=== PATIENT | female | born 1945 | race Caucasian/White ===

== ENCOUNTER 2019-02-14 18:14 | Emergency (ER) | payer OTHER ==
[2019-02-14 19:01] LABS: Urine Blood NEGATIVE (NEG); Urine Glucose NEGATIVE (NEG); Urine Protein NEGATIVE (NEG); Urine Specific Gravity 1.005 (1.005-1.030); Urine pH 5.5 (5.0-7.0)
[2019-02-14] MEDS ORDERED: ALBUTEROL 2.5 MG/3 ML NEB SOL ONE (19:06)
[2019-02-14] MEDS ORDERED: IPRATROPIUM BROM 0.5MG/2.5ML ONE (19:06)
[2019-02-14 19:30] LABS: Absolute Lymphocytes (CBC) 1.6 K/uL (0.7-4.9); Absolute Monocytes 0.4 K/uL (0.1-1.3); Absolute Neutrophil 2.7 K/uL (1.8-8.0); Basophils % 0.8 % (0-1.3); Eosinophils % 1.8 % (0-4.4); Hematocrit 35.1 % (36.0-45.0); Lymphocytes % 33.1 % (15.3-44.8); MPV 9.1 fL (7.6-11.3); Monocytes % 9.1 % (3.3-12.3); RBC Red Blood Cell Count 3.97 M/uL (3.86-4.86)
[2019-02-14 19:31] LABS: Protime INR 1.04
[2019-02-14 19:47] LABS: ALT/SGPT 27 U/L (12-78); AST/SGOT 20 U/L (15-37); Albumin 3.7 g/dL (3.4-5.0); Alkaline Phosphatase 54 U/L (45-117); BUN Blood Urea Nitrogen 20 mg/dL (7-18); Bicarbonate 27 mmol/L (21-32); Bilirubin Direct 0.2 mg/dL (0-0.2); Bilirubin Total 0.5 mg/dL (0.2-1.0); Glucose Level 133 mg/dL (74-106); NT PRO-BNP 2367 pg/mL (<450); Potassium 3.9 mmol/L (3.5-5.1); Sodium Level 141 mmol/L (136-145); Troponin (Emerg Dept Use Only) < 0.02 ng/mL (0.0-0.045)
[2019-02-14] MEDS ORDERED: ASPIRIN 81 MG CHEWABLE TABLET ONE (20:12)
[2019-02-14] MEDS ORDERED: FUROSEMIDE 20 MG/ 2ML VIAL ONE (20:12)
--- NOTE | 2019-02-14 20:22 | ER ---
Nurse's Notes [facility] Name: Naomy Rico Age: 73 yrs Sex: Female : 1945 Arrival Date: 02/14/2019 Time: 18:14 Bed 14 Private MD: Diagnosis: Unspecified combined systolic (congestive) and diastolic (congestive) heart failure Presentation: 02/14 18:20 Presenting complaint: Patient states: For the last week I have been having SOB and la1 intermittent tightness and uncomfortable in the chest. Transition of care: patient was not received from another setting of care. Onset of symptoms was February 14, 2019. Risk Assessment: Do you want to hurt yourself or someone else? Patient reports no desire to harm self or others. Initial Sepsis Screen: Does the patient meet any 2 criteria? No. Patient's initial sepsis screen is negative. Does the patient have a suspected source of infection? No. Patient's initial sepsis screen is negative. Care prior to arrival: None. 18:20 Method Of Arrival: Ambulatory la1 18:22 Acuity: PAUL 3 la1 Triage Assessment: 19:00 General: Appears in no apparent distress. comfortable, Behavior is calm, cooperative, rr5 appropriate for age. Respiratory: Onset: The symptoms/episode began/occurred gradually, the patient has mild shortness of breath. Historical: - Allergies: 18:20 Sulfa (Sulfonamide Antibiotics); la1 18:20 PENICILLINS; la1 - PMHx: 18:20 Hypertension; High Cholesterol; Diabetes - NIDDM; la1 18:21 CHF; la1 - Immunization history:: Adult Immunizations up to date. - Social history:: Smoking status: Patient/guardian denies using tobacco. - Ebola Screening: : No symptoms or risks identified at this time. Screenin:47 Abuse screen: Denies threats or abuse. Denies injuries from another. Nutritional sg screening: No deficits noted. Tuberculosis screening: No symptoms or risk factors identified. Never had TB. Fall Risk None identified. Assessment: 18:45 General: Appears in no apparent distress. well groomed, well developed, well nourished, sg Behavior is calm, cooperative, appropriate for age. Pain: Denies pain. Neuro: Level of Consciousness is awake, alert, obeys commands, Oriented to person, place, time, situation, Speech is normal, Facial symmetry appears normal. Cardiovascular: Capillary refill is brisk in bilateral fingers Patient's skin is warm and dry. Chest pain is denied. Cardiovascular: Heart tones S1 S2 present. Respiratory: Airway is patent Respiratory effort is even, unlabored. GI: Abdomen is round obese, Reports tolerance of fluids, tolerance of food, abd distention. : No signs and/or symptoms were reported regarding the genitourinary system. EENT: No signs and/or symptoms were reported regarding the EENT system. Derm: Skin is pink, warm \T\ dry. Musculoskeletal: Circulation, motion, and sensation intact. Range of motion: intact in all extremities, Swelling. 19:05 General: Appears in no apparent distress. well groomed, Behavior is calm, cooperative, rr5 appropriate for age. Pain: Denies pain. Neuro: Level of Consciousness is awake, alert, obeys commands, Oriented to person, place, time, situation, Appropriate for age Speech is normal, Facial symmetry appears normal. Cardiovascular: Rhythm is sinus bradycardia with PACs. 19:05 Respiratory: Airway is patent Respiratory effort is even, unlabored, Respiratory rr5 pattern is regular, symmetrical. GI: Abdomen is round obese, Reports tolerance of fluids, tolerance of food, abdominal distention. : No signs and/or symptoms were reported regarding the genitourinary system. EENT: No signs and/or symptoms were reported regarding the EENT system. Derm: Skin is pink, warm \T\ dry. Musculoskeletal: Circulation, motion, and sensation intact. Range of motion: intact in all extremities. 19:50 Reassessment: Patient appears in no apparent distress at this time. Patient is alert, rr5 oriented x 3, equal unlabored respirations, skin warm/dry/pink. chatting with her clinical case manager, awaiting for blood results. 20:10 Reassessment: Patient appears in no apparent distress at this time. Patient is alert, rr5 oriented x 3, equal unlabored respirations, skin warm/dry/pink. Ed provider explained the plan of care to patient and clinical case manager, agreed for it. 20:34 Reassessment: Patient appears in no apparent distress at this time. Patient is alert, rr5 oriented x 3, equal unlabored respirations, skin warm/dry/pink. discharge instruction given and explained without complaints made. Vital Signs: 18:20 Pulse 62; Resp 16; Temp 97.5; Pulse Ox 99% on R/A; Weight 84.37 kg; Height 5 ft. 6 in. la1 (167.64 cm); 18:22 BP 188 / 73; la1 19:00 BP 165 / 68; Pulse 57; Resp 20; Pulse Ox 98% on R/A; rr5 19:30 Temp 97.6; Pain 0/10; rr5 20:20 BP 161 / 76; Pulse 58; Resp 17; Temp 98; Pulse Ox 98% on R/A; Pain 0/10; rr5 18:20 Body Mass Index 30.02 (84.37 kg, 167.64 cm) la1 ED Course: 18:14 Patient arrived in ED. rg4 18:20 Arm band placed on left wrist. la1 18:23 Triage completed. la1 18:24 Nathaniel Allison PA is PHCP. cp 18:24 Mario Conrad MD is Attending Physician. cp 18:28 Jacob Cordero, WAQAR is Primary Nurse. sg 18:45 Urine collected: clean catch specimen, clear. sg 19:00 Patient has correct armband on for positive identification. Placed in gown. Bed in low rr5 position. Call light in reach. 19:20 Inserted saline lock: 22 gauge in left forearm, using aseptic technique. Blood rr5 collected. 19:38 XRAY Chest (1 view) In Process Unspecified. EDMS 20:06 Gerard Alexander MD is Attending Physician. cp 20:21 Emerson De Oliveira MD is Referral Physician. cp 20:37 No provider procedures requiring assistance completed. IV discontinued, intact, rr5 bleeding controlled, No redness/swelling at site. Pressure dressing applied. Administered Medications: 19:00 Drug: Albuterol - atroVENT (3:1) (2.5 mg - 0.5 mg) 3 ml Route: Nebulizer; rr5 20:00 Follow up: Response: No adverse reaction rr5 20:20 Drug: Aspirin Chewable Tablet 81 mg Route: PO; rr5 20:40 Follow up: Response: Medication administered at discharge. rr5 20:23 Drug: Lasix 20 mg Route: IVP; Site: left forearm; rr5 20:40 Follow up: Response: Medication administered at discharge. rr5 Outcome: 20:21 Discharge ordered by . cp 20:37 Discharged to home ambulatory, with family. rr5 20:37 Condition: stable 20:37 Discharge instructions given to patient, family, Instructed on discharge instructions, follow up and referral plans. medication usage, Demonstrated understanding of instructions, follow-up care, medications, Prescriptions given X 1. 20:39 Patient left the ED. rr5 Signatures: Dispatcher [employer] EDMS Jacob Cordero RN RN sg Adebayo Newell RN RN la1 Nathaniel Allison PA PA cp Garcia, Rubi rg4 Herberth Pearce RN RN rr5
--- NOTE | 2019-02-14 20:22 | EDPHYS ---
Physician Documentation [facility] Name: Naomy Rico Age: 73 yrs Sex: Female : 1945 Arrival Date: 02/14/2019 Time: 18:14 Bed 14 Private MD: ED Physician Gerard Alexander HPI: 02/14 18:50 This 73 yrs old Female presents to ER via Ambulatory with complaints of cp Breathing Difficulty. 18:50 The patient has shortness of breath with light activity. cp 18:50 Onset: The symptoms/episode began/occurred 1 week(s) ago. cp 18:50 Duration: The symptoms are intermittent. The patient's shortness of breath is cp aggravated by light activity. 18:50 Associated signs and symptoms: Pertinent negatives: chest pain, productive cough, cp diaphoresis, dizziness, fever, vomiting. 18:50 Severity of symptoms: in the emergency department the symptoms are unchanged despite cp home interventions. Historical: - Allergies: 18:20 Sulfa (Sulfonamide Antibiotics); la1 18:20 PENICILLINS; la1 - PMHx: 18:20 Hypertension; High Cholesterol; Diabetes - NIDDM; la1 18:21 CHF; la1 - Immunization history:: Adult Immunizations up to date. - Social history:: Smoking status: Patient/guardian denies using tobacco. - Ebola Screening: : No symptoms or risks identified at this time. ROS: 18:55 Constitutional: Negative for body aches, chills, fever, poor PO intake. cp 18:55 Eyes: Negative for injury, pain, redness, and discharge. cp 18:55 ENT: Negative for drainage from ear(s), ear pain, sore throat, difficulty swallowing. cp 18:55 Cardiovascular: Negative for chest pain, edema, palpitations. 18:55 Respiratory: Positive for shortness of breath, on exertion. Negative for cough, wheezing. 18:55 Abdomen/GI: Negative for abdominal pain, nausea, vomiting, and diarrhea, black/tarry stool, rectal bleeding. 18:55 Skin: Negative for cellulitis, rash. 18:55 Neuro: Negative for altered mental status, headache, numbness, syncope, weakness. 18:55 All other systems are negative. Exam: 18:40 ECG was reviewed by the Attending Physician. cp 19:00 Head/Face: Normocephalic, atraumatic. cp 19:00 Constitutional: The patient appears in no acute distress, alert, awake, non-diaphoretic, non-toxic, well developed, well nourished. 19:00 Eyes: Periorbital structures: appear normal, Conjunctiva: normal, no exudate, no cp injection, Lids and lashes: appear normal, bilaterally. 19:00 ENT: External ear(s): are unremarkable, Ear canal(s): are normal, clear, TM's: cp dullness, bilaterally, Nose: is normal, Mouth: Lips: moist, Oral mucosa: moist, Posterior pharynx: is normal, airway is patent, no erythema, no exudate. 19:00 Neck: ROM/movement: is normal, is supple, without pain, no range of motions limitations, no nuchal rigidity. 19:00 Chest/axilla: Inspection: normal, Palpation: is normal, no crepitus, no tenderness. 19:00 Cardiovascular: Rate: bradycardic, Rhythm: regular, Edema: is not appreciated, JVD: is not appreciated. 19:00 Respiratory: the patient does not display signs of respiratory distress, Respirations: normal, Breath sounds: are clear throughout, no decreased breath sounds, no stridor, no wheezing. 19:00 Abdomen/GI: Inspection: abdomen appears normal, Bowel sounds: normal, in all quadrants, Palpation: abdomen is soft and non-tender, in all quadrants, rebound tenderness, is not appreciated, voluntary guarding, is not appreciated, involuntary guarding, is not appreciated. 19:00 Back: pain, is absent, ROM is normal. 19:00 Skin: cellulitis, is not appreciated, no rash present. 19:00 Neuro: Orientation: to person, place \T\ time. Mentation: is normal, Motor: moves all fours. Vital Signs: 18:20 Pulse 62; Resp 16; Temp 97.5; Pulse Ox 99% on R/A; Weight 84.37 kg; Height 5 ft. 6 in. la1 (167.64 cm); 18:22 BP 188 / 73; la1 19:00 BP 165 / 68; Pulse 57; Resp 20; Pulse Ox 98% on R/A; rr5 19:30 Temp 97.6; Pain 0/10; rr5 20:20 BP 161 / 76; Pulse 58; Resp 17; Temp 98; Pulse Ox 98% on R/A; Pain 0/10; rr5 18:20 Body Mass Index 30.02 (84.37 kg, 167.64 cm) la1 MDM: 18:33 Patient medically screened. cp 19:00 Differential diagnosis: Anxiety Reaction asthma, Bronchitis CHF exacerbation, Chronic cp Obstructive Pulmonary Disease Myocardial Infarction Pneumothorax pulmonary edema, Pulmonary Embolism Unstable Angina. 20:20 Data reviewed: vital signs, nurses notes, lab test result(s), EKG, radiologic studies, cp plain films, and as a result, I will discharge patient. 20:20 Test interpretation: by ED physician or midlevel provider: ECG, plain radiologic cp studies. 20:20 Counseling: I had a detailed discussion with the patient and/or guardian regarding: the cp historical points, exam findings, and any diagnostic results supporting the discharge/admit diagnosis, lab results, radiology results, the need for outpatient follow up, a lock setter, to return to the emergency department if symptoms worsen or persist or if there are any questions or concerns that arise at home. 20:20 ED course: VSS. Oxygen sats remained above 90% during course of visit. Will discharge cp to home for f/u with cardiology. 02/14 18:45 Order name: Urine Dipstick--Ancillary (enter results); Complete Time: 19:44 dh3 02/14 19:50 Interpretation: Normal except: UESTR TRACE. 02/14 18:45 Order name: Basic Metabolic Panel; Complete Time: 19:50 02/14 19:50 Interpretation: Normal except: GLUC 133; BUN 20; GFR 44. 02/14 18:45 Order name: CBC with Diff; Complete Time: 19:44 02/14 19:44 Interpretation: Normal except: HGB 11.4; HCT 35.1. 02/14 18:45 Order name: LFT's; Complete Time: 19:50 02/14 18:45 Order name: Magnesium; Complete Time: 19:50 02/14 18:45 Order name: NT PRO-BNP; Complete Time: 19:50 02/14 19:50 Interpretation: Abnormal: NT PRO-BNP 2367. 02/14 18:45 Order name: PT-INR; Complete Time: 19:44 02/14 18:45 Order name: Troponin (emerg Dept Use Only); Complete Time: 19:50 cp 02/14 18:45 Order name: XRAY Chest (1 view) cp 02/14 18:45 Order name: EKG; Complete Time: 18:47 cp 02/14 18:45 Order name: Cardiac monitoring; Complete Time: 18:49 cp 02/14 18:45 Order name: EKG - Nurse/Tech; Complete Time: 18:49 cp 02/14 18:45 Order name: IV Saline Lock; Complete Time: 19:38 cp 02/14 18:45 Order name: Labs collected and sent; Complete Time: 19:38 cp 02/14 18:45 Order name: O2 Per Protocol; Complete Time: 18:49 cp 02/14 18:45 Order name: O2 Sat Monitoring; Complete Time: 18:49 cp EC:40 Rate is 58 beats/min. Rhythm is regular. MS interval is normal. QRS interval is cp prolonged at 154 msec. QT interval is normal. T waves are Inverted in leads I, aVL. Interpreted by me. Reviewed by me. Administered Medications: 19:00 Drug: Albuterol - atroVENT (3:1) (2.5 mg - 0.5 mg) 3 ml Route: Nebulizer; rr5 20:00 Follow up: Response: No adverse reaction rr5 20:20 Drug: Aspirin Chewable Tablet 81 mg Route: PO; rr5 20:40 Follow up: Response: Medication administered at discharge. rr5 20:23 Drug: Lasix 20 mg Route: IVP; Site: left forearm; rr5 20:40 Follow up: Response: Medication administered at discharge. rr5 Disposition: 02/15 02:18 Co-signature as Attending Physician, Gerard Alexander MD. Disposition: 02/14/19 20:21 Discharged to Home. Impression: Unspecified combined systolic (congestive) and diastolic (congestive) heart failure. - Condition is Stable. - Discharge Instructions: Heart Failure. - Prescriptions for Ativan 0.5 mg Oral Tablet - take 1 tablet by ORAL route every 8 hours As needed; 15 tablet. - Medication Reconciliation Form, Thank You Letter, Antibiotic Education, Prescription Opioid Use form. - Follow up: Emerson De Oliveira MD; When: 2 - 3 days; Reason: Recheck today's complaints. - Problem is an acute exacerbation. - Symptoms have improved. Signatures: Dispatcher [employer] EDMS Adebayo Newell RN RN la1 Nathaniel Allison PA PA cp Starr, Gregory, MD MD gs Herberth Pearce RN RN rr5 Corrections: (The following items were deleted from the chart) 02/14 20:39 20:21 02/14/2019 20:21 Discharged to Home. Impression: Unspecified combined systolic rr5 (congestive) and diastolic (congestive) heart failure. Condition is Stable. Forms are Medication Reconciliation Form, Thank You Letter, Antibiotic Education, Prescription Opioid Use. Follow up: Emerson De Oliveira; When: 2 - 3 days; Reason: Recheck today's complaints. Problem is an acute exacerbation. Symptoms have improved. cp
--- NOTE | 2019-02-14 21:00 | RAD REPORT ---
EXAM DESCRIPTION: RAD - Chest Single View - 02/14/2019 7:37 pm CLINICAL HISTORY: Shortness of breath, chest pain COMPARISON: None. TECHNIQUE: AP portable chest image was obtained 1929 hours . FINDINGS: No focal lung parenchymal process seen. Cardiomegaly is present with mildly prominent vasc ulature. Significant failure or volume overload not suspected. No measurable pleural effusion and no pneumothorax. Bony degenerative changes are present in the right humeral head and bilateral AC joints . No acute aortic findings suspected. IMPRESSION: Cardiomegaly without significant failure or volume overload. No peripheral mass or consolidation.
--- NOTE | 2019-02-15 07:54 | EKG ---
Test Date: 2019-02-14 Test Time: 18:31:55 Ethics Instructor: JAROCHO MEASUREMENT RESULTS: Intervals: Rate: 58 NJ: 166 QRSD: 154 QT: 478 QTc: 469 [place]: P: 67 NJ: 166 QRS: -58 T: 115 INTERPRETIVE STATEMENTS: Sinus bradycardia with premature atrial complexes Possible Left atrial enlargement Left axis deviation Left bundle branch block Abnormal ECG No previous ECG available for comparison Electronically Signed On 02-15-19 07:53:41 CDT by Arian Falcon
== END 2019-02-14 20:39 | disposition home or self-care (01) ==
LOC: ER 18:14
DX: I11.0 Hypertensive heart disease with heart failure (principal); I50.40 Unspecified combined systolic (congestive) and diastolic (congestive) heart failure; E78.00 Pure hypercholesterolemia, unspecified; E11.9 Type 2 diabetes mellitus without complications; Z88.0 Allergy status to penicillin; Z88.2 Allergy status to sulfonamides
CPT/HCPCS: 93005; 85025; 80048; 36415; 83735; 85610; 80076; 81003; 84484; 83880; 71045; 94640; 96374; 99285; J1940

== ENCOUNTER 2019-02-23 13:04 | Emergency (ER) | payer OTHER ==
--- OUTSIDE RECORDS SUMMARY | 2019-02-23 13:06 | XMS REPORT | Summary of Care ---
:1945 Author Organization [facility] [place] Address [address], [address] [place] [address]- Encounter [facility] Encntr_justo(FIN) [id number] Date(s): 12/02/17 - 12/02/17 [facility] [place] [address] [place], [place] [phone] Discharge Disposition: Home or Self Care Attending Physician: Valentin Gupta MD Referring Physician: Valentin Gupta MD Vital Signs Most recent to oldest [Reference Range]: 1 Blood Pressure [90-140/60-90 mmHg] 151/65 mmHg *HI* (12/02/17 10:13 AM) Peripheral Pulse Rate [60-100 bpm] 61 bpm (12/02/17 10:13 AM) Weight 83.182 kg (12/02/17 10:13 AM) Problem List Condition Effective Dates Status Health Status Informant Blocked artery(Confirmed)1 Active Depression(Confirmed) Active Diabetes(Confirmed) Resolved Heart attack(Confirmed) Resolved HTN - Hypertension(Confirmed) Active Hyperlipidemia(Confirmed) Active Hypertension(Confirmed) 11/23/10 Active Meniscus, lateral, 11/23/10 Active derangement(Confirmed) Migraines(Confirmed) Resolved 1Heart Allergies, Adverse Reactions, Alerts Substance Reaction Severity Status penicillins itch Active sulfa drugs anaphylaxis Active itch Medications No Known Medications Results No data available for this section Immunizations No data available for this section Procedures Procedure Date Related Diagnosis Body Site Status Measurement of post-voiding residual 12/02/17 Completed urine and/or bladder capacity by ultrasound, non-imaging UPPP - Uvulopalatopharyngoplasty 1989 Completed Arthroscopy of knee Completed Arthroscopy of knee Completed Cardiac catheterization Completed Hysterectomy Completed Prosthetic replacement of cervical Completed intervertebral disc Repair of rectocele Completed Shoulder repair Completed Social History Social History Type Response Smoking Status Former smoker; Exposure to Tobacco Smoke None; Cigarette Smoking Last 365 Days No; Reg Smoking Cessation Counseling No entered on: 12/02/17 Assessment and Plan No data available for this section
--- OUTSIDE RECORDS SUMMARY | 2019-02-23 13:06 | XMS REPORT | Summary of Care ---
:1945 Author Organization [facility] [place] Address [address] [address]- Encounter [facility] Encntr_justo(FIN) [id number] Date(s): 06/09/15 - 06/09/15 [facility] [place] [id number] [place] [address] Discharge Disposition: Home Attending Physician: Jaguar Sheridan MD Vital Signs No data available for this section Problem List Condition Effective Dates Status Health Status Informant Blocked artery(Confirmed)1 Active Depression(Confirmed) Active Heart attack(Confirmed) Resolved HTN - Hypertension(Confirmed) Active Hyperlipidemia(Confirmed) Active Hypertension(Confirmed) 11/23/10 Active LBB - Left bundle branch(Confirmed) Active Meniscus, lateral, 11/23/10 Active derangement(Confirmed) 1Heart Allergies, Adverse Reactions, Alerts Substance Reaction Severity Status penicillins itch Active sulfa drugs itch Active anaphylaxis Medications No data available for this section Results No data available for this section Immunizations No data available for this section Procedures Procedure Date Related Diagnosis Body Site UPPP - Uvulopalatopharyngoplasty 1989 Arthroscopy of knee Arthroscopy of knee Cardiac catheterization Hysterectomy Prosthetic replacement of cervical intervertebral disc Repair of rectocele Shoulder repair Social History Social History Type Response Assessment and Plan No data available for this section
--- OUTSIDE RECORDS SUMMARY | 2019-02-23 13:07 | XMS REPORT ---
:1945 Author Organization [facility] Address [address] [place] [address] [address] [place] [address] Care Team Providers Name Role Phone Unavailable Unavailable Unavailable Problems This patient has no known problems. Allergies, Adverse Reactions, Alerts This patient has no known allergies or adverse reactions. Medications This patient has no known medications.
--- OUTSIDE RECORDS SUMMARY | 2019-02-23 13:07 | XMS REPORT | Summary of Care ---
:1945 Author Organization [facility] Address [address] [place] [address]- Encounter HQ Encntr_justo(FIN) [id number] Date(s): 11/10/16 - 11/10/16 [facility] [address] [place] [address]- Discharge Disposition: Home or Self Care Attending Physician: Jefry Mobley MD Admitting Physician: Jefry Mobley MD Vital Signs Most recent to oldest 1 2 3 [Reference Range]: Height 167.64 cm (11/10/16 11:01 AM) Temperature Oral [96.4-99.1 98.2 DegF 98.3 DegF 98.3 DegF DegF] (11/10/16 7:44 PM) (11/10/16 3:26 PM) (11/10/16 11:01 AM) Blood Pressure [90-140/60-90 174/89 mmHg 156/72 mmHg 155/76 mmHg mmHg] *HI* *HI* *HI* (11/10/16 7:44 PM) (11/10/16 3:26 PM) (11/10/16 2:35 PM) Respiratory Rate [14-20 18 BRMIN 16 BRMIN 16 BRMIN BRMIN] (11/10/16 7:44 PM) (11/10/16 3:26 PM) (11/10/16 2:35 PM) Peripheral Pulse Rate [60-100 67 bpm 68 bpm 60 bpm bpm] (11/10/16 7:44 PM) (11/10/16 3:26 PM) (11/10/16 2:35 PM) Weight 83.182 kg (11/10/16 11:01 AM) Body Mass Index 29.6 m2 (11/10/16 11:01 AM) Problem List Condition Effective Dates Status Health Status Informant Blocked artery(Confirmed)1 Active Depression(Confirmed) Active Heart attack(Confirmed) Resolved HTN - Hypertension(Confirmed) Active Hyperlipidemia(Confirmed) Active Hypertension(Confirmed) 11/23/10 Active Meniscus, lateral, 11/23/10 Active derangement(Confirmed) 1Heart Allergies, Adverse Reactions, Alerts Substance Reaction Severity Status penicillins itch Active sulfa drugs itch Active anaphylaxis Medications acetaminophen 650 mg, 2 tab, Route: PO, Drug form: TAB, Q4H, Dosing Weight 83.182, kg, PRN Pain 1-3/Temp > 100.4 F, Start date: 11/10/16 13:31:00 DIRECT SELLING COUNSELOR, Duration: 30 day, Stop date: 12/10/16 13:30:00 CDT Notes: Do not exceed 4 gm/day. (Same as: Tylenol) Start Date: 11/10/16 Stop Date: 11/11/16 Status: DiscontinuedamLODIPine 10 mg, 1 tab, Route: PO, Drug form: TAB, Daily, Dosing Weight 83.182, kg, Start date: 11/11/16 9:00:00 DIRECT SELLING COUNSELOR, Duration: 30 day, Stop date: 12/10/16 9:00:00 CDT Notes: (Same as: Norvasc) Start Date: 11/11/16 Stop Date: 11/11/16 Status: CanceledamLODIPine 10 mg oral tablet 10 mg=1 tab, PO, Daily, # 30 tab, 0 Refill(s) Start Date: 11/10/16 Status: Orderedaspirin 324 mg, 4 tab, Route: CHEW, Drug form: CHEWTAB, ONCE, Dosing Weight 83.182, kg, Priority: STAT, Start date: 11/10/16 12:33:00 DIRECT SELLING COUNSELOR, Stop date: 11/10/16 12:33:00 DIRECT SELLING COUNSELOR Notes: Take with food. Start Date: 11/10/16 Stop Date: 11/10/16 Status: Completedciprofloxacin 500 mg oral tablet 500 mg=1 tab, PO, Q12H, X 5 day, # 10 tab, 0 Refill(s), other Start Date: 11/10/16 Stop Date: 11/10/16 Status: Discontinuedciprofloxacin 500 mg oral tablet 500 mg=1 tab, PO, Q12H, X 5 day, # 10 tab, 0 Refill(s) Start Date: 11/10/16 Stop Date: 11/15/16 Status: OrderedclonazePAM 0.5 mg, 1 tab, Route: PO, Drug form: TAB, Bedtime, Dosing Weight 83.182, kg, Start date: 11/10/16 21:00:00 DIRECT SELLING COUNSELOR, Duration: 30 day, Stop date: 12/09/16 21:00: 00 CDT Notes: (Same As: KlonoPIN) Start Date: 11/10/16 Stop Date: 11/11/16 Status: DiscontinuedclonazePAM 0.5 mg oral tablet 0.5 mg=1 tab, PO, Bedtime, 0 Refill(s) Start Date: 11/10/16 Status: OrderedCoreg 6.25 mg, 1 tab, Route: PO, Drug form: TAB, BID, Dosing Weight 83.182, kg, Start date: 11/10/16 17:00:00 DIRECT SELLING COUNSELOR, Duration: 30 day, Stop date: 12/10/16 9:00:00 CDT Notes: (Same As: Coreg) Start Date: 11/10/16 Stop Date: 11/11/16 Status: DiscontinuedCoreg 6.25 mg oral tablet 6.25 mg=1 tab, PO, BID, # 60 tab, 0 Refill(s) Start Date: 11/10/16 Status: OrderedCozaar 100 mg, 1 tab, Route: PO, Drug form: TAB, Daily, Start date: 11/11/16 9:00:00 DIRECT SELLING COUNSELOR, Duration: 30 day,Stop date: 12/10/16 9:00:00 CDT Notes: (Same as: Cozaar) Start Date: 11/11/16 Stop Date: 11/11/16 Status: CanceledCrestor 40 mg, 4 tab, Route: PO, Drug form: TAB, Bedtime, Dosing Weight 83.182, kg, Start date: 11/10/16 21:00:00 DIRECT SELLING COUNSELOR, Duration: 30 day, Stop date: 12/09/16 21:00: 00 CDT Notes: (Same As: Crestor) Start Date: 11/10/16 Stop Date: 11/11/16 Status: DiscontinuedDextrose 50% Syringe 12.5 gm, 25 mL, Route: IVP, Drug Form: INJ, Dosing Weight 83.182, kg, PRN, PRN Blood Glucose Results, Start date: 11/10/16 13:34:00 DIRECT SELLING COUNSELOR, Duration: 30 day, Stop date: 12/10/16 14:33:00 CDT Start Date: 11/10/16 Stop Date: 11/11/16 Status: DiscontinuedDextrose 50% Syringe 25 gm, 50 mL, Route: IVP, Drug Form: INJ, Dosing Weight 83.182, kg, PRN, PRN Blood Glucose Results, Start date: 11/10/16 13:34:00 DIRECT SELLING COUNSELOR, Duration: 30 day, Stop date: 12/10/16 14:33:00 CDT Start Date: 11/10/16 Stop Date: 11/11/16 Status: Discontinueddocusate 100 mg, 1 cap, Route: PO, Drug form: CAP, BID, Dosing Weight 83.182, kg, PRN Constipation, Start date: 11/10/16 13:31:00 DIRECT SELLING COUNSELOR, Duration: 30 day, Stop date: 13:30:00 CDT Notes: (Same as: Colace) (Do Not Crush) Start Date: 11/10/16 Stop Date: 11/11/16 Status: Discontinuedfenofibrate 160 mg oral tablet 160 mg=1 tab, PO, Daily, # 30 tab, 0 Refill(s) Start Date: 11/10/16 Status: Orderedfenofibrate 160 mg oral tablet 145 mg, 1 tab, Route: PO, Drug form: TAB, Daily, Dosing Weight 83.182, kg, Start date: 11/11/16 9:00:00 DIRECT SELLING COUNSELOR, Duration: 30 day, Stop date: 12/10/16 9:00:00 CDT Notes: (Same as: Tricor) Start Date: 11/11/16 Stop Date: 11/11/16 Status: Canceledglucagon 1 mg, Route: IM, Drug form: PDR/INJ, PRN, Dosing Weight 83.182, kg, PRN Blood Glucose Results, Startdate: 11/10/16 13:34:00 DIRECT SELLING COUNSELOR, Duration: 30 day, Stop date: 12/10/16 14:33:00 CDT Start Date: 11/10/16 Stop Date: 11/11/16 Status: Discontinuedhydrochlorothiazide 25 mg oral tablet 25 mg, 1 tab, Route: PO, Drug form: TAB, Daily, Start date: 11/11/16 9:00:00 DIRECT SELLING COUNSELOR , Duration: 30 day, Stop date: 12/10/16 9:00:00 CDT Notes: (Same as: Hydrodiuril) With food. Start Date: 11/11/16 Stop Date: 11/11/16 Status: Canceledhydrochlorothiazide-losartan 25 mg-100 mg oral tablet 1 tab, PO, Daily, # 30 tab, 0 Refill(s) Start Date: 11/10/16 Status: Orderedhydrochlorothiazide-losartan 25 mg-100 mg oral tablet 1 tab, Route: PO, Drug Form: TAB, Dosing Weight 83.182, kg, Daily, Start date: 11/11/16 9:00:00 DIRECT SELLING COUNSELOR,Duration: 30 day, Stop date: 12/10/16 9:00:00 CDT Start Date: 11/11/16 Stop Date: 11/10/16 Status: Deletedinsulin aspart 2 unit, 0.02 mL, Route: SUB-Q, Drug form: SOLN, Bedtime, Dosing Weight 83.182, kg, PRN Blood GlucoseResults, Start date: 11/10/16 13:34:00 DIRECT SELLING COUNSELOR, Duration: 30 day, Stop date: 12/10/16 13:33:00 CDT Notes: Roll in palms of hands gently; Do not shake vigorously. (Same as: NovoLOG)"single patient use only"WASTE: F/P - Black; E - Municipal Trash Bin Stable for 28 days at room temperature.Expires in days from Date Start Date: 11/10/16 Stop Date: 11/11/16 Status: Discontinuedinsulin aspart 1 unit, 0.01 mL, Route: SUB-Q, Drug form: SOLN, Bedtime, Dosing Weight 83.182, kg, PRN Blood GlucoseResults, Start date: 11/10/16 13:34:00 DIRECT SELLING COUNSELOR, Duration: 30 day, Stop date: 12/10/16 13:33:00 CDT Notes: Roll in palms of hands gently; Do not shake vigorously. (Same as: NovoLOG)"single patient use only"WASTE: F/P - Black; E - Municipal Trash Bin Stable for 28 days at room temperature.Expires in days from Date Start Date: 11/10/16 Stop Date: 11/11/16 Status: Discontinuedinsulin aspart 4 unit, 0.04 mL, Route: SUB-Q, Drug form: SOLN, Bedtime, Dosing Weight 83.182, kg, PRN Blood GlucoseResults, Start date: 11/10/16 13:34:00 DIRECT SELLING COUNSELOR, Duration: 30 day, Stop date: 12/10/16 13:33:00 CDT Notes: Roll in palms of hands gently; Do not shake vigorously. (Same as: adflyerLOG)"single patient use only"WASTE: F/P - Black; E - Municipal Trash Bin Stable for 28 days at room temperature.Expires in days from Date Start Date: 11/10/16 Stop Date: 11/11/16 Status: Discontinuedinsulin aspart 3 unit, 0.03 mL, Route: SUB-Q, Drug form: SOLN, Bedtime, Dosing Weight 83.182, kg, PRN Blood GlucoseResults, Start date: 11/10/16 13:34:00 DIRECT SELLING COUNSELOR, Duration: 30 day, Stop date: 12/10/16 13:33:00 CDT Notes: Roll in palms of hands gently; Do not shake vigorously. (Same as: NovoLOG)"single patient use only"WASTE: F/P - Black; E - Municipal Trash Bin Stable for 28 days at room temperature.Expires in days from Date Start Date: 11/10/16 Stop Date: 11/11/16 Status: Discontinuedinsulin aspart 6 unit, 0.06 mL, Route: SUB-Q, Drug form: SOLN, TID-Before Meals, Dosing Weight 83.182, kg, PRN Blood Glucose Results, Start date: 11/10/16 13:34:00 DIRECT SELLING COUNSELOR, Duration: 30 day, Stop date: 12/10/16 13:33:00 CDT Notes: Roll in palms of hands gently; Do not shake vigorously. (Same as: NovoLOG)"single patient use only"WASTE: F/P - Black; E - Municipal Trash Bin Stable for 28 days at room temperature.Expires in days from Date Start Date: 11/10/16 Stop Date: 11/11/16 Status: Discontinuedinsulin aspart 4 unit, 0.04 mL, Route: SUB-Q, Drug form: SOLN, TID-Before Meals, Dosing Weight 83.182, kg, PRN Blood Glucose Results, Start date: 11/10/16 13:34:00 DIRECT SELLING COUNSELOR, Duration: 30 day, Stop date: 12/10/16 13:33:00 CDT Notes: Roll in palms of hands gently; Do not shake vigorously. (Same as: GFS IT)"single patient use only"WASTE: F/P - Black; E - Municipal Trash Bin Stable for 28 days at room temperature.Expires in days from Date Start Date: 11/10/16 Stop Date: 11/11/16 Status: Discontinuedinsulin aspart 10 unit, 0.1 mL, Route: SUB-Q, Drug form: SOLN, TID-Before Meals, Dosing Weight 83.182, kg, PRN Blood Glucose Results, Start date: 11/10/16 13:34:00 DIRECT SELLING COUNSELOR, Duration: 30 day, Stop date: 12/10/16 13:33:00 CDT Notes: Roll in palms of hands gently; Do not shake vigorously. (Same as: GFS IT)"single patient use only"WASTE: F/P - Black; E - Municipal Trash Bin Stable for 28 days at room temperature.Expires in days from Date Start Date: 11/10/16 Stop Date: 11/11/16 Status: Discontinuedinsulin aspart 8 unit, 0.08 mL, Route: SUB-Q, Drug form: SOLN, TID-Before Meals, Dosing Weight 83.182, kg, PRN Blood Glucose Results, Start date: 11/10/16 13:34:00 DIRECT SELLING COUNSELOR, Duration: 30 day, Stop date: 12/10/16 13:33:00 CDT Notes: Roll in palms of hands gently; Do not shake vigorously. (Same as: NovoLOG)"single patient use only"WASTE: F/P - Black; E - Municipal Trash Bin Stable for 28 days at room temperature.Expires in days from Date Start Date: 11/10/16 Stop Date: 11/11/16 Status: Discontinuedinsulin aspart 2 unit, 0.02 mL, Route: SUB-Q, Drug form: SOLN, TID-Before Meals, Dosing Weight 83.182, kg, PRN Blood Glucose Results, Start date: 11/10/16 13:34:00 DIRECT SELLING COUNSELOR, Duration: 30 day, Stop date: 12/10/16 13:33:00 CDT Notes: Roll in palms of hands gently; Do not shake vigorously. (Same as: NovoLOG)"single patient use only"WASTE: F/P - Black; E - Municipal Trash Bin Stable for 28 days at room temperature.Expires in days from Date Start Date: 11/10/16 Stop Date: 11/11/16 Status: DiscontinuedLevaquin 750 mg, Route: IVPB, Drug form: SOLN, ONCE, Dosing Weight 83.182, kg, Start date : 11/10/16 12:19:00 DIRECT SELLING COUNSELOR, Stop date: 11/10/16 12:19:00 DIRECT SELLING COUNSELOR Start Date: 11/10/16 Stop Date: 11/10/16 Status: CompletedLevaquin 750 mg, 150 mL, Route: IV, Drug form: SOLN, [id number], Dosing Weight 83.182, kg, Start date: 11/12/16 12:00:00 DIRECT SELLING COUNSELOR, Duration: 30 day, Stop date: 12/10/16 12:00: 00 CDT Notes: (Same as:Levaquin) Start Date: 11/12/16 Stop Date: 11/11/16 Status: CanceledmetFORMIN 1,000 mg, PO, BID, 0 Refill(s) Start Date: 11/10/16 Status: OrderedmetFORMIN 1,000 mg, 2 tab, Route: PO, Drug form: TAB, BID-Meals, Dosing Weight 83.182, kg , Start date: 11/10/16 17:00:00 DIRECT SELLING COUNSELOR, Duration: 30 day, Stop date: 12/10/16 8:00: 00 CDT Notes: (Same as: Glucophage) Take with meal Start Date: 11/10/16 Stop Date: 11/11/16 Status: DiscontinuedNorco 10/325 oral tablet 1 tab, Route: PO, Drug Form: TAB, Dosing Weight 83.182, kg, Bedtime, Start date : 11/10/16 21:00:00 DIRECT SELLING COUNSELOR, Duration: 30 day, Stop date: 12/09/16 21:00:00 CDT Notes: (Same as: Eccles 325/5) Do not exceed 4gm/day of acetaminophen. Start Date: 11/10/16 Stop Date: 11/11/16 Status: DiscontinuedNorco 10/325 oral tablet 1 tab, PO, Bedtime, 0 Refill(s) Start Date: 11/10/16 Status: OrderedNS (Bolus) IV 1,000 mL, 1,000 ml/hr, Infuse Over: 1 hr, Route: IV, 1,000, Drug form: INJ, ONCE , Priority: STAT, Dosing Weight 83.182 kg, Start date: 11/10/16 11:57:00 DIRECT SELLING COUNSELOR, Duration: 1 doses or times, Stop date: 11/10/16 11:57:00 DIRECT SELLING COUNSELOR Start Date: 11/10/16 Stop Date: 11/10/16 Status: Completedondansetron 4 mg, 2 mL, Route: IVP, Drug form: INJ, Q8H, Dosing Weight 83.182, kg, PRN Nausea & Vomiting, Start date: 11/10/16 13:31:00 DIRECT SELLING COUNSELOR, Duration: 30 day, Stop date: 12/10/16 13:30:00 CDT Notes: (Same as: Zofran) MEDICATION WASTE Product Size: 4 mgProduct Wasted: ___ mg Start Date: 11/10/16 Stop Date: 11/11/16 Status: Discontinuedpotassium chloride 40 mEq, Route: PO, Drug form: ERTAB, ONCE, Dosing Weight 83.182, kg, Priority: STAT, Start date: 11/10/16 12:19:00 DIRECT SELLING COUNSELOR, Stop date: 11/10/16 12:19:00 DIRECT SELLING COUNSELOR Start Date: 11/10/16 Stop Date: 11/10/16 Status: CompletedSaline Flush 0.9% 10 ml, Route: IVP, Drug Form: INJ, Dosing Weight 83.182, kg, PRN, PRN Line Flush , Start date: 11/10/16 13:31:00 DIRECT SELLING COUNSELOR, Duration: 30 day, Stop date: 12/10/16 14:30 :00 CDT Notes: (Same as: BD Posiflush) Start Date: 11/10/16 Stop Date: 11/11/16 Status: Discontinuedsodium chloride 0.9% 1000 ml INJ 1,000 mL 1,000 mL, Rate: 125 ml/hr, Infuse over: 8 hr, Route: IV, Dosing Weight 83.182 kg , Total Volume: 1,000, Start date: 11/10/16 13:31:00 DIRECT SELLING COUNSELOR, Duration: 30 day, Stop date: 12/10/16 13:30:00 CDT Start Date: 11/10/16 Stop Date: 11/11/16 Status: Discontinued Results ELECTROLYTES Most recent to oldest [Reference Range]: 1 2 3 Sodium Lvl [135-145 mEq/L] 141 mEq/L (11/10/16 11:38 AM) Potassium Lvl [3.5-5.1 mEq/L] 3.2 mEq/L *LOW* (11/10/16 11:38 AM) Chloride Lvl [95-109 mEq/L] 101 mEq/L (11/10/16 11:38 AM) CO2 [24-32 mEq/L] 28 mEq/L (11/10/16 11:38 AM) AGAP [10.0-20.0 mEq/L] 15.2 mEq/L (11/10/16 11:38 AM) CHEM PANEL Most recent to oldest [Reference Range]: 1 2 3 Creatinine Lvl [0.50-1.40 mg/dL] 1.30 mg/dL (11/10/16 11:38 AM) eGFR 41 mL/min/1.73m2 1 *NA* (11/10/16 11:38 AM) BUN [7-22 mg/dL] 25 mg/dL *HI* (11/10/16 11:38 AM) B/C Ratio [6-25] 19 (11/10/16 11:38 AM) Glucose Lvl [70-99 mg/dL] 153 mg/dL *HI* (11/10/16 11:38 AM) Total Protein [6.4-8.4 g/dL] 6.9 g/dL (11/10/16 11:38 AM) Albumin Lvl [3.5-5.0 g/dL] 3.8 g/dL (11/10/16 11:38 AM) Globulin [2.7-4.2 g/dL] 3.1 g/dL (11/10/16 11:38 AM) A/G Ratio [0.7-1.6] 1.2 (11/10/16 11:38 AM) Calcium Lvl [8.5-10.5 mg/dL] 9.6 mg/dL (11/10/16 11:38 AM) ALT [0-65 unit/L] 20 unit/L (11/10/16 11:38 AM) AST [0-37 unit/L] 13 unit/L (11/10/16 11:38 AM) Alk Phos [39-136 unit/L] 52 unit/L (11/10/16 11:38 AM) Bili Total [0.2-1.3 mg/dL] 0.5 mg/dL (11/10/16 11:38 AM) Lactic Acid Lvl [0.5-2.2 mMol/L] 2.8 mMol/L *HI* (11/10/16 11:38 AM) 1Result Comment: The eGFR is calculated using the CKD-EPI formula. In most young , healthy individualsthe eGFR will be >90 mL/min/1.73m2. The eGFR declines with age. An eGFR of 60-89 may be normal in some populations, particularly the elderly, for whom the CKD-EPI formula has not been extensively validated. Use of the eGFR is not recommended in the following populations: Individuals with unstable creatinine concentrations, including patients and those with serious co-morbid conditions. Patients with extremes in muscle mass or diet. The data above are obtained from the National Kidney Disease Education Program ( NKDEP) which additionally recommends that when the eGFR is used in patients with extremes of body mass index for purposesof drug dosing, the eGFR should be multiplied by the estimated BMI.CARDIAC ENZYMES Most recent to oldest 1 2 3 [Reference Range]: Total CK [12-191 unit/L] 137 unit/L (11/10/16 11:38 AM) CK MB [0.5-3.6 ng/mL] 0.9 ng/mL (11/10/16 11:38 AM) CK MB Index [0.0-2.5] 0.7 (11/10/16 11:38 AM) Troponin-I [0.00-0.40 ng/mL] <0.02 ng/mL <0.02 ng/mL <0.02 ng/mL (11/10/16 7:51 PM) (11/10/16 3:55 PM) (11/10/16 11:38 AM) BNP [<=100 pg/mL] 233 pg/mL *HI* (11/10/16 11:38 AM) URINE AND STOOL Most recent to oldest [Reference Range]: 1 2 3 UA Turbidity [Clear] Marked *ABN* (11/10/16 11:49 AM) UA Color [Yellow] Dark Yellow *NA* (11/10/16 11:49 AM) UA pH [5.0-8.0] 5.0 (11/10/16 11:49 AM) UA Spec Grav [<=1.030] 1.023 (11/10/16 11:49 AM) UA Glucose [Negative mg/dL] Negative mg/dL *NA* (11/10/16 11:49 AM) UA Blood [Negative] Negative (11/10/16 11:49 AM) UA Ketones [Negative mg/dL] Trace mg/dL *ABN* (11/10/16 11:49 AM) UA Protein [Negative mg/dL] 30 mg/dL *ABN* (11/10/16 11:49 AM) UA Urobilinogen [0.1-1.0 mg/dL] <=1.0 mg/dL *NA* (11/10/16 11:49 AM) UA Bili [Negative] Negative *NA* (11/10/16 11:49 AM) UA Leuk Est [Negative] Moderate *ABN* (11/10/16 11:49 AM) UA Nitrite [Negative] Negative (11/10/16 11:49 AM) UA WBC [0-5 /HPF] 19 /HPF *HI* (11/10/16 11:49 AM) UA RBC [0-2 /HPF] 31 /HPF *HI* (11/10/16 11:49 AM) UA Bacteria [None Seen /HPF] Occasional /HPF *NA* (11/10/16 11:49 AM) UA Sq Epi [Few /LPF] Occasional /LPF *NA* (11/10/16 11:49 AM) UA Hyal Cast [0-2 /LPF] 31 /LPF *HI* (11/10/16 11:49 AM) UA CaOx Olinda [None Seen /HPF] Moderate /HPF *ABN* (11/10/16 11:49 AM) UA Mucus [None Seen /LPF] Few /LPF *NA* (11/10/16 11:49 AM) HEMATOLOGY Most recent to oldest [Reference Range]: 1 2 3 WBC [3.7-10.4 K/CMM] 6.8 K/CMM (11/10/16 11:38 AM) RBC [4.20-5.40 M/CMM] 4.74 M/CMM (11/10/16 11:38 AM) Hgb [12.0-16.0 g/dL] 13.5 g/dL (11/10/16 11:38 AM) Hct [36.0-48.0 %] 41.4 % (11/10/16 11:38 AM) MCV [80.0-98.0 fL] 87.3 fL (11/10/16 11:38 AM) MCH [27.0-31.0 pg] 28.5 pg (11/10/16 11:38 AM) MCHC [32.0-36.0 g/dL] 32.7 g/dL (11/10/16 11:38 AM) RDW [11.5-14.5 %] 14.4 % (11/10/16 11:38 AM) Platelet [133-450 K/CMM] 183 K/CMM (11/10/16 11:38 AM) MPV [7.4-10.4 fL] 8.7 fL (11/10/16 11:38 AM) Segs [45.0-75.0 %] 54.5 % (11/10/16 11:38 AM) Lymphocytes [20.0-40.0 %] 35.7 % (11/10/16 11:38 AM) Monocytes [2.0-12.0 %] 7.9 % (11/10/16 11:38 AM) Eosinophils [0.0-4.0 %] 1.2 % (11/10/16 11:38 AM) Basophils [0.0-1.0 %] 0.7 % (11/10/16 11:38 AM) Segs-Bands # [1.5-8.1 K/CMM] 3.7 K/CMM (11/10/16 11:38 AM) Lymphocytes # [1.0-5.5 K/CMM] 2.4 K/CMM (11/10/16 11:38 AM) Monocytes # [0.0-0.8 K/CMM] 0.5 K/CMM (11/10/16 11:38 AM) Eosinophils # [0.0-0.5 K/CMM] 0.1 K/CMM (11/10/16 11:38 AM) Immunizations No data available for this section Procedures Procedure Date Related Diagnosis Body Site UPPP - Uvulopalatopharyngoplasty 1989 Arthroscopy of knee Arthroscopy of knee Cardiac catheterization Hysterectomy Prosthetic replacement of cervical intervertebral disc Repair of rectocele Shoulder repair Social History Social History Type Response Smoking Status Never smoker; Exposure to Tobacco Smoke None; Cigarette Smoking Last 365 Days No; Reg Smoking Cessation Counseling No Assessment and Plan No data available for this section
--- NOTE | 2019-02-23 15:36 | ER ---
Nurse's Notes [facility] Name: Naomy Rico Age: 73 yrs Sex: Female : 1945 Arrival Date: 02/23/2019 Time: 13:08 Bed 28 Private MD: Diagnosis: Combined systolic (congestive) and diastolic (congestive) heart failure Presentation: 02/23 13:37 Presenting complaint: Patient states: was prescribed lorazepam 0.5 mg Q8H last week iw when she was seen here, is worried because she took her last pill last night and has been having anxiety due to SOB and gasping and she states her BP goes irina high when she tries to do anything, is due to see Dr. De Oliveira on , states the lorazepam has been helping her be able to function. Transition of care: patient was not received from another setting of care. Onset of symptoms was February 23, 2019. Risk Assessment: Do you want to hurt yourself or someone else? Patient reports no desire to harm self or others. Initial Sepsis Screen: Does the patient meet any 2 criteria? No. Patient's initial sepsis screen is negative. Does the patient have a suspected source of infection? No. Patient's initial sepsis screen is negative. Care prior to arrival: None. 13:37 Method Of Arrival: Ambulatory iw 13:37 Acuity: PAUL 3 iw Historical: - Allergies: 13:43 PENICILLINS; iw 13:43 Sulfa (Sulfonamide Antibiotics); iw - Home Meds: 13:48 metformin 1,000 mg Oral tr24 2 tabs once daily [Active]; Crestor 40 mg oral tab 1 tab iw once daily [Active]; fenofibrate 160 mg oral tab 1 tab once daily [Active]; carvedilol 25 mg oral tab 2 times per day [Active]; losartan 50 mg oral tab 1 tab 2 times per day [Active]; clonidine HCl 0.1 mg Oral tab 1/2 tab daily [Active]; clonidine 0.2 mg/24 hr transdermal ptwk 1 patch once wkly [Active]; hydrocodone-acetaminophen 7.5-300 mg Oral tab 1 tab every 6 hours [Active]; ropinirole 1 mg oral tab 1 tab [Active]; - PMHx: 13:43 CHF; Diabetes - NIDDM; High Cholesterol; Hypertension; iw 13:48 restless leg; iw - PSHx: 13:48 Appendectomy; Hysterectomy; UPPP; iw - Immunization history:: Adult Immunizations unknown. - Ebola Screening: : Patient negative for fever greater than or equal to 101.5 degrees Fahrenheit, and additional compatible Ebola Virus Disease symptoms Patient denies exposure to infectious person Patient denies travel to an Ebola-affected area in the 21 days before illness onset No symptoms or risks identified at this time. - Social history:: Smoking status: unknown. Screenin:45 Abuse screen: Denies threats or abuse. Denies injuries from another. Nutritional rv screening: No deficits noted. Tuberculosis screening: No symptoms or risk factors identified. Fall Risk None identified. Assessment: 15:45 General: Appears in no apparent distress. comfortable, Behavior is calm, cooperative. rv Pain: Denies pain. Neuro: Level of Consciousness is awake, alert, obeys commands, Oriented to person, place, time, situation, Reports. Cardiovascular: Patient's skin is warm and dry. Respiratory: Airway is patent. GI: No signs and/or symptoms were reported involving the gastrointestinal system. : No signs and/or symptoms were reported regarding the genitourinary system. EENT: No signs and/or symptoms were reported regarding the EENT system. Derm: Skin is intact. Musculoskeletal: No signs and/or symptoms reported regarding the musculoskeletal system. Vital Signs: 13:48 BP 163 / 66; Pulse 52; Resp 16; Temp 98.5(TE); Pulse Ox 97% on R/A; iw 15:47 BP 168 / 96; Pulse 55; Resp 16; Temp 98.4; Pulse Ox 98% ; rv ED Course: 13:08 Patient arrived in ED. mr 13:43 Triage completed. iw 14:53 Silvestre Gann, WAQAR is Primary Nurse. rv 14:58 Santhosh Aguilar MD is Attending Physician. ps1 15:15 Arm band placed on. iw 15:35 Emerson De Oliveira MD is Referral Physician. ps1 15:46 Patient has correct armband on for positive identification. Bed in low position. Call rv light in reach. Pulse ox on. NIBP on. 15:46 No provider procedures requiring assistance completed. Patient did not have IV access rv during this emergency room visit. Administered Medications: No medications were administered Outcome: 15:36 Discharge ordered by . ps1 15:47 Discharged to home ambulatory. rv 15:47 Condition: good 15:47 Discharge instructions given to patient, Instructed on discharge instructions, follow up and referral plans. Demonstrated understanding of instructions, follow-up care. 15:48 Patient left the ED. iw Signatures: Marietta Downing Irene, RN RN iw Santhosh Aguilar MD MD ps1 Silvestre Gann RN RN rv
--- NOTE | 2019-02-23 15:36 | EDPHYS ---
Physician Documentation [facility] Name: Naomy Rico Age: 73 yrs Sex: Female : 1945 Arrival Date: 02/23/2019 Time: 13:08 Bed 28 Private MD: ED Physician Santhosh Aguilar HPI: 02/23 15:30 This 73 yrs old Female presents to ER via Ambulatory with complaints of ps1 Medication Refill. 15:30 patient was having increased anxiety over her heart failure symptoms of shortness of ps1 breath. Patient was rx xanax on previous evaluation in the ED. Patient has taken all of her medications and has an appointment with Dr. De Oliveira for reevaluation of her HF this week. Patient is not in distress. She has not increased her lasix dose and thought that she needed a refill to prevent her from having symptoms. She does not have edema, speaking in full sentences, and not in distress. . Historical: - Allergies: 13:43 PENICILLINS; iw 13:43 Sulfa (Sulfonamide Antibiotics); iw - Home Meds: 13:48 metformin 1,000 mg Oral tr24 2 tabs once daily [Active]; Crestor 40 mg oral tab 1 tab iw once daily [Active]; fenofibrate 160 mg oral tab 1 tab once daily [Active]; carvedilol 25 mg oral tab 2 times per day [Active]; losartan 50 mg oral tab 1 tab 2 times per day [Active]; clonidine HCl 0.1 mg Oral tab 1/2 tab daily [Active]; clonidine 0.2 mg/24 hr transdermal ptwk 1 patch once wkly [Active]; hydrocodone-acetaminophen 7.5-300 mg Oral tab 1 tab every 6 hours [Active]; ropinirole 1 mg oral tab 1 tab [Active]; - PMHx: 13:43 CHF; Diabetes - NIDDM; High Cholesterol; Hypertension; iw 13:48 restless leg; iw - PSHx: 13:48 Appendectomy; Hysterectomy; UPPP; iw - Immunization history:: Adult Immunizations unknown. - Ebola Screening: : Patient negative for fever greater than or equal to 101.5 degrees Fahrenheit, and additional compatible Ebola Virus Disease symptoms Patient denies exposure to infectious person Patient denies travel to an Ebola-affected area in the 21 days before illness onset No symptoms or risks identified at this time. - Social history:: Smoking status: unknown. ROS: 15:30 Constitutional: Negative for fever, chills, and weight loss, Eyes: Negative for injury, ps1 pain, redness, and discharge, Cardiovascular: Negative for chest pain, palpitations, and edema, Respiratory: Negative for shortness of breath, cough, wheezing, and pleuritic chest pain, Abdomen/GI: Negative for abdominal pain, nausea, vomiting, diarrhea, and constipation, MS/Extremity: Negative for injury and deformity, Skin: Negative for injury, rash, and discoloration, Neuro: Negative for headache, weakness, numbness, tingling, and seizure. 15:30 Psych: Positive for anxiety. Exam: 15:30 Constitutional: This is a well developed, well nourished patient who is awake, alert, ps1 and in no acute distress. Head/Face: Normocephalic, atraumatic. Eyes: Pupils equal round and reactive to light, extra-ocular motions intact. Lids and lashes normal. Conjunctiva and sclera are non-icteric and not injected. ENT: Nares patent. No nasal discharge, no septal abnormalities noted. Tympanic membranes are normal and external auditory canals are clear. Oropharynx with no redness, swelling, or masses, exudates, or evidence of obstruction, uvula midline. Mucous membranes moist. Chest/axilla: Normal chest wall appearance and motion. Nontender with no deformity. No lesions are appreciated. Cardiovascular: Regular rate and rhythm. No gallops, murmurs, or rubs. Normal PMI, no JVD. No pulse deficits. Respiratory: Lungs have equal breath sounds bilaterally, clear to auscultation and percussion. No rales, rhonchi or wheezes noted. No increased work of breathing, no retractions or nasal flaring. Abdomen/GI: Soft, non-tender, with normal bowel sounds. No distension or tympany. No guarding or rebound. No evidence of tenderness throughout. Skin: Warm, dry with normal turgor. Normal color with no rashes, no lesions, and no evidence of cellulitis. MS/ Extremity: Pulses equal, no cyanosis. Neurovascular intact. Full, normal range of motion. Neuro: Awake and alert, GCS 15, oriented to person, place, time, and situation. Cranial nerves II-XII grossly intact. Sensory grossly intact. Vital Signs: 13:48 BP 163 / 66; Pulse 52; Resp 16; Temp 98.5(TE); Pulse Ox 97% on R/A; iw 15:47 BP 168 / 96; Pulse 55; Resp 16; Temp 98.4; Pulse Ox 98% ; rv MDM: 15:29 Patient medically screened. ps1 15:30 Data reviewed: vital signs, nurses notes, and as a result, I will discharge patient. ED ps1 course: patient does not need to be on Xanax for symptoms of HF. I instructed her to increase her Lasix until her appointment with Dr. De Oliveira in a couple of days. Otherwise, she needs to get these medications filled by Dr. Bishop or her PCP but I strongly believe that it is unnecessary and will likely contribute to polypharmacy and falls .. Administered Medications: No medications were administered Disposition: 02/23/19 15:36 Discharged to Home. Impression: Combined systolic (congestive) and diastolic (congestive) heart failure. - Condition is Stable. - Discharge Instructions: Heart Failure, [id number]. - Medication Reconciliation Form, Thank You Letter, Antibiotic Education, Prescription Opioid Use form. - Follow up: Emerson De Oliveira MD; When: As needed; Reason: Further diagnostic work-up, Recheck today's complaints, Continuance of care, Re-evaluation by your physician. Follow up: Emergency Department; When: As needed; Reason: Trouble breathing, Worsening of condition. - Problem is chronic. - Symptoms are unchanged. - Notes: Double your lasix dose for next three days. Signatures: Wilma Cota RN RN iw Santhosh Aguilar MD MD ps1 Silvestre Gann RN RN rv Corrections: (The following items were deleted from the chart) 15:48 15:36 02/23/2019 15:36 Discharged to Home. Impression: Combined systolic (congestive) iw and diastolic (congestive) heart failure. Condition is Stable. Forms are Medication Reconciliation Form, Thank You Letter, Antibiotic Education, Prescription Opioid Use. Follow up: Emerson De Oliveira; When: As needed; Reason: Further diagnostic work-up, Recheck today's complaints, Continuance of care, Re-evaluation by your physician. Follow up: Emergency Department; When: As needed; Reason: Trouble breathing, Worsening of condition. Problem is chronic. Symptoms are unchanged. ps1
== END 2019-02-23 15:48 | disposition home or self-care (01) ==
LOC: ER 13:04
DX: I50.40 Unspecified combined systolic (congestive) and diastolic (congestive) heart failure (principal); I10 Essential (primary) hypertension; E11.9 Type 2 diabetes mellitus without complications; Z88.0 Allergy status to penicillin; Z88.2 Allergy status to sulfonamides
CPT/HCPCS: 99283

== ENCOUNTER 2019-04-09 10:30 | Emergency (ER) | payer OTHER ==
--- OUTSIDE RECORDS SUMMARY | 2019-04-09 10:34 | XMS REPORT ---
:1945 [facility] Address [address] [place] [address] Dr. Pickard. [address] [place] [id number] Care Team Providers Name Role Phone Unavailable Unavailable Unavailable Problems This patient has no known problems. Allergies, Adverse Reactions, Alerts This patient has no known allergies or adverse reactions. Medications This patient has no known medications.
--- OUTSIDE RECORDS SUMMARY | 2019-04-09 10:34 | XMS REPORT | Continuity of Care Document ---
:1945 Author Organization [facility] Streamfile Information [place] Care Team Providers Name Role Phone [facility] [place] Unavailable Unavailable Problems Problem Status Onset Classification Date Comments Source Date Reported DIZZING Active 11/10/[address] UTI Active 11/10/[address] Hypertension Active 11/24/19 Problem 03/10/2018 Medical 11 Group, [facility] Bhavana,[facility] Meniscus, Active 11/24/19 Problem 03/10/2018 Medical lateral, 11 Group, derangement OPID Bhavana,[facility] 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 [facility], [facility] Bhavana,[facility] Depression Active Problem 03/10/2018 Medical Group, OPID Bhavana,[facility] Diabetes Resolved Problem 03/10/2018 Medical Group Heart attack Resolved Problem 03/10/2018 Medical Group, OPID Bhavana,[facility] HTN - Active Problem 03/10/2018 [facility] Hypertension Group, OPID Bhavana,[facility] Hyperlipidemia Active Problem 03/10/2018 Medical Group, OPID Bhavana,[facility] Migraines Resolved Problem 03/10/2018 Medical Group Medications Medication Details Route Status Patient Ordering Order Source Instructions Provider Date Levaquin 750 mg, 150 No Longer 11/12/ Bhavana mL, Route: Active 2016 [facility] IV, Drug form: SOLN, [id number], Dosing Weight 83.182, kg, Start date: 11/12/16 12:00:00 ALLOPATHIC DOCTOR, Duration: 30 day, Stop date: 12/10/16 12:00:00 CDTNotes: (Same as:Levaquin) Cozaar 100 mg, 1 Inactive 11/11/ Bhavana tab, Route: 2017 [facility] PO, Drug form: TAB, Daily, Start date: 11/11/16 9:00:00 ALLOPATHIC DOCTOR, Duration: 30 day, Stop date: 12/10/16 9:00:00 CDTNotes: (Same as: Cozaar) Hydrochlorothiazide 1 tab, No Longer Bhavana 25 MG / Losartan Route: PO, Active 2016 [facility] Potassium 100 MG Oral Drug Form: Tablet TAB, Dosing Weight 83.182, kg, Daily, Start date: 11/11/16 9:00:00 ALLOPATHIC DOCTOR, Duration: 30 day, Stop date: 12/10/16 9:00:00 CDT Fenofibrate 160 MG 145 mg, 1 Inactive Bhavana Oral Tablet tab, Route: 2017 [facility] PO, Drug form: TAB, Daily, Dosing Weight 83.182, kg, Start date: 11/11/16 9:00:00 ALLOPATHIC DOCTOR, Duration: 30 day, Stop date: 12/10/16 9:00:00 CDTNotes: (Same as: Tricor) Amlodipine 10 mg, 1 Inactive Bhavana tab, Route: 2017 Hospital PO, Drug form: TAB, Daily, Dosing Weight 83.182, kg, Start date: 11/11/16 9:00:00 ALLOPATHIC DOCTOR, Duration: 30 day, Stop date: 12/10/16 9:00:00 CDTNotes: (Same as: Norvasc) hydrochlorothiazide 25 mg, 1 Inactive Bhavana 25 mg oral tablet tab, Route: 2017 Hospital PO, Drug form: TAB, Daily, Start date: 11/11/16 9:00:00 ALLOPATHIC DOCTOR, Duration: 30 day, Stop date: 12/10/16 9:00:00 CDTNotes: (Same as: Hydrodiuril) With food. Crestor 40 mg, 4 No Longer Bhavana tab, Route: Active 2017 [facility] PO, Drug form: TAB, Bedtime, Dosing Weight 83.182, kg, Start date: 11/10/16 21:00:00 ALLOPATHIC DOCTOR, Duration: 30 day, Stop date: 12/09/16 21:00:00 CDTNotes: (Same As: Crestor) Clonazepam 0.5 mg, 1 No Longer Bhavana tab, Route: Active 2016 [facility] PO, Drug form: TAB, Bedtime, Dosing Weight 83.182, kg, Start date: 11/10/16 21:00:00 ALLOPATHIC DOCTOR, Duration: 30 day, Stop date: 12/09/16 21:00:00 CDTNotes: (Same As: KlonoPIN) Acetaminophen 325 MG 1 tab, No Longer Bhavana / Hydrocodone Route: PO, Active [address] [place] [address] Bitartrate 10 MG Oral Drug Form: Tablet [Friedheim 10/325] TAB, Dosing Weight 83.182, kg, Bedtime, Start date: 11/10/16 21:00:00 ALLOPATHIC DOCTOR, Duration: 30 day, Stop date: 12/09/16 21:00:00 CDTNotes: (Same as: Friedheim 325/5) Do not exceed 4gm/day of acetaminophe n. ciprofloxacin 500 mg 500 mg=1 Active Bhavana oral tablet tab, PO, [address] [place] [address] Q12H, X 5 day, # 10 tab, 0 Refill(s) Metformin 1,000 mg, 2 No Longer Bhavana tab, Route: Active [address] [place] [address] PO, Drug form: TAB, BID-Meals, Dosing Weight 83.182, kg, Start date: 11/10/16 17:00:00 ALLOPATHIC DOCTOR, Duration: 30 day, Stop date: 12/10/16 8:00:00 CDTNotes: (Same as: Glucophage) Take with meal Coreg 6.25 mg, 1 No Longer Bhavana tab, Route: Active [address] [place] [address] PO, Drug form: TAB, BID, Dosing Weight 83.182, kg, Start date: 11/10/16 17:00:00 ALLOPATHIC DOCTOR, Duration: 30 day, Stop date: 12/10/16 9:00:00 CDTNotes: (Same As: Coreg) ciprofloxacin 500 mg 500 mg=1 Inactive Bhavana oral tablet tab, PO, 2017 Hospital Q12H, X 5 day, # 10 tab, 0 Refill(s), other clonazePAM 0.5 mg 0.5 mg=1 Active Bhavnaa oral tablet tab, PO, 2017 Hospital Bedtime, 0 Refill(s) Hydrochlorothiazide 1 tab, PO, Active Bhavana 25 MG / Losartan Daily, # 30 2017 [facility] Potassium 100 MG Oral tab, 0 Tablet Refill(s) Metformin 1,000 mg, Active Bhavana PO, BID, 0 2017 Hospital Refill(s) Fenofibrate 160 MG 160 mg=1 Active Bhavana Oral Tablet tab, PO, 2017 Hospital Daily, # 30 tab, 0 Refill(s) carvedilol 6.25 MG 6.25 mg=1 Active Bhavana Oral Tablet [Coreg] tab, PO, 2017 Hospital BID, # 60 tab, 0 Refill(s) Acetaminophen 325 MG 1 tab, PO, Active Bhavana / Hydrocodone Bedtime, 0 2017 Hospital Bitartrate 10 MG Oral Refill(s) Tablet [Friedheim 10/325] amLODIPine 10 mg oral 10 mg=1 tab, Active Bhavana tablet PO, Daily, # 2017 Hospital 30 tab, 0 Refill(s) Insulin, Aspart, 2 unit, 0.02 No Longer Bhavana Human mL, Route: Active 2016 [facility] SUB-Q, Drug form: SOLN, Bedtime, Dosing Weight 83.182, kg, PRN Blood Glucose Results, Start date: 11/10/16 13:34:00 ALLOPATHIC DOCTOR, Duration: 30 day, Stop date: 12/10/16 13:33:00 CDTNotes: Roll in palms of hands gently; Do not shake vigorously. (Same as: NovoLOG) "single patient use only" WASTE: F/P - Black; E - Municipal Trash Bin Stable for 28 days at room temperature. Expires in days from __Date Dextrose 50% Syringe 12.5 gm, 25 No Longer Bhavana mL, Route: Active 2016 Hospital IVP, Drug Form: INJ, Dosing Weight 83.182, kg, PRN, PRN Blood Glucose Results, Start date: 11/10/16 13:34:00 ALLOPATHIC DOCTOR, Duration: 30 day, Stop date: 12/10/16 14:33:00 CDT Glucagon 1 mg, Route: No Longer Bhavana IM, Drug Active 2016 Hospital form: PDR/INJ, PRN, Dosing Weight 83.182, kg, PRN Blood Glucose Results, Start date: 11/10/16 13:34:00 ALLOPATHIC DOCTOR, Duration: 30 day, Stop date: 12/10/16 14:33:00 CDT Sodium Chloride 0.154 1,000 mL, No Longer Bhavana MEQ/ML Injectable Rate: [address] [place] [address] Solution ml/hr, Infuse over: 8 hr, Route: IV, Dosing Weight 83.182 kg, Total Volume: 1,000, Start date: 11/10/16 13:31:00 ALLOPATHIC DOCTOR, Duration: 30 day, Stop date: 12/10/16 13:30:00 CDT Saline Flush 0.9% 10 ml, No Longer Bhavana Route: IVP, [address] Drug Form: INJ, Dosing Weight 83.182, kg, PRN, PRN Line Flush, Start date: 11/10/16 13:31:00 ALLOPATHIC DOCTOR, Duration: 30 day, Stop date: 12/10/16 14:30:00 CDTNotes: (Same as: BD Posiflush) Docusate 100 mg, 1 No Longer Bhavana cap, Route: [address] PO, Drug form: CAP, BID, Dosing Weight 83.182, kg, PRN Constipation , Start date: 11/10/16 13:31:00 ALLOPATHIC DOCTOR, Duration: 30 day, Stop date: 12/10/16 13:30:00 CDTNotes: (Same as: Colace) (Do Not Crush) Ondansetron 4 mg, 2 mL, No Longer Bhavana Route: IVP, [address] Drug form: INJ, Q8H, Dosing Weight 83.182, kg, PRN Nausea & Vomiting, Start date: 11/10/16 13:31:00 ALLOPATHIC DOCTOR, Duration: 30 day, Stop date: 12/10/16 13:30:00 CDTNotes: (Same as: Zofran) MEDICATION WASTE Product Size: 4 mg Product Wasted: ___ mg Acetaminophen 650 mg, 2 No Longer Bhavana tab, Route: Active [address] [place] [address] PO, Drug form: TAB, Q4H, Dosing Weight 83.182, kg, PRN Pain 1-3/Temp > 100.4 F, Start date: 11/10/16 13:31:00 ALLOPATHIC DOCTOR, Duration: 30 day, Stop date: 12/10/16 13:30:00 CDTNotes: Do not exceed 4 gm/day. (Same as: Tylenol) Aspirin 324 mg, 4 Inactive Bhavana tab, Route: 2017 [facility] CHEW, Drug form: CHEWTAB, ONCE, Dosing Weight 83.182, kg, Priority: STAT, Start date: 11/10/16 12:33:00 ALLOPATHIC DOCTOR, Stop date: 11/10/16 12:33:00 CSTNotes: Take with food. potassium chloride 40 mEq, Inactive Bhavana Route: PO, 2016 [facility] Drug form: ERTAB, ONCE, Dosing Weight 83.182, kg, Priority: STAT, Start date: 11/10/16 12:19:00 ALLOPATHIC DOCTOR, Stop date: 11/10/16 12:19:00 ALLOPATHIC DOCTOR Levaquin 750 mg, Inactive Bhavana Route: IVPB, 2016 [facility] Drug form: SOLN, ONCE, Dosing Weight 83.182, kg, Start date: 11/10/16 12:19:00 ALLOPATHIC DOCTOR, Stop date: 11/10/16 12:19:00 ALLOPATHIC DOCTOR Sodium Chloride 0.154 1,000 mL, Inactive Bhavana MEQ/ML Injectable 1,000 ml/hr, 2017 [facility] Solution Infuse Over: 1 hr, Route: IV, 1,000, Drug form: INJ, ONCE, Priority: STAT, Dosing Weight 83.182 kg, Start date: 11/10/16 11:57:00 ALLOPATHIC DOCTOR, Duration: 1 doses or times, Stop date: 11/10/16 11:57:00 ALLOPATHIC DOCTOR Allergies, Adverse Reactions, Alerts Substance Category Reaction Severity Reaction Status Date Comments Source type Reported penicillins Assertion itch Drug Active allergy [facility] sulfa drugs Assertion anaphylaxi Drug Active s, itch allergy [facility] Immunizations No Data Provided for This Section Results Order Name Results Value Reference Date Interpretation Comments Source Range CARDIAC Troponin-I <0.02 0.00 - 11/11 Bhavana ENZYMES 0.40 /2016 [facility] CARDIAC Troponin-I <0.02 0.00 - 11/10 Bhavana ENZYMES 0.40 [facility] URINE AND UA <=1.0 0.1 - 1.0 11/10 Bhavana STOOL Urobilinogen mg/dL /2016 Hospital URINE AND UA Hyal Cast 31 0 - 2 11/10 Bhavana STOOL /2016 Hospital URINE AND UA Sq Epi Occasional Few /LPF 11/10 Bhavana STOOL /LPF /2016 Hospital URINE AND UA Leuk Est Moderate Negative 11/10 Bhavana STOOL *ABN* /2016 Hospital (11/10/16 11:49 AM) URINE AND UA WBC 19 0 - 5 11/10 [facility] STOOL Hospital URINE AND UA Nitrite Negative Negative 11/10 [facility]OOL (11/10/16 11:49 AM) Hospital URINE AND UA Bacteria Occasional None Seen 11/10 Bhavana STOOL /HPF /HPF /2016 Hospital URINE AND UA RBC 31 0 - 2 11/10 [facility] STOOL Hospital URINE AND UA CaOx Olinda Moderate None Seen 11/10 Bhavana STOOL /HPF /HPF /2016 Hospital URINE AND UA Mucus Few /LPF None Seen 11/10 Bhavana STOOL /LPF Hospital URINE AND UA Turbidity Marked Clear 11/10 Bhavana STOOL *ABN* /2016 [facility] (11/10/16 11:49 AM) URINE AND UA pH 5.0 5.0 - 8.0 11/10 [facility] STOOL Hospital URINE AND UA Spec Grav 1.023 <=1.030 11/10 [facility] STOOL Hospital URINE AND UA Protein 30 mg/dL Negative 11/10 [facility] STOOL mg/dL Hospital URINE AND UA Blood Negative Negative 11/10 [facility]OOL (11/10/16 11:49 AM) Hospital URINE AND UA Glucose Negative Negative 11/10 Bhav[facility] STOOL mg/dL mg/dL Hospital URINE AND UA Bili Negative Negative 11/10 Bhavana STOOL *NA* /2016 [facility] (11/10/16 11:49 AM) URINE AND UA Ketones Trace Negative 11/10 Bhavana STOOL mg/dL mg/dL /2016 Hospital URINE AND UA Color Dark Yellow Yellow 11/10 Bhavana STOOL *NA* /2016 [facility] (11/10/16 11:49 AM) CARDIAC BNP 233 <=100 11/10 Bhavana ENZYMES pg/mL /2016 [facility] CARDIAC CK MB 0.9 0.5 - 3.6 11/10 Bhavana ENZYMES [facility] CARDIAC Troponin-I <0.02 0.00 - 11/10 Bhav[facility] ENZYMES 0.40 Hospital CARDIAC Total CK 137 12 - 191 11/10 [facility] ENZYMES Hospital CARDIAC CK MB Index 0.7 0.0 - 2.5 11/10 ENZYMES Hospital CHEM PANEL Lactic Acid 2.8 0.5 - 2.2 11/10l Hospital CHEM PANEL eGFR 41 11/10 Result Comment: The Hospital eGFR is calculated using the CKD-EPI formula. In most young, healthy individuals the eGFR will be >90 mL/min/1.73m2 . The eGFR declines with age. An eGFR of 60-89 may be normal in some populations, particularly the elderly, for whom the CKD-EPI formula has not been extensively validated. Use of the eGFR is not recommended in the following populations:< br/>
Shanta viduals with unstable creatinine concentration s, including patients and those with serious co-morbid conditions.<b r/>
Patie nts with extremes in muscle mass or diet.

The data above are obtained from the National Kidney Disease Education Program (NKDEP) which additionally recommends that when the eGFR is used in patients with extremes of body mass index for purposes of drug dosing, the eGFR should be multiplied by the estimated BMI. CHEM PANEL ALT 20 0 - 65 11/10 Hospital CHEM PANEL Albumin Lvl 3.8 3.5 - 5.0 11/10 Hospital CHEM PANEL Total 6.9 6.4 - 8.4 11/10 [facility] CHEM PANEL Calcium Lvl 9.6 8.5 - 10.5 11/10 Hospital CHEM PANEL Chloride Lvl 101 95 - 109 11/10 Hospital CHEM PANEL Potassium 3.2 3.5 - 5.1 11/10 [facility] L[facility] CHEM PANEL Sodium Lvl 141 135 - 145 11/10 Hospital CHEM PANEL CO2 28 24 - 32 11/10 Hospital CHEM PANEL Alk Phos 52 39 - 136 11/10 Hospital CHEM PANEL AST 13 0 - 37 11/10 Hospital CHEM PANEL AGAP 15.2 10.0 - 11/10 [facility] 20.0 Hospital CHEM PANEL Bili Total 0.5 0.2 - 1.3 11/10 Hospital CHEM PANEL A/G Ratio 1.2 0.7 - 1.6 11/10 [facility] CHEM PANEL Globulin 3.1 2.7 - 4.2 11/10 Bhav[facility] CHEM PANEL B/C Ratio 19 6 - 25 11/10 Bhav[facility] CHEM PANEL BUN 25 7 - 22 11/10 Bhav[facility] CHEM PANEL Creatinine 1.30 0.50 - 11/10 Bhavana Lvl 1.40 /2016 [facility] CHEM PANEL Glucose Lvl 153 70 - 99 11/10 [facility] HEMATOLOGY Hct 41.4 36.0 - 11/10 [facility] 48.0 Hospital HEMATOLOGY MCHC 32.7 32.0 - 11/10 [facility] 36.0 Hospital HEMATOLOGY MCH 28.5 27.0 - 11/10 [facility] 31.0 Hospital HEMATOLOGY MCV 87.3 80.0 - 11/10 [facility] 98.0 Hospital HEMATOLOGY MPV 8.7 7.4 - 10.4 11/10 [facility] HEMATOLOGY Platelet 183 133 - 450 11/10 [facility] HEMATOLOGY RDW 14.4 11.5 - 11/10 [facility] 14.5 Hospital HEMATOLOGY WBC 6.8 3.7 - 10.4 11/10 [facility] HEMATOLOGY Hgb 13.5 12.0 - 11/10 [facility] 16.0 Hospital HEMATOLOGY RBC 4.74 4.20 - 11/10 [facility] 5.40 Hospital HEMATOLOGY Lymphocytes 2.4 1.0 - 5.5 11/10 Bhavana # /2016 Hospital HEMATOLOGY Segs-Bands # 3.7 1.5 - 8.1 11/10 [facility] HEMATOLOGY Basophils 0.7 0.0 - 1.0 11/10 [facility] HEMATOLOGY Eosinophils 1.2 0.0 - 4.0 11/10 [facility] HEMATOLOGY Monocytes 7.9 2.0 - 12.0 11/10 [facility] HEMATOLOGY Lymphocytes 35.7 20.0 - 11/10 [facility] 40.0 Hospital HEMATOLOGY Segs 54.5 45.0 - 11/10 [facility] 75.0 Hospital HEMATOLOGY Monocytes # 0.5 0.0 - 0.8 11/10 [facility] HEMATOLOGY Eosinophils 0.1 0.0 - 0.5 11/10 [facility] # /2017 [facility] Pathology Reports No Data Provided for This Section Diagnostic Reports Report Value Date Source Chest 1view DX Chest 2 view 11/10/2016 11/10/2016 [facility] HISTORY: Dizziness, neck pain. No prior exams are available for comparison. FINDINGS: Aorta contains calcifications. No consolidation or pleural effusion is present. Heart size is normal. No vascular congestion is present. IMPRESSION: No acute cardiopulmonary process. SL: CL76-M Brain wo contrast CT CT head without contrast 11/10/2016 11/10/2016 [facility] HISTORY: Headaches and dizziness. PROCEDURE: Multiple axial images from the skull base to the skull vertex without contrast. Coronal and sagittal reconstructed images were performed. DLP : [id number] No prior exams are available for comparison. FINDINGS: No acute intracranial hemorrhage, midline shift, extra-axial fluid collection, hydrocephalus, or mass lesion is present. No cortical hypodensity to suggest acute infarct is present. Johnson-white differentiation is within normal limits. The visualized mastoid air cells are clear. There is no air-fluid level in the visualized paranasal sinuses. Moderate distal internal carotid arterial calcifications are present. IMPRESSION: No acute intracranial abnormality. SL: CL76-M Abdomen/Pelvis w/wo [facility] CT CT ABDOMEN WITH AND WITHOUT CONTRAST. CT PELVIS WITH CONTRAST INDICATION: Abdominal pain. Right lower quadrant pain. There is a prior history of appendectomy and hysterectomy. COMPARISON: None. TECHNIQUE: Prior to contrast administration, axial images acquired from the lung base to the upper pelvis. Axial imaging was then performed following IV contrast from the diaphragm through the pubic symphysis with multiplanar reconstruction. Intravenous contrast: 100ml Omnipaque 300 Oral contrast: Omnipaque 50 cc was utilized for a portion of the oral contrast. FINDINGS: LOWER CHEST: The lung bases are clear. SOLID ORGANS: Decreased liver attenuation is compatible with fatty infiltration. No focal abnormality seen. The gallbladder, pancreas, spleen, adrenal glands and left kidney are unremarkable. Nonobstruc ting 6 mm stone seen within the right kidney. Probable vascular calcifications involving the central portion of bilateral kidneys evident. No hydronephrosis or acute findings seen. BOWEL: Sigmoid diverticulosis present. No CT evidence for diverticulitis seen. No inflammatory changes of the GI tract appreciated. PERITONEUM: No free intraperitoneal fluid or air. RETROPERITONEUM: No adenopathy. Moderate atherosclerotic calcifications of the abdominal aorta evident. PELVIS: No pelvic mass. The urinary bladder is normal. MUSCULOSKELETAL: The skeleton is intact. IMPRESSION: 1. No acute findings of seen in the abdomen/pelvis. 2. Sigmoid diverticulosis. 3. Moderate atherosclerotic calcifications. 4. Decreased liver attenuation compatible with fatty infiltration. 5. Nonobstructing 6 mm stone anterior aspect mid right kidney. SL: 03 Consultation Notes No Data Provided for This Section Discharge Summaries No Data Provided for This Section History and Physicals No Data Provided for This Section Vital Signs Vital Sign Value Date Comments Source Weight 83.182 12/02/2017 [facility] Heart Rate 61 12/02/2017 [facility] Systolic (mm Hg) 151 12/02/2017 [facility] Diastolic (mm Hg) 65 12/02/2017 [facility] Systolic (mm Hg) 174 11/11/2016 [facility] Diastolic (mm Hg) 89 11/11/2016 [facility] Temperature Oral (F) 98.2 F 11/11/2016 [facility] Heart Rate 67 11/11/2016 [facility] Respitory Rate 18 11/11/2016 [facility] Heart Rate 68 11/10/2016 [facility] Systolic (mm Hg) 156 11/10/2016 [facility] Diastolic (mm Hg) 72 11/10/2016 [facility] Respitory Rate 16 11/10/2016 [facility] Temperature Oral (F) 98.3 F 11/10/2016 [facility] Respitory Rate 16 11/10/2016 [facility] Systolic (mm Hg) 155 11/10/2016 [facility] Diastolic (mm Hg) 76 11/10/2016 [facility] Heart Rate 60 11/10/2016 [facility] Weight 83.182 11/10/2016 [facility] BMI Calculated 29.6 11/10/2016 [facility] Height 167.64 cm 11/10/2016 [facility] Temperature Oral (F) 98.3 F 11/10/2016 [facility] Encounters Location Location Encounter Encounter Reason Attending ADM DC Status Source Details Type Number For Provider Date Date Visit [facility] Outpt Diag [id number] Jaguar 06/09 06/10 [facility]patient [facility] 2 [place] /2014 [facility] Observation [id number] Nynke den 11/10 11/11 Bhavana Aponte 4 Rosamaria /2016 [facility] Outpatient [id number] VALENTIN VARINA 12/02 [facility] [employer] Outpatient [id number] Valentin Gupta 12/02 12/03 [facility] Procedures Procedure Code Date Perfomer Comments Source Measurement of post-voiding 69802 12/03/19 Medical residual urine and/or bladder 18 Group capacity by ultrasound, non-imaging [place] - [id number] 09/22/18 [facility] Uvulopalatopharyngoplasty 90 [facility] UPPP - [id number] 09/22/18 [facility] Uvulopalatopharyngoplasty [address] [place] [address] UP - [id number] 09/22/18 Medical Uvulopalatopharyngoplasty 90 Group Arthroscopy of knee [id number] [facility] Cardiac catheterization [id number] [facility] Hysterectomy [id number] [facility] Prosthetic replacement of [id number] [facility] cervical intervertebral disc [facility] Repair of rectocele [id number] [facility] Shoulder repair [id number] [facility] Arthroscopy of knee [id number] [facility] Cardiac catheterization [id number] [facility] Hysterectomy [id number] [facility] Prosthetic replacement of [id number] [facility] intervertebral disc Hospital Repair of rectocele [id number] [facility] Shoulder repair [id number] [facility] Arthroscopy of knee [id number] [facility] Cardiac catheterization [id number] [facility] Hysterectomy [id number] Medical Group Prosthetic replacement of [id number] [facility] cervical intervertebral disc Group Repair of rectocele [id number] [facility] Shoulder repair [id number] [facility] Assessment and Plan No Data Provided for This Section Plan of Care No Data Provided for This Section Social History Social History Date Source Social History TypeResponse 12/02/2017 [facility] Smoking Status Former smoker; Exposure to Tobacco Smoke None; Cigarette Smoking Last 365 Days No; Reg Smoking Cessation Counseling No entered on: 12/02/17 Social History TypeResponse 11/10/2016 [facility] Smoking Status Never smoker; Exposure to Tobacco Smoke None; Cigarette Smoking Last 365 Days No; Reg Smoking Cessation Counseling No Social History TypeResponse 06/10/2015 [facility] Family History No Data Provided for This Section Advance Directives No Data Provided for This Section Functional Status No Data Provided for This Section
[2019-04-09 12:54] LABS: Protime INR 1.02
[2019-04-09 12:55] LABS: Absolute Lymphocytes (CBC) 1.8 K/uL (0.7-4.9); Basophils % 0.6 % (0-1.3); Eosinophils % 1.3 % (0-4.4); Hematocrit 37.5 % (36.0-45.0); Lymphocytes % 31.4 % (15.3-44.8); Monocytes % 9.1 % (3.3-12.3); RBC Red Blood Cell Count 4.23 M/uL (3.86-4.86)
[2019-04-09 13:11] LABS: ALT/SGPT 19 U/L (12-78); AST/SGOT 13 U/L (15-37); Albumin 4.1 g/dL (3.4-5.0); Alkaline Phosphatase 59 U/L (45-117); BUN Blood Urea Nitrogen 20 mg/dL (7-18); Bicarbonate 31 mmol/L (21-32); Bilirubin Direct 0.2 mg/dL (0-0.2); Bilirubin Total 0.5 mg/dL (0.2-1.0); Glucose Level 113 mg/dL (74-106); Magnesium 2.1 mg/dL (1.8-2.4); NT PRO-BNP 3927 pg/mL (<450); Potassium 3.4 mmol/L (3.5-5.1); Sodium Level 142 mmol/L (136-145); Troponin (Emerg Dept Use Only) < 0.02 ng/mL (0.0-0.045)
--- NOTE | 2019-04-09 13:27 | RAD REPORT ---
EXAM DESCRIPTION: David Single View04/09/2019 1:17 pm CLINICAL HISTORY: Shortness of breath COMPARISON: January 2019 FINDINGS: The lungs appear clear of acute infiltrate. The heart is moderately to markedly enlarged IMPRESSION: No acute abnormalities displayed
--- NOTE | 2019-04-09 15:37 | EKG ---
Test Date: 2019-04-09 Test Time: 10:44:51 Clerical Supervisor: ROXANA MEASUREMENT RESULTS: Intervals: Rate: 50 LA: 140 QRSD: 146 QT: 494 QTc: 450 [place]: P: 33 LA: 140 QRS: -65 T: 122 INTERPRETIVE STATEMENTS: Sinus bradycardia Left axis deviation Left bundle branch block Abnormal ECG Compared to ECG 02/14/2019 18:31:55 Atrial premature complex(es) no longer present Electronically Signed On 04-09-19 15:35:19 CDT by Arian Falcon
--- NOTE | 2019-04-09 16:54 | RAD REPORT ---
EXAM DESCRIPTION: CT - Chest For Pe Angio - 04/09/2019 4:46 pm CLINICAL HISTORY: Chest pain. CHEST PAIN COMPARISON: No comparisons TECHNIQUE: CT angiogram of the pulmonary arteries was performed with MIP. All CT scans are performed using dose optimization technique as appropriate and may include automated exposure control or mA/KV adjustment according to patient size. FINDINGS: No evidence of pulmonary thromboembolism. Pulmonary arterial tree appears enlarged compati ble with underlying pulmonary arterial hypertension. Thoracic aorta is suboptimally contrast opacified for full assessment. Mild interstitial pulmonary edema seen. A small to moderate pericardial effusion is present. No concerning bony finding. IMPRESSION: No evidence of pulmonary thromboembolism. Pulmonary arterial hypertension. Small to moderate pericardial effusion. Mild interstitial pulmonary edema.
--- NOTE | 2019-04-09 17:16 | EDPHYS ---
Physician Documentation [facility] Name: Naomy Rico Age: 73 yrs Sex: Female : 1945 Arrival Date: 04/09/2019 Time: 10:32 Bed 17 Private MD: ED Physician Gerard Alexander HPI: 04/09 11:40 This 73 yrs old Female presents to ER via Ambulatory with complaints of gs Shortness Of Breath. 16:22 The patient has shortness of breath with light activity, during heavy activity. Onset: gs The symptoms/episode began/occurred acutely, today. Duration: The symptoms are intermittent. The patient's shortness of breath is aggravated by walking, is alleviated by rest. Associated signs and symptoms: Pertinent negatives: chest pain, non-productive cough, fever. Severity of symptoms: At their worst the symptoms were severe in the emergency department the symptoms have resolved AFTER RESTING. The patient has experienced similar episodes in the past, a few times. [facility] AT [facility]. Historical: - Allergies: 10:40 PENICILLINS; aa5 10:40 Sulfa (Sulfonamide Antibiotics); aa5 - Home Meds: 11:58 carvedilol 25 mg Oral tab 2 times per day [Active]; clonidine 0.2 mg/24 hr transdermal tw2 ptwk 1 patch once wkly [Active]; clonidine HCl 0.1 mg Oral tab 1/2 tab daily [Active]; Crestor 40 mg Oral tab 1 tab once daily [Active]; fenofibrate 160 mg Oral tab 1 tab once daily [Active]; ropinirole 1 mg Oral tab 1 tab [Active]; metformin 1,000 mg Oral tr24 2 tabs once daily [Active]; losartan 50 mg Oral tab 1 tab 2 times per day [Active]; hydrocodone-acetaminophen 7.5-300 mg Oral tab 1 tab every 6 hours [Active]; - PMHx: 10:40 CHF; Diabetes - NIDDM; High Cholesterol; Hypertension; restless leg; aa5 - PSHx: 10:40 Appendectomy; Hysterectomy; UPPP; aa5 10:40 right shoulder; aa5 - Immunization history:: Flu vaccine is up to date. - Social history:: Smoking status: Patient/guardian denies using tobacco. - Ebola Screening: : No symptoms or risks identified at this time. ROS: 16:22 All other systems are negative. gs Exam: 16:22 Head/Face: Normocephalic, atraumatic. Eyes: Pupils equal round and reactive to light, gs extra-ocular motions intact. Lids and lashes normal. Conjunctiva and sclera are non-icteric and not injected. Cornea within normal limits. Periorbital areas with no swelling, redness, or edema. ENT: Nares patent. No nasal discharge, no septal abnormalities noted. Tympanic membranes are normal and external auditory canals are clear. Oropharynx with no redness, swelling, or masses, exudates, or evidence of obstruction, uvula midline. Mucous membranes moist. Neck: Trachea midline, no thyromegaly or masses palpated, and no cervical lymphadenopathy. Supple, full range of motion without nuchal rigidity, or vertebral point tenderness. No Meningismus. Chest/axilla: Normal chest wall appearance and motion. Nontender with no deformity. No lesions are appreciated. Cardiovascular: Regular rate and rhythm with a normal S1 and S2. No gallops, murmurs, or rubs. Normal PMI, no JVD. No pulse deficits. Respiratory: Lungs have equal breath sounds bilaterally, clear to auscultation and percussion. No rales, rhonchi or wheezes noted. No increased work of breathing, no retractions or nasal flaring. Abdomen/GI: Soft, non-tender, with normal bowel sounds. No distension or tympany. No guarding or rebound. No evidence of tenderness throughout. Back: No spinal tenderness. No costovertebral tenderness. Full range of motion. Skin: Warm, dry with normal turgor. Normal color with no rashes, no lesions, and no evidence of cellulitis. MS/ Extremity: Pulses equal, no cyanosis. Neurovascular intact. Full, normal range of motion. Neuro: Awake and alert, GCS 15, oriented to person, place, time, and situation. Cranial nerves II-XII grossly intact. Motor strength 5/5 in all extremities. Sensory grossly intact. Cerebellar exam normal. Normal gait. 16:22 Constitutional: The patient appears alert, awake. 16:22 ECG was reviewed by the Attending Physician. Vital Signs: 10:40 BP 133 / 70; Pulse 51; Resp 16 S; Temp 97.5(TE); Pulse Ox 96% on R/A; Weight 83.01 kg aa5 (R); Height 5 ft. 6 in. (167.64 cm) (R); Pain 0/10; 13:16 BP 158 / 59; Pulse 73; Resp 17; Pulse Ox 97% on R/A; tw2 14:15 BP 123 / 43; Pulse 74; Resp 17; Pulse Ox 96% on R/A; tw2 15:08 BP 155 / 80; Pulse 61; Resp 20; Temp 97.7(TE); Pulse Ox 98% on R/A; mh5 16:21 BP 194 / 76; Pulse 77; Resp 17; Pulse Ox 97% on R/A; tw2 16:55 BP 164 / 95; Pulse 77; Resp 17; Pulse Ox 95% on R/A; tw2 17:20 BP 153 / 78; Pulse 70; Resp 17; Pulse Ox 96% on R/A; tw2 10:40 Body Mass Index 29.54 (83.01 kg, 167.64 cm) aa5 MDM: 12:22 Patient medically screened. 16:22 Differential diagnosis: CHF exacerbation, Chronic Obstructive Pulmonary Disease gs Myocardial Infarction pneumonia, Pulmonary Embolism. Data reviewed: vital signs, nurses notes, old medical records, lab test result(s), EKG, radiologic studies. Counseling: I had a detailed discussion with the patient and/or guardian regarding: the historical points, exam findings, and any diagnostic results supporting the discharge/admit diagnosis. Physician consultation: Arian Falcon MD. 04/09 12:23 Order name: Basic Metabolic Panel 04/09 12:23 Order name: CBC with Diff 04/09 12:23 Order name: LFT's 04/09 12:23 Order name: Magnesium; Complete Time: 13:32 04/09 12:23 Order name: NT PRO-BNP; Complete Time: 13:32 04/09 12:23 Order name: PT-INR; Complete Time: 13:32 04/09 12:23 Order name: Troponin (emerg Dept Use Only); Complete Time: 13:32 04/09 12:23 Order name: XRAY Chest (1 view); Complete Time: 13:32 04/09 12:25 Order name: Basic Metabolic Panel; Complete Time: 13:32 EDMS 04/09 12:25 Order name: CBC with Automated Diff; Complete Time: 13:32 EDMT 04/09 12:25 Order name: Liver (Hepatic) Function; Complete Time: 13:32 [facility] 04/09 16:21 Order name: Chest For Pe Angio; Complete Time: 16:56 [facility] 04/09 12:05 Order name: EKG Electrocardiogram; Complete Time: 13:01 [facility] 04/09 12:23 Order name: Cardiac monitoring; Complete Time: 13: 04/09 12:23 Order name: IV Saline Lock; Complete Time: 12:43 04/09 12:23 Order name: Labs collected and sent; Complete Time: 12:42 04/09 12:23 Order name: O2 Per Protocol; Complete Time: 13: 04/09 12:23 Order name: O2 Sat Monitoring; Complete Time: 13: EC:22 Rate is 50 beats/min. Rhythm is regular. QRS interval is prolonged. T waves are gs Inverted in leads I, aVL, V6. Clinical impression: LBBB. Interpreted by me. Administered Medications: 17:01 Not Given (physician changed order): Lasix 20 mg IVP once tw2 17:05 Drug: Lasix 40 mg Route: IVP; Site: left antecubital; tw2 17:20 Follow up: Response: No adverse reaction tw2 17:11 Drug: Potassium Effervescent Tablet 50 mEq Route: PO; tw2 17:21 Follow up: Response: No adverse reaction tw2 Disposition: 04/09/19 17:13 Discharged to Home. Impression: Acute systolic (congestive) heart failure. - Condition is Fair. - Discharge Instructions: Heart Failure. - Medication Reconciliation Form, Thank You Letter, Antibiotic Education, Prescription Opioid Use form. - Follow up: Private Physician; When: 2 - 3 days; Reason: Re-evaluation by your physician. - Notes: INCREASE LASIX TO 40 TWICE A DAY FOR 3 DAYS, TAKE 40 MEQ OF POTASSIUM A DAY. IF YOU HAVE ANY PROBLEMS OVER THE WEEKEND CALL DR YAHIR LOZA [facility] Signatures: Dispatcher [employer] EDMT Michelle Chandra, RN RN aa5 Andie Figueroa RN RN tw2 Gerard Alexander MD MD Corrections: (The following items were deleted from the chart) 16:45 16:26 Chest For PE Angio+CT.RAD.BRZ ordered. [facility] EDMS 17:22 17:13 04/09/2019 17:13 Discharged to Home. Impression: Acute systolic (congestive) tw2 heart failure. Condition is Fair. Forms are Medication Reconciliation Form, Thank You Letter, Antibiotic Education, Prescription Opioid Use. Follow up: Private Physician; When: 2 - 3 days; Reason: Re-evaluation by your physician. gs
--- NOTE | 2019-04-09 17:16 | ER ---
Nurse's Notes [facility] Name: Naomy Rico Age: 73 yrs Sex: Female : 1945 Arrival Date: 04/09/2019 Time: 10:32 Bed 17 Private MD: Diagnosis: Acute systolic (congestive) heart failure Presentation: 04/09 10:34 Presenting complaint: Patient states: sent here from cardiac rehab for SOB. Katherine RN aa5 from cardiac rehab states "the patient is not short of breath normally and we cancelled her exercises today and sent her to the ER". Pt states "I just feel a little short of breath right now and I woke up like this". Pt denies pain at this time. Pt states "I've been having head pressure and my neck was hurting this morning". Transition of care: patient was not received from another setting of care. Onset of symptoms was April 09, 2019. Risk Assessment: Do you want to hurt yourself or someone else? Patient reports no desire to harm self or others. Initial Sepsis Screen: Does the patient meet any 2 criteria? No. Patient's initial sepsis screen is negative. Does the patient have a suspected source of infection? No. Patient's initial sepsis screen is negative. Care prior to arrival: None. 10:34 Method Of Arrival: Ambulatory aa5 10:34 Acuity: PAUL 3 aa5 Historical: - Allergies: 10:40 PENICILLINS; aa5 10:40 Sulfa (Sulfonamide Antibiotics); aa5 - Home Meds: 11:58 carvedilol 25 mg Oral tab 2 times per day [Active]; clonidine 0.2 mg/24 hr transdermal tw2 ptwk 1 patch once wkly [Active]; clonidine HCl 0.1 mg Oral tab 1/2 tab daily [Active]; Crestor 40 mg Oral tab 1 tab once daily [Active]; fenofibrate 160 mg Oral tab 1 tab once daily [Active]; ropinirole 1 mg Oral tab 1 tab [Active]; metformin 1,000 mg Oral tr24 2 tabs once daily [Active]; losartan 50 mg Oral tab 1 tab 2 times per day [Active]; hydrocodone-acetaminophen 7.5-300 mg Oral tab 1 tab every 6 hours [Active]; - PMHx: 10:40 CHF; Diabetes - NIDDM; High Cholesterol; Hypertension; restless leg; aa5 - PSHx: 10:40 Appendectomy; Hysterectomy; UPPP; aa5 10:40 right shoulder; aa5 - Immunization history:: Flu vaccine is up to date. - Social history:: Smoking status: Patient/guardian denies using tobacco. - Ebola Screening: : No symptoms or risks identified at this time. Screenin:55 Abuse screen: Denies threats or abuse. Nutritional screening: No deficits noted. tw2 Tuberculosis screening: No symptoms or risk factors identified. Fall Risk Secondary diagnosis (15 points) impaired mobility. Assessment: 11:30 General: Appears in no apparent distress. well groomed, Behavior is calm, cooperative, tw2 appropriate for age. Pain: Denies pain. Neuro: Level of Consciousness is awake, alert, obeys commands, Oriented to person, place, time, situation. Cardiovascular: Heart tones S1 S2 Patient's skin is warm and dry. Respiratory: Reports shortness of breath cough that is Airway is patent Respiratory effort is even, unlabored, Respiratory pattern is regular, symmetrical, Breath sounds are clear bilaterally. GI: No signs and/or symptoms were reported involving the gastrointestinal system. Abdomen is round non-distended, Bowel sounds present X 4 quads. : No signs and/or symptoms were reported regarding the genitourinary system. EENT: Reports nasal congestion. Derm: No signs and/or symptoms reported regarding the dermatologic system. Musculoskeletal: Range of motion: intact in all extremities. 13:16 Reassessment: Patient appears in no apparent distress at this time. No changes from tw2 previously documented assessment. Patient and/or family updated on plan of care and expected duration. Pain level reassessed. Patient is alert, oriented x 3, equal unlabored respirations, skin warm/dry/pink. 14:14 Reassessment: Patient appears in no apparent distress at this time. No changes from tw2 previously documented assessment. Patient and/or family updated on plan of care and expected duration. Pain level reassessed. Patient is alert, oriented x 3, equal unlabored respirations, skin warm/dry/pink. 15:00 Reassessment: Patient appears in no apparent distress at this time. No changes from tw2 previously documented assessment. Patient and/or family updated on plan of care and expected duration. Pain level reassessed. Patient is alert, oriented x 3, equal unlabored respirations, skin warm/dry/pink. 16:00 Reassessment: Patient appears in no apparent distress at this time. No changes from tw2 previously documented assessment. Patient and/or family updated on plan of care and expected duration. Pain level reassessed. Patient is alert, oriented x 3, equal unlabored respirations, skin warm/dry/pink. 16:55 Reassessment: Patient appears in no apparent distress at this time. No changes from tw2 previously documented assessment. Patient and/or family updated on plan of care and expected duration. Pain level reassessed. Patient is alert, oriented x 3, equal unlabored respirations, skin warm/dry/pink. 17:21 Reassessment: Patient appears in no apparent distress at this time. No changes from tw2 previously documented assessment. Patient and/or family updated on plan of care and expected duration. Pain level reassessed. Patient is alert, oriented x 3, equal unlabored respirations, skin warm/dry/pink. Vital Signs: 10:40 BP 133 / 70; Pulse 51; Resp 16 S; Temp 97.5(TE); Pulse Ox 96% on R/A; Weight 83.01 kg aa5 (R); Height 5 ft. 6 in. (167.64 cm) (R); Pain 0/10; 13:16 BP 158 / 59; Pulse 73; Resp 17; Pulse Ox 97% on R/A; tw2 14:15 BP 123 / 43; Pulse 74; Resp 17; Pulse Ox 96% on R/A; tw2 15:08 BP 155 / 80; Pulse 61; Resp 20; Temp 97.7(TE); Pulse Ox 98% on R/A; mh5 16:21 BP 194 / 76; Pulse 77; Resp 17; Pulse Ox 97% on R/A; tw2 16:55 BP 164 / 95; Pulse 77; Resp 17; Pulse Ox 95% on R/A; tw2 17:20 BP 153 / 78; Pulse 70; Resp 17; Pulse Ox 96% on R/A; tw2 10:40 Body Mass Index 29.54 (83.01 kg, 167.64 cm) aa5 ED Course: 10:32 Patient arrived in ED. rg4 10:34 Arm band placed on. aa5 10:38 Triage completed. aa5 10:38 EKG completed in triage. Results shown to MD. aa5 11:05 EKG done, by linen tech. dt2 11:30 Bed in low position. Call light in reach. dispatch supervisor on. Pulse ox on. NIBP on. tw2 Warm blanket given. 11:32 Andie Figueroa, RN is Primary Nurse. tw2 11:40 Gerard Alexander MD is Attending Physician. gs 12:41 Initial lab(s) drawn, by oh, sent to lab. Inserted saline lock: 22 gauge in right 5 antecubital area, using aseptic technique. Blood collected. 12:42 CBC with Automated Diff Sent. 5 12:42 Liver (Hepatic) Function Sent. 5 12:42 Basic Metabolic Panel Sent. 5 12:43 Troponin (emerg Dept Use Only) Sent. 5 12:43 Basic Metabolic Panel Sent. 5 12:43 CBC with Diff Sent. 5 12:43 LFT's Sent. [facility] 12:44 Magnesium Sent. [facility] 12:44 NT PRO-BNP Sent. 5 12:44 PT-INR Sent. 5 13:16 X-ray completed. Portable x-ray completed in exam room. Patient tolerated procedure jb2 well. 13:18 XRAY Chest (1 view) In Process Unspecified. EDMS 16:47 Chest For Pe Angio In Process Unspecified. EDMS 16:54 Inserted saline lock: 22 gauge in left antecubital area, using aseptic technique. tw2 ,using aseptic technique. per [employer] boat pilot. IV discontinued, intact, bleeding controlled, No redness/swelling at site. Pressure dressing applied, discontinued to RIGHT ac. 17:21 No provider procedures requiring assistance completed. IV discontinued, intact, tw2 bleeding controlled, No redness/swelling at site. Pressure dressing applied, to left ac. Administered Medications: 17:01 Not Given (physician changed order): Lasix 20 mg IVP once tw2 17:05 Drug: Lasix 40 mg Route: IVP; Site: left antecubital; tw2 17:20 Follow up: Response: No adverse reaction tw2 17:11 Drug: Potassium Effervescent Tablet 50 mEq Route: PO; tw2 17:21 Follow up: Response: No adverse reaction tw2 Outcome: 17:13 Discharge ordered by . 17:21 Discharged to home ambulatory. tw2 17:21 Condition: stable 17:21 Discharge instructions given to patient, Instructed on discharge instructions, follow up and referral plans. Demonstrated understanding of instructions, follow-up care. 17:22 Patient left the ED. tw2 Signatures: Dispatcher [employer] EDMS Walt Patiño jb2 Michelle Chandra, RN RN aa5 Andie Figueroa RN RN tw2 Fannie Tellez4 Sherry Armstrong 5 Gerard Alexander MD MD gs Teague, Danielle dt2 Corrections: (The following items were deleted from the chart) 10:38 10:34 Presenting complaint: Patient states: sent here from cardiac rehab for SOB. kat Murphy RN from cardiac rehab states "the patient is not short of breath normally and we cancelled her exercises today and sent her to the ER". Pt states "I just feel a little short of breath right now and I woke up like this" aa5 10:39 10:34 Presenting complaint: Patient states: sent here from cardiac rehab for SOB. kat Murphy RN from cardiac rehab states "the patient is not short of breath normally and we cancelled her exercises today and sent her to the ER". Pt states "I just feel a little short of breath right now and I woke up like this". Pt denies pain. aa5
[2019-04-09] MEDS ORDERED: POTASSIUM 25 MEQ EFFERV TAB ONE (17:19)
[2019-04-09] MEDS ORDERED: FUROSEMIDE 40 MG/4 ML VIAL ONE (17:19)
== END 2019-04-09 17:22 | disposition home or self-care (01) ==
LOC: ER 10:30
DX: I50.21 Acute systolic (congestive) heart failure (principal); I10 Essential (primary) hypertension; E11.9 Type 2 diabetes mellitus without complications; E78.00 Pure hypercholesterolemia, unspecified; Z88.0 Allergy status to penicillin; Z88.2 Allergy status to sulfonamides
CPT/HCPCS: 93005; 85025; 80048; 36415; 83735; 85610; 80076; 84484; 83880; 71275; 71045; 96374; 99284; Q9967; J1940

== ENCOUNTER 2021-06-16 12:04 | Inpatient (IN) | payer OTHER ==
[2021-06-16 12:54] LABS: Absolute Lymphocytes (CBC) 0.9 K/uL (0.7-4.9); Basophils % 0.7 % (0-1.3); Lymphocytes % 17.8 % (15.3-44.8); MPV 8.6 fL (7.6-11.3); RBC Red Blood Cell Count 3.29 M/uL (3.86-4.86)
[2021-06-16 12:55] LABS: Protime INR 1.09
--- NOTE | 2021-06-16 12:59 | RAD REPORT ---
EXAM DESCRIPTION: RAD - Chest Single View - 06/16/2021 12:42 pm CLINICAL HISTORY: SOB Chest pain. COMPARISON: Chest Pa And Lat (2 Views) dated 06/14/2021; Chest Single View dated 04/09/2019; Chest Sin gle View dated 02/14/2019 FINDINGS: Portable technique limits examination quality. Mild pulmonary edema is noted. The heart is moderately enlarged in size. No displaced fractures.Aorti c atherosclerosis. IMPRESSION: Mild to moderate CHF pattern suspected. In the current clinical environment, underlying COVID infection is difficult to rule out.
[2021-06-16 13:17] LABS: ALT/SGPT 27 U/L (12-78); AST/SGOT 24 U/L (15-37); Albumin 3.5 g/dL (3.4-5.0); Alkaline Phosphatase 59 U/L (45-117); BUN Blood Urea Nitrogen 22 mg/dL (7-18); Bicarbonate 26 mmol/L (21-32); Bilirubin Direct 0.2 mg/dL (0-0.2); Bilirubin Total 0.5 mg/dL (0.2-1.0); Glucose Level 188 mg/dL (74-106); Magnesium 2.1 mg/dL (1.8-2.4); NT PRO-BNP 1815 pg/mL (<450); Potassium 4.1 mmol/L (3.5-5.1); Protein, Total 6.1 g/dL (6.4-8.2); Sodium Level 145 mmol/L (136-145); Troponin (Emerg Dept Use Only) < 0.02 ng/mL (0.0-0.045)
[2021-06-16] MEDS ORDERED: FUROSEMIDE 40 MG/4 ML VIAL ONE (13:33)
--- NOTE | 2021-06-16 16:45 | EDPHYS ---
Physician Documentation [facility] Name: Elsy Rico Age: 75 yrs Sex: Female : 1945 Arrival Date: 06/16/2021 Time: 12:05 Bed 20 Private MD: ED Physician Girish Gill HPI: 06/16 12:29 This 75 yrs old Female presents to ER via EMS with complaints of shortness of pm1 breath. 12:29 The patient has shortness of breath at rest. Onset: The symptoms/episode began/occurred pm1 this morning. Duration: The symptoms are continuous. The patient's shortness of breath is aggravated by light activity, is alleviated by nothing. Associated signs and symptoms: Pertinent negatives: chest pain, non-productive cough, productive cough, fever, nausea, vomiting. Severity of symptoms: in the emergency department the symptoms are unchanged. The patient has experienced similar episodes in the past, multiple times. The patient has been recently seen by a physician: Dr. Cho. Patient with scheduled cardiac cath with Dr Wadsworth on Friday. Historical: - Allergies: 12:16 PENICILLINS; tr6 12:16 Sulfa (Sulfonamide Antibiotics); tr6 - Home Meds: 12:16 carvedilol 25 mg Oral tab 2 times per day [Active]; losartan 50 mg Oral tab 1 tab 2 tr6 times per day [Active]; ropinirole 1 mg Oral tab 1 tab [Active]; hydrocodone-acetaminophen 7.5-300 mg Oral tab 1 tab every 6 hours [Active]; clonidine 0.2 mg/24 hr transdermal ptwk 1 patch once wkly [Active]; clonidine HCl 0.1 mg Oral tab 1/2 tab daily [Active]; Crestor 40 mg Oral tab 1 tab once daily [Active]; fenofibrate 160 mg Oral tab 1 tab once daily [Active]; metformin 1,000 mg Oral tr24 2 tabs once daily [Active]; - PMHx: 12:16 CHF; Diabetes - NIDDM; High Cholesterol; Hypertension; restless leg; tr6 - Immunization history:: Adult Immunizations up to date, Client reports receiving the 2nd dose of the Covid vaccine. - Social history:: Smoking status: unknown. ROS: 12:29 Constitutional: Negative for fever, chills, and weight loss, Cardiovascular: Negative pm1 for chest pain, palpitations, and edema. 12:29 Abdomen/GI: Negative for abdominal pain, nausea, vomiting, diarrhea, and constipation, Back: Negative for injury and pain, MS/Extremity: Negative for injury and deformity, Skin: Negative for injury, rash, and discoloration, Neuro: Negative for headache, weakness, numbness, tingling, and seizure. 12:29 Respiratory: Positive for dyspnea on exertion, shortness of breath, Negative for cough. 12:29 All other systems are negative. Exam: 12:29 Constitutional: This is a well developed, well nourished patient who is awake, alert, pm1 and in no acute distress. Head/Face: Normocephalic, atraumatic. 12:29 Back: No spinal tenderness. No costovertebral tenderness. Full range of motion. Skin: Warm, dry with normal turgor. Normal color with no rashes, no lesions, and no evidence of cellulitis. MS/ Extremity: Pulses equal, no cyanosis. Neurovascular intact. Full, normal range of motion. 12:29 Cardiovascular: Exam negative for acute changes, Rate: normal, Rhythm: regular, Pulses: no pulse deficits are appreciated, Edema: is not appreciated. 12:29 Respiratory: the patient does not display signs of respiratory distress, Respirations: normal, Breath sounds: decreased breath sounds, are located in both bases. 12:29 Neuro: Exam negative for acute changes, Orientation: is normal, Mentation: is normal, Motor: is normal, moves all fours. 17:42 Abdomen/GI: Inspection: obese Palpation: soft, in all quadrants, mild abdominal pm1 tenderness, in the right upper quadrant. Vital Signs: 12:14 BP 159 / 142; Pulse 75; Resp 26; Temp 98.3(O); Pulse Ox 99% on R/A; tr6 13:00 BP 160 / 69; Pulse 69; Resp 18; Pulse Ox 98% on R/A; tr6 16:00 BP 186 / 83; Pulse 73; Resp 18; Pulse Ox 99% ; tr6 17:00 BP 192 / 86; Pulse 86; Resp 18; Pulse Ox 97% ; tr6 18:53 BP 215 / 189; Pulse 83; Resp 18; Pulse Ox 93% on R/A; tr6 19:51 BP 194 / 97; Pulse 93; Resp 19; Pulse Ox 95% on R/A; Pain 0/10; sj1 20:44 BP 189 / 63 RA Sitting (auto/lg); Pulse 85; Resp 18; Pulse Ox 94% on R/A; Pain 0/10; sj1 21:41 BP 161 / 82 RA Sitting (auto/lg); sj1 MDM: 12:07 Patient medically screened. pm1 16:42 Data reviewed: vital signs. Data interpreted: Pulse oximetry: on room air is 99 %. pm1 Interpretation: normal. Counseling: I had a detailed discussion with the patient and/or guardian regarding: the historical points, exam findings, and any diagnostic results supporting the discharge/admit diagnosis, lab results, radiology results, the need for further work-up and treatment in the hospital. 06/16 12:12 Order name: Basic Metabolic Panel pm06/16 12:12 Order name: CBC with Diff; Complete Time: 12:59 pm1 06/16 12:12 Order name: LFT's pm06/16 12:12 Order name: Magnesium pm06/16 12:12 Order name: NT PRO-BNP; Complete Time: 13:52 pm1 06/16 12:12 Order name: PT-INR; Complete Time: 13:02 pm06/16 12:12 Order name: Troponin (emerg Dept Use Only); Complete Time: 13:52 pm1 06/16 12:13 Order name: Basic Metabolic Panel; Complete Time: 13:52 EDAL 06/16 12:13 Order name: Liver (Hepatic) Function; Complete Time: 13:52 EDAL 06/16 12:13 Order name: Magnesium; Complete Time: 13:52 EDAL 06/16 14:24 Order name: SARS-COV-2 RT PCR; Complete Time: 15:05 EDMS 06/16 20:40 Order name: Comprehensive Metabolic Panel EDAL 06/16 20:40 Order name: Comprehensive Metabolic Panel; Complete Time: 06:51 EDAL 06/16 12:12 Order name: XRAY Chest (1 view); Complete Time: 13:02 pm1 06/16 12:12 Order name: EKG; Complete Time: 12:13 pm1 06/16 12:12 Order name: Cardiac monitoring; Complete Time: 12:48 pm1 06/16 12:12 Order name: EKG - Nurse/Tech; Complete Time: 13:05 pm1 06/16 17:42 Order name: CT Abd/Pelvis - IV Contrast Only; Complete Time: 18:50 pm1 06/16 18:51 Order name: US Abdomen Limited; Complete Time: 20:10 [facility] 06/16 20:40 Order name: Comprehensive Metabolic Panel [facility] 06/16 20:40 Order name: Comprehensive Metabolic Panel [facility] 06/16 20:40 Order name: CONS Physician Consult [facility] 06/16 20:40 Order name: NPO [facility] 06/16 20:40 Order name: CBC with Automated Diff [facility] 06/16 20:40 Order name: CBC with Automated Diff; Complete Time: 06:51 EDAL 06/16 20:40 Order name: CBC with Automated Diff [facility] 06/16 20:40 Order name: CBC with Automated Diff [facility] 06/16 20:41 Order name: Urinalysis [facility] 06/16 12:12 Order name: IV Saline Lock; Complete Time: 12:48 pm1 06/16 12:12 Order name: Labs collected and sent; Complete Time: 12:48 pm1 06/16 12:12 Order name: O2 Per Protocol; Complete Time: 12:48 pm1 06/16 12:12 Order name: O2 Sat Monitoring; Complete Time: 12:48 pm1 Administered Medications: 13:21 Drug: Lasix (furosemide) 40 mg Route: IVP; Site: right wrist; tr6 17:47 Follow up: Response: No adverse reaction tr6 Disposition Summary: 06/16/21 16:44 Hospitalization Ordered Hospitalization Status: Observation pm1 Provider: Adebayo Newell pm1 Location: Telemetry/MedSurg (observation) pm1 Condition: Stable pm1 Problem: new pm1 Symptoms: have improved pm1 Bed/Room Type: Standard pm1 Room Assignment: 228(06/16/21 20:35) mw Diagnosis - Acute on chronic congestive heart failure exacerbation pm1 Forms: - Medication Reconciliation Form pm1 - SBAR form pm1 Addendum: 06/22/2021 04:31 Co-signature as Attending Physician, Girish Gill MD PA/HOME HEALTH CAREGIVER's history reviewed, m a2 patient interviewed, and examined. I agree with assessment and care plan and confirm the diagnosis (es) above. Signatures: Dispatcher [facility] Pura Lowry RN RN mw Rajan Collins PA PA jmm Tigre Padron, HOME HEALTH CAREGIVER HOME HEALTH CAREGIVER pm1 Girish Gill MD MD ma2 Karen Brush RN RN tr6 Corrections: (The following items were deleted from the chart) 06/16 13:29 12:13 CORONAVIRUS+BRZ ordered. EDMS EDMS 20:35 16:44 pm1 [place]
--- NOTE | 2021-06-16 16:45 | ER ---
Nurse's Notes [facility] Name: Elsy Rico Age: 75 yrs Sex: Female : 1945 Arrival Date: 06/16/2021 Time: 12:05 Bed 20 Private MD: Diagnosis: Acute on chronic congestive heart failure exacerbation Presentation: 06/16 12:14 Chief complaint: EMS states: CP, SOB since yesterday. This has been an ongoing issue. tr6 Pt has been to 4 hospitals recently for the same issue. pt scheduled for cardiac cath on friday. Coronavirus screen: At this time, unable to obtain information related to travel outside the [place] Ebola Screen: No symptoms or risks identified at this time. Initial Sepsis Screen: Does the patient meet any 2 criteria? RR > 20 per min. No. Patient's initial sepsis screen is negative. Does the patient have a suspected source of infection? No. Patient's initial sepsis screen is negative. Risk Assessment: Do you want to hurt yourself or someone else? Patient reports no desire to harm self or others. Onset of symptoms was June 15, 2021. 12:14 Method Of Arrival: [facility] tr6 12:14 Acuity: PAUL 2 tr6 Triage Assessment: 12:18 General: Appears uncomfortable, obese, Behavior is appropriate for age. Pain: Complains tr6 of pain in midsternal CP. EENT: No deficits noted. Neuro: No deficits noted. Cardiovascular: Reports chest pain. Respiratory: Reports shortness of breath air hunger labored breathing Airway is patent Respiratory effort is even, labored, Breath sounds are clear. GI: Abdomen is obese, Reports bloating. : No deficits noted. Derm: No deficits noted. Musculoskeletal: No deficits noted. Historical: - Allergies: 12:16 PENICILLINS; tr6 12:16 Sulfa (Sulfonamide Antibiotics); tr6 - Home Meds: 12:16 carvedilol 25 mg Oral tab 2 times per day [Active]; losartan 50 mg Oral tab 1 tab 2 tr6 times per day [Active]; ropinirole 1 mg Oral tab 1 tab [Active]; hydrocodone-acetaminophen 7.5-300 mg Oral tab 1 tab every 6 hours [Active]; clonidine 0.2 mg/24 hr transdermal ptwk 1 patch once wkly [Active]; clonidine HCl 0.1 mg Oral tab 1/2 tab daily [Active]; Crestor 40 mg Oral tab 1 tab once daily [Active]; fenofibrate 160 mg Oral tab 1 tab once daily [Active]; metformin 1,000 mg Oral tr24 2 tabs once daily [Active]; - PMHx: 12:16 CHF; Diabetes - NIDDM; High Cholesterol; Hypertension; restless leg; tr6 - Immunization history:: Adult Immunizations up to date, Client reports receiving the 2nd dose of the Covid vaccine. - Social history:: Smoking status: unknown. Screenin:17 Abuse screen: Denies threats or abuse. Denies injuries from another. Nutritional tr6 screening: No deficits noted. Tuberculosis screening: No symptoms or risk factors identified. Fall Risk None identified. Assessment: 12:20 Reassessment: see triage assessment. tr6 18:57 Reassessment: Patient and/or family updated on plan of care and expected duration. Pain tr6 level reassessed. Patient is alert, oriented x 3, equal unlabored respirations, skin warm/dry/pink. 21:45 Reassessment: report given to Oleg ZAVALETA. Pt transported via wheelchair. sj1 Vital Signs: 12:14 BP 159 / 142; Pulse 75; Resp 26; Temp 98.3(O); Pulse Ox 99% on R/A; tr6 13:00 BP 160 / 69; Pulse 69; Resp 18; Pulse Ox 98% on R/A; tr6 16:00 BP 186 / 83; Pulse 73; Resp 18; Pulse Ox 99% ; tr6 17:00 BP 192 / 86; Pulse 86; Resp 18; Pulse Ox 97% ; tr6 18:53 BP 215 / 189; Pulse 83; Resp 18; Pulse Ox 93% on R/A; tr6 19:51 BP 194 / 97; Pulse 93; Resp 19; Pulse Ox 95% on R/A; Pain 0/10; sj1 20:44 BP 189 / 63 RA Sitting (auto/lg); Pulse 85; Resp 18; Pulse Ox 94% on R/A; Pain 0/10; sj1 21:41 BP 161 / 82 RA Sitting (auto/lg); sj1 ED Course: 12:05 Patient arrived in ED. tr6 12:07 Tigre Padron NP is PHCP. pm1 12:07 Girish Gill MD is Attending Physician. pm1 12:14 Karen Brush, WAQAR is Primary Nurse. tr6 12:16 Triage completed. tr6 12:17 Patient has correct armband on for positive identification. Allergy band placed. Bed in tr6 low position. Call light in reach. Side rails up X2. personnel monitor on. Pulse ox on. NIBP on. Door closed. Noise minimized. Visitors limited. Lights dimmed. Warm blanket given. Diet: Patient is NPO. 12:17 No provider procedures requiring assistance completed. Maintain EMS IV. Dressing tr6 intact. Good blood return noted. Site clean \T\ dry. Gauge \T\ site: 18 L AC. Oxygen administration via nasal cannula for comfort. 12:20 Arm band placed on right wrist. tr6 12:42 XRAY Chest (1 view) In Process Unspecified. EDMS 12:49 IV discontinued, intact, bleeding controlled, No redness/swelling at site. Pressure tr6 dressing applied. 12:49 Inserted saline lock: 18 gauge in right wrist, using aseptic technique. Blood collected.tr6 16:44 Adebayo Newell is Hospitalizing Provider. pm1 18:19 CT Abd/Pelvis - IV Contrast Only In Process Unspecified. EDMS 19:25 US Abdomen Limited Sent. sj1 19:31 US Abdomen Limited In Process Unspecified. EDMS 19:31 Basic Metabolic Panel Sent. sj1 19:31 LFT's Sent. sj1 19:31 Magnesium Sent. sj1 19:55 Door closed. Diet tray given. PO fluids given. sj1 Administered Medications: 13:21 Drug: Lasix (furosemide) 40 mg Route: IVP; Site: right wrist; tr6 17:47 Follow up: Response: No adverse reaction tr6 Output: 18:16 Urine: 900ml (Voided); Total: 900ml. tr6 Outcome: 16:44 Decision to Hospitalize by Provider. pm1 17:46 Admitted to tr6 17:46 Condition: good 17:46 Instructed on the need for admit, Demonstrated understanding of instructions. 21:47 Patient left the ED. sj1 Signatures: Dispatcher [employer] EDMS Tigre Padron NP PRODUCT SAFETY TECHNICIAN pm1 Karen Brush, WAQAR ZAVALETA tr6 Robina Perea RN RN sj1
--- NOTE | 2021-06-16 18:31 | RAD REPORT ---
EXAM DESCRIPTION: CTAbdomen Pelvis W Contrast - 06/16/2021 6:19 pm CLINICAL HISTORY: Abdominal pain. ABD PAIN COMPARISON: No comparisons TECHNIQUE: Biphasic CT imaging of the abdomen and pelvis was performed with 100 ml non-ionic IV cont rast. All CT scans are performed using dose optimization technique as appropriate and may include automated exposure control or mA/KV adjustment according to patient size. FINDINGS: The lung bases are clear.Trace right pleural effusion. Mild diffuse fatty liver is present. The gallbladder appears mildly distended with a small amount of pericholecystic fluid seen. Gallstones also noted. The spleen, pancreas adrenal glands are normal. 7 mm stone is present midpole anterior right kidney. Additional small stones are present in both kidney s. No hydronephrosis. No bowel obstruction, free air, free fluid or abscess. Sigmoid diverticulosis coli is present. Modera te stool is present throughout the colon. The appendix is not identified as a discrete structure, how ever, no secondary findings of appendicitis are identified. No evidence of significant lymphadenopa thy. No suspicious bony findings. IMPRESSION: Bilateral nephrolithiasis without hydronephrosis. Cholelithiasis with trace fluid around the gallbladder. Recommend gallbladder ultrasound for further assessment.
--- NOTE | 2021-06-16 19:52 | RAD REPORT ---
EXAM DESCRIPTION: US - Abdomen Exam Limited - 06/16/2021 7:31 pm CLINICAL HISTORY: abdominal pain COMPARISON: No comparisons FINDINGS: The gallbladder demonstrates sludge and small gallstones. Gallbladder wall is upper limit of normal measuring 3 mm. The common bile duct is normal measuring 3 mm. The liver demonstrates no findings of intrahepatic biliary dilatation. IMPRESSION: Gallbladder sludge and small calculi with mild gallbladder wall thickening. If acute ch olecystitis remains a clinical concern, HIDA scan may be of value.
[2021-06-16] MEDS ORDERED: ONDANSETRON 4 MG/2 ML VIAL IV PRN (20:34)
[2021-06-16] MEDS: INSULIN -REGULAR HUMAN 50 UNIT/0.5 ML ML SQ SCH (21:00)
[2021-06-16] MEDS ORDERED: NA CHLORIDE 0.9% 1,000 ML IV SCH (21:00)
[2021-06-16] MEDS: HYDRALAZINE HCL 20 MG/ML VIAL IV PRN (22:50)
[2021-06-16] MEDS: ROPINIROLE HCL 1 MG TAB PO SCH (23:12)
[2021-06-16 23:16] LABS: Urine Appearance CLEAR (Clear); Urine Bilirubin NEGATIVE (Negative); Urine Blood NEGATIVE (Negative); Urine Color YELLOW (Yellow); Urine Glucose TRACE (Negative); Urine Protein NEGATIVE (Negative); Urine Specific Gravity >=1.030 (1.005-1.030); Urine Urobilinogen 0.2 mg/dL (0.2-1.0); Urine pH 7.5 (5.0-7.0)
[2021-06-16] MEDS: HYDROCODONE/APAP 7.5/325 MG TAB PO SCH (23:19)
[2021-06-16] MEDS: GABAPENTIN 300 MG CAP PO SCH (23:20)
[2021-06-16 23:22] LABS: Urine Microscopic Reflex NO UMIC
--- NOTE | 2021-06-16 23:22 | P.HP ---
Certification for Inpatient Patient admitted to: Inpatient With expected LOS: >2 Midnights Patient will require the following post-hospital care: None Practitioner: I am a practitioner with admitting privileges, knowledge of patient current condition, hospital course, and medical plan of care. Services: Services provided to patient in accordance with Admission requirements found in Title 42 Section 412.3 of the Code of Federal Regulations Patient History Date of Service: 06/16/21 Primary Care Provider: Dr. Gloria Reason for admission: Dyspnea, Possible cholecystitis History of Present Illness: US - Abdomen Exam Limited - 06/16/2021 7:31 pm CLINICAL HISTORY: abdominal pain COMPARISON: No comparisons FINDINGS: The gallbladder demonstrates sludge and small gallstones. Gallbladder wall is upper limit of normal measuring 3 mm. The common bile duct is normal measuring 3 mm. The liver demonstrates no findings of intrahepatic biliary dilatation. IMPRESSION: Gallbladder sludge and small calculi with mild gallbladder wall thickening. If acute cholecystitis remains a clinical concern, HIDA scan may be of value. CT Abdomen Pelvis W Contrast - 06/16/2021 6:19 pm CLINICAL HISTORY: Abdominal pain. COMPARISON: No comparisons FINDINGS: The lung bases are clear.Trace right pleural effusion. Mild diffuse fatty liver is present. The gallbladder appears mildly distended with a small amount of pericholecystic fluid seen. Gallstones also noted. The spleen, pancreas adrenal glands are normal. 7 mm stone is present midpole anterior right kidney. Additional small stones are present in both kidneys. No hydronephrosis. No bowel obstruction, free air, free fluid or abscess. Sigmoid diverticulosis coli is present. Moderate stool is present throughout the colon. The appendix is not identified as a discrete structure, however, no secondary findings of appendicitis are identified. No evidence of significant lymphadenopathy. No suspicious bony findings. IMPRESSION: Bilateral nephrolithiasis without hydronephrosis. Cholelithiasis with trace fluid around the gallbladder. Recommend gallbladder ultrasound for further assessment. Chest Single View - 06/16/2021 12:42 pm CLINICAL HISTORY: SOB Chest pain. COMPARISON: Chest Pa And Lat (2 Views) dated 06/14/2021; Chest Single View dated 04/09/2019; Chest Single View dated 02/14/2019 FINDINGS: Mild pulmonary edema is noted. The heart is moderately enlarged in size. No displaced fractures.Aortic atherosclerosis. IMPRESSION: Mild to moderate CHF pattern suspected. In the current clinical environment, underlying COVID infection is difficult to rule out. 75-year-old white female who began to become dyspneic yesterday. This morning she was extremely dyspneic and was unable to complete tasks of daily living. Any exertion was too much for her. She has had previous episodes of dyspnea. She has also been treated for unknown dysrhythmia in the past. In the ER she complained of some dyspnea and later developed right upper quadrant pain and tenderness. Her electrolytes were unremarkable. Her CBC demonstrated a slight anemia. Her BNP was 1815, and her Covid was negative. Allergies Penicillins Allergy (Verified 06/14/21 09:42) Hives/Rash Sulfa (Sulfonamide Antibiotics) Allergy (Verified 06/14/21 09:42) Hives/Rash Home medications list reviewed: Yes Home Medications: Apixaban [Eliquis *] 2 tab PO DAILY 06/16/21 Clopidogrel Bisulfate [Plavix*] 1 tab PO DAILY 06/16/21 Fenofibrate 1 tab PO DAILY 06/16/21 Furosemide 1 tab PO DAILY 06/16/21 Gabapentin 1 tab PO BID 06/16/21 Hydrocodone Bit/Acetaminophen [[place] 7.5-325 Tablet] 1 tab PO BID 06/16/21 Metformin HCl [Metformin HCl ER] 1 tab PO BID 06/16/21 Potassium Chloride 20 meq PO DAILY 06/16/21 Ropinirole HCl [Requip] 1 tab PO DAILY 06/16/21 Rosuvastatin [Crestor*] 40 mg PO BEDTIME 06/16/21 - Past Medical/Surgical History Has patient received pneumonia vaccine in the past: No Diabetic: Yes -: CHF -: NIDDM -: High Cholesterol -: Hypertension -: History of unknown dysrhythmia requiring defibrill -: Total Hysterectomy -: Prolapse Anal wall -: Neck surgery -: Shoulder Surgery -: Hand Surgery -: UPPP Psychosocial/ Personal History: lives at home by self. - Family History Father -: Heart disease Mother -: Other (see notes) (Dementia) Brother -: Heart disease - Social History Smoking Status: Never smoker Alcohol use: No CD- Drugs: No Caffeine use: Yes Place of Residence: Home Review of Systems 10-point ROS is otherwise unremarkable General: Weakness, Malaise ENT: Unremarkable Respiratory: Shortness of Breath, SOB with Excertion Cardiovascular: Unremarkable Gastrointestinal: Unremarkable Genitourinary: Unremarkable Musculoskeletal: Unremarkable Integumentary: Unremarkable Neurological: Unremarkable Lymphatics: Unremarkable Physical Examination - Vital Signs Temperature: 98.3 F Blood Pressure: 161/82 Pulse: 85 Respirations: 18 - Physical Exam General: Alert, Oriented x3, Cooperative, Mild distress HEENT: Atraumatic, Normocephalic, PERRLA Neck: Supple, JVD not distended Respiratory: Clear to auscultation bilaterally, Normal air movement Cardiovascular: Normal pulses, Regular rate/rhythm, Normal S1 S2 Capillary refill: Brisk Gastrointestinal: Normal bowel sounds, Tenderness (Right upper quadrant. VERY tender) Musculoskeletal: No swelling, No contractures, No erythema Integumentary: No rashes, No breakdown, No significant lesion Neurological: Normal speech, Normal strength at 5/5 x4 extr, Normal tone External genitalia: Deferred Rectal: Deferred - Studies Laboratory Data (last 24 hrs) 06/16/21 12:40: PT 12.5, INR 1.09 06/16/21 12:40: WBC 5.10 D, Hgb 9.3 L, Hct 29.0 L, Plt Count 169 06/16/21 12:40: Sodium 145, Potassium 4.1, BUN 22 H, Creatinine 1.06, Glucose 188 H, Magnesium 2.1, Total Bilirubin 0.5, AST 24, ALT 27, Alkaline Phosphatase 59 Assessment and Plan - Plan Assessment NICK Right upper quadrant abdominal pain. Weakness Plan NICK: Consult with Dr. Del Rosario, consult with Dr. Falcon. surveillance system monitor. O2 prn, Bedrest until improved. BSC. Right upper quadrant abdominal pain. NPO. IV NS, Zosyn, surgical consult. Weakness: Bedrest until improved. DVT prophylaxis:Shannon CODE STATUS: Full code Discharge Plan: Home Plan to discharge in: Unknown - Advance Directives Does patient have a Living Will: No Does patient have a Durable POA for Healthcare: No - Code Status/Comfort Care Code Status Assessed: Yes Code Status: Full Code Critical Care: No Time Spent Managing Pts Care (In Minutes): 70
[2021-06-16] MEDS ORDERED: ROPINIROLE HCL 1 MG TAB ONE (23:41)
[2021-06-16] MEDS ORDERED: LORAZEPAM 0.5 MG TABLET PO ONE (23:43)
[2021-06-17] MEDS: METRONIDAZOLE 500mg IVPB 500 MG/100 ML BAG IV SCH ×4 (00:25→17:04)
[2021-06-17] MEDS ORDERED: PIPER TAZO 3.375 GM in NA CHLORIDE 0.9% 100 ML IV SCH (01:00)
[2021-06-17] MEDS: CIPROFLOXACIN 400mg IV 400 MG/200 ML BAG IV SCH ×3 (01:04→22:12)
[2021-06-17 05:54] LABS: Absolute Lymphocytes (CBC) 0.9 K/uL (0.7-4.9); Basophils % 0.5 % (0-1.3); Hematocrit 27.5 % (36.0-45.0); Lymphocytes % 15.6 % (15.3-44.8); MPV 8.6 fL (7.6-11.3); RBC Red Blood Cell Count 3.12 M/uL (3.86-4.86)
[2021-06-17 06:12] LABS: Albumin 3.4 g/dL (3.4-5.0); Bilirubin Total 0.5 mg/dL (0.2-1.0); Potassium 3.6 mmol/L (3.5-5.1); Protein, Total 6.2 g/dL (6.4-8.2)
[2021-06-17] MEDS: INSULIN -REGULAR HUMAN 50 UNIT/0.5 ML ML SQ SCH ×4 (07:30→21:00)
[2021-06-17] MEDS: HYDROCODONE/APAP 7.5/325 MG TAB PO SCH ×2 (08:58→22:13)
[2021-06-17] MEDS: GABAPENTIN 300 MG CAP PO SCH ×2 (08:58→22:14)
[2021-06-17] MEDS: ROPINIROLE HCL 1 MG TAB PO SCH ×2 (08:59→22:13)
[2021-06-17] MEDS ORDERED: PNEUMOCOCCAL VACCINE 0.5 ML IMVAC ONE (09:00)
[2021-06-17] MEDS ORDERED: APIXABAN 5 MG TABLET PO SCH (09:00)
[2021-06-17] MEDS: FUROSEMIDE 40 MG/4 ML VIAL IV SCH (09:01)
--- NOTE | 2021-06-17 14:13 | P.PN ---
Subjective Date of Service: 06/17/21 Primary Care Provider: Dr. Gloria Chief Complaint: Dyspnea, Possible cholecystitis Patient reports feeling better. The principal concern appears to be her chronic shortness of breath. She denies abdominal pain today. She denies any nausea or vomiting. Physical Examination - Vital Signs Temperature: 98.4 F Blood Pressure: 123/66 Pulse: 73 Respirations: 21 Pulse Ox (%): 92 - Physical Exam General: Alert, In no apparent distress, Oriented x3 HEENT: Mucous membr. moist/pink Neck: JVD not distended Respiratory: Clear to auscultation bilaterally, Normal air movement Cardiovascular: No edema, Regular rate/rhythm, Normal S1 S2, No murmurs Gastrointestinal: Normal bowel sounds, Soft and benign, Non-distended, Tenderness (Right upper quadrant, and right lower quadrant.) Musculoskeletal: No swelling, No tenderness Integumentary: No rashes Neurological: Normal strength at 5/5 x4 extr Assessment And Plan - Current Problems (Diagnosis) (1) Abdominal pain Current Visit: Yes Status: Acute (2) Chronic dyspnea Current Visit: Yes Status: Chronic (3) Acute on chronic diastolic heart failure Current Visit: Yes Status: Acute (4) Gallbladder sludge Current Visit: Yes Status: Acute (5) Anemia Current Visit: Yes Status: Chronic (6) Accelerated hypertension Current Visit: Yes Status: Acute - Plan Possible acute cholecystitis. General surgery consulted to evaluate. Patient to be seen by Dr. Ngo. Obtain HIDA scan. Continue IV Lasix for CHF exacerbation. Patient stated she is scheduled for right heart catheterization tomorrow. Will consult cardiology to evaluate. Empiric antibiotics. NPO at midnight. Insulin sliding scale for glucose management. Hold metformin. Pain management as needed. Monitor CBC. Hold Eliquis anticoagulation. Ropinirole for restless legs. She is currently normotensive. Hydralazine IV p.r.n. for BP spikes.
--- NOTE | 2021-06-17 19:08 | P.CNS ---
Date of Consult: 06/17/21 PC: I was asked to see this patient in regards to her abdominal pain, and gallstones seen on ultrasound as well as CT. HPC: Patient currently is concerned about her shortness of breath. She apparently has been like this for the last few months. She has been hospitalized on 4 separate occasions. She has a history of atrial fibrillation, and is currently being investigated for this issue. PSHx: NAD PMHx: Atrial fibrillation Social Hx: On Eliquis Sys R: Has been having shortness of breath last few months. Runs out of breath when she tries to walk. She has also been having some right upper quadrant abdominal pain, but was unsure what it was. Denies any urinary complaints O/E: Awake alert vital signs are stable HEENT: Not jaundiced Chest: Chest movement equal bilaterally Abd: Mild right upper quadrant discomfort Shokan: Intact Data: As documented gallstones on ultrasound and CT Impression: This patient may be having intermittent bouts of biliary colic on top of her chronic cholecystitis with cholelithiasis. Her biggest issue at the current time though is her shortness of breath, and her bouts of atrial f ibrillation. She is having that actively managed at the moment. I have explained to her that while she does have gallstones, she is not an emergent situation at the moment. Plan: Patient is going to undergo cardiac work-up, and hopefully find a solution to her intermittent bouts of atrial fibrillation. When she has been stabilized, is in good nutritional status, she will come see me and we can discuss gallbladder surgery. However we will continue to follow with you, until she is discharged.
[2021-06-18] MEDS: METRONIDAZOLE 500mg IVPB 500 MG/100 ML BAG IV SCH ×4 (01:04→17:01)
[2021-06-18] MEDS: HYDRALAZINE HCL 20 MG/ML VIAL IV PRN ×2 (04:27→15:55)
[2021-06-18 05:29] LABS: Basophils % 0.5 % (0-1.3); Hematocrit 28.7 % (36.0-45.0); Lymphocytes % 22.5 % (15.3-44.8); MPV 8.5 fL (7.6-11.3); RBC Red Blood Cell Count 3.25 M/uL (3.86-4.86)
[2021-06-18 05:37] LABS: Albumin 3.6 g/dL (3.4-5.0); Bilirubin Total 0.5 mg/dL (0.2-1.0); Potassium 4.2 mmol/L (3.5-5.1); Protein, Total 6.4 g/dL (6.4-8.2)
[2021-06-18] MEDS: INSULIN -REGULAR HUMAN 50 UNIT/0.5 ML ML SQ SCH ×4 (07:30→20:12)
[2021-06-18] MEDS: HYDROCODONE/APAP 7.5/325 MG TAB PO SCH ×3 (09:00→20:10)
[2021-06-18] MEDS: GABAPENTIN 300 MG CAP PO SCH ×2 (09:00→20:09)
--- NOTE | 2021-06-18 09:36 | RAD REPORT ---
EXAM DESCRIPTION: NM - Hepatobiliary System Imagin - 06/18/2021 9:15 am CLINICAL HISTORY: Abdominal pain COMPARISON: Abdomen ultrasound June 16, CT abdomen June 16 TECHNIQUE: The patient was administered 4.8 mCi Tc99m Choletec . Imaging of the right upper quadrant was performed initially for up to 60 minutes. No synthetic CCK was available due to [facility] rec rring shortages. An 4 ounce ice cream meal was substituted. FINDINGS: There is homogeneous uptake of radiopharmaceutical throughout the liver. There is no delay in visualization of the biliary tree or duodenum. Gallbladder visualizes within normal time limits. The calculated ejection fraction is 54%, normal ran ge. The patient reported no pain prior to the procedure and no symptoms during or subsequent to fatty dot l ingestion. IMPRESSION: Patient cystic duct and patent sphincter of Oddi. No delay in visualization of the gallb ladder, biliary tree, or duodenum. Ejection fraction is 54%, normal range. Patient reported no pre-procedure pain, and no pain during or subsequent to fatty meal ingestion.
[2021-06-18] MEDS: FUROSEMIDE 40 MG/4 ML VIAL IV SCH (10:05)
[2021-06-18] MEDS: CIPROFLOXACIN 400mg IV 400 MG/200 ML BAG IV SCH ×2 (10:06→20:10)
[2021-06-18] MEDS ORDERED: NA CHLORIDE 0.9% 500 ML ONE (11:18)
[2021-06-18] MEDS ORDERED: HEPA 1000U/500MLS 1,000 UNIT/500 ML BAG IV ONE (11:47)
[2021-06-18] MEDS ORDERED: NA CHLORIDE 0.9% 100 ML IV ONE (11:47)
[2021-06-18] MEDS ORDERED: LIDOCAINE 1% 20 ML MDV ONE (11:47)
[2021-06-18] MEDS ORDERED: NITROGLYCERIN/D5W 0 MG/0 ML BTL IV ONE (12:17)
[2021-06-18] MEDS ORDERED: ATROPINE SULF 1 MG/10 ML SYR IV ONE (12:17)
[2021-06-18] MEDS ORDERED: MIDAZOLAM HCL 2 MG/2 ML INJ ONE (12:17)
[2021-06-18] MEDS ORDERED: FENTANYL CITR 100 MCG/2 ML ONE (12:17)
--- NOTE | 2021-06-18 13:03 | P.DS ---
Admission Date: 06/16/21 Discharge Date: 06/18/21 Primary Care Provider: Dr. Gloria Disposition: ROUTINE DISCHARGE Discharge Condition: FAIR Reason for Admission: Dyspnea, Possible cholecystitis - Problems (1) Abdominal pain Current Visit: Yes Status: Acute (2) Chronic dyspnea Current Visit: Yes Status: Chronic (3) Acute on chronic diastolic heart failure Current Visit: Yes Status: Acute (4) Gallbladder sludge Current Visit: Yes Status: Acute (5) Anemia Current Visit: Yes Status: Chronic (6) Accelerated hypertension Current Visit: Yes Status: Acute Brief History of Present Illness: 75-year-old white female who presented with shortness of breath and having difficulty to complete tasks of daily living. Any exertion was too much for her. She has also been treated for unknown dysrhythmia in the past. In the ER she complained of some dyspnea and later developed right upper quadrant pain and tenderness. CT abdomen and pelvis demonstrated gallbladder sludge. Patient had tenderness on right upper quadrant palpation. Her electrolytes were unremarkable. Her CBC demonstrated a slight anemia. Her BNP was 1815, and her Covid was negative. Chest x-ray demonstrated possible pulmonary vascular congestion. Patient hospitalized for further management. Hospital Course: Patient did with IV Lasix for possible vascular congestion. Right upper quadr ant sonogram confirmed gallbladder sludge, no evidence of acute cholecystitis. Patient is scheduled to have cardiac catheterization. She was seen by general surgery-Dr. Ngo who recommended cardiac workup before surgery. Patient seen by Dr. Falcon will performed cardiac catheterization and noted critical aortic stenosis. HIDA scan did not suggest acute cholecystitis. Per Dr. Falcon surgery is prohibited until until her aortic valve is repaired or replaced. Patient will follow with Dr. Falcon as an outpatient for referral aortic valve surgery. No medication changes recommended by Dr. Falcon. Vital Signs/Physical Exam: Temp Pulse Resp BP Pulse Ox 97.8 F 85 22 H 173/73 H 100 06/18/21 04:00 06/18/21 10:05 06/18/21 04:00 06/18/21 10:06/18/21 04:00 General: Alert, In no apparent distress, Oriented x3 HEENT: Mucous membr. moist/pink Neck: JVD not distended Respiratory: Clear to auscultation bilaterally, Normal air movement Cardiovascular: No edema, Regular rate/rhythm, Normal S1 S2 Gastrointestinal: Normal bowel sounds, Soft and benign, Non-distended, No tenderness Musculoskeletal: No swelling Integumentary: No rashes Neurological: Normal strength at 5/5 x4 extr Laboratory Data at Discharge: WBC 4.30 K/uL (4.3-10.9) D 06/18/21 04:50 Hgb 9.4 g/dL (12.0-15.0) L 06/18/21 04:50 Hct 28.7 % (36.0-45.0) L 06/18/21 04:50 Plt Count 153 K/uL (152-406) 06/18/21 04:50 PT 12.5 SECONDS (9.5-12.5) 06/16/21 12:40 INR 1.09 06/16/21 12:40 Sodium 143 mmol/L (136-145) 06/18/21 04:50 Potassium 4.2 mmol/L (3.5-5.1) 06/18/21 04:50 BUN 12 mg/dL (7-18) 06/18/21 04:50 Creatinine 1.03 mg/dL (0.55-1.3) 06/18/21 04:50 Glucose 142 mg/dL (74-106) H 06/18/21 04:50 Magnesium 2.1 mg/dL (1.8-2.4) 06/16/21 12:40 Total Bilirubin 0.5 mg/dL (0.2-1.0) 06/18/21 04:50 AST 20 U/L (15-37) 06/18/21 04:50 ALT 26 U/L (12-78) 06/18/21 04:50 Alkaline Phosphatase 48 U/L (45-117) 06/18/21 04:50 Home Medications: Apixaban [Eliquis *] 2 tab PO DAILY 06/16/21 Clopidogrel Bisulfate [Plavix*] 1 tab PO DAILY 06/16/21 Fenofibrate 1 tab PO DAILY 06/16/21 Furosemide 1 tab PO DAILY 06/16/21 Gabapentin 1 tab PO BID 06/16/21 Hydrocodone Bit/Acetaminophen [Jackson 7.5-325 Tablet] 1 tab PO BID 06/16/21 Metformin HCl [Metformin HCl ER] 1 tab PO BID 06/16/21 Potassium Chloride 20 meq PO DAILY 09/25/21 Ropinirole HCl [Requip] 1 tab PO DAILY 06/16/21 Rosuvastatin [Crestor*] 40 mg PO BEDTIME 06/16/21 Diet: ADA Activity: Ad jose a Followup: Arian Falcon MD [ACTIVE - CAN ADMIT] - 1-2 Weeks Unknown,U [Primary Care Provider] - Time spent managing pt's care (in minutes): 38
--- NOTE | 2021-06-18 13:24 | OP ---
Surgeon: Arian Falcon MD [employer]: Elvi Perea. The patient can go home today after 2 hours of bedrest. Indication: Admitted to Dr. Lucas on 06/16/2021 for cholecystitis, which has resolved. She needed cardiac clearance. The patient was scheduled for an outpatient catheterization left and right today for aortic stenosis. Procedure In Detail: She was brought to the labor gang supervisor as an inpatient instead of outpatient, prepped and draped in routine sterile fashion. Given Versed for sedation. A 7-Samoan sheath introduced in t he right common femoral vein and a 6-Samoan sheath introduced in the right common femoral artery usin g the Seldinger technique and 10 mL of Xylocaine. The Carnegie-Osito catheter was approached from the com mon femoral vein, a 7-Samoan into the right atrium. Right ventricle, pulmonary artery, and wedge pre ssure, O2 saturations were measured. They were pending. Cardiac output was measured and was 8.19 L/ minute. The pulmonary artery pressure was almost 80 that was equal for the right ventricular pressur e. Her wedge pressure mean was 49. Right atrial pressure was 21/17. All of this was consistent wit h severe pulmonary hypertension. Normal cardiac output. Severely calcified aortic valve on fluorosc opy. Left heart catheterization was done using the Portia catheter left and right. She was found t o have a nondominant small right with diffuse plaquing. She had diffuse plaquing in the LAD and circ umflex, about 50% to 60% ostial OM lesion. Total conscious sedation was 60 minutes. No complication s. Blood loss 5 mL. The patient tolerated the procedure well. Angiography in the groin area was no rmal. StarClose was used to close the groin. Pressure was held for the vein access. Postoperative Diagnoses: Severe aortic stenosis, severe pulmonary hypertension, moderate coronary ar bala disease. Plan: For aortic valve replacement. I will discuss the case with primary care physician. She can g o home today in 2 hours. I will make an arrangement for a valve replacement as an outpatient. SHIRA/CORI Voice ID: [id number] Report ID: [id number]
[2021-06-18] MEDS ORDERED: ACETAMINOPHEN 325 MG TABLET PO PRN (13:52)
[2021-06-18] MEDS ORDERED: NITROGLYCERIN 0.4 MG/TAB SL PRN (13:52)
[2021-06-18] MEDS: NA CHLORIDE 0.9% 1,000 ML IV SCH (14:00)
--- NOTE | 2021-06-18 18:59 | P.PN ---
Subjective Date of Service: 06/18/21 Primary Care Provider: Dr. Gloria Chief Complaint: Dyspnea, Possible cholecystitis Patient is hypoxic on room air. Status post cardiac catheterization today. Patient noted to have critical aortic stenosis. Physical Examination - Vital Signs Temperature: 98.9 F Blood Pressure: 149/62 Pulse: 91 Respirations: 16 Pulse Ox (%): 100 - Physical Exam General: Alert, In no apparent distress HEENT: Mucous membr. moist/pink Neck: JVD not distended Respiratory: Other (Nonlabored breathing, mild bibasilar rales.) Cardiovascular: No edema, Regular rate/rhythm, Normal S1 S2 Gastrointestinal: Soft and benign, Non-distended Musculoskeletal: No swelling Integumentary: No rashes Neurological: Normal strength at 5/5 x4 extr Assessment And Plan - Current Problems (Diagnosis) (1) Abdominal pain Current Visit: Yes Status: Acute (2) Chronic dyspnea Current Visit: Yes Status: Chronic (3) Acute on chronic diastolic heart failure Current Visit: Yes Status: Acute (4) Gallbladder sludge Current Visit: Yes Status: Acute (5) Anemia Current Visit: Yes Status: Chronic (6) Accelerated hypertension Current Visit: Yes Status: Acute (7) Acute and chronic respiratory failure Current Visit: Yes Status: Acute - Plan Patient with critical aortic stenosis. Cardiology-Dr. Falcon recommend follow up with him in the office for referral for aortic valve repair/replacement. Patient to be seen by Dr. Ngo. HIDA scan does not suggest acute cholecystitis. Continue IV Lasix for CHF exacerbation. Continue empiric antibiotics. Insulin sliding scale for glucose management. Hold metformin. Advanced diet as tolerated Pain management as needed. Monitor CBC. Resume Eliquis. Ropinirole for restless legs. She is currently normotensive. Hydralazine IV p.r.n. for BP spikes. Wean oxygen as tolerated.
[2021-06-18] MEDS: ROPINIROLE HCL 1 MG TAB PO SCH (20:12)
[2021-06-19] MEDS: METRONIDAZOLE 500mg IVPB 500 MG/100 ML BAG IV SCH ×3 (01:30→17:22)
[2021-06-19 05:24] LABS: Absolute Lymphocytes (CBC) 0.8 K/uL (0.7-4.9); Basophils % 0.6 % (0-1.3); Hematocrit 27.4 % (36.0-45.0); Lymphocytes % 17.4 % (15.3-44.8); MPV 8.3 fL (7.6-11.3); RBC Red Blood Cell Count 3.11 M/uL (3.86-4.86)
[2021-06-19] MEDS: NA CHLORIDE 0.9% 1,000 ML IV SCH (05:27)
[2021-06-19 05:53] LABS: Albumin 3.4 g/dL (3.4-5.0); Bilirubin Total 0.5 mg/dL (0.2-1.0); Protein, Total 6.1 g/dL (6.4-8.2)
--- NOTE | 2021-06-19 07:15 | RAD REPORT ---
EXAM DESCRIPTION: RAD - Chest Single View - 06/19/2021 6:01 am CLINICAL HISTORY: hypoxia, eval for pulm edema / chf COMPARISON: June 16 TECHNIQUE: AP portable chest image was obtained 06/19/2021 6:01 am . FINDINGS: No dense mass or consolidations seen. Interstitial markings are prominent vasculature is m ildly engorged. Cardiomegaly is present similar to the prior study perhaps fractionally diminished. Trachea is midline. No measurable pleural effusion and no pneumothorax. No acute bony abnormality see n. No acute aortic findings suspected. IMPRESSION: Mild CHF/volume overload pattern not substantially different from comparison study.
[2021-06-19] MEDS: INSULIN -REGULAR HUMAN 50 UNIT/0.5 ML ML SQ SCH ×4 (07:30→20:53)
[2021-06-19] MEDS: GABAPENTIN 300 MG CAP PO SCH ×2 (08:46→20:50)
[2021-06-19] MEDS: CIPROFLOXACIN 400mg IV 400 MG/200 ML BAG IV SCH (08:47)
[2021-06-19] MEDS: HYDROCODONE/APAP 7.5/325 MG TAB PO SCH ×2 (08:48→20:51)
[2021-06-19] MEDS: FUROSEMIDE 40 MG/4 ML VIAL IV SCH (08:49)
--- NOTE | 2021-06-19 13:36 | P.PN ---
Date of Service: 06/19/21 Subjective: feels tired, short of breath, winded with walking to bathroom. >92% on 2L NC and does ok temporarily off O2, but desaturates with movement and >10min of rest Physical Exam General: Alert, In no apparent distress HEENT: Normal conjunctiva, sclera anicteric Respiratory: Mildly labored respirations on 1 L nasal cannula, mild bibasilar rales Cardiovascular: No edema, Regular rate/rhythm, grade 4/6 systolic murmur Gastrointestinal: Soft and benign, Non-distended Musculoskeletal: No swelling Integumentary: No rashes Neurological: Normal strength at 5/5 x4 extr Problem list Critical aortic stenosis Acute on chronic diastolic heart failure Biliary colic Anemia of chronic disease Hypertension Acute on chronic respiratory failure secondary to diastolic heart failure/critical aortic stenosis Patient with critical aortic stenosis. Cardiology-Dr. Falcon recommend follow up with him in the office for referral for aortic valve repair/replacement. HIDA scan does not suggest acute cholecystitis. Reviewed with Dr. Ngo, agrees with discontinuing antibiotics Patient will follow up with him or other general surgeon of choice as outpatient, after her year aortic valve is corrected Continue IV Lasix for CHF exacerbation. Insulin sliding scale for glucose management. Hold metformin. Advanced diet as tolerated Pain management as needed. Continue Eliquis Ropinirole for restless legs. Hydralazine IV p.r.n. for BP spikes. PT consulted Suspect patient will need oxygen at home. She has critical aortic stenosis contributing to her congestive heart failure Advanced care planning disposition was discussed with the patient for 30 minutes, as well as with the patient's son. Continue full code, plan for discharge home with home health/physical therapy Anticipate discharge tomorrow
[2021-06-19] MEDS ORDERED: PANTOPRAZOLE 40MG TABLET PO ONE (16:00)
[2021-06-19] MEDS: HYDRALAZINE HCL 20 MG/ML VIAL IV PRN (17:24)
[2021-06-19] MEDS: ROPINIROLE HCL 1 MG TAB PO SCH (20:51)
[2021-06-19] MEDS: FLUTICASONE 50MCG NASAL SPRAY NAS SCH (20:52)
[2021-06-20] MEDS: METRONIDAZOLE 500mg IVPB 500 MG/100 ML BAG IV SCH ×2 (03:03→09:00)
[2021-06-20 05:44] LABS: Absolute Lymphocytes (CBC) 0.7 K/uL (0.7-4.9); Basophils % 0.6 % (0-1.3); Hematocrit 27.9 % (36.0-45.0); Lymphocytes % 17.6 % (15.3-44.8); MPV 8.3 fL (7.6-11.3)
--- NOTE | 2021-06-20 05:52 | PN ---
Date of Progress Note: 06/19/2021 Ms. Rico had a left and right heart catheterization yesterday after she was being admitted for c holelithiasis and cholecystitis, needed preop clearance. She was already scheduled for outpatient le ft and right heart catheterization because of severe aortic stenosis. Her heart catheterization reve aled mild to moderate coronary artery disease that does not radiate or need any intervention. She herndon s severe aortic stenosis, severe pulmonary hypertension. She needs an aortic valve replacement. The case was discussed with Dr. Kaplan the patient needs to go home whenever it is okay with him, and we will make arrangements for her to have an aortic valve replacement probably surgical in [place], but I will make arrangements for that as an outpatient. Continue her present regimen otherwise. Her rivka in site was intact. She is in sinus rhythm. SHIRA/CORI Voice ID: [id number] Report ID: [id number]
[2021-06-20 05:54] LABS: Magnesium 1.9 mg/dL (1.8-2.4); Potassium 3.5 mmol/L (3.5-5.1)
[2021-06-20] MEDS ORDERED: PANTOPRAZOLE 40MG TABLET PO SCH (07:30)
[2021-06-20] MEDS: INSULIN -REGULAR HUMAN 50 UNIT/0.5 ML ML SQ SCH ×3 (07:30→16:30)
[2021-06-20 08:44] VITALS: O2SAT 94
[2021-06-20] MEDS: GABAPENTIN 300 MG CAP PO SCH (09:00)
[2021-06-20] MEDS ORDERED: POTASSIUM CL SA 10 MEQ TAB PO ONE (09:00)
[2021-06-20] MEDS: FLUTICASONE 50MCG NASAL SPRAY NAS SCH (09:00)
[2021-06-20] MEDS: HYDROCODONE/APAP 7.5/325 MG TAB PO SCH (09:00)
[2021-06-20] MEDS: FUROSEMIDE 40 MG/4 ML VIAL IV SCH (09:00)
--- NOTE | 2021-06-20 12:12 | CON ---
Date of Consultation: 06/18/2021 Additional Admitting Physician: Dr. Kaplan. Reason For Consultation: Aortic stenosis. History Of Present Illness: Ms. Rico was actually scheduled to have left and right heart cathet erization on 06/18/2021 as an outpatient, but came in over the weekend with cholecystitis. She has n o symptoms regarding her gallbladder anymore. There was a plan for surgery on gallbladder down the r oad by Dr. Ngo. She requires a cardiac clearance, but the patient is very high risk for now bianca use of her severe aortic stenosis. We will proceed with left and right heart catheterization today a s we have planned. She is not having any cardiac symptoms now in the hospital; however, the reason h er scheduled catheterization was scheduled was severe aortic stenosis, severe dyspnea on exertion and chest pain. Past Medical History: Includes aortic stenosis, pulmonary hypertension, chronic diastolic congestive heart failure, hypertension. Allergies: NONE. Review of Systems: Negative. Social History: Negative. Family History: Noncontributory. Medications: Listed by Dr. Kaplan. Physical Examination: Vital Signs: Stable, sinus rhythm. HEENT: Negative. Neck: Supple with no bruit. Chest: Clear. Cardiac: Revealed aortic stenosis with positive S4 gallops. No rubs. Abdomen: Obese, but benign. Extremities: Revealed trace edema. Diagnostic Data: Unremarkable, except for the gallstones. Impression And Plan: Severe aortic stenosis, pulmonary hypertension, chronic diastolic congestive he art failure, dyspnea on exertion. Very high risk for general anesthesia as well as the gallbladder c oncern. We will treat that medically conservatively for now. Unless that becomes an emergency, we w ill proceed with left and right heart catheterization to define her coronary anatomy and aortic valve . We will measure O2 saturation, cardiac output, and plan aortic valve replacement later. NB/MODL Voice ID: [id number] Report ID: [id number]
[2021-06-20 13:55] VITALS: BP 130/60; TEMP 97.3
--- NOTE | 2021-06-20 16:57 | P.DS ---
Admission Date: 06/16/21 Discharge Date: 06/20/21 Primary Care Provider: Dr. Gloria Disposition: ROUTINE DISCHARGE Discharge Condition: FAIR Reason for Admission: Dyspnea, Possible cholecystitis Consultations: Cardiology - Dr. Falcon General Surgery - Dr. Ngo Procedures: CXR (06/16): IMPRESSION: Mild to moderate CHF pattern suspected. In the current clinical environment, underlying COVID infection is difficult to rule out. CT Abd/pelvis (06/16): IMPRESSION: Bilateral nephrolithiasis without hydronephrosis. Cholelithiasis with trace fluid around the gallbladder. Recommend gallbladder ultrasound for further assessment. Abd U/S (06/16): IMPRESSION: Gallbladder sludge and small calculi with mild gallbladder wall thickening. If acute cholecystitis remains a clinical concern, HIDA scan may be of value. HIDA (06/18): IMPRESSION: Patient cystic duct and patent sphincter of Oddi. No delay in visualization of the gallbladder, biliary tree, or duodenum. Ejection fraction is 54%, normal range. Patient reported no pre-procedure pain, and no pain during or subsequent to fatty meal ingestion. CXR (06/19): IMPRESSION: Mild CHF/volume overload pattern not substantially different from comparison study. Cath (06/18): Cardiac output was measured and was 8.19 L/minute. The pulmonary artery pressure was almost 80 that was equal for the right ventricular pressure. Her wedge pressure mean was 49. Right atrial pressure was 21/17. All of this was consistent with severe pulmonary hypertension. Normal cardiac output. Severely calcified aortic valve on fluoroscopy. She was found to have a nondominant small right with diffuse plaquing. She had diffuse plaquing in the LAD and circumflex, about 50% to 60% ostial OM lesion. Postoperative Diagnoses: Severe aortic stenosis, severe pulmonary hypertension, moderate coronary artery disease. Problem list Critical aortic stenosis Acute on chronic diastolic heart failure Biliary colic Anemia of chronic disease Hypertension Acute on chronic respiratory failure secondary to diastolic heart failure/critical aortic stenosis Brief History of Present Illness: 75-year-old white female who presented with shortness of breath and having difficulty to complete tasks of daily living. Any exertion was too much for her. She has also been treated for unknown dysrhythmia in the past. In the ER she complained of some dyspnea and later developed right upper quadrant pain and tenderness. CT abdomen and pelvis demonstrated gallbladder sludge. Patient had tenderness on right upper quadrant palpation. Her electrolytes were unremarkable. Her CBC demonstrated a slight anemia. Her BNP was 1815, and her Covid was negative. Chest x-ray demonstrated possible pulmonary vascular congestion. Patient hospitalized for further management. Hospital Course: Treated with IV Lasix for possible vascular congestion. Patient was taken to cardiac catheterization which revealed critical aortic stenosis. Cardiology plans to set patient up for aortic valve repair as an outpatient referral, suspect patient will need open surgery. Patient also reported some right upper quadrant discomfort. Right upper quadrant ultrasound consistent with gallbladder sludge, stones, but no evidence of acute cholecystitis. General surgery was consulted. HIDA scan did not suggest acute cholecystitis either. Her antibiotics were discontinued and she continued to do well and remained afebrile. General surgery recommended follow- up as an outpatient for cholecystectomy electively, after her aortic valve has been addressed. No medication changes on discharge. Patient's initial discharge was held secondary to hypoxia /requiring oxygen. Patient continued to improve, and eventually was weaned off oxygen, she did not qualify for home O2. Patient did still request oxygen for home, her children requested this as well. I suspect she may have times in the near future with her chronic CHF and critical aortic stenosis where she will feel short of breath and may be hypoxic, however, I have not been able to demonstrate this in the last 48 hours. Patient has requested if she can pay [id number] for home oxygen. financial services agent were consulted and give the patient information. Follow-up with cardiology Follow-up with PCP in 3 to 5 days Vital Signs/Physical Exam: Physical Exam General: Alert, In no apparent distress HEENT: Normal conjunctiva, sclera anicteric Respiratory: non-labored respirations on room air Cardiovascular: No edema, Regular rate/rhythm, grade 4/6 systolic murmur Gastrointestinal: Soft and benign, Non-distended Musculoskeletal: No swelling Integumentary: No rashes Neurological: Normal strength at 5/5 x4 extr Temp Pulse Resp BP Pulse Ox 97.3 F 74 18 130/60 95 06/20/21 16:00 06/20/21 16:00 06/20/21 16:00 06/20/21 16:00 06/20/21 16:00 Laboratory Data at Discharge: WBC 4.10 K/uL (4.3-10.9) L 06/20/21 05:15 Hgb 9.0 g/dL (12.0-15.0) L 06/20/21 05:15 Hct 27.9 % (36.0-45.0) L 06/20/21 05:15 Plt Count 160 K/uL (152-406) 06/20/21 05:15 PT 12.5 SECONDS (9.5-12.5) 06/16/21 12:40 INR 1.09 06/16/21 12:40 Sodium 143 mmol/L (136-145) 06/20/21 05:15 Potassium 3.5 mmol/L (3.5-5.1) 06/20/21 05:15 BUN 10 mg/dL (7-18) 06/20/21 05:15 Creatinine 0.86 mg/dL (0.55-1.3) 06/20/21 05:15 Glucose 176 mg/dL (74-106) H 06/20/21 05:15 Magnesium 1.9 mg/dL (1.8-2.4) 06/20/21 05:15 Total Bilirubin 0.5 mg/dL (0.2-1.0) 06/19/21 05:07 AST 17 U/L (15-37) 06/19/21 05:07 ALT 22 U/L (12-78) 06/19/21 05:07 Alkaline Phosphatase 44 U/L (45-117) L 06/19/21 05:07 Home Medications: Apixaban [Eliquis *] 2 tab PO DAILY 06/16/21 Clopidogrel Bisulfate [Plavix*] 1 tab PO DAILY 06/16/21 Fenofibrate 1 tab PO DAILY 06/16/21 Furosemide 1 tab PO DAILY 06/16/21 Gabapentin 1 tab PO BID 06/16/21 Hydrocodone Bit/Acetaminophen [Parthenon 7.5-325 Tablet] 1 tab PO BID 06/16/21 Metformin HCl [Metformin HCl ER] 1 tab PO BID 06/16/21 Potassium Chloride 20 meq PO DAILY 06/16/21 Ropinirole HCl [Requip] 1 tab PO DAILY 06/16/21 Rosuvastatin [Crestor*] 40 mg PO BEDTIME 06/16/21 Physician Discharge Instructions: PROBLEM: Status Post Cardiac Catheterization, severe aortic stenosis gallbladder stones - initially concerning for infection, however further testing was not consistent with infection. General Surgery was consulted (Dr. Ngo) and recommended follow up as outpatient for gallbladder surgery in the near future - AFTER your aortic valve has been corrected. Aortic stenosis - Dr. Falcon will work with you to get you a referral to a surgeon for aortic valve replacement. You initially required oxygen, however, you improved and no longer needed oxygen supplementation. GOAL: Clear understanding of disease process INSTRUCTIONS: Follow up with Dr Ngo outpatient for follow up on your gall bladder Follow up with cardiology in 1 week If your symptoms worsen call 911 or come back to the emergency room If you have any questions regarding your hospital stay call [phone] Diet: ADA Activity: Ad jose a [employer] Services Needed: None Name of Company: Date or Referral: IMMUNIZATION Influenza Vaccine Indicated:No Influenza Vaccine Given: Date Given: Pneumonia Vaccine Indicated: No Pneumonia Vaccine Given: No Date Given: Diet: ADA Activity: Ad jose a Followup: Arian Falcon MD [ACTIVE - CAN ADMIT] - 1-2 Weeks Ramez Ngo MD [ACTIVE - CAN ADMIT] - Unknown,U [Primary Care Provider] - Time spent managing pt's care (in minutes): 40
--- NOTE | 2021-06-21 13:44 | PN ---
Date of Progress Note: 06/20/2021 Ms. Rico has severe aortic stenosis by left and right heart catheterization. She has severe pul monary hypertension, [id number] coronary artery disease. I think she would be best treated wit h an open heart aortic valve replacement. She has severe aortic valve calcification. She is going h ome today. I will make arrangements for her to see either as an outpatient and make p sharath for her aortic valve. Her son is aware of the situation. No change in medical therapy for now. SHIRA/CORI Voice ID: [id number] Report ID: [id number]
== END 2021-06-20 19:53 | disposition home health service (06) | DRG 286 ==
LOC: ER 12:04 → 2ND 20:31
PROVIDERS: ADMIT Internal Medicine; ATTEND Internal Medicine
PROC: 4A023N8 Measurement of Cardiac Sampling and Pressure, Bilateral, Percutaneous Approach (ICD-10-PCS; principal; 2021-06-18)
PROC: B201YZZ Plain Radiography of Multiple Coronary Arteries using Other Contrast (ICD-10-PCS; 2021-06-18)
DX: I35.0 Nonrheumatic aortic (valve) stenosis (principal); I50.33 Acute on chronic diastolic (congestive) heart failure; J96.20 Acute and chronic respiratory failure, unspecified whether with hypoxia or hypercapnia; I27.20 Pulmonary hypertension, unspecified; I25.10 Atherosclerotic heart disease of native coronary artery without angina pectoris; I11.0 Hypertensive heart disease with heart failure; D63.8 Anemia in other chronic diseases classified elsewhere; K80.50 Calculus of bile duct without cholangitis or cholecystitis without obstruction; E11.9 Type 2 diabetes mellitus without complications; Z88.0 Allergy status to penicillin; Z88.2 Allergy status to sulfonamides; Z20.822 Contact with and (suspected) exposure to COVID-19
CPT/HCPCS: 36415; 71045; 74177; 76705; 78226; 80048; 80053; 80076; 81003; 82947; 83735; 83880; 84484; 85025; 85610; 90732; 92610; 93456; 96374; 97116; 97161; 99285; A9537; C1893; J0360; J0583; J0744; J1644; J1940; J2250; J3010; J7030; J7040; Q9967; U0003

== ENCOUNTER 2022-02-07 13:54 | Inpatient (IN) | payer OTHER ==
--- OUTSIDE RECORDS SUMMARY | 2022-02-07 13:59 | XMS REPORT | Continuity of Care Document ---
:1945 Author Organization [facility] t Address [address] [place] [address] Care Team Providers Name Role Phone Nahum JOYCE Primary Care Physician GILA Attending Clinician Unavailable Bg Sidhu MD Attending Clinician ECHO Attending Clinician Unavailable Doctor Unassigned, Name Attending Clinician Unavailable ALEYDA Attending Clinician Unavailable FERCHO WILKERSON Attending Clinician Unavailable BUTCH Attending Clinician Unavailable MD MEÑO REDDY Attending Clinician Unavailable TOD Attending Clinician Unavailable MAUREEN Attending Clinician Unavailable ANDRES Attending Clinician Unavailable MD France CAMPOS Attending Clinician Unavailable VALARIE Attending Clinician Unavailable Brittany Rosenberg MA Attending Clinician Unavailable ECHO Admitting Clinician Unavailable MAUREEN Admitting Clinician Unavailable MD MEÑO REDDY Admitting Clinician Unavailable ANDRES Admitting Clinician Unavailable MD France CAMPOS Admitting Clinician Unavailable Payers Payer Name Policy Type Policy Number Effective Date Expiration Date S ource MEDICARE PART A [id number] 2008 AND B 00:00:00 Problems Condition Condition Condition Status Onset Resolution Last Treating Co mments Source Name Details Category Date Date Treatment Clinician Date Microscopi Microscopi Disease Active U nivers c c 3-27 [place] Anemia due Anemia due Disease Active U nivers to blood to blood 3-16 ity of loss loss 00:00: [place] 00 Medical Branch Diverticul Diverticul Disease Active Overview : Univers itis itis 9 Formattin ity of 00:00: g of this 00 note Medical might be Branch different from the original. 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 1-21 ity of disease disease 00:00: [place] 00 Medical Branch 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 hyperthyro [place] idism idism 00 Medical [facility] Abnormal Abnormal Disease Active Unive rs thyroid thyroid 6-27 ity of function function 00:00: [place] test test 00 Medical Branch MICHAEL MICHAEL Disease Active Univers (obstructi (obstructi 3-09 it y of ve sleep ve sleep 00:00: [place] apnea) apnea) 00 Medical Branch UTI Diagnosis Active 2016-11-17 Mem oria 2 12:20:00 l UTI 00:00: [place] 00 Active 11/10/2016 [facility] DIZZING Diagnosis Active 2016-11-10 Me moria 2 11:58:00 l DIZZING 00:00: [place] 00 Active 11/10/2016 [facility] Irritabili Irritabili Disease Active 2015-09 U nivers ty ty 2-21 ity of 00:00: [place] 00 Medical Branch Nephrolith Nephrolith Disease Active U nivers iasis iasis 9-30 ity of 00:00: [place] 00 Medical Branch Spinal Spinal Disease Active Univers arthritis arthritis 05-24 ity of 00:00: [place] 00 Medical Branch Nocturnal Nocturnal Disease Active Overview: Univers leg cramps leg cramps 04-19 Formattin ity of 00:00: g of this 00 note Medical might be Branch different from the original. vs RLS Essential Essential Disease Active Uni vers hypertensi hypertensi 04-19 it y of on on 00:00: [place] 00 Medical Branch Mixed Mixed Disease Active Univers hyperlipid hyperlipid 04-19 it y of emia emia 00:00: [place] 00 Medical Branch Type 2 Type 2 Disease Active Univers diabetes diabetes 04-19 ity of mellitus mellitus 00:00: [place] without without 00 Medical complicati complicati Br anch on on Allergic Allergic Disease Active Unive rs rhinitis rhinitis 04-19 ity of 00:00: [place] 00 Medical Branch Heart Heart Disease Active Univers murmur murmur 04-19 ity of 00:00: [place] 00 Medical Branch Valvular Valvular Disease Active Overview: Un [facility] heart heart 04-19 Formattin ity of disease disease 00:00: g of this 00 note Medical might be Branch different from the original. Sees Cardiolog ist [place] Elevated Elevated Disease Active Unive rs serum serum 04-19 ity of creatinine creatinine [place] Derangemen Problem Active 2018-03-10 M emoria t of 3-04 12:46:07 l lateral 00:00: [place] meniscus Derangemen 00 (disorder) t of lateral meniscus (disorder) Active 11/23/2010 Problem 03/10/2018 [facility], [facility] [place],[facility] No known No known Disease [place] active active Health problems problems Migraine Problem Resolve 2018-03-10 Me moria (disorder) d 12:46:07 l Migraine Torey n (disorder) Resolved Problem 03/10/2018 Medical Group Entire Problem Active 2015-06-12 Memor ia left 03:00:41 l bundle Entire [place] branch left (body bundle structure) branch (body structure) Active Problem 06/12/2015 [facility]ias Occlusion Problem Active 2018-03-10 Me moria of artery 12:46:07 l (disorder) Torey n Occlusion of artery (disorder) Active Problem 03/10/2018 [facility] Depressive Problem Active 2018-03-10 M emoria disorder 12:46:07 l (disorder) Torey n Depressive disorder (disorder) Active Problem 03/10/2018 [facility] Hypertensi Problem Active 2018-03-10 M emoria ve 12:46:07 l disorder, [place] systemic Hypertensi arterial ve (disorder) disorder, systemic arterial (disorder) Active Problem 03/10/2018 [facility] Hyperlipid Problem Active 2018-03-10 M emoria emia 12:46:07 l (disorder) Torey romero Hyperlipid emia (disorder) Active Problem 03/10/2018 [facility] Diabetes Problem Resolve 2018-03-10 Me moria mellitus d 12:46:07 l (disorder) Diabetes He rmann mellitus (disorder) Resolved Problem 03/10/2018 [facility] Myocardial Problem Resolve 2018-03-10 Memoria infarction d 12:46:07 l (disorder) Torey n Myocardial infarction (disorder) Resolved Problem 03/10/2018 [facility] Agitation Agitation Disease Active Uni vers ity [facility] Fatty Fatty Disease Active Univers liver liver ity [facility] Allergies, Adverse Reactions, Alerts Allergy Allergy Status Severity Reaction(s) Onset Inactive Treating Comm ents Source Name Type Date Date Clinician Penicill DA Active U Unknown [facility] ins 3 00:00: 00 Sulfa DA [facility]: Antibiot 00 ics) Sulfa Propensi Active Rash Univers (Sulfona ty to 09-28 ity of mide adverse 00:00: [place] Antibiot reaction 00 Medica l ics) s to Branch drug Sulfa Propensi Active Rash Univers (Sulfona ty to 09-28 ity of mide adverse 00:00: [place] Antibiot reaction Medica l ics) s to Branch drug Penicill Propensi Active Itching Unive rs in ty to 04-19 ity of adverse 00:00: [place] reaction 00 Medical s Branch Sulfur Propensi Active Itching Univers ty to 04-19 ity of adverse 00:00: [place] reaction 00 Medical s Branch Sulfur Allergy Active Itching UT to 04-19 Health substanc 00:00: e 00 Penicill Allergy Active Itching Other [place] ins to 01-27 reaction( Health substanc 00:00: s): itch, e 00 Respirato ry Distress, Unknown penicill penicill Active Memori a ins ins l [place] sulfa sulfa Active Memoria drugs drugs [facility] Social History Social Habit Start Date Stop Date Quantity Comments Source Exposure to Not sure [facility] SARS-CoV-2 (event) Tobacco use and 2021-03-07 2021-03-07 Smokeless tobacco [facility] exposure 00:00:00 00:00:00 non-user Alcohol intake 2021-03-05 2021-03-05 0 /d University of 00:00:00 00:00:00 [facility] Tobacco Comment 2016-04-19 2016-04-19 Quit 1985 Universit y of 00:00:00 00:00:00 [facility] Sex Assigned At [birth year] [facility] 00:00:00 00:00:00 Smoking Status Start Date Stop Date Source Social History 2017-12-02 15:41:18 2017-12-02 15:41:18 [facility] Social History [facility] Medications Ordered Filled Start Stop Current Ordering Indication Dosage Frequency Signature Comments Components Source Medication Medication Date Date Medication? Clinician (SIG) Name Name FENOFIBRATE Yes [id number] 160mg TAKE 1 Univers 160 mg 4-18 TABLET BY ity of tablet 00:00: MOUTH Medical MORNING Branch FENOFIBRATE Yes [id number] 160mg TAKE 1 Univers 160 mg 4-18 TABLET BY ity of tablet 00:00: MOUTH Medical MORNING Branch FENOFIBRATE Yes [id number] 160mg TAKE 1 Univers 160 mg 4-18 TABLET BY ity of tablet 00:00: MOUTH [place] 00 EVERY Medical MORNING Branch metformin 2021-0 Yes [id number] 750mg Take 1 Univers ER 750 mg 3-29 tablet by ity o f 24 hr 00:00: mouth 2 [place] tablet 00 (two) Medical times Branch daily with meals. metformin Yes [id number] 750mg Take 1 Univers ER 750 mg 3-29 tablet by ity o f 24 hr 00:00: mouth 2 [place] tablet 00 (two) Medical times Branch daily with meals. metformin Yes [id number] 750mg Take 1 Univers ER 750 mg 3-29 tablet by ity o f 24 hr 00:00: mouth 2 [place] tablet 00 (two) Medical times Branch daily with meals. metformin Yes [id number] 750mg Take 1 Univers ER 750 mg 3-29 tablet by ity o f 24 hr 00:00: mouth 2 [place] tablet 00 (two) Medical times Branch daily with meals. metformin Yes [id number] 750mg Take 1 Univers ER 750 mg 3-29 tablet by ity o f 24 hr 00:00: mouth 2 [place] tablet 00 (two) Medical times Branch daily with meals. aspirin Yes 81mg Take 81 mg Univ ers (ADULT LOW 2-09 by mouth ity o f DOSE 10:59: daily. [place] ASPIRIN) 81 21 Medical mg EC Branch tablet aspirin Yes 81mg Take 81 mg Univ ers (ADULT LOW 2-09 by mouth ity o f DOSE 10:59: daily. [place] ASPIRIN) 81 21 Medical mg EC Branch tablet aspirin Yes 81mg Take 81 mg Univ ers (ADULT LOW 2-09 by mouth ity o f DOSE 10:59: daily. [place] ASPIRIN) 81 21 Medical mg EC Branch tablet aspirin 2021-0 Yes 81mg Take 81 mg Univ ers (ADULT LOW 2-09 by mouth ity o f DOSE 10:59: daily. [place] ASPIRIN) 81 21 Medical mg EC Branch tablet aspirin 2021-0 Yes 81mg Take 81 mg Univ ers (ADULT LOW 2-09 by mouth ity o f DOSE 10:59: daily. [place] ASPIRIN) 81 21 Medical mg EC Branch tablet doxycycline 2021-0 Yes [id number] 100mg Take 1 Univers hyclate 100 2-09 tablet by ity of mg tablet 00:00: mouth 2 [place] 00 (two) Medical times Branch daily. doxycycline 2-0 Yes [id number] 100mg Take 1 Univers hyclate 100 2-09 tablet by ity of mg tablet 00:00: mouth 2 [place] 00 (two) Medical times Branch daily. doxycycline 2-0 Yes [id number] 100mg Take 1 Univers hyclate 100 2-09 tablet by ity of mg tablet 00:00: mouth 2 [place] 00 (two) Medical times Branch daily. doxycycline 2-0 Yes [id number] 100mg Take 1 Univers hyclate 100 2-09 tablet by ity of mg tablet 00:00: mouth 2 [place] 00 (two) Medical times Branch daily. doxycycline 2021-0 Yes [id number] 100mg Take 1 Univers hyclate 100 2-09 tablet by ity of mg tablet 00:00: mouth 2 [place] 00 (two) Medical times Branch daily. sacubitriL- 2021-0 Yes 1{tbl} Take 1 Un [facility] valsartan 1-29 tablet by ity o f 24-26 mg 00:00: mouth 2 [place] tablet 00 (two) Medical times Branch daily. sacubitriL- 2-0 Yes 1{tbl} Take 1 Un [facility] valsartan 1-29 tablet by ity o f 24-26 mg 00:00: mouth 2 [place] tablet 00 (two) Medical times Branch daily. sacubitriL- 2-0 Yes 1{tbl} Take 1 Un [facility] valsartan 1-29 tablet by ity o f 24-26 mg 00:00: mouth 2 [place] tablet 00 (two) Medical times Branch daily. sacubitriL- 2-0 Yes 1{tbl} Take 1 Un [facility] valsartan 1-29 tablet by ity o f 24-26 mg 00:00: mouth 2 [place] tablet 00 (two) Medical times Branch daily. sacubitriL- 2-0 Yes 1{tbl} Take 1 Un [facility] valsartan 1-29 tablet by ity o f 24-26 mg 00:00: mouth 2 [place] tablet 00 (two) Medical times Branch daily. KCL 20 mEq 2-0 Yes [id number] 20meq TAKE 1 Univers tablet 1-20 TABLET BY ity of 00:00: MOUTH [place] DAILY Medical Branch KCL 20 mEq 2-0 Yes [id number] 20meq TAKE 1 Univers tablet 1-20 TABLET BY ity of 00:00: MOUTH [place] DAILY Medical Branch KCL 20 mEq 2-0 Yes [id number] 20meq TAKE 1 Univers tablet 1-20 TABLET BY ity of 00:00: MOUTH [place] DAILY Medical Branch KCL 20 mEq 2-0 Yes [id number] 20meq TAKE 1 Univers tablet 1-20 TABLET BY ity of 00:00: MOUTH [place] DAILY Medical Branch KCL 20 mEq 2-0 Yes [id number] 20meq TAKE 1 Univers tablet 1-20 TABLET BY ity of 00:00: MOUTH [place] DAILY Medical Branch torsemide 2021-0 Yes 20mg Take 20 mg Un [facility] 20 mg 1-18 by mouth 2 ity of tablet 00:00: (two) [place] times Medical daily. Branch torsemide 2-0 Yes 20mg Take 20 mg Un [facility] 20 mg 1-18 by mouth 2 ity of tablet 00:00: (two) [place] times Medical daily. Branch torsemide 2021-0 Yes 20mg Take 20 mg Un [facility] 20 mg 1-18 by mouth 2 ity of tablet 00:00: (two) [place] times Medical daily. Branch torsemide 2-0 Yes 20mg Take 20 mg Un [facility] 20 mg 1-18 by mouth 2 ity of tablet 00:00: (two) [place] times Medical daily. Branch torsemide 2-0 Yes 20mg Take 20 mg Un [facility] 20 mg 1-18 by mouth 2 ity of tablet 00:00: (two) [place] times Medical daily. Branch naproxen 2020-0 Yes [id number] TAKE 1 UT (Naprosyn) 9-16 TABLET(500 Hea lth 500 MG 00:00: MG) BY tablet 00 MOUTH TWICE DAILY naproxen 2020-0 Yes [id number] TAKE 1 UT (Naprosyn) 9-16 TABLET(500 Hea lth 500 MG 00:00: MG) BY tablet 00 MOUTH TWICE DAILY naproxen 2020-0 Yes [id number] TAKE 1 U T (Naprosyn) 9-16 TABLET(500 Hea lth 500 MG 00:00: MG) BY tablet 00 MOUTH TWICE DAILY naproxen Yes [id number] TAKE 1 UT (Naprosyn) 9-16 TABLET(500 Hea lth 500 MG 00:00: MG) BY tablet 00 MOUTH TWICE DAILY naproxen Yes [id number] TAKE 1 UT (Naprosyn) 9-16 TABLET(500 Hea lth 500 MG 00:00: MG) BY tablet 00 MOUTH TWICE DAILY naproxen Yes [id number] TAKE 1 U T (Naprosyn) 9-16 TABLET(500 Hea lth 500 MG 00:00: MG) BY tablet 00 MOUTH TWICE DAILY naproxen Yes [id number] TAKE 1 U T (Naprosyn) 9-16 TABLET(500 Hea lth 500 MG 00:00: MG) BY tablet 00 MOUTH TWICE DAILY METFORMIN 2021- No [id number] TAKE 1 Univers ER 750 mg 05-30 TABLET BY ity of 24 hr 00:00: 00:00 MOUTH [place] tablet 00 :00 TWICE Medical DAILY WITH Branch MEALS naproxen 2020- No [id number] 500mg Q.5D Take 1 U T (Naprosyn) 05-03 tablet Health 500 MG 00:00: 00:00 (500 mg tablet 00 :00 total) by mouth 2 (two) times a day. naproxen 2020- No [id number] 500mg Q.5D Take 1 U T (Naprosyn) 05-03 tablet Health 500 MG 00:00: 00:00 (500 mg tablet 00 :00 total) by mouth 2 (two) times a day. naproxen 2020- No [id number] 500mg Q.5D Take 1 U T (Naprosyn) 05-03 tablet Health 500 MG 00:00: 04:59 (500 mg tablet 00 :00 total) by mouth 2 (two) times a day. naproxen 2020- No [id number] 500mg Q.5D Take 1 U T (Naprosyn) 05-03 tablet Health 500 MG 00:00: 04:59 (500 mg tablet 00 :00 total) by mouth 2 (two) times a day. sodium Yes [id number] 20mg UT hyaluronate 16 Health (viscosup) 20:00: (Hyalgan) 00 injection 20 mg sodium 2021-0 Yes [id number] 20mg UT hyaluronate 6-16 Health (viscosup) 20:00: (Hyalgan) 00 injection 20 mg sodium 2021-0 Yes [id number] 20mg UT hyaluronate 6-16 Health (viscosup) 20:00: (Hyalgan) 00 injection 20 mg sodium 2021-0 Yes [id number] 20mg UT hyaluronate 6-16 Health (viscosup) 20:00: (Hyalgan) 00 injection 20 mg sodium 2021-0 Yes [id number] 20mg UT hyaluronate 6-16 Health (viscosup) 20:00: (Hyalgan) 00 injection 20 mg sodium 2021-0 Yes [id number] 20mg UT hyaluronate 6-16 Health (viscosup) 20:00: (Hyalgan) 00 injection 20 mg sodium 2021-0 Yes [id number] 20mg UT hyaluronate 6-16 Health (viscosup) 20:00: (Hyalgan) 00 injection 20 mg sodium 2021-0 Yes [id number] 20mg UT hyaluronate 6-16 Health (viscosup) 20:00: (Hyalgan) 00 injection 20 mg sodium 2021-0 Yes [id number] 20mg UT hyaluronate 6-16 Health (viscosup) 20:00: (Hyalgan) 00 injection 20 mg sodium 2021-0 Yes [id number] 20mg UT hyaluronate 6-16 Health (viscosup) 20:00: (Hyalgan) 00 injection 20 mg sodium 2021-0 Yes [id number] 20mg UT hyaluronate 6-16 Health (viscosup) 20:00: (Hyalgan) 00 injection 20 mg sodium 2021-0 Yes [id number] 20mg UT hyaluronate 6-16 Health (viscosup) 20:00: (Hyalgan) 00 injection 20 mg sodium 2021-0 Yes [id number] 20mg UT hyaluronate 6-16 Health (viscosup) 20:00: (Hyalgan) 00 injection 20 mg ROSUVASTATI 2021-0 Yes [id number] 40mg TAKE 1 Univers N 40 mg 5-17 TABLET BY ity of tablet 00:00: MOUTH AT [address] ROSUVASTATI 2021-0 Yes [id number] 40mg TAKE 1 Univers N 40 mg 5-17 TABLET BY ity of tablet 00:00: MOUTH AT [place] 00 BEDTIME Medical Branch ROSUVASTATI Yes [id number] 40mg TAKE 1 Univers N 40 mg 5-17 TABLET BY ity of tablet 00:00: MOUTH AT [place] BEDTIME Medical Branch ROSUVASTATI Yes [id number] 40mg TAKE 1 Univers N 40 mg 5-17 TABLET BY ity of tablet 00:00: MOUTH AT [place] BEDTIME Medical Branch ROSUVASTATI Yes [id number] 40mg TAKE 1 Univers N 40 mg 5-17 TABLET BY ity of tablet 00:00: MOUTH AT [place] BEDTIME Medical Branch FENOFIBRATE Yes [id number] 160mg TAKE 1 Univers 160 mg 4-08 TABLET BY ity of tablet 00:00: MOUTH [place] EVERY Medical MORNING Branch FENOFIBRATE Yes [id number] 160mg TAKE 1 Univers 160 mg 4-08 TABLET BY ity of tablet 00:00: MOUTH [place] EVERY Medical MORNING Branch FENOFIBRATE 2022- No [id number] 160mg TAKE 1 Univers 160 mg 4-08 04-18 TABLET BY ity of tablet 00:00: 00:00 MOUTH [place] 00 :00 EVERY Medical MORNING Branch mometasone Yes 1{puff} Inhale 1 Univers (ASMANEX 3-16 Puff 2 ity of HFA) 200 14:11: (two) [place] mcg/actuati 07 times Medical on HFAA daily. Branch mometasone Yes 1{puff} Inhale 1 Univers (ASMANEX 3-16 Puff 2 ity of HFA) 200 14:11: (two) [place] mcg/actuati 07 times Medical on HFAA daily. Branch mometasone Yes 1{puff} Inhale 1 Univers (ASMANEX 3-16 Puff 2 ity of HFA) 200 14:11: (two) [place] mcg/actuati 07 times Medical on HFAA daily. Branch mometasone Yes 1{puff} Inhale 1 Univers (ASMANEX 3-16 Puff 2 ity of HFA) 200 14:11: (two) [place] mcg/actuati 07 times Medical on HFAA daily. Branch mometasone Yes 1{puff} Inhale 1 Univers (ASMANEX 3-16 Puff 2 ity of HFA) 200 14:11: (two) [place] mcg/actuati 07 times Medical on HFAA daily. Branch HYDROcodone 2020-0 Yes Per Pain Un mark anthony -acetaminop 3-16 management it y of hen (NORCO) 14:09: specialist [place] 7.5-325 mg 25 's [facility]-0 Yes 75mg Take 75 mg Univers 75 mg 3-16 by mouth ity of tablet 14:09: daily. [place] 25 Medical Branch apixaban 2020-0 Yes 5mg Take 5 mg Univ ers (ELIQUIS) 5 3-16 by mouth 2 it y of mg tablet 14:09: (two) [place] 25 times Medical daily. Branch HYDROcodone 2020-0 Yes Per Pain Un mark anth[facility] -acetaminop 3-16 management it y of hen (NORCO) 14:09: specialist [place] 7.5-325 mg 25 's Medical per tablet instructio [facility] ns clopidogreL 2020-0 Yes 75mg Take 75 mg Univers 75 mg 3-16 by mouth ity of tablet 14:09: daily. [place] 25 Medical Branch apixaban 2020-0 Yes 5mg Take 5 mg Univ ers (ELIQUIS) 5 3-16 by mouth 2 it y of mg tablet 14:09: (two) [place] 25 times Medical daily. Branch HYDROcodone 2020-0 Yes Per Pain Un mark anthony -acetaminop 3-16 management it y of hen (NORCO) 14:09: specialist [place] 7.5-325 mg 25 's Medical [facility]op[facility] 2020-0 Yes 75mg Take 75 mg Univers 75 mg 3-16 by mouth ity of tablet 14:09: daily. [place] 25 Medical Branch apixaban 2020-0 Yes 5mg Take 5 mg Univ ers (ELIQUIS) 5 3-16 by mouth 2 it y of mg tablet 14:09: (two) [place] 25 times Medical daily. Branch HYDROcodone 2020-0 Yes Per Pain Un mark anthony -acetaminop 3-16 management it y of hen (NORCO) 14:09: specialist [place] 7.5-325 mg 25 's Medical [facility] clopid[facility]re[facility] 2020-0 Yes 75mg Take 75 mg Univers 75 mg 3-16 by mouth ity of tablet 14:09: daily. [place] 25 Medical Branch apixaban 0 Yes 5mg Take 5 mg Univ ers (ELIQUIS) 5 3-16 by mouth 2 it y of mg tablet 14:09: (two) [place] 25 times Medical daily. Branch HYDROcodone 0 Yes Per Pain Un mark anthony -acetaminop 3-16 management it y of hen (NORCO) 14:09: specialist [place] 7.5-325 mg 25 's Medical per tablet woody [facility] ns clopidogreL 2020-0 Yes 75mg Take 75 mg Univers 75 mg 3-16 by mouth ity of tablet 14:09: daily. [place] Medical Branch apixaban 0 Yes 5mg Take 5 mg Univ ers (ELIQUIS) 5 3-16 by mouth 2 it y of mg tablet 14:09: (two) [place] 25 times Medical daily. Branch gabapentin 2020-0 Yes 300mg Take 300 Un [facility] 300 mg 9-01 mg by ity of capsule 00:00: mouth at [place] [address] bedtime. Medical Branch gabapentin 2020-0 Yes 300mg Take 300 Un [facility] 300 mg 9-01 mg by ity of capsule 00:00: mouth at [place] [address] bedtime. Medical Branch gabapentin 2020-0 Yes 300mg Take 300 Un [facility] 300 mg 9-01 mg by ity of capsule 00:00: mouth at [place] [address] bedtime. Medical Branch gabapentin 2020-0 Yes 300mg Take 300 Un [facility] 300 mg 9-01 mg by ity of capsule 00:00: mouth at [place] [address] bedtime. Medical Branch gabapentin 2020-0 Yes 300mg Take 300 Un [facility] [place] 300 mg 9-01 mg by ity of capsule 00:00: mouth at [place] [address] bedtime. Medical Branch rOPINIRole 2018-0 Yes TK 1 T PO Un [facility] 1 mg tablet 9- QOD ity of 00:00: [place] 00 Medical Branch rOPINIRole 2018-0 Yes TK 1 T PO Un [facility] 1 mg tablet - QOD ity of 00:00: [place] [address] Medical Branch rOPINIRole 2018-0 Yes TK 1 T PO Un [facility] 1 mg tablet - QOD ity of 00:00: [place] 00 Medical Branch rOPINIRole 2018-0 Yes TK 1 T PO Un [facility] 1 mg tablet - QOD ity of 00:00: [address] rOPINIRole Yes TK 1 T PO Un [facility] 1 mg tablet 06-19 QOD ity of 00:00: [address] Branch Levaquin No Notes: Memoria 2-21 (Same l 18:00: as:Levaqui n) Cozaar No Notes: Memoria 2-20 (Same as: l 15:00: Cozaar) Hydrochloro No 1 tab, Sudarshan hugh thiazide 25 2-20 Route: PO, l MG / 15:00: Drug Form: Losartan TAB, Potassium Dosing 100 MG Oral Weight Tablet 83.182, kg, Daily, Start date: 11/11/16 9:00:00 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 Crestor No Notes: Memoria 2-20 (Same As: l 03:00: Crestor) Clonazepam No Notes: Memor ia 2-20 (Same As: l 03:00: KlonoPIN) Acetaminoph No Notes: Sudarshan hugh en 325 MG / 2-20 (Same as: l Hydrocodone 03:00: [place] nn Bitartrate 00 325/5) Do 10 MG Oral not exceed Tablet 4gm/day of [[place] acetaminop 10/325] hen. ciprofloxac Yes 500 mg = 1 Memoria in 500 mg 2-20 tab, PO, l oral tablet 02:52: Q12H, X 5 H erm day, # 10 tab, 0 Refill(s) Metformin No Notes: Memori a 2-19 (Same as: l 23:00: Glucophage ) Take with meal Coreg No Notes: Memoria 2-19 (Same As: l 23:00: Coreg) ciprofloxac No 500 mg = 1 Memoria in 500 mg 2-19 tab, PO, l oral tablet 20:39: Q12H, X 5 H ermann 00 day, # 10 tab, 0 Refill(s), other clonazePAM Yes 0.5 mg = 1 M emoria 0.5 mg oral 2-19 tab, PO, l tablet 20:36: Bedtime, 0 [place] nn 00 Refill(s) Hydrochloro Yes 1 tab, PO, Memoria thiazide 25 2-19 Daily, # l MG / 20:36: 30 tab, 0 [place] Losartan 00 Refill(s) Potassium 100 MG Oral Tablet Metformin Yes 1,000 mg, Mem oria 2-19 PO, BID, 0 l 20:36: Refill(s) Fenofibrate Yes 160 mg = 1 Memoria 160 MG Oral 2-19 tab, PO, l Tablet 20:36: Daily, # Fadi 00 30 tab, 0 Refill(s) carvedilol Yes 6.25 mg = Me moria 6.25 MG 2-19 1 tab, PO, l Oral Tablet 20:36: BID, # 60 H ermann [Coreg] 00 tab, 0 Refill(s) Acetaminoph Yes 1 tab, PO, Memoria en 325 MG / 2-19 Bedtime, 0 l Hydrocodone 20:36: Refill(s) H ermann Bitartrate 00 10 MG Oral Tablet [[place] 10/325] amLODIPine Yes 10 mg = 1 Me moria 10 mg oral 2-19 tab, PO, l tablet 20:36: Daily, # Fadi 00 30 tab, 0 Refill(s) Insulin, No Notes: [facility] Aspart, 2-19 Roll in l Human 19:34: palms of hands gently; Do not shake vigorously . (Same as: NovoLOG) "single patient use only" WASTE: F/P - Black; E - Municipal Trash Bin Stable for 28 days at room temperatur e. Expires in days from ____Date Dextrose No 12.5 gm, Memor ia 50% Syringe 2-19 25 mL, l 19:34: Route: Orange 00 IVP, Drug Form: INJ, Dosing Weight 83.182, kg, PRN, PRN Blood Glucose Results, Start date: 11/10/16 13:34:00 CHEMICAL ECONOMIST, Duration: 30 day, Stop date: 12/10/16 14:33:00 CDT Glucagon No 1 mg, Memoria 2-19 Route: IM, l 19:34: Drug form: Orange PDR/INJ, PRN, Dosing Weight 83.182, kg, PRN Blood Glucose Results, Start date: 11/10/16 13:34:00 CHEMICAL ECONOMIST, Duration: 30 day, Stop date: 12/10/16 14:33:00 CDT Sodium No 1,000 mL, Memori a Chloride 2-19 Rate: 125 l 0.154 19:31: ml/hr, Orange MEQ/ML 00 Infuse Injectable over: 8 Solution hr, Route: IV, Dosing Weight 83.182 kg, Total Volume: 1,000, Start date: 11/10/16 13:31:00 CHEMICAL ECONOMIST, Duration: 30 day, Stop date: 12/10/16 13:30:00 CDT Saline No Notes: [facility]oria Flush 0.9% 2-19 (Same as: l 19:31: BD Fadi 00 Posiflush) Docusate No Notes: Memoria 2-19 (Same as: l 19:31: Colace) (Do Not Crush) Ondansetron No Notes: Sudarshan hugh 2-19 (Same as: l 19:31: Zofran) MEDICATION WASTE Product Size: 4 mg Product Wasted: ___ mg Acetaminoph No Notes: Do M emoria en 2-19 not exceed l 19:31: 4 gm/day. Orange 00 (Same as: Tylenol) Aspirin No Notes: Memoria 2-19 Take with l 18:33: food. potassium No 40 mEq, Memor ia chloride 2-19 Route: PO, l 18:19: Drug form: Fadi 00 ERTAB, ONCE, Dosing Weight 83.182, kg, Priority: STAT, Start date: 11/10/16 12:19:00 CHEMICAL ECONOMIST, Stop date: 11/10/16 12:19:00 CHEMICAL ECONOMIST Levaquin 2017-0 No 750 mg, Memori a 2-19 Route: l 18:19: IVPB, Drug Fadi 00 form: SOLN, ONCE, Dosing Weight 83.182, kg, Start date: 11/10/16 12:19:00 CHEMICAL ECONOMIST, Stop date: 11/10/16 12:19:00 CHEMICAL ECONOMIST Sodium 2017-0 No 1,000 mL, Memori a Chloride 2-19 1,000 l 0.154 17:57: ml/hr, Fadi MEQ/ML 00 Infuse Injectable Over: 1 Solution hr, Route: IV, 1,000, Drug form: INJ, ONCE, Priority: STAT, Dosing Weight 83.182 kg, Start date: 11/10/16 11:57:00 CHEMICAL ECONOMIST, Duration: 1 doses or times, Stop date: 11/10/16 11:57:00 CHEMICAL ECONOMIST Immunizations Ordered Filled Immunization Date Status Comments [facility] Immunization Name Name Influenza High Dose 2017-08-12 Completed Unive rsity of 00:00:00 [facility] Influenza High Dose 2017-08-12 Completed Unive rsity of 00:00:00 [facility] Influenza High Dose 2017-08-12 Completed Unive rsity of 00:00:00 [facility] Influenza High Dose 2017-08-12 Completed Unive rsity of 00:00:00 [facility] Influenza High Dose 2017-08-12 Completed Unive rsity of 00:00:00 [facility] Influenza High Dose 2016-08-26 Completed Unive rsity of 00:00:00 [facility] Influenza High Dose 2016-08-26 Completed Unive rsity of 00:00:00 [facility] Influenza High Dose 2016-08-26 Completed Unive rsity of 00:00:00 [facility] Influenza High Dose 2016-08-26 Completed Unive rsity of 00:00:00 [facility] Influenza High Dose 2016-08-26 Completed Unive rsity of 00:00:00 [facility] Vital Signs Vital Name Observation Time Observation Value Comments Source Body height 2021-03-07 19:18:00 [facility]2 [facility] Body weight 2021-03-07 19:18:00 84[facility]596 [facility] BMI 2021-03-07 19:18:00 29.21 kg/m2 [facility] Body height 2021-03-07 19:18:00 170.2 [facility] weight 2021-03-07 19:18:00 84[facility]596 [facility] BMI 2021-03-07 19:18:00 29.21 kg/m2 [facility] Initial DRG Weight: 2020-12-14 02:22:59 1.6262 Working DRG Weight: 2020-12-14 02:22:59 1.6262 Head exam ED 2020-12-14 02:22:59 atraumatic Have you Lost Weight 2020-12-14 02:22:59 No Without Trying in the Past 6 Months? Respiratory exam 2020-12-14 02:22:59 normal breath sounds /min 02 Sat by Pulse 2020-12-14 02:22:59 97 /min Oximetry Body Mass Index 2020-12-14 02:22:59 29.4 Height 2020-12-14 02:22:59 170.18\\S\\67 Pulse Rate 2020-12-14 02:22:59 63 /min Respiratory Rate 2020-12-14 02:22:59 23 /min Respiratory Depth 2020-12-14 02:22:59 Normal /min Respiratory Effort 2020-12-14 02:22:59 Spontaneous /min Respiratory Pattern 2020-12-14 02:22:59 Normal /min Temperature 2020-12-14 02:22:59 98.4\\S\\209.1 Weight 2020-12-14 02:22:59 45577.365\\S\\3008 Weight Measurement 2020-12-14 02:22:59 Estimated by Patient Method Have you Lost Weight 2020-12-10 17:57:55 No Without Trying in the Past 6 Months? Respiratory exam 2020-12-10 17:57:55 normal breath sounds /min 02 Sat by Pulse 2020-12-10 17:57:55 97 /min Oximetry Body Mass Index 2020-12-10 17:57:55 29.4 Height 2020-12-10 17:57:55 170.18\\S\\67 Pulse Rate 2020-12-10 17:57:55 63 /min Respiratory Rate 2020-12-10 17:57:55 23 /min Respiratory Depth 2020-12-10 17:57:55 Normal /min Respiratory Effort 2020-12-10 17:57:55 Spontaneous /min Respiratory Pattern 2020-12-10 17:57:55 Normal /min Temperature 2020-12-10 17:57:55 98.4\\S\\209.1 Weight 2020-12-10 17:57:55 12282.365\\S\\3008 Weight Measurement 2020-12-10 17:57:55 Estimated by Patient Method Initial DRG Weight: 2020-12-10 17:57:55 1.6262 Working DRG Weight: 2020-12-10 17:57:55 1.6262 Head exam ED 2020-12-10 17:57:55 atraumatic Initial DRG Weight: 2020-12-10 17:57:54 1.6262 Working DRG Weight: 2020-12-10 17:57:54 1.6262 Head exam ED 2020-12-10 17:57:54 atraumatic Initial DRG Weight: 2020-12-10 16:15:04 1.6262 Working DRG Weight: 2020-12-10 16:15:04 1.6262 Head exam ED 2020-12-10 16:15:04 atraumatic Have you Lost Weight 2020-12-10 16:15:04 No Without Trying in the Past 6 Months? Respiratory exam 2020-12-10 16:15:04 normal breath sounds /min 02 Sat by Pulse 2020-12-10 16:15:04 97 /min Oximetry Body Mass Index 2020-12-10 16:15:04 29.4 Height 2020-12-10 16:15:04 170.18\\S\\67 Pulse Rate 2020-12-10 16:15:04 58 /min Respiratory Rate 2020-12-10 16:15:04 19 /min Respiratory Depth 2020-12-10 16:15:04 Normal /min Respiratory Effort 2020-12-10 16:15:04 Spontaneous /min Respiratory Pattern 2020-12-10 16:15:04 Normal /min Temperature 2020-12-10 16:15:04 98.6\\S\\209.5 Weight 2020-12-10 16:15:04 46828.365\\S\\3008 Weight Measurement 2020-12-10 16:15:04 Estimated by Patient Method Initial DRG Weight: 2020-12-10 16:10:29 1.6262 Working DRG Weight: 2020-12-10 16:10:29 1.6262 Head exam ED 2020-12-10 16:10:29 atraumatic Have you Lost Weight 2020-12-10 16:10:29 No Without Trying in the Past 6 Months? Respiratory exam 2020-12-10 16:10:29 normal breath sounds /min 02 Sat by Pulse 2020-12-10 16:10:29 97 /min Oximetry Body Mass Index 2020-12-10 16:10:29 29.4 Height 2020-12-10 16:10:29 170.18\\S\\67 Pulse Rate 2020-12-10 16:10:29 58 /min Respiratory Rate 2020-12-10 16:10:29 19 /min Respiratory Depth 2020-12-10 16:10:29 Normal /min Respiratory Effort 2020-12-10 16:10:29 Spontaneous /min Respiratory Pattern 2020-12-10 16:10:29 Normal /min Temperature 2020-12-10 16:10:29 98.6\\S\\209.5 Weight 2020-12-10 16:10:29 60856.365\\S\\3008 Weight Measurement 2020-12-10 16:10:29 Estimated by Patient Method Have you Lost Weight 2020-12-10 16:09:59 No Without Trying in the Past 6 Months? Respiratory exam 2020-12-10 16:09:59 normal breath sounds /min 02 Sat by Pulse 2020-12-10 16:09:59 97 /min Oximetry Body Mass Index 2020-12-10 16:09:59 29.4 Height 2020-12-10 16:09:59 170.18\\S\\67 Pulse Rate 2020-12-10 16:09:59 58 /min Respiratory Rate 2020-12-10 16:09:59 19 /min Respiratory Depth 2020-12-10 16:09:59 Normal /min Respiratory Effort 2020-12-10 16:09:59 Spontaneous /min Respiratory Pattern 2020-12-10 16:09:59 Normal /min Temperature 2020-12-10 16:09:59 98.6\\S\\209.5 Weight 2020-12-10 16:09:59 74063.365\\S\\3008 Weight Measurement 2020-12-10 16:09:59 Estimated by Patient Method Initial DRG Weight: 2020-12-10 16:09:58 1.6262 Working DRG Weight: 2020-12-10 16:09:58 1.6262 Head exam ED 2020-12-10 16:09:58 atraumatic Head exam ED 2020-12-10 14:55:13 atraumatic Have you Lost Weight 2020-12-10 14:55:13 No Without Trying in the Past 6 Months? Respiratory exam 2020-12-10 14:55:13 normal breath sounds /min 02 Sat by Pulse 2020-12-10 14:55:13 97 /min Oximetry Body Mass Index 2020-12-10 14:55:13 29.4 Height 2020-12-10 14:55:13 170.18\\S\\67 Pulse Rate 2020-12-10 14:55:13 58 /min Respiratory Rate 2020-12-10 14:55:13 19 /min Respiratory Depth 2020-12-10 14:55:13 Normal /min Respiratory Effort 2020-12-10 14:55:13 Spontaneous /min Respiratory Pattern 2020-12-10 14:55:13 Normal /min Temperature 2020-12-10 14:55:13 98.6\\S\\209.5 Weight 2020-12-10 14:55:13 76806.365\\S\\3008 Weight Measurement 2020-12-10 14:55:13 Estimated by Patient Method Initial DRG Weight: 2020-12-10 14:55:12 1.6262 Working DRG Weight: 2020-12-10 14:55:12 1.6262 Initial DRG Weight: 2020-12-08 14:29:56 1.6262 Working DRG Weight: 2020-12-08 14:29:56 1.6262 Head exam ED 2020-12-08 14:29:56 atraumatic Have you Lost Weight 2020-12-08 14:29:56 No Without Trying in the Past 6 Months? Respiratory exam 2020-12-08 14:29:56 normal breath sounds /min 02 Sat by Pulse 2020-12-08 14:29:56 98 /min Oximetry Body Mass Index 2020-12-08 14:29:56 29.4 Height 2020-12-08 14:29:56 170.18\\S\\67 Pulse Rate 2020-12-08 14:29:56 68 /min Respiratory Rate 2020-12-08 14:29:56 18 /min Respiratory Depth 2020-12-08 14:29:56 Normal /min Respiratory Effort 2020-12-08 14:29:56 Spontaneous /min Respiratory Pattern 2020-12-08 14:29:56 Normal /min Temperature 2020-12-08 14:29:56 36.8\\S\\98.2 Weight 2020-12-08 14:29:56 54016.365\\S\\3008 Weight Measurement 2020-12-08 14:29:56 Estimated by Patient Method Initial DRG Weight: 2020-12-08 14:14:59 1.6262 Working DRG Weight: 2020-12-08 14:14:59 1.6262 Head exam ED 2020-12-08 14:14:59 atraumatic Have you Lost Weight 2020-12-08 14:14:59 No Without Trying in the Past 6 Months? Respiratory exam 2020-12-08 14:14:59 normal breath sounds /min 02 Sat by Pulse 2020-12-08 14:14:59 98 /min Oximetry Body Mass Index 2020-12-08 14:14:59 29.4 Height 2020-12-08 14:14:59 170.18\\S\\67 Pulse Rate 2020-12-08 14:14:59 68 /min Respiratory Rate 2020-12-08 14:14:59 18 /min Respiratory Depth 2020-12-08 14:14:59 Normal /min Respiratory Effort 2020-12-08 14:14:59 Spontaneous /min Respiratory Pattern 2020-12-08 14:14:59 Normal /min Temperature 2020-12-08 14:14:59 36.8\\S\\98.2 Weight 2020-12-08 14:14:59 48286.365\\S\\3008 Weight Measurement 2020-12-08 14:14:59 Estimated by Patient Method Initial DRG Weight: 2020-12-07 13:40:08 1.6262 Working DRG Weight: 2020-12-07 13:40:08 1.6262 Head exam ED 2020-12-07 13:40:08 atraumatic Have you Lost Weight 2020-12-07 13:40:08 No Without Trying in the Past 6 Months? Respiratory exam 2020-12-07 13:40:08 normal breath sounds /min 02 Sat by Pulse 2020-12-07 13:40:08 98 /min Oximetry Body Mass Index 2020-12-07 13:40:08 29.4 Height 2020-12-07 13:40:08 170.18\\S\\67 Pulse Rate 2020-12-07 13:40:08 73 /min Respiratory Rate 2020-12-07 13:40:08 18 /min Respiratory Depth 2020-12-07 13:40:08 Normal /min Respiratory Effort 2020-12-07 13:40:08 Spontaneous /min Respiratory Pattern 2020-12-07 13:40:08 Normal /min Temperature 2020-12-07 13:40:08 36.4\\S\\97.5 Weight 2020-12-07 13:40:08 07711.365\\S\\3008 Weight Measurement 2020-12-07 13:40:08 Estimated by Patient Method Have you Lost Weight 2020-12-07 03:04:59 No Without Trying in the Past 6 Months? Respiratory exam 2020-12-07 03:04:59 normal breath sounds /min 02 Sat by Pulse 2020-12-07 03:04:59 100 /min Oximetry Body Mass Index 2020-12-07 03:04:59 29.4 Height 2020-12-07 03:04:59 170.18\\S\\67 Pulse Rate 2020-12-07 03:04:59 67 /min Respiratory Rate 2020-12-07 03:04:59 18 /min Respiratory Depth 2020-12-07 03:04:59 Normal /min Respiratory Effort 2020-12-07 03:04:59 Spontaneous /min Respiratory Pattern 2020-12-07 03:04:59 Normal /min Temperature 2020-12-07 03:04:59 37.0\\S\\98.6 Weight 2020-12-07 03:04:59 90618.365\\S\\3008 Weight Measurement 2020-12-07 03:04:59 Estimated by Patient Method Initial DRG Weight: 2020-12-07 03:04:58 1.6262 Working DRG Weight: 2020-12-07 03:04:58 1.6262 Head exam ED 2020-12-07 03:04:58 atraumatic Initial DRG Weight: 2020-12-06 13:57:13 1.6262 Working DRG Weight: 2020-12-06 13:57:13 1.6262 Head exam ED 2020-12-06 13:57:13 atraumatic Have you Lost Weight 2020-12-06 13:57:13 No Without Trying in the Past 6 Months? Respiratory exam 2020-12-06 13:57:13 normal breath sounds /min 02 Sat by Pulse 2020-12-06 13:57:13 99 /min Oximetry Body Mass Index 2020-12-06 13:57:13 29.4 Height 2020-12-06 13:57:13 170.18\\S\\67 Pulse Rate 2020-12-06 13:57:13 56 /min Respiratory Rate 2020-12-06 13:57:13 18 /min Respiratory Depth 2020-12-06 13:57:13 Normal /min Respiratory Effort 2020-12-06 13:57:13 Spontaneous /min Respiratory Pattern 2020-12-06 13:57:13 Normal /min Temperature 2020-12-06 13:57:13 35.4\\S\\95.8 Weight 2020-12-06 13:57:13 51632.365\\S\\3008 Weight Measurement 2020-12-06 13:57:13 Estimated by Patient Method Initial DRG Weight: 2020-12-06 07:00:51 1.6262 Working DRG Weight: 2020-12-06 07:00:51 1.6262 Have you Lost Weight 2020-12-06 07:00:51 No Without Trying in the Past 6 Months? Respiratory exam 2020-12-06 07:00:51 normal breath sounds /min 02 Sat by Pulse 2020-12-06 07:00:51 100 /min Oximetry Body Mass Index 2020-12-06 07:00:51 29.4 Height 2020-12-06 07:00:51 170.18\\S\\67 Pulse Rate 2020-12-06 07:00:51 84 /min Respiratory Rate 2020-12-06 07:00:51 18 /min Respiratory Depth 2020-12-06 07:00:51 Normal /min Respiratory Effort 2020-12-06 07:00:51 Spontaneous /min Respiratory Pattern 2020-12-06 07:00:51 Normal /min Temperature 2020-12-06 07:00:51 36.7\\S\\98.0 Weight 2020-12-06 07:00:51 20710.365\\S\\3008 Weight Measurement 2020-12-06 07:00:51 Estimated by Patient Method Initial DRG Weight: 2020-12-06 07:00:21 1.6262 Working DRG Weight: 2020-12-06 07:00:21 1.6262 Have you Lost Weight 2020-12-06 07:00:21 No Without Trying in the Past 6 Months? Respiratory exam 2020-12-06 07:00:21 normal breath sounds /min 02 Sat by Pulse 2020-12-06 07:00:21 100 /min Oximetry Body Mass Index 2020-12-06 07:00:21 29.4 Height 2020-12-06 07:00:21 170.18\\S\\67 Pulse Rate 2020-12-06 07:00:21 84 /min Respiratory Rate 2020-12-06 07:00:21 18 /min Respiratory Depth 2020-12-06 07:00:21 Normal /min Respiratory Effort 2020-12-06 07:00:21 Spontaneous /min Respiratory Pattern 2020-12-06 07:00:21 Normal /min Temperature 2020-12-06 07:00:21 36.7\\S\\98.0 Weight 2020-12-06 07:00:21 29469.365\\S\\3008 Weight Measurement 2020-12-06 07:00:21 Estimated by Patient Method Have you Lost Weight 2020-12-06 06:25:10 No Without Trying in the Past 6 Months? Respiratory exam 2020-12-06 06:25:10 normal breath sounds /min 02 Sat by Pulse 2020-12-06 06:25:10 100 /min Oximetry Body Mass Index 2020-12-06 06:25:10 29.4 Height 2020-12-06 06:25:10 170.18\\S\\67 Pulse Rate 2020-12-06 06:25:10 84 /min Respiratory Rate 2020-12-06 06:25:10 18 /min Respiratory Depth 2020-12-06 06:25:10 Normal /min Respiratory Effort 2020-12-06 06:25:10 Spontaneous /min Respiratory Pattern 2020-12-06 06:25:10 Normal /min Temperature 2020-12-06 06:25:10 36.7\\S\\98.0 Weight 2020-12-06 06:25:10 47138.365\\S\\3008 Weight Measurement 2020-12-06 06:25:10 Estimated by Patient Method Initial DRG Weight: 2020-12-06 06:25:10 1.6262 Working DRG Weight: 2020-12-06 06:25:10 1.6262 Initial DRG Weight: 2020-12-06 06:21:35 1.6262 Working DRG Weight: 2020-12-06 06:21:35 1.6262 Have you Lost Weight 2020-12-06 06:21:35 No Without Trying in the Past 6 Months? Respiratory exam 2020-12-06 06:21:35 normal breath sounds /min 02 Sat by Pulse 2020-12-06 06:21:35 100 /min Oximetry Body Mass Index 2020-12-06 06:21:35 29.4 Height 2020-12-06 06:21:35 170.18\\S\\67 Pulse Rate 2020-12-06 06:21:35 84 /min Respiratory Rate 2020-12-06 06:21:35 18 /min Respiratory Depth 2020-12-06 06:21:35 Normal /min Respiratory Effort 2020-12-06 06:21:35 Spontaneous /min Respiratory Pattern 2020-12-06 06:21:35 Normal /min Temperature 2020-12-06 06:21:35 36.7\\S\\98.0 Weight 2020-12-06 06:21:35 89308.365\\S\\3008 Weight Measurement 2020-12-06 06:21:35 Estimated by Patient Method Have you Lost Weight 2020-12-06 04:26:35 No Without Trying in the Past 6 Months? 02 Sat by Pulse 2020-12-06 04:26:35 100 /min Oximetry Body Mass Index 2020-12-06 04:26:35 29.4 Height 2020-12-06 04:26:35 170.18\\S\\67 Pulse Rate 2020-12-06 04:26:35 72 /min Respiratory Rate 2020-12-06 04:26:35 20 /min Respiratory Depth 2020-12-06 04:26:35 Normal /min Respiratory Effort 2020-12-06 04:26:35 Spontaneous /min Respiratory Pattern 2020-12-06 04:26:35 Normal /min Temperature 2020-12-06 04:26:35 36.8\\S\\98.2 Weight 2020-12-06 04:26:35 23199.365\\S\\3008 Weight Measurement 2020-12-06 04:26:35 Estimated by Patient Method Have you Lost Weight 2020-12-06 02:44:08 No Without Trying in the Past 6 Months? 02 Sat by Pulse 2020-12-06 02:44:08 100 /min Oximetry Body Mass Index 2020-12-06 02:44:08 29.4 Height 2020-12-06 02:44:08 170.18\\S\\67 Pulse Rate 2020-12-06 02:44:08 72 /min Respiratory Rate 2020-12-06 02:44:08 20 /min Respiratory Depth 2020-12-06 02:44:08 Normal /min Respiratory Effort 2020-12-06 02:44:08 Spontaneous /min Respiratory Pattern 2020-12-06 02:44:08 Normal /min Temperature 2020-12-06 02:44:08 36.8\\S\\98.2 Weight 2020-12-06 02:44:08 82902.365\\S\\3008 Weight Measurement 2020-12-06 02:44:08 Estimated by Patient Method Have you Lost Weight 2020-12-06 02:40:03 No Without Trying in the Past 6 Months? 02 Sat by Pulse 2020-12-06 02:40:03 100 /min Oximetry Body Mass Index 2020-12-06 02:40:03 29.4 Height 2020-12-06 02:40:03 170.18\\S\\67 Pulse Rate 2020-12-06 02:40:03 72 /min Respiratory Rate 2020-12-06 02:40:03 20 /min Respiratory Depth 2020-12-06 02:40:03 Normal /min Respiratory Effort 2020-12-06 02:40:03 Spontaneous /min Respiratory Pattern 2020-12-06 02:40:03 Normal /min Temperature 2020-12-06 02:40:03 36.8\\S\\98.2 Weight 2020-12-06 02:40:03 30074.365\\S\\3008 Weight Measurement 2020-12-06 02:40:03 Estimated by Patient Method Body Mass Index 2020-12-06 01:51:41 29.4 Height 2020-12-06 01:51:41 170.18\\S\\67 Weight 2020-12-06 01:51:41 63121.365\\S\\3008 Body Mass Index 2020-12-06 00:23:59 29.4 Height 2020-12-06 00:23:59 170.18\\S\\67 Weight 2020-12-06 00:23:59 65915.365\\S\\3008 Body Mass Index 2020-12-06 00:23:29 29.4 Height 2020-12-06 00:23:29 170.18\\S\\67 Weight 2020-12-06 00:23:29 04549.365\\S\\3008 WEIGHT 2020-12-06 00:23:00 85.127585 kg HEIGHT 2020-12-06 00:23:00 170.18 cm Weight 2017-12-02 15:13:00 [facility] Heart Rate 2017-12-02 15:13:00 [facility] Systolic (mm Hg) 2017-12-02 15:13:00 Sudarshan [facility] Fadi Diastolic (mm Hg) 2017-12-02 15:13:00 [facility] [place] Systolic (mm Hg) 2016-11-11 01:44:00 Sudarshan [facility] [place] Diastolic (mm Hg) 2016-11-11 01:44:00 [facility] [place] Temperature Oral (F) 2016-11-11 01:44:00 98.2 F [facility] Heart Rate 2016-11-11 01:44:00 [facility] Respitory Rate 2016-11-11 01:44:00 [facility] [place] Heart Rate 2016-11-10 21:26:00 [facility] Systolic (mm Hg) 2016-11-10 21:26:00 Sudarshan rial Fadi Diastolic (mm Hg) 2016-11-10 21:26:00 [facility] [place] Respitory Rate 2016-11-10 21:26:00 [facility] Temperature Oral (F) 2016-11-10 21:26:00 98.3 F [facility] Respitory Rate 2016-11-10 20:35:00 [facility] Afdi Systolic (mm Hg) 2016-11-10 20:35:00 Sudarshan rial Fadi Diastolic (mm Hg) 2016-11-10 20:35:00 [facility] Heart Rate 2016-11-10 20:35:00 [facility] Weight 2016-11-10 17:01:00 [facility] BMI Calculated 2016-11-10 17:01:00 [facility] [place] Height 2016-11-10 17:01:00 167.64 cm [facility] Temperature Oral (F) 2016-11-10 17:01:00 98.3 F [facility] [place] Procedures Procedure Date / Time Performing Source Performed Clinician REFERRAL- REQUEST/RESPONSE 2022-01-07 Doctor Unassigned, Un iversity of 05:01:00 [place] [facility] EXTERNAL PROVIDER RECORDS 2021-12-18 Doctor Unassigned, Uni versity of 05:01:00 [place] [facility] Measurement of post-voiding 2017-12-02 Sudarshan rial Fadi residual urine and/or bladder 15:42:00 capacity by ultrasound, non-imaging UPPP - Uvulopalatopharyngoplasty 1989-09-22 [facility] [place] 00:00:00 Arthroscopy of knee [facility] Cardiac catheterization [facility] Hysterectomy [facility] 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 Repair of rectocele [facility] Shoulder repair [facility] Encounters Start End Encounter Admission Attending Care Care Encounter Source Date/Time Date/Time Type Type Clinicians Facility Department ID 2021-12-31 [facility] [id number] [place] 12:57:[address] 2021-12-14 [facility] [id number] [place] 10:43:14 FRANCY [id number] [facility] 2021-03-05 Outpatient [facility] [id number] [place] 11:48:50 [facility] 2022-02-03 2022-02-03 [facility] [id number] [facility] 00:00:00 00:00:00 Wondiful [facility] [id number] [facility] [id number] Javier as ALEYDA?BLEA [phone] Ms dical KNEY [address] [place] [address] MEDICAL OFFICE BUILDING 2022-01-31 2022-01-31 Outpatient ORESTES DODGE [facility] [id number] Andrew 00:00:00 00:00:[address] 2022-01-07 2022-01-07 [facility] [id number] [facility] 00:00:00 00:00:00 Wondiful [facility] [id number] ity of [place] [id number] Javier as PROFESSIO [phone] [address] OFFICE [facility] 2022-01-07 2022-01-07 Orders Doctor PRASAD [id number] [facility] 00:00:00 00:00:00 Only Unassigned, DINAH [id number] [facility] [id number] Javier as [phone] [address] 2021-12-31 2021-12-31 Outpatient ORESTES DODGE [facility] [id number] Andrew 00:00:00 00:00:00 773 Method i 2021-12-31 2021-12-31 Outpatient ORESTES DODGE [facility] [id number] [place] 00:00:00 00:00:[address] 2021-12-31 2021-12-31 Outpatient ORESTES DODGE [facility] [id number] Andrew 00:00:00 00:00:[address] 2021-12-18 2021-12-18 Orders Doctor PRASAD [id number] [facility] 00:00:00 00:00:00 Only Unassigned, DINAH [id number] [facility] [id number] Javier as [phone] [address] 2021-12-15 2021-12-15 [facility] [id number] [facility] 00:00:00 00:00:00 [facility] [id number] ity of [place] [id number] Javier as PROFESSIO [phone] Ms dical NAL [address] [place] OFFICE [facility] 2021-11-27 2021-11-27 Outpatient ORESTES DODGE [facility] [id number] Andrew 00:00:00 00:00:00 589 [facility] 2021-10-30 2021-10-30 Outpatient IVETTE MAYNARD [facility] [id number] Andrew 00:00:00 00:00:00 464 [facility] 2021-10-09 2021-10-09 Outpatient ORESTES DODGE [facility] [id number] Andrew 00:00:00 00:00:00 975 [facility] 2021-09-27 2021-09-27 Outpatient DELOS [facility] [id number] Andrew 00:00:00 00:00:00 RHEA, 608 [facility] [place] 2021-08-31 2021-09-13 Inpatient NOHELIA RAE [facility] [id number] Andrew 00:00:00 00:00:00 997 [facility] 2021-08-27 2021-08-27 Outpatient RICE, [facility] [id number] 132 Andrew 00:00:00 00:00:00 TONO 657 [address] 2021-08-27 2021-08-27 Outpatient MAUREEN [facility] [id number] Andrew 00:00:00 00:00:00 , NANCY [address] 2021-08-09 2021-08-09 Outpatient ANDRES, [facility] 021 [id number] Andrew 00:00:00 00:00:00 MONTY 419 Method i 2021-08-08 2021-08-08 Outpatient ANDRES [facility] [id number] Andrew 00:00:00 00:00:00 MONTY 583 Method i 2021-07-31 2021-07-31 Telephone SALVADOR Uriostegui 1.2.840.114 [id number] [place] 00:00:00 00:00:00 Francy DE LA GARZA [id number] [facility] 9.2.7.2.686 ORTHOPEDI [id number] LUDIN - [place] 1 2021-07-30 2021-07-30 Outpatient ANDRES, [facility] [id number] Andrew 00:00:00 00:00:00 MONTY Jeana[address] 2021-07-17 2021-07-17 Outpatient RICE, [facility] [id number] Andrew 00:00:00 00:00:00 TONO [address] 2021-07-16 2021-07-16 Outpatient RICE, [facility] [id number] Andrew 00:00:00 00:00:00 TONO [address] 2021-07-16 2021-07-16 Outpatient RICE, [facility] [id number] Andrew 00:00:00 00:00:00 TONO [address] 2021-07-10 2021-07-10 Outpatient MAUREEN [facility] [id number] Andrew 00:00:00 00:00:00 , NANCY [address] 2021-07-10 2021-07-10 Outpatient MAUREEN [facility] [id number] Andrew 00:00:00 00:00:00 , NANCY [address] 2021-07-10 2021-07-10 Outpatient MAUREEN [facility] [id number] Andrew 00:00:00 00:00:00 , NANCY [address] 2021-07-10 2021-07-10 Outpatient MAUREEN [facility] [id number] Andrew 00:00:00 00:00:00 , NANCY [address] 2021-07-10 2021-07-10 Outpatient VALARIE, [facility] [id number] Andrew 00:00:00 00:00:00 ASHVIN [address] 2021-07-09 2021-07-09 Outpatient MAUREEN [facility] [id number] Andrew 00:00:00 00:00:00 , NANCY [address] 2021-07-06 2021-07-06 Outpatient MAUREEN [facility] [id number] Andrew 00:00:00 00:00:00 , NANCY [address] 2021-07-06 2021-07-06 Outpatient MAUREEN [facility] [id number] Andrew 00:00:00 00:00:00 , NANCY [address] 2021-07-02 2021-07-02 Outpatient MAUREEN [facility] [id number] Andrew 00:00:00 00:00:00 , NANCY [address] 2021-06-28 2021-06-28 Outpatient MAUREEN [facility] [id number] Andrew 00:00:00 00:00:00 , NANCY [address] 2021-06-28 2021-06-28 Outpatient MAUREEN [facility] [id number] Andrew 00:00:00 00:00:00 , NANCY [address] 2021-06-28 2021-06-28 Outpatient MAUREEN [facility] [id number] Andrew 00:00:00 00:00:00 , NANCY [address] 2021-06-28 2021-06-28 Outpatient MAUREEN [facility] [id number] Andrew 00:00:00 00:00:00 , NANCY [address] 2021-06-26 2021-06-26 Telephone SALVADOR Uriostegui 1.2.840.114 [id number] [place] 00:00:00 00:00:00 Francy PHYSICIAN [id number] Health S 9.2.7.2.686 ORTHOPEDI [id number] CS - [place] 1 2021-06-26 2021-06-26 Telephone SALVADOR Uriostegui 1.2.840.114 [id number] 00:00:00 00:00:00 Francy PHYSICIAN [id number] S 9.2.7.2.686 ORTHOPEDI [id number] CS - [place] 1 2021-06-19 2021-06-19 Telephone SALVADOR Uriostegui 1.2.840.114 [id number] [place] 00:00:00 00:00:00 Francy PHYSICIAN [id number] Health S 9.2.7.2.686 ORTHOPEDI [id number] CS - [place] 1 2021-06-19 2021-06-19 Telephone SALVADOR Uriostegui 1.2.840.114 [id number] 00:00:00 00:00:00 Francy PHYSICIAN [id number] S 9.2.7.2.686 ORTHOPEDI [id number] CS - [place] 1 2021-05-30 2021-05-30 Refill Gila UTP 1.2.037.491 [id number] [place] 00:00:00 00:00:00 Francy PHYSICIAN 350.1.13.58 Health S 9.2.7.2.686 ORTHOPEDI [id number] CS - [place] 1 2021-05-30 2021-05-30 Refill Gila UTP 1.2.826.360 [id number] 00:00:00 00:00:00 Francy PHYSICIAN 350.1.13.58 S 9.2.7.2.686 ORTHOPEDI [id number] CS - [place] 1 2021-05-18 2021-05-18 Telephone SALVADOR Uriostegui 1.2.840.114 [id number] 00:00:00 00:00:00 Francy PHYSICIAN 350.1.13.58 S 9.2.7.2.686 ORTHOPEDI [id number] CS - [place] 1 2021-05-18 2021-05-18 Telephone SALVADOR Uriostegui 1.2.840.114 [id number] [place] 00:00:00 00:00:00 Francy PHYSICIAN 350.1.13.58 Health S 9.2.7.2.686 ORTHOPEDI [id number] CS - [place] 1 2021-05-03 2021-05-03 Refill Brittany UTP 1.2.840.114 [id number] 00:00:00 00:00:00 PHYSICIAN Chet 350.1.13.58 Sair S 9.2.7.2.686 ORTHOPEDI [id number] CS - [place] 1 2021-05-03 2021-05-03 Refill Jyoti Rojas UTP 1.2.84 0.114 [id number] [place] 00:00:00 00:00:00 Jyoti Rojas PHYSICIAN 350.1.13 .58 Health S 9.2.7.2.686 ORTHOPEDI [id number] CS - [place] 1 2021-04-18 2021-04-18 Office SALVADOR Uriostegui 1.2.647.285 [id number] 15:44:11 17:42:35 Visit Francy PHYSICIAN 350.1.13.58 S 9.2.7.2.686 ORTHOPEDI [id number] CS - [place] 1 2021-04-18 2021-04-18 Office SALVADOR Uriostegui 1.2.524.139 [id number] [place] 15:44:11 17:42:35 Visit Francy PHYSICIAN 350.1.13.58 Health S 9.2.7.2.686 ORTHOPEDI [id number] CS - [place] 1 2021-04-10 2021-04-10 Telephone CAROLINA Sidhu 1.2.840.114 [id number] 00:00:00 00:00:00 [facility] 350.1.13.10 [place] 4.2.7.2.686 Professio [id number] nal 044 Office [address] One 2021-04-05 2021-04-05 EXT MH OP SUKI Uriostegui MSRDP 1.2.840.114 [id number] [place] 00:00:00 00:00:00 Francy [facility] 350.1.13.58 H ealth 9.2.7.2.686 [id number] 0 2021-04-04 2021-04-04 Office SALVADOR Uriostegui 1.2.563.122 [id number] 08:28:47 09:30:44 Visit Francy PHYSICIAN 350.1.13.58 S 9.2.7.2.686 ORTHOPEDI [id number] CS - [place] 1 2021-04-04 2021-04-04 Office SALVADOR Uriostegui 1.2.151.774 [id number] [place] 08:28:47 09:30:44 Visit Francy PHYSICIAN 350.1.13.58 Health S 9.2.7.2.686 ORTHOPEDI [id number] CS - [place] 1 2021-03-26 2021-03-26 Cullen Sidhu [facility] 1.2.840.114 [id number] 00:00:00 00:00:00 [facility] 350.1.13.10 [place] 4.2.7.2.686 Professio [id number] nal 044 Office [address] One 2021-03-07 2021-03-07 Office GilaSALVADOR romano 1.2.998.801 [id number] 13:37:22 14:54:53 Visit Francy PHYSICIAN 350.1.13.58 S 9.2.7.2.686 ORTHOPEDI [id number] LUDIN IGLESIAS 1 2021-03-07 2021-03-07 Office SALVADOR Uriostegui 1.2.941.328 [id number] [place] 13:37:22 14:54:53 Visit Francy PHYSICIAN 350.1.13.58 Health S 9.2.7.2.686 ORTHOPEDI [id number] LUDIN IGLESIAS 1 2017-12-02 2017-12-03 Outpatient nullFlavo [facility] [id number] Memoria 15:00:00 04:59:59 r Urology 00 l Harris Orange 2016-11-10 2016-11-11 Observatio nullFlavo [facility] [id number] Memoria 16:33:00 01:30:00 n bryan [place] 04 l [facility] 2015-06-09 2015-06-10 Outpt Diag nullFlavo [facility] [id number] Memoria 16:15:00 04:59:00 Services r Outpatient 02 l Imaging [facility] Results Test Description Test Time Test Comments Results Result Comments Source SARS-CoV-2 (COVID-19) RNA [Presence] in Respiratory sp ecimen by 2021-09-09 16:37:15 SOFÍA with probe detection Test Item Value Reference Range Interpretation Comme nts SARS-CoV-2 (COVID-19) RNA [Presence] in Respiratory Not detected No t-Detected specimen by SOFÍA with probe detection (test code = 93304-3) Whether patient is employed in a healthcare setting (test code = 18038-6) Whether the patient has symptoms related to condition of interest (test code = 74358-0) Patient was hospitalized because of this condition (test code = 03067-5) Whether the patient was admitted to intensive care unit (ICU) for condition of interest (test code = 25949-3) Whether patient resides in a congregate care setting (test code = 04358-2) SARS-CoV-2 (COVID-19) RNA [Presence] in Respiratory specimen by SOFÍA with probe [id number] 01:29:50 Test Item Value Reference Range Interpretation Comments SARS-CoV-2 (COVID-19) RNA Not detected Not-Detected [Presence] in Respiratory specimen by SOFÍA with probe detection (test code = 41908-8) Whether patient is employed in a healthcare setting (test code = 61896-0) Whether the patient has symptoms related to condition of interest (test code = 41096-3) Patient was hospitalized because of this condition (test code = 72842-8) Whether the patient was admitted to intensive care unit (ICU) for condition of interest (test code = 96238-3) Whether patient resides in a congregate care setting (test code = 39335-8) SARS-CoV-2 (COVID-19) RNA [Presence] in Respiratory specimen by SOFÍA with probe [id number] 15:38:22 Test Item Value Reference Range Interpretation Comments SARS-CoV-2 (COVID-19) RNA Not detected Not-Detected [Presence] in Respiratory specimen by SOFÍA with probe detection (test code = 56935-7) Whether patient is employed in a healthcare setting (test code = 69145-1) Whether the patient has symptoms related to condition of interest (test code = 10480-2) Patient was hospitalized because of this condition (test code = 64622-7) Whether the patient was admitted to intensive care unit (ICU) for condition of interest (test code = 46814-0) Whether patient resides in a congregate care setting (test code = 34968-2) SARS-CoV-2 (COVID-19) RNA [Presence] in Respiratory specimen by SOFÍA with probe [id number] 15:01:40 Test Item Value Reference Range Interpretation Comments SARS-CoV-2 (COVID-19) RNA Not detected Not-Detected [Presence] in Respiratory specimen by SOFÍA with probe detection (test code = 62660-0) Whether patient is employed in a healthcare setting (test code = 33303-7) Whether the patient has symptoms related to condition of interest (test code = 15296-3) Patient was hospitalized because of this condition (test code = 76894-5) Whether the patient was admitted to intensive care unit (ICU) for condition of interest (test code = 99972-2) Whether patient resides in a congregate care setting (test code = 45231-4) CARDIAC [id number] 01:51:00 Test Item Value Reference Range Interpretation Comments Troponin-I (test code no gt See_Comment [Auto mated message] The = Troponin-I) system which g enerated this result transmit mikey reference range : <=0.40. The reference r yousif was not used to interpr et this result as dk l/abnormal. [facility] [id number] 21:55:00 Test Item Value Reference Range Interpretation Comments Troponin-I (test code no gt See_Comment [Auto mated message] The = Troponin-I) system which g enerated this result transmit mikey reference range : <=0.40. The reference r yousif was not used to interpr et this result as dk l/abnormal. [facility] [id number] 17:49:00 Test Item Value Reference Range Interpretation Comments UA Blood (test code = Negative (11/10/16 11:49 UA Blood) AM) [facility] [id number] 17:49:00 Test Item Value Reference Range Interpretation Comments UA Glucose (test code = UA Negative mg/dL Glucose) [facility] [id number] 17:49:00 Test Item Value Reference Range Interpretation Comments UA Bili (test code = Negative *NA*(11/10/16 UA Bili) 11:49 AM) [facility] [id number] 17:49:00 Test Item Value Reference Range Interpretation Comments UA Ketones (test code = UA Trace mg/dL Ketones) [facility] [id number] 17:49:00 Test Item Value Reference Range Interpretation Comments UA Color (test code = Dark Yellow UA Color) *NA*(11/10/16 11:49 AM) [facility] [id number] 17:49:00 Test Item Value Reference Range Interpretation Comments UA Urobilinogen (test code = UA <=1.0 mg/dL 0.1-1.0 Urobilinogen) [facility] AND [id number] 17:49:00 Test Item Value Reference Range Interpretation Comments UA Hyal Cast (test 31 See_Comment [Automat ed message] The code = UA Hyal Cast) system which generated this result transmit mikey reference range : <=2. The reference range was not used to interpr et this result as dk l/abnormal. [facility] AND [id number] 17:49:00 Test Item Value Reference Range Interpretation Comments UA Sq Epi (test code = UA Sq Occasional /LPF Epi) [facility] AND [id number] 17:49:00 Test Item Value Reference Range Interpretation Comments UA Leuk Est (test Moderate *ABN*(11/10/16 code = UA Leuk Est) 11:49 AM) [facility] AND [id number] 17:49:00 Test Item Value Reference Range Interpretation Comments UA WBC (test code = 19 See_Comment [Automa mikey message] The UA WBC) system which ge nerated this result transmit mikey reference range : <=5. The reference range was not used to interpr et this result as dk l/abnormal. [facility] AND [id number] 17:49:00 Test Item Value Reference Range Interpretation Comments UA Nitrite (test code Negative (11/10/16 11:49 = UA Nitrite) AM) [facility] AND [id number] 17:49:00 Test Item Value Reference Range Interpretation Comments UA Bacteria (test code = UA Occasional /HPF Bacteria) [facility] AND [id number] 17:49:00 Test Item Value Reference Range Interpretation Comments UA RBC (test code = 31 See_Comment [Automa mikey message] The UA RBC) system which ge nerated this result transmit mikey reference range : <=2. The reference range was not used to interpr et this result as dk l/abnormal. [facility] AND [id number] 17:49:00 Test Item Value Reference Range Interpretation Comments UA CaOx Olinda (test code = UA Moderate /HPF CaOx Olinda) [facility] [id number] 17:49:00 Test Item Value Reference Range Interpretation Comments UA Mucus (test code = UA Mucus) Few /LPF [facility] [id number] 17:49:00 Test Item Value Reference Range Interpretation Comments UA Turbidity (test code Marked *ABN*(11/10/16 = UA Turbidity) 11:49 AM) [facility] [id number] 17:49:00 Test Item Value Reference Range Interpretation Comments UA pH (test code = UA pH) 5.0 5.0-8.0 [facility] [id number] 17:49:00 Test Item Value Reference Range Interpretation Comments UA Spec Grav (test code = UA Spec Grav) 1.023 [facility] [id number] 17:49:00 Test Item Value Reference Range Interpretation Comments UA Protein (test code = UA Protein) 30 mg/dL [facility] [id number] 17:38:00 Test Item Value Reference Range Interpretation Comments BNP (test code = BNP) 233 [facility] [id number] 17:38:00 Test Item Value Reference Range Interpretation Comments CK MB (test code = CK MB) 0.9 0.5-3.6 [facility] [id number] 17:38:00 Test Item Value Reference Range Interpretation Comments Troponin-I (test code no gt See_Comment [Auto mated message] The = Troponin-I) system which g enerated this result transmit mikey reference range : <=0.40. The reference r yousif was not used to interpr et this result as dk l/abnormal. [facility] [id number] 17:38:00 Test Item Value Reference Range Interpretation Comments Total CK (test code = Total CK) 137 12-191 [facility] [id number] 17:38:00 Test Item Value Reference Range Interpretation Comments CK MB Index (test 0.7 See_Comment [Automate d message] The code = CK MB Index) system w [facility] generated this result transmit mikey reference range : <=2.5. The reference range was not used to interpr et this result as dk l/abnormal. [facility]CHE[facility] [id number] 17:38:00 Test Item Value Reference Range Interpretation Comments Lactic Acid Lvl (test code = Lactic 2.8 0.5-2.2 Acid Lvl) [facility]2017-02-19 17:38:00 Test Item Value Reference Range Interpretation Comments eGFR (test code = eGFR) 41 [facility]2017-02-19 17:38:00 Test Item Value Reference Range Interpretation Comments ALT (test code = ALT) 20 See_Comment [Auto mated message] The system which ge nerated this result transmit mikey reference range : <=65. The reference range was not used to interpr et this result as dk l/abnormal. [facility]2017-02-19 17:38:00 Test Item Value Reference Range Interpretation Comments Albumin Lvl (test code = Albumin Lvl) 3.8 3.5-5.0 [facility]2017-02-19 17:38:00 Test Item Value Reference Range Interpretation Comments Total Protein (test code = Total 6.9 6.4-8.4 Protein) [facility]2017-02-19 17:38:00 Test Item Value Reference Range Interpretation Comments Calcium Lvl (test code = Calcium Lvl) 9.6 8.5-10.5 [facility]2017-02-19 17:38:00 Test Item Value Reference Range Interpretation Comments Chloride Lvl (test code = Chloride Lvl) 101 95-109 [facility]2017-02-19 17:38:00 Test Item Value Reference Range Interpretation Comments Potassium Lvl (test code = Potassium 3.2 3.5-5.1 Lvl) [facility]2017-02-19 17:38:00 Test Item Value Reference Range Interpretation Comments Sodium Lvl (test code = Sodium Lvl) 141 135-145 [facility]2017-02-19 17:38:00 Test Item Value Reference Range Interpretation Comments CO2 (test code = CO2) 28 24-32 [facility]2017-02-19 17:38:00 Test Item Value Reference Range Interpretation Comments Alk Phos (test code = Alk Phos) 52 39-136 [facility]2017-02-19 17:38:00 Test Item Value Reference Range Interpretation Comments AST (test code = AST) 13 See_Comment [Auto mated message] The system which ge nerated this result transmit mikey reference range : <=37. The reference range was not used to interpr et this result as dk l/abnormal. [facility]2017-02-19 17:38:00 Test Item Value Reference Range Interpretation Comments AGAP (test code = AGAP) 15.2 10.0-20.0 [facility]2017-02-19 17:38:00 Test Item Value Reference Range Interpretation Comments Bili Total (test code = Bili Total) 0.5 0.2-1.3 [facility]2017-02-19 17:38:00 Test Item Value Reference Range Interpretation Comments A/G Ratio (test code = A/G Ratio) 1.2 0.7-1.6 [facility]2017-02-19 17:38:00 Test Item Value Reference Range Interpretation Comments Globulin (test code = Globulin) 3.1 2.7-4.2 [facility]2017-02-19 17:38:00 Test Item Value Reference Range Interpretation Comments B/C Ratio (test code = B/C Ratio) 19 6-25 [facility]2017-02-19 17:38:00 Test Item Value Reference Range Interpretation Comments BUN (test code = BUN) 25 7-22 [facility]2017-02-19 17:38:00 Test Item Value Reference Range Interpretation Comments Creatinine Lvl (test code = Creatinine 1.30 0.50-1.40 Lvl) [facility]2017-02-19 17:38:00 Test Item Value Reference Range Interpretation Comments Glucose Lvl (test code = Glucose Lvl) 153 70-[address] [facility] Hospit[id number] 17:38:00 Test Item Value Reference Range Interpretation Comments Hct (test code = Hct) 41.4 36.0-48.[address] [facility] H[id number] 17:38:00 Test Item Value Reference Range Interpretation Comments MCHC (test code = MCHC) 32.7 32.0-36.[address] [facility] HospitalUmjwqmoLWXWTUMSYU5209-68-72 17:38:00 Test Item Value Reference Range Interpretation Comments MCH (test code = MCH) 28.5 pg 27.0-31.[address] [facility] HospitalMtgclrkUHOCJAPJWL6153-40-81 17:38:00 Test Item Value Reference Range Interpretation Comments MCV (test code = MCV) 87.3 80.0-98.[address] [facility] HospitalNagpblkMMACHTVGPS8210-16-41 17:38:00 Test Item Value Reference Range Interpretation Comments MPV (test code = MPV) 8.7 7.4-10.[address] [facility] HospitalSmyoiucAFDXBXCFCD0744-80-76 17:38:00 Test Item Value Reference Range Interpretation Comments Platelet (test code = Platelet) 183 133-[address] [facility] HospitalEnhysgfMGTDFMFUBI5118-47-47 17:38:00 Test Item Value Reference Range Interpretation Comments RDW (test code = RDW) 14.4 11.5-14.[address] [facility] HospitalGmuaogxWFQUHSQUPV2336-11-60 17:38:00 Test Item Value Reference Range Interpretation Comments WBC (test code = WBC) 6.8 3.7-10.[address] [facility] HospitalGnoqgjrQIVGJJOWKE6670-67-21 17:38:00 Test Item Value Reference Range Interpretation Comments Hgb (test code = Hgb) 13.5 12.0-16.[address] [facility] HospitalVtnkcdgENILPRWEAO9165-16-02 17:38:00 Test Item Value Reference Range Interpretation Comments RBC (test code = RBC) 4.74 4.20-5.[address] [facility] HospitalOfojkoqMKSVSSMMZH5054-17-99 17:38:00 Test Item Value Reference Range Interpretation Comments Lymphocytes # (test code = Lymphocytes 2.4 1.0-5.5 #) [facility] HospitalZnmvavuPDRRNRBNNF9776-14-45 17:38:00 Test Item Value Reference Range Interpretation Comments Segs-Bands # (test code = Segs-Bands #) 3.7 1.5-8.[address] [facility] HospitalZcnwuokGIRAMBHHVZ0573-91-42 17:38:00 Test Item Value Reference Range Interpretation Comments Basophils (test code = 0.7 See_Comment [Aut omated message] The Basophils) system which ge nerated this result tra nsmitted reference range : <=1.0. The reference r yousif was not used to int erpret this result as normal/abnormal . [facility] HospitalJlzpvggWLZZUNFWXK5966-31-61 17:38:00 Test Item Value Reference Range Interpretation Comments Eosinophils (test code = 1.2 See_Comment [A utomated message] The Eosinophils) system which ge nerated this result tra nsmitted reference range : <=4.0. The reference r yousif was not used to int erpret this result as normal/abnormal . [facility] HospitalNebnicbLVAZVXKHMA8330-43-20 17:38:00 Test Item Value Reference Range Interpretation Comments Monocytes (test code = Monocytes) 7.9 2.0-12.[address] [facility] HospitalVjczlfyCGZPLDJCZB2894-80-35 17:38:00 Test Item Value Reference Range Interpretation Comments Lymphocytes (test code = Lymphocytes) 35.7 20.0-40.[address] [facility] HospitalUeuqefjVRIMIHDDJE3531-78-37 17:38:00 Test Item Value Reference Range Interpretation Comments Segs (test code = Segs) 54.5 45.0-75.[address] [facility] HospitalDmjwnioRXITZBVQSJ4772-44-12 17:38:00 Test Item Value Reference Range Interpretation Comments Monocytes # (test code 0.5 See_Comment [Aut omated message] The = Monocytes #) system which generated this result tra nsmitted reference range : <=0.8. The reference r yousif was not used to int erpret this result as normal/abnormal . [facility] HospitalAjdujchIRDMOMEKEK8615-01-15 17:38:00 Test Item Value Reference Range Interpretation Comments Eosinophils # (test code 0.1 See_Comment [A utomated message] The = Eosinophils #) system whic h generated this result tra nsmitted reference range : <=0.5. The reference r yousif was not used to int erpret this result as normal/abnormal . [facility]
[2022-02-07] MEDS ORDERED: NA CHLORIDE 0.9% 1,000 ML ONE (15:08)
[2022-02-07 15:12] LABS: Absolute Lymphocytes (CBC) 1.8 K/uL (0.7-4.9); Hematocrit 38.4 % (36.0-45.0); Lymphocytes % 29.2 % (15.3-44.8); RBC Red Blood Cell Count 4.17 M/uL (3.86-4.86)
[2022-02-07 15:13] LABS: Protime INR 1.62
--- NOTE | 2022-02-07 15:20 | RAD REPORT ---
EXAM DESCRIPTION: RAD - Chest Single View - 02/07/2022 3:15 pm CLINICAL HISTORY: PAIN Chest pain. COMPARISON: Chest Single View dated 06/19/2021; Chest Single View dated 06/16/2021; Chest Pa And Lat ( 2 Views) dated 06/14/2021; Chest Single View dated 04/09/2019 FINDINGS: Portable technique limits examination quality. The lungs are grossly clear. The heart is moderately enlarged. No displaced fractures.Dual lead pacer device is present. IMPRESSION: No acute intrathoracic process suspected.
[2022-02-07 15:27] LABS: Bilirubin Direct 0.2 mg/dL (0-0.2); Bilirubin Total 0.5 mg/dL (0.2-1.0); Magnesium 2.2 mg/dL (1.8-2.4); Potassium 4.2 mmol/L (3.5-5.1); Protein, Total 7.2 g/dL (6.4-8.2); Troponin High Sensitivity 11.9 pg/mL (<58.9)
[2022-02-07] MEDS ORDERED: ACETYLCYST 6,000 MG/30 ML VIAL ONE (15:47)
--- NOTE | 2022-02-07 16:01 | EDPHYS ---
Physician Documentation [facility] Name: Elsy Rico Age: 76 yrs Sex: Female : 1945 Arrival Date: 02/07/2022 Time: 13:55 Bed 8 Private MD: KETTY Physician Nathaniel Stauffer HPI: 02/07 15:08 This 76 yrs old Female presents to ER via Ambulatory with complaints of nreissa Shoulder Pain, Neck Pain, >24Hrs Old, Weakness. 15:08 The patient or guardian complains of decreased range of motion, pain, that is acute. nerissa right shoulder, right trapezius, right sternocleidomastoid, left shoulder, left trapezius and left sternocleidomastoid. Context: The problem was sustained at home. Onset: The symptoms/episode began/occurred today. Onset: The symptoms/episode began/occurred yesterday. Modifying factors: the symptoms are alleviated by remaining still, The symptoms are aggravated by movement. Associated signs and symptoms: The patient has no apparent associated signs or symptoms. Severity of symptoms: At their worst the symptoms were mild, in the emergency department the symptoms are unchanged. The patient has not experienced similar symptoms in the past. Historical: - Allergies: 14:02 PENICILLINS; ld1 14:02 Sulfa (Sulfonamide Antibiotics); ld1 - PMHx: 14:02 Diabetes - NIDDM; Hypertension; CHF; High Cholesterol; restless leg; ld1 - PSHx: 14:02 None; ld1 - Immunization history:: Adult Immunizations up to date, Client reports having NOT received the Covid vaccine. - Social history:: Smoking status: Patient denies any tobacco usage or history of. Patient/guardian denies using alcohol. - Family history:: not pertinent. ROS: 15:08 Constitutional: Negative for fever, chills, and weight loss, Eyes: Negative for injury, nerissa pain, redness, and discharge, ENT: Negative for injury, pain, and discharge, Cardiovascular: Negative for chest pain, palpitations, and edema, Respiratory: Negative for shortness of breath, cough, wheezing, and pleuritic chest pain, Abdomen/GI: Negative for abdominal pain, nausea, vomiting, diarrhea, and constipation, Back: Negative for injury and pain, : Negative for injury, bleeding, discharge, and swelling, MS/Extremity: Negative for injury and deformity, Skin: Negative for injury, rash, and discoloration, Neuro: Negative for headache, weakness, numbness, tingling, and seizure, Psych: Negative for depression, anxiety, suicide ideation, homicidal ideation, and hallucinations, Allergy/Immunology: Negative for hives, rash, and allergies, Endocrine: Negative for neck swelling, polydipsia, polyuria, polyphagia, and marked weight changes, Hematologic/Lymphatic: Negative for swollen nodes, abnormal bleeding, and unusual bruising. 15:08 Neck: Positive for tenderness. Exam: 15:08 Constitutional: This is a well developed, well nourished patient who is awake, alert, nerissa and in no acute distress. Head/Face: Normocephalic, atraumatic. Eyes: Pupils equal round and reactive to light, extra-ocular motions intact. Lids and lashes normal. Conjunctiva and sclera are non-icteric and not injected. Cornea within normal limits. Periorbital areas with no swelling, redness, or edema. ENT: Nares patent. No nasal discharge, no septal abnormalities noted. Tympanic membranes are normal and external auditory canals are clear. Oropharynx with no redness, swelling, or masses, exudates, or evidence of obstruction, uvula midline. Mucous membranes moist. Neck: Trachea midline, no thyromegaly or masses palpated, and no cervical lymphadenopathy. Supple, full range of motion without nuchal rigidity, or vertebral point tenderness. No Meningismus. Chest/axilla: Normal chest wall appearance and motion. Nontender with no deformity. No lesions are appreciated. Cardiovascular: Regular rate and rhythm with a normal S1 and S2. No gallops, murmurs, or rubs. Normal PMI, no JVD. No pulse deficits. Respiratory: Lungs have equal breath sounds bilaterally, clear to auscultation and percussion. No rales, rhonchi or wheezes noted. No increased work of breathing, no retractions or nasal flaring. Abdomen/GI: Soft, non-tender, with normal bowel sounds. No distension or tympany. No guarding or rebound. No evidence of tenderness throughout. Back: No spinal tenderness. No costovertebral tenderness. Full range of motion. Female : Normal external genitalia. Skin: Warm, dry with normal turgor. Normal color with no rashes, no lesions, and no evidence of cellulitis. MS/ Extremity: Pulses equal, no cyanosis. Neurovascular intact. Full, normal range of motion. Neuro: Awake and alert, GCS 15, oriented to person, place, time, and situation. Cranial nerves II-XII grossly intact. Motor strength 5/5 in all extremities. Sensory grossly intact. Cerebellar exam normal. Normal gait. Psych: Awake, alert, with orientation to person, place and time. Behavior, mood, and affect are within normal limits. 15:08 ECG was reviewed by the Attending Physician. Vital Signs: 13:59 BP 79 / 43; Pulse 93; Resp 18; Temp 98.1(TE); Pulse Ox 96% on R/A; Weight 78.02 kg; ld1 Height 5 ft. 6 in. (167.64 cm); Pain 9/10; 14:10 BP 84 / 46; Pulse 60; Resp 15; Pulse Ox 96% ; Pain 9/10; jl7 14:50 BP 113 / 51 RA; jl7 14:51 BP 94 / 57 LA; jl7 15:37 BP 110 / 53; Pulse 60; Resp 15; Pulse Ox 98% ; jl7 17:22 BP 117 / 54; Pulse 75; Resp 15; Pulse Ox 98% ; jl7 19:00 BP 118 / 53; Pulse 59; Resp 16; Pulse Ox 97% ; vc1 20:00 BP 117 / 54; Pulse 59; Resp 15; Pulse Ox 96% on R/A; vc1 13:59 Body Mass Index 27.76 (78.02 kg, 167.64 cm) ld1 MDM: 14:11 Patient medically screened. nerissa 15:13 Differential diagnosis: DJD, tendonitis. Data reviewed: vital signs, nurses notes, lab nerissa test result(s), EKG, radiologic studies, CT scan, plain films. Data interpreted: monitoring engineer: rate is 60 beats/min, rhythm is regular, Pulse oximetry: on room air is 96 %. Test interpretation: by ED physician or midlevel provider: ECG, plain radiologic studies. Counseling: I had a detailed discussion with the patient and/or guardian regarding: the historical points, exam findings, and any diagnostic results supporting the discharge/admit diagnosis, lab results, radiology results. 02/07 14:43 Order name: Basic Metabolic Panel; Complete Time: 15:40 nerissa 02/07 14:43 Order name: CBC with Diff; Complete Time: 15:40 [facility] 02/07 14:43 Order name: LFT's; Complete Time: 15:40 [facility] 02/07 14:43 Order name: Magnesium; Complete Time: 15:40 [facility] 02/07 14:43 Order name: NT PRO-BNP; Complete Time: 15:40 [facility] 02/07 14:43 Order name: PT-INR; Complete Time: 15:40 [facility] 02/07 14:43 Order name: Troponin HS; Complete Time: 15:40 [facility] 02/07 14:43 Order name: Lipase; Complete Time: 15:40 [facility] 02/07 14:43 Order name: SARS-COV-2 RT PCR (Document "Date of Onset" if Symptomatic); Complete Time: [facility] 16:48 02/07 17:27 Order name: Basic Metabolic Panel [facility] 02/07 17:27 Order name: Basic Metabolic Panel [facility] 02/07 17:27 Order name: CBC with Automated Diff [facility] 02/07 17:27 Order name: CBC with Automated Diff [facility] 02/07 17:27 Order name: Lipid Profile [facility] 02/07 14:43 Order name: XRAY Chest (1 view); Complete Time: 15:40 [facility] 02/07 14:43 Order name: EKG; Complete Time: 14:44 [facility] 02/07 14:43 Order name: US Carotid Artery Bilateral; Complete Time: 16:48 [facility] 02/07 15:16 Order name: CT C Spine; Complete Time: 16:48 02/07 15:43 Order name: Chest Abd Pelvis Wo Con; Complete Time: 16:48 [facility] 02/07 17:27 Order name: CONS Physician Consult [facility] 02/07 17:27 Order name: Echo with Doppler [facility] 02/07 17:27 Order name: Echo with Doppler [facility] 02/07 17:27 Order name: Lipid Profile [facility] 02/07 19:26 Order name: Urine Dipstick-Ancillary [facility] 02/07 14:43 Order name: Cardiac monitoring; Complete Time: 14:44 [facility] 02/07 14:43 Order name: EKG - Nurse/Tech; Complete Time: 14:45 [facility] 02/07 14:43 Order name: IV Saline Lock; Complete Time: 14:45 [facility] 02/07 14:43 Order name: Labs collected and sent; Complete Time: 14:45 [facility] 02/07 14:43 Order name: O2 Per Protocol; Complete Time: 14:44 [facility] 02/07 14:43 Order name: O2 Sat Monitoring; Complete Time: 14:44 [facility] 02/07 14:43 Order name: Urine Dipstick-Ancillary (obtain specimen); Complete Time: 20:14 [facility] 02/07 17:27 Order name: Heart Healthy [facility] EC:08 Rate is 60 beats/min. Rhythm is regular. QRS [place] is Normal. [place] interval is normal. QRS nerissa interval is normal. QT interval is normal. No Q waves. T waves are Normal. No ST changes noted. Clinical impression: No evidence of ischemia. Administered Medications: 15:00 Drug: NS 0.9% 1000 ml Route: IV; Rate: 125 ml/hr; Site: right forearm; jl7 15:45 Drug: NS 0.9% 500 ml Route: IV; Rate: bolus; Site: right forearm; jl7 16:45 Follow up: Response: No adverse reaction; IV Status: Completed infusion; IV Intake: jl7 500ml 15:57 Not Given (Physician Discretion; ): Mucomyst - Acetylcysteine 600 mg PO once jh6 16:21 Drug: Gabapentin 300 mg Route: PO; jl7 17:10 Drug: rOPINIRole 2 mg Route: PO; jl7 Disposition Summary: 02/07/22 16:00 Hospitalization Ordered Hospitalization Status: Observation nerissa [facility] nerissa Condition: Fair nerissa Problem: new nerissa Symptoms: have improved nerissa Bed/Room Type: Standard nerissa Provider: Girish Donahue(02/07/22 16:05) nerissa Room Assignment: [facility](02/07/22 18:13) Diagnosis - Weakness nerissa - Hypotension, unspecified nerissa - Acute kidney failure, unspecified - on chronic nerissa - Systolic (congestive) heart failure nerissa - Type 2 diabetes mellitus with hyperglycemia nerissa Forms: - Medication Reconciliation Form nerissa - SBAR form nerissa Signatures: Dispatcher [employer] Keren Viveros RN RN dw Anderson, Corey, MD MD cha Leal, Jahala, RN RN jl7 Bambi Burciaga RN RN ld1 Melita Tadeo RN jh6 Corrections: (The following items were deleted from the chart) 15:43 14:48 Angio Aorta For Dissection+CT.RAD.BRZ ordered. EDMS EDMS 16:05 16:00 Herberth Kaplan cha nerissa 18:13 16:00 nerissa gonzalez
--- NOTE | 2022-02-07 16:01 | ER ---
Nurse's Notes [facility] Name: Elsy Rico Age: 76 yrs Sex: Female : 1945 Arrival Date: 02/07/2022 Time: 13:55 Bed 8 Private MD: Diagnosis: Weakness;Hypotension, unspecified;Acute kidney failure, unspecified-on chronic;Systolic (congestive) heart failure;Type 2 diabetes mellitus with hyperglycemia Presentation: 02/07 13:59 Chief complaint: Patient states: Right sided neck pain, shoulder pain. I feel weak. ld1 Coronavirus screen: At this time, the client does not indicate any symptoms associated with coronavirus-19. Ebola Screen: No symptoms or risks identified at this time. Initial Sepsis Screen: Does the patient meet any 2 criteria? No. Patient's initial sepsis screen is negative. Does the patient have a suspected source of infection? No. Patient's initial sepsis screen is negative. Risk Assessment: Do you want to hurt yourself or someone else? Patient reports no desire to harm self or others. Onset of symptoms was February 07, 2022. 13:59 Method Of Arrival: Ambulatory ld1 13:59 Acuity: PAUL 2 ld1 Triage Assessment: 14:02 General: Appears in no apparent distress. uncomfortable, Behavior is calm, cooperative, ld1 appropriate for age. Pain: Complains of pain in neck Pain does not radiate. Pain currently is 9 out of 10 on a pain scale. EENT: No signs and/or symptoms were reported regarding the EENT system. Neuro: Level of Consciousness is awake, alert, obeys commands, Oriented to person, place, time, situation. Respiratory: Airway is patent Respiratory effort is even, unlabored. Historical: - Allergies: 14:02 PENICILLINS; ld1 14:02 Sulfa (Sulfonamide Antibiotics); ld1 - PMHx: 14:02 Diabetes - NIDDM; Hypertension; CHF; High Cholesterol; restless leg; ld1 - PSHx: 14:02 None; ld1 - Immunization history:: Adult Immunizations up to date, Client reports having NOT received the Covid vaccine. - Social history:: Smoking status: Patient denies any tobacco usage or history of. Patient/guardian denies using alcohol. - Family history:: not pertinent. Screenin:10 Abuse screen: Denies threats or abuse. Denies injuries from another. Nutritional jl7 screening: No deficits noted. Tuberculosis screening: No symptoms or risk factors identified. Fall Risk IV access (20 points). Total Frias Fall Scale indicates No Risk (0-24 pts). Assessment: 14:10 General: Appears in no apparent distress. uncomfortable, Behavior is calm, cooperative, jl7 appropriate for age. Pain: Complains of pain in neck Pain radiates to upper back Pain currently is 9 out of 10 on a pain scale. Quality of pain is described as "It just hurts." Pain began 1 day ago. Is continuous. Neuro: Level of Consciousness is awake, alert, obeys commands, Oriented to person, place, time, situation. Cardiovascular: Denies chest pain, Patient's skin is warm and dry. Rhythm is atrial pacer ventricular pacer Chest pain is denied. Respiratory: Airway is patent Respiratory effort is even, unlabored, Respiratory pattern is regular, symmetrical, Denies shortness of breath. Derm: Skin is pink, warm \\T\\ dry. 15:55 Reassessment: Pt reporting discomfort in legs due to RLS, takes gabapentin and jl7 ropinirole at home, ERD notified, see MAR for orders. 19:00 Reassessment: Patient and/or family updated on plan of care and expected duration. Pain vc1 level reassessed. Patient is alert, oriented x 3, equal unlabored respirations, skin warm/dry/pink. 20:00 Reassessment: Patient and/or family updated on plan of care and expected duration. Pain vc1 level reassessed. Patient is alert, oriented x 3, equal unlabored respirations, skin warm/dry/pink. Patient states symptoms have improved. 20:25 Reassessment: Attempted to call report to 2nd floor. Nurse with a patient will call vc1 back. Vital Signs: 13:59 BP 79 / 43; Pulse 93; Resp 18; Temp 98.1(TE); Pulse Ox 96% on R/A; Weight 78.02 kg; ld1 Height 5 ft. 6 in. (167.64 cm); Pain 9/10; 14:10 BP 84 / 46; Pulse 60; Resp 15; Pulse Ox 96% ; Pain 9/10; jl7 14:50 BP 113 / 51 RA; jl7 14:51 BP 94 / 57 LA; jl7 15:37 BP 110 / 53; Pulse 60; Resp 15; Pulse Ox 98% ; jl7 17:22 BP 117 / 54; Pulse 75; Resp 15; Pulse Ox 98% ; jl7 19:00 BP 118 / 53; Pulse 59; Resp 16; Pulse Ox 97% ; vc1 20:00 BP 117 / 54; Pulse 59; Resp 15; Pulse Ox 96% on R/A; vc1 13:59 Body Mass Index 27.76 (78.02 kg, 167.64 cm) ld1 ED Course: 13:55 Patient arrived in ED. as 14:02 Triage completed. ld1 14:02 Arm band placed on right wrist. ld1 14:08 Valentina Banks, WAQAR is Primary Nurse. jl7 14:10 Patient has correct armband on for positive identification. Placed in gown. Bed in low jl7 position. Call light in reach. Side rails up X2. Client placed on continuous cardiac and pulse oximetry monitoring. NIBP monitoring applied. 14:10 Initial lab(s) drawn, by me, sent to lab. EKG done, by ED staff, reviewed by Nathaniel Stauffer MD. Inserted saline lock: 20 gauge in right forearm, using aseptic technique. Blood collected. 14:11 Nathaniel Stauffer MD is Attending Physician. nerissa 15:17 XRAY Chest (1 view) In Process Unspecified. EDMS 15:55 US Carotid Artery Bilateral In Process Unspecified. EDMS 15:57 Herberth Kaplan MD is Hospitalizing Provider. nerissa 16:05 Girish Donahue MD is Hospitalizing Provider. nerissa 16:10 CT C Spine In Process Unspecified. EDMS 16:10 Chest Abd Pelvis Wo Con In Process Unspecified. EDMS 20:33 No provider procedures requiring assistance completed. Patient admitted, IV remains in vc1 place. Administered Medications: 15:00 Drug: NS 0.9% 1000 ml Route: IV; Rate: 125 ml/hr; Site: right forearm; jl7 15:45 Drug: NS 0.9% 500 ml Route: IV; Rate: bolus; Site: right forearm; jl7 16:45 Follow up: Response: No adverse reaction; IV Status: Completed infusion; IV Intake: jl7 500ml 15:57 Not Given (Physician Discretion; ): Mucomyst - Acetylcysteine 600 mg PO once jh6 16:21 Drug: Gabapentin 300 mg Route: PO; jl7 17:10 Drug: rOPINIRole 2 mg Route: PO; jl7 Medication: 14:10 VIS not applicable for this client. jl7 Intake: 16:45 IV: 500ml; Total: 500ml. jl7 Outcome: 16:00 Decision to Hospitalize by Provider. nerissa 20:34 Admitted to Med/surg accompanied by tech, via stretcher, room 209, Report called to [facility] Receiving report. 20:34 Condition: good 20:34 Instructed on the need for admit. 20:56 Patient left the ED. [facility] Signatures: Dispatcher [employer] EDNathaniel Shelley MD MD cha Martinez, Amelia as Leal, Jahala RN RN jl7 Bambi Burciaga RN RN dennis1 Saige Schwarz RN RN vc1 Melita Tadeo RN jh6
--- NOTE | 2022-02-07 16:16 | RAD REPORT ---
EXAM DESCRIPTION: US - CP - 02/07/2022 4:03 pm CLINICAL HISTORY: PAIN Neck pain COMPARISON: No comparisons TECHNIQUE: Real-time sonographic evaluation of both carotid systems was performed. Doppler interroga tion was performed with waveform tracing bilaterally. FINDINGS: Normal high resistance waveforms are noted in both external carotid arteries. The common c arotid arteries and internal carotid arteries show normal low resistance waveforms. Significant hard plaquing is seen in both carotid bulbs. Systolic velocity at the level of stenosis l eft proximal internal carotid artery measures 203 centimeters/second. This indicates a moderate grade stenosis. Right proximal internal carotid artery velocity is elevated to 144 cm/second with turbulen t flow. Antegrade flow seen in both vertebral arteries. IMPRESSION: Significant hard plaquing is seen involving both proximal internal carotid arteries. Moderately severe carotid stenosis is suspected on the left with elevated velocity measurement of to a 3 cm/second. Mild to moderate stenosis suspected right proximal internal carotid artery.
--- NOTE | 2022-02-07 16:20 | RAD REPORT ---
EXAM DESCRIPTION: CT - C Spine Wo Con - 02/07/2022 4:08 pm CLINICAL HISTORY: Neck pain, acute, no red flags Neck pain, radiculopathy COMPARISON: No comparisons FINDINGS: Fusion with hardware in place noted spanning C5 and C6. Mild disc thinning with posterior osteophyte noted at all visualized levels of the cervical spine. No evidence of acute cervical spine fracture or subluxation. Prevertebral soft tissues are normal in thickness. The odontoid is normal and the lateral masses are symmetric. IMPRESSION: Negative for acute cervical spine abnormality. Mild diffuse spondylosis of the cervical spine with fusion noted of C5 and C6. All CT scans are performed using dose optimization technique as appropriate and may include automated exposure control or mA/KV adjustment according to patient size.
[2022-02-07] MEDS ORDERED: GABAPENTIN 300 MG CAP ONE (16:23)
--- NOTE | 2022-02-07 16:23 | RAD REPORT ---
EXAM DESCRIPTION: CT - Chest Abd Pelvis Wo Con - 02/07/2022 4:08 pm CLINICAL HISTORY: Chest and abdomen pain. back and neck COMPARISON: Chest For Pe Angio dated 04/09/2019 TECHNIQUE: Limited noncontrast study was performed. All CT scans are performed using dose optimization technique as appropriate and may include automated exposure control or mA/KV adjustment according to patient size. FINDINGS: Mild linear atelectasis is seen in both lung bases. 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 P acer device is noted.No intrathoracic adenopathy. The liver, spleen, pancreas, adrenal glands are within normal limits. Several stones are present in t he right kidney without hydronephrosis. The largest stone measures 7 mm. Punctate calculus noted supe rior pole left kidney is well without hydronephrosis. No bowel obstruction, free air, free fluid or abscess. Nonvisualized appendix. Prominent diverticulos is is present involving the sigmoid colon. No diverticulitis seen. No pathologic lymphadenopathy in t he abdomen or pelvis. No worrisome osseous finding. IMPRESSION: Small pericardial effusion. Bilateral nephrolithiasis without hydronephrosis.
[2022-02-07] MEDS ORDERED: ROPINIROLE HCL 1 MG TAB PO SCH (17:00)
[2022-02-07 19:25] LABS: Urine Blood Negative (Negative); Urine Glucose Negative (Negative); Urine Protein Negative (Negative); Urine pH 6.5 (5.0-7.0)
[2022-02-07] MEDS ORDERED: ROSUVASTATIN 10 MG TAB PO SCH (21:00)
[2022-02-07] MEDS: METOPROLOL TAR 50 MG TAB PO SCH (21:00)
[2022-02-07 21:14] VITALS: O2SAT 96
[2022-02-07] MEDS: GABAPENTIN 300 MG CAP PO SCH (23:18)
[2022-02-07] MEDS: HYDROCODONE/APAP 7.5/325 MG TAB PO SCH (23:18)
[2022-02-07] MEDS: NA CHLORIDE 0.9% 1,000 ML IV SCH (23:18)
[2022-02-07] MEDS: APIXABAN 2.5 MG TABLET PO SCH (23:18)
[2022-02-08 02:43] VITALS: BMI 27.7
[2022-02-08 05:55] LABS: Absolute Lymphocytes (CBC) 1.7 K/uL (0.7-4.9); Hematocrit 35.4 % (36.0-45.0); Lymphocytes % 34.2 % (15.3-44.8); MPV 8.7 fL (7.6-11.3); RBC Red Blood Cell Count 3.77 M/uL (3.86-4.86)
[2022-02-08 06:09] LABS: Potassium 4.6 mmol/L (3.5-5.1)
[2022-02-08] MEDS: NA CHLORIDE 0.9% 1,000 ML IV SCH (08:55)
[2022-02-08] MEDS: GABAPENTIN 300 MG CAP PO SCH (08:56)
[2022-02-08] MEDS: APIXABAN 2.5 MG TABLET PO SCH (08:56)
[2022-02-08] MEDS: HYDROCODONE/APAP 7.5/325 MG TAB PO SCH (08:57)
[2022-02-08] MEDS ORDERED: ASPIRIN EC 81 MG TAB PO SCH (09:00)
[2022-02-08] MEDS ORDERED: CLOPIDOGREL 75 MG TABLET PO SCH (09:00)
[2022-02-08] MEDS ORDERED: HOME MED 1 EA UNK (Furosemide [Furosemide] 80 MG Tablet) PO SCH (09:00)
[2022-02-08] MEDS ORDERED: FUROSEMIDE 40 MG TABLET PO SCH ×2 (09:00)
[2022-02-08] MEDS ORDERED: HOME MED 1 EA UNK (Potassium Chloride [Potassium Chloride] 20 MEQ Tablet.Er) PO SCH (09:00)
[2022-02-08] MEDS ORDERED: POTASSIUM CL SA 10 MEQ TAB PO SCH (09:00)
[2022-02-08] MEDS ORDERED: ENOXAPARIN 40 MG/0.4 ML SQ SCH (09:00)
[2022-02-08] MEDS: METOPROLOL TAR 50 MG TAB PO SCH (09:02)
[2022-02-08 09:03] VITALS: BP 118/58
[2022-02-08 09:13] VITALS: TEMP 97.2
--- NOTE | 2022-02-08 10:52 | P.HP ---
Certification for Inpatient Patient admitted to: Inpatient With expected LOS: >2 Midnights Patient will require the following post-hospital care: None Practitioner: I am a practitioner with admitting privileges, knowledge of patient current condition, hospital course, and medical plan of care. Services: Services provided to patient in accordance with Admission requirements found in Title 42 Section 412.3 of the Code of Federal Regulations Patient History Date of Service: 02/07/22 Reason for admission: Chest pain rule out acute coronary syndrome Allergies Penicillins Allergy (Verified 06/14/21 09:42) Hives/Rash Sulfa (Sulfonamide Antibiotics) Allergy (Verified 06/14/21 09:42) Hives/Rash Home Medications: Apixaban [Eliquis *] 5 mg PO DAILY 06/16/21 Fenofibrate 1 tab PO DAILY 06/16/21 Gabapentin 3 tab PO BEDTIME 06/16/21 Hydrocodone Bit/Acetaminophen [[place] 7.5-325 Tablet] 1 tab PO BID 06/16/21 Metformin HCl [Metformin HCl ER] 1 tab PO BID 06/16/21 Potassium Chloride 20 meq PO DAILY 06/16/21 Ropinirole HCl [Requip] 1 tab PO DAILY 06/16/21 Rosuvastatin [Crestor*] 40 mg PO BEDTIME 06/16/21 Aspirin [Aspirin EC 81 MG] 81 mg PO DAILY 02/08/22 Carvedilol [Coreg] 12.5 mg PO BID 02/08/22 Sacubitril/Valsartan [Entresto 24 mg-26 mg Tablet] 1 tab PO BID 02/08/22 Spironolactone [Aldactone*] 25 mg PO DAILY 02/08/22 Torsemide [Demadex*] 40 mg PO BID 02/08/22 - Past Medical/Surgical History Has patient received pneumonia vaccine in the past: Yes Diabetic: Yes -: CHF -: DM2 -: Dyslipidemia -: Hypertension -: Unknown dysrhythmia requiring defibrillation -: Total Hysterectomy -: Prolapse Anal wall -: Neck surgery -: Shoulder Surgery -: Hand Surgery -: UPPP Psychosocial/ Personal History: lives at home by self. - Family History Father Medical History: Heart disease Mother Medical History: Heart disease Brother Medical History: Heart disease - Social History Smoking Status: Former smoker Alcohol use: No CD- Drugs: No Caffeine use: Yes Place of Residence: Home Review of Systems 10-point ROS is otherwise unremarkable Physical Examination - Vital Signs Temperature: 97.2 F Blood Pressure: 118/58 Pulse: 61 Respirations: 18 Pulse Ox (%): 97 - Physical Exam General: Alert, In no apparent distress, Oriented x3 HEENT: Atraumatic, PERRLA, Mucous membr. moist/pink, EOMI, Sclerae nonicteric Neck: Supple, 2+ carotid pulse no bruit, No LAD, Without JVD or thyroid abnormality Respiratory: Clear to auscultation bilaterally, Normal air movement Cardiovascular: Regular rate/rhythm, Normal S1 S2, No murmurs Gastrointestinal: Normal bowel sounds, Soft and benign, Non-distended, No tenderness Musculoskeletal: No clubbing, No swelling, No tenderness Integumentary: No rashes Neurological: Normal gait, Normal speech, Normal strength at 5/5 x4 extr, Normal tone, Sensation intact, Cranial nerves 3-12 intact, Normal affect Lymphatics: No axilla or inguinal lymphadenopathy - Studies Laboratory Data (last 24 hrs) 02/07/22 14:50: PT 18.0 H, INR 1.62 02/07/22 14:50: WBC 6.0, Hgb 12.7, Hct 38.4, Plt Count 193 02/07/22 14:50: Sodium 138, Potassium 4.2, BUN 43 H, Creatinine 1.98 H, Glucose 238 H, Magnesium 2.2, Total Bilirubin 0.5, AST 14 L, ALT 18, Alkaline Phosphatase 50, Lipase 123 Assessment & Plan - Advance Directives Does patient have a Living Will: No Does patient have a Durable POA for Healthcare: No
--- NOTE | 2022-02-08 12:16 | ECHO ---
HEIGHT: 5 ft 6 in WEIGHT: 172 lb 0 oz DATE OF STUDY: 02/08/[address]: Girish Donahue MD 2-DIMENSIONAL: YES M.MODE: YES DOPPLER: YES COLOR FLOW: YES TDS: PORTABLE: YES DEFINITY: BUBBLE STUDY: DIAGNOSIS: CONGESTIVE HEART FAILURE CARDIAC HISTORY: CATHERIZATION: SURGERY: PROSTHETIC VALVE: PACEMAKER: MEASUREMENTS (cm) DIASTOLIC (NORMALS) SYSTOLIC (NORMALS) IVSd 1.2 (0.6-1.2) LA Diam 4.3 (1.9-4.0) LVEF 56% LVIDd 3.9 (3.5-5.7) LVIDs 2.8 (2.0-3.5) %FS 29% LVPWd 1.2 (0.6-1.2) Ao Diam 2.8 (2.0-3.7) 2 DIMENSIONAL ASSESSMENT: RIGHT ATRIUM: NORMAL LEFT ATRIUM: NORMAL RIGHT VENTRICLE: NORMAL LEFT VENTRICLE: NORMAL SIZE TRICUSPID VALVE: NORMAL MITRAL VALVE: MITRAL STENOSIS PULMONIC VALVE: NORMAL AORTIC VALVE: AORTIC STENOSIS PERICARDIAL EFFUSION: NONE AORTIC ROOT: NORMAL LEFT VENTRICULAR WALL MOTION: DIASTOLIC DYSFUNCTION DOPPLER/COLOR FLOW: AORTIC STENOSIS - 1.6 CENTIMETERS SQUARED. MILD TRICUSPID REGURGITATION. MITRAL STENOSIS - 1.6 CENTIMETERS SQUARED. COMMENTS: MILD MITRAL STENOSIS, AORTIC STENOSIS. SEVERE PULMONARY HYPERTENSION. RIGHT VENTRICULAR SYSTOLIC PRESSURE 65 mmHg. DIASTOLIC DYSFUNCTION. NORMAL EJECTION FRACTION. TECHNOLOGIST: FREDA BEE
[2022-02-08] MEDS ORDERED: carvediloL 12.5 MG TAB PO SCH (21:00)
[2022-02-08] MEDS ORDERED: SACUBITRIL/VALSARTAN 24/26 MG TAB PO SCH (21:00)
[2022-02-08] MEDS ORDERED: TORSEMIDE 20 MG TAB PO SCH (21:00)
[2022-02-09] MEDS ORDERED: ASPIRIN EC 81 MG TAB PO SCH (09:00)
[2022-02-09] MEDS ORDERED: APIXABAN 2.5 MG TABLET PO SCH (09:00)
[2022-02-09] MEDS ORDERED: FENOFIBRATE 160 MG TAB PO SCH (09:00)
[2022-02-09] MEDS ORDERED: SPIRONOLACTONE 25 MG TABLET PO SCH (09:00)
--- NOTE | 2022-02-10 16:21 | CON ---
Date of Consultation: 02/08/2022 She was admitted on 02/07/2022. The patient was seen on 02/08/2022. Reason For Consultation: Atypical chest pain and weakness. History Of Present Illness: Ms. Rico is a 76-year-old woman. She is known to me from previous office visits and admission. She has moderate aortic stenosis, moderate mitral stenosis, diastolic c ongestive heart failure, restless legs syndrome, diabetes, dyslipidemia, hypertension. At one point, I signed her for a valve surgery by Dr. Espinosa, but this was not done because apparently the tr ansesophageal echo did not show that the aortic stenosis and mitral stenosis were that bad, although she was continued to have some dyspnea on exertion. She recently had what sounds like a right heart catheterization, I do not have any records for that. She is known to have a right carotid stenosis. I am not sure she had a carotid angiogram. I will follow up on that in the very near future in the office. When she came to the hospital, she came in with right shoulder pain, right neck pain, weakne ss. No chest pain. No nausea, vomiting, diaphoresis, PND, orthopnea, pedal edema, palpitations, or syncope. So far, her creatinine is 1.98. Echocardiogram showed and mitral stenosis, chest x-ray was negative. She does have a right carotid stenosis by carotid Doppler. Allergies: INCLUDE PENICILLIN AND SULFA. Review of Systems: Negative. Social History: Negative. Family History: Negative. Medications: At home include aspirin, Eliquis, Coreg, Tricor, Crestor, metformin, potassium, Entrest o, Aldactone, and Demadex. Physical Examination: Vital Signs: Stable, afebrile, sinus rhythm. HEENT: Negative. Neck: Supple with right carotid bruit. No lymphadenopathy or JVD. Chest: Clear. Cardiac: Revealed aortic stenosis, mitral stenosis. No gallops. No rubs. Abdomen: Benign. Extremities: Revealed trace edema. Diagnostic Data: As stated earlier. Impression And Plan: Atypical chest pain. I doubt this is cardiac in nature; however, she does have a right carotid stenosis that needs to be evaluated, I will take care of that as an outpatient. Her other problems including diastolic congestive heart failure, moderate aortic stenosis and mitral ivan nosis, seen by surgeon and asked to follow up. She has recently had what sounds like a right heart c atheterization. I will try to find out the details about that at [facility]. Her other prob lems including diabetes, restless legs syndrome, hypertension, and dyslipidemia are well controlled. I will continue her present regimen. If an angiogram is planned, we will need to make sure she has Mucomyst before her angiography because of her renal insufficiency. Nevertheless, she can go home. I will see her in the office soon as an outpatient. PAKO Voice ID: [id number] Report ID: [id number]
--- NOTE | 2022-02-11 11:31 | EKG ---
Test Date: 2022-02-07 Test Time: 14:10:56 Title Insurance Agent: KRYSTAL MEASUREMENT RESULTS: Intervals: Rate: 60 AL: QRSD: 134 QT: 450 QTc: 450 [place]: P: AL: QRS: 116 T: -86 INTERPRETIVE STATEMENTS: Ventricular-paced rhythm Abnormal ECG Compared to ECG 06/14/2021 08:54:13 Sinus rhythm no longer present Left-axis deviation no longer present Left bundle-branch block no longer present Electronically Signed On 02-11-22 11:24:13 CDT by Arian Falcon
== END 2022-02-08 16:00 | disposition home or self-care (01) | DRG 313 ==
LOC: ER 13:54 → ERHOLD 17:20 → 2ND 20:17
PROVIDERS: ADMIT Hospitalist; ATTEND Hospitalist
DX: R07.89 Other chest pain (principal); I50.32 Chronic diastolic (congestive) heart failure; I11.0 Hypertensive heart disease with heart failure; I35.0 Nonrheumatic aortic (valve) stenosis; I65.21 Occlusion and stenosis of right carotid artery; E11.9 Type 2 diabetes mellitus without complications; G25.81 Restless legs syndrome; E78.5 Hyperlipidemia, unspecified; I05.0 Rheumatic mitral stenosis; N28.9 Disorder of kidney and ureter, unspecified; Z88.0 Allergy status to penicillin; Z88.2 Allergy status to sulfonamides; Z20.822 Contact with and (suspected) exposure to COVID-19
CPT/HCPCS: 36415; 71045; 71250; 72125; 74176; 80048; 80061; 80076; 81003; 82565; 83690; 83735; 83880; 84484; 85025; 85610; 93005; 93306; 93880; 96360; 99285; J7030; U0003

== ENCOUNTER 2022-03-07 06:30 | Day surgery (SDC) | payer OTHER ==
[2022-03-04 14:09] LABS: Absolute Lymphocytes (CBC) 1.9 K/uL (0.7-4.9); Lymphocytes % 32.5 % (15.3-44.8); RBC Red Blood Cell Count 4.33 M/uL (3.86-4.86)
[2022-03-04 14:24] LABS: Protime INR 1.43
[2022-03-04 14:26] LABS: Potassium 4.4 mmol/L (3.5-5.1)
--- NOTE | 2022-03-05 11:08 | EKG ---
Test Date: 2022-03-04 Test Time: 13:50:43 Child Protective Services Specialist: LOLIS MEASUREMENT RESULTS: Intervals: Rate: 60 NE: 128 QRSD: 134 QT: 458 QTc: 458 [place]: P: NE: 128 QRS: 133 T: 222 INTERPRETIVE STATEMENTS: AV sequential or dual chamber electronic pacemaker Compared to ECG 02/07/2022 14:10:56 Ventricular-paced complex(es) or rhythm no longer present Electronically Signed On 03-05-22 11:05:01 CDT by Arian Falcon
[2022-03-07] MEDS ORDERED: LIDOCAINE 1% 20 ML MDV ONE (06:43)
[2022-03-07] MEDS ORDERED: HEPA 1000U/500MLS 1,000 UNIT/500 ML BAG IV ONE (06:43)
[2022-03-07] MEDS ORDERED: MIDAZOLAM HCL 2 MG/2 ML INJ ONE (06:52)
[2022-03-07] MEDS ORDERED: FENTANYL CITR 100 MCG/2 ML ONE (06:52)
[2022-03-07] MEDS ORDERED: ATROPINE SULF 1 MG/10 ML SYR IV ONE (06:53)
[2022-03-07] MEDS ORDERED: NA CHLORIDE 0.9% 500 ML ONE (07:18)
[2022-03-07 10:03] VITALS: TEMP 97.2
[2022-03-07 10:46] VITALS: BP 140/70; O2SAT 96
--- NOTE | 2022-03-08 14:57 | OP ---
Surgeon: Arian Falcon MD Procedure: Selective bilateral carotid angiogram and common femoral artery angiogram. Indication: Positive carotid Doppler on the right side. Procedure In Detail: The patient was brought to the [facility] as an outpatient on 03/07/2022. She is a 76-year-old, has a history of aortic stenosis, mitral stenosis, cerebrovascular disease 80% according to the MRA in the hospital. In the [facility], she was prepped and draped in standard s terile fashion, given Versed and fentanyl for sedation. A 6-Hungarian sheath was used in the right comm on femoral artery successfully using Seldinger technique and 10 cc of Xylocaine. Common femoral becky ry angiogram was normal. Angio-Seal was used to close the case. A JR4 catheter was used to selectiv ce cannulate the right common carotid and then the left common carotid artery. Her left common romero tid artery was normal. Her right common carotid artery showed up with 50% ostial ICA. Both common c arotid artery and external carotid arteries were normal. The patient tolerated the procedure well. There were no complications. Blood Loss: 5 cc. Anesthesia: Total conscious sedation was 30 minutes. Final Diagnosis: Moderate cerebrovascular disease. Plan: Plan is for medical therapy and carotid artery followup with ultrasound down the way. ___ the patient received an Angio- Seal for closure. Should be at bedrest for 2 hours afterward. She will go home. I will see her in the office in 2 weeks. SHIRA/CORI Voice ID: [id number] Report ID: [id number]
== END 2022-03-07 10:30 | disposition home or self-care (01) ==
LOC: CCL 06:30
DX: I65.22 Occlusion and stenosis of left carotid artery (principal); I25.10 Atherosclerotic heart disease of native coronary artery without angina pectoris; I11.0 Hypertensive heart disease with heart failure; I50.32 Chronic diastolic (congestive) heart failure; I35.2 Nonrheumatic aortic (valve) stenosis with insufficiency; I34.0 Nonrheumatic mitral (valve) insufficiency; I48.0 Paroxysmal atrial fibrillation; I27.21 Secondary pulmonary arterial hypertension; E78.2 Mixed hyperlipidemia; E11.9 Type 2 diabetes mellitus without complications; Z98.61 Coronary angioplasty status; Z87.891 Personal history of nicotine dependence; Z79.02 Long term (current) use of antithrombotics/antiplatelets; Z79.84 Long term (current) use of oral hypoglycemic drugs; Z79.899 Other long term (current) drug therapy; Z88.0 Allergy status to penicillin; Z88.2 Allergy status to sulfonamides; Z20.822 Contact with and (suspected) exposure to COVID-19
CPT/HCPCS: 93005; 85025; 80048; 36415; 85610; 85730; 36222; U0003; C1893; C1760; G0269; J2250; J3010; J7040; J1644

== ENCOUNTER 2022-07-27 02:22 | Emergency (ER) | payer OTHER ==
--- OUTSIDE RECORDS SUMMARY | 2022-07-27 02:33 | XMS REPORT | Continuity of Care Document ---
:1945 Author Organization [facility] t Address [address] [place] [address] Care Team Providers Name Role Phone Johanne JOYCE, Rito Primary Care Physician TORI YOUNG Attending Clinician Unavailable Frankie Fiore Attending Clinician Unavailable Julia Kamara MA Attending Clinician Unavailable Elier Uriostegui MD Attending Clinician Marianna Dodge MD Attending Clinician Maxine Álvarez MD Attending Clinician Doctor Unassigned, [place] Attending Clinician Unavailable Renita Andrade MA Attending Clinician Unavailable Mercedes Armstrong MA Attending Clinician Unavailable Rito Whiting MD Attending Clinician Provider, Unknown Attending Clinician Unavailable MAXINE ÁLVAREZ Attending Clinician Unavailable Kamran JOYCE PhD, Ivette Paredes Attending Clinician Julissa ZAVALETA, Carmela Attending Clinician Unavailable Nicky Morris RN Attending Clinician Unavailable Radha Coronel NP, Palmira Trimble Attending Clinician [phone] Chiki RN, Jessica Attending Clinician Unavailable Maureen JOYCE, Nancy Collazo Attending Clinician [phone] Rodriguez Jean MD Attending Clinician Columba JOYCE, Catrachito Attending Clinician Erika JOYCE, Ravi Benoit Attending Clinician MANUEL GARCIA Attending Clinician Unavailable Audie JOYCE, Raimundo Hanson Attending Clinician [phone] Shadi Richards NP, Merari Tatum Attending Clinician MD NANCY REDDY Attending Clinician Unavail able Susan ZAVALETA, Cait Attending Clinician Unavailable Tono Wilcox MD Attending Clinician Jos Cota RN Attending Clinician Unavailable Katie Kamara MA Attending Clinician Unavailable Ricarda Lama MA Attending Clinician Unavailable Padmaja Perales MA Attending Clinician Unavailable Monty Campos MD Attending Clinician Tristan May MD Attending Clinician Antoinette David NP Attending Clinician MD MONTY CAMPOS Attending Clinician Unavailable Nany Kaur MA Attending Clinician Unavailable Tori Young MD Attending Clinician ASHVIN SHEPPARD Attending Clinician Unavailable KAYLIE POLLOCK Attending Clinician Unavailable KAYLIE POLLOCK Attending Clinician Unavailable Kaylie Pollock MD Attending Clinician Jyoti Rojas MA Attending Clinician Unavailable JESSICA SOLIZ Attending Clinician Unavailable YARELIS HORNE Attending Clinician Unavailable RITO WHITING Attending Clinician Unavailable АНДРЕЙ MAX Attending Clinician Unavailable ARTURO DORAN Attending Clinician Unavailable ARTURO DORAN Attending Clinician Unavailable Valentin Gupta Attending Clinician Jefry Mobley Attending Clinician Jaguar Sheridan Genesis Attending Clinician TORI YOUNG Admitting Clinician Unavailable Frankie Fiore Admitting Clinician Unavailable MARIANNA DODGE Admitting Clinician Unavailable NANCY REDDY Admitting Clinician Unavailable MD NANCY REDDY Admitting Clinician Unavail able MONTY CAMPOS Admitting Clinician Unavailable MD MONTY CAMPOS Admitting Clinician Unavailable ARTURO DORAN Admitting Clinician Unavailable Jefry Mobley Admitting Clinician Payers Payer Name Policy Type Policy Number Effective Date Expiration Date S debra MEDICARE PART A [id number] 2008 \\T\\ B 00:00:00 [employer] [id number] 2018 00:00:00 MEDICARE PART A [id number] 2008 AND B 00:00:00 Problems Condition Condition Condition Status Onset Resolution Last Treating Co mments Source Name Details Category Date Date Treatment Clinician Date Chronic Chronic Disease Active Methodi heart heart 4-18 st failure failure 00:00: Hospita with with 00 l preserved preserved ejection ejection fraction fraction LBBB (left LBBB (left Disease Active M ethodi bundle bundle 1-06 st branch branch 00:00: Hospita block) block) 00 l Status Status Disease Active Overview: Method i post dual post dual 09-27 Formattin s t chamber chamber 00:00: g of this Hospi ta pacemaker pacemaker 00 note l (MDT, (MDT, might be 09/10/2021 09/10/[address] by from the Sara Andrew) original. [employer] dual (RA, RV-LBB, Dr. Andrew on ) Primary Primary Disease Active Methodi hypertensi hypertensi 1-06 st on on 00:00: Hospita 00 l Shortness Shortness Disease Active 2020-09 Overview: Methodi of breath of breath - Formattin s t 00:00: g of this Hospita 00 note l might be different from the original. Added automatic ally from request for surgery [id number] Pulmonary Pulmonary Disease Active 2020-09 Overview: Methodi hypertensi hypertensi 10-[address] on on 00:00: g of this Hospita 00 note l might be different from the original. Added automatic ally from request for surgery [id number] CHB CHB Disease Active 2020-09 Overview: Method i (complete (complete 10-13 Formattin s t heart heart 00:00: g of this Hospita block) block) 00 note l might be different from the original. Added automatic ally from request for surgery [id number] Junctional Junctional Disease Active 2020-09 Overview : Methodi rhythm rhythm 10-[address] 00:00: g of this Hospita 00 note l might be different from the original. 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 Added automatic ally from request for surgery [id number] LLQ LLQ Disease Active Univers abdominal abdominal 9-07 ity of pain pain 00:00: [place] [facility] Right Right Disease Active Univers ankle ankle 9-06 ity of injury injury 00:00: Medical Branch Non-rheuma Non-rheuma Disease Active U nivers tic mitral tic mitral 3-02 it y of valve valve 00:00: [place] stenosis stenosis 00 Medica l Branch (HFpEF) (HFpEF) Disease Active Univers [...] thyroid 6-27 ity of function function 00:00: [place] test test 00 Medical Branch MICHAEL MICHAEL Disease Active Univers (obstructi (obstructi 11-28 it y of ve sleep ve sleep 00:00: [place] apnea) apnea) 00 Medical Branch UTI UTI Diagnosis Active 2016-11-17 Mem oria Active 11-10 12:20:00 l 11/10/2016 00:00: [facility] 00 [facility] DIZZING DIZZING Diagnosis Active 2016-11-10 Memoria Active 11-10 11:58:00 l 11/10/2016 00:00: [facility] HART [place] 00 [facility] Irritabili Irritabili Disease Active 2015-09 U nivers ty ty 2- ity of 00:00: [place] 00 Medical Branch Nephrolith Nephrolith Disease Active U charers iasis iasis 9 ity of 00:00: [place] 00 Medical Branch Spinal Spinal Disease Active Univers arthritis arthritis 9 ity of 00:00: [place] [facility] Nocturnal Nocturnal Disease Active Overview: Univers leg cramps leg cramps 04-19 Formattin ity of 00:00: g of this [place] 00 note Medical might be Branch different from the original. vs RLS Essential Essential Disease Active Uni vers hypertensi hypertensi 04-19 it y of on on 00:00: [place] 00 Medical Branch Mixed Mixed Disease Active Univers hyperlipid hyperlipid 04-19 it y of emia emia 00:00: [place] 00 Medical Branch Type 2 Type 2 Disease Active Univers diabetes diabetes 04-19 ity of mellitus mellitus 00:00: [place] without without 00 Medical complicati complicati Br anch on on Allergic Allergic Disease Active Unive rs rhinitis rhinitis 04-19 ity of 00:00: [place] [facility] Heart Heart Disease Active Univers murmur murmur 04-19 ity of 00:00: Medical Branch Valvular Valvular Disease Active Overview: Un mark anthony heart heart 04-19 Formattin ity of disease disease 00:00: g of this note Medical might be Branch different from the original. Sees Cardiolog ist [place] Elevated Elevated Disease Active Unive rs serum serum 04-19 ity of creatinine creatinine [place] [facility] [place] Derangemen Derangeme Problem Active 2018-03-10 Memoria t of nt of 11-23 12:46:07 l lateral lateral 00:00: [place] meniscus meniscus 00 (disorder) (disorder) Active 11/23/2010 Problem 03/10/2018 [facility] Migraine Migraine Problem Resolve 2018-03-10 Memoria (disorder) (disorder) d 12:46:07 l Resolved Fadi Problem 03/10/2018 Medical Group Entire Entire Problem Active 2015-06-12 Sudarshan hugh left left 03:00:41 l bundle bundle Fadi branch branch (body (body structure) structure) Active Problem 06/12/2015 NAVIN Bateman Occlusion Problem Active 2018-03-10 Me moria of artery Occlusion 12:46:07 l (disorder) of artery Her [place] (disorder) Active Problem 03/10/2018 [facility] Depressive Depressiv Problem Active 2018-03-10 Memoria disorder e disorder 12:46:07 l (disorder) (disorder) He rmann Active Problem [facility]/10/2018 [facility] Hypertensi Hypertens Problem Active 2018-03-10 Memoria ve sarah 12:46:07 l disorder, disorder, Herm systemic systemic arterial arterial (disorder) (disorder) Active Problem 03/10/2018 [facility]id Hyperlipi Problem Active 2018-03-10 Memoria emia demia 12:46:07 l (disorder) (disorder) He rmann Active Problem 03/10/2018 Medical [facility] Diabetes Diabetes Problem Resolve 2018-03-10 Memoria mellitus mellitus d 12:46:07 l (disorder) (disorder) He rmann Resolved Problem 03/10/2018 [facility] Myocardial Myocardia Problem Resolve 2018-03-10 Memoria infarction l d 12:46:07 l (disorder) infarction He rmann (disorder) Resolved Problem 03/10/2018 [facility] Paroxysmal Paroxysmal Disease Active Overview : Methodi atrial atrial Formattin st fibrillati fibrillati g of this Hospita on on note l might be different from the original. cardiover jono 11/2020 was taken to [place]. No known No known Disease [place] active active Health problems problems Agitation Agitation Disease [facility] Fatty Fatty Disease Active [facility] Allergies, Adverse Reactions, Alerts Allergy Allergy Status Severity Reaction(s) Onset Inactive Treating Comm ents Source Name Type Date Date Clinician Penicill DA Active U Unknown [facility] ins 12-06 00:00: 00 Sulfa DA Active U Unknown SJm (Sulfona 12-06 mide 00:00: Antibiot 00 ics) Sulfa Propensi Active Rash 2019-0 Univers (Sulfona ty to 09-28 ity of mide adverse 00:00: [place] Antibiot reaction 00 Medica l ics) s to Branch drug Sulfa Propensi Active Rash 0 Methodi (Sulfona ty to 09-28 st mide adverse 00:00: Hospita Antibiot reaction 00 l ics) s to drug Sulfur Allergy Active Itching [place] to 04-19 Health substanc 00:00: e 00 Penicill Propensi Active Itching Unive rs in ty to 04-19 ity of adverse 00:00: [place] reaction 00 Medical s Branch Sulfur Propensi Active Itching Methodi ty to 04-19 st adverse 00:00: Hospita reaction 00 l s to drug Sulfur Propensi Active Itching Univers ty to 04-19 ity of adverse 00:00: [place] reaction 00 Medical s Branch Penicill Allergy Active Itching Other [place] ins to 01-27 reaction( Health substanc 00:00: s): itch, e 00 Respirato ry Distress, Unknown Penicill Propensi Active Itching Other Metho di ins ty to 01-27 reaction( st adverse 00:00: s): itch, Hospit a reaction 00 Respirato l s to ry drug Distress, Unknown penicill penicill Active Memori a ins ins l [place] sulfa sulfa Active Memoria drugs drugs [facility] Social History Social Habit Start Date Stop Date Quantity Comments Source History of tobacco Current smoker [facility] use Hospital History [facility] Alcohol Std Drinks Hospit al History [facility] Binge [facility] Exposure to 2022-06-16 2022-06-26 Not sure [facility] SARS-CoV-2 (event) 00:00:00 10:27:00 Alcohol intake 2022-03-12 2022-03-12 Lifetime [facility] 00:00:00 00:00:00 non-drinker Hospital (finding) Cigarettes smoked 2021-07-16 2021-07-[address] current (pack per 00:00:00 00:00:00 Hospita l day) - Reported Cigarette 2021-07-16 2021-07-16 [facility] pack-years 00:00:00 00:00:00 Hospital Tobacco use and 2021-07-16 2021-07-16 Smokeless [facility] exposure 00:00:00 00:00:00 tobacco non-user Hospital History [facility] 2021-06-28 2021-06-28 1 [facility] Alcohol Frequency 00:00:00 00:00:00 Hospita l Tobacco Comment 2016-04-19 2016-04-19 Quit 1985 Universit y of 00:00:00 00:00:00 [facility] Sex [birth year] [place] [facility] 00:00:00 00:00:00 Smoking Status Start Date Stop Date Source Social History 2017-12-02 15:41:18 2017-12-02 15:41:18 [facility] Social [facility] Medications Ordered Filled Start Stop Current Ordering Indication Dosage Frequency Signature Comments Components Source Medication Medication Date Date Medication? Clinician (SIG) Name Name Sodium 2021-09- No [id number] 20mg [place] Hyaluronate 0-06-26 4109 Health solution 17:12: 17:12 prefilled 07 :00 syringe 20 mg Sodium 2021-09- No [id number] 20mg 20 mg, U T Hyaluronate 0-05 - 4109 Intra-jenni H ealth solution 17:12: 17:12 cular, prefilled 07 :00 Once PRN syringe 20 Procedure, mg Starting on Fri06/26/22 at 1212, For 1 dose torsemide Yes 20mg Q.5D Take 1 Method i (DEMADEX) 9-22 tablet (20 st 20 MG 00:00: mg total) Hospita tablet 00 by mouth 2 l (two) times a day. METFORMIN Yes [id number] TAKE 1 U nivers ER 750 mg 9-16 TABLET BY ity o f 24 hr 00:00: MOUTH [place] tablet 00 TWICE Medical DAILY WITH Branch MEALS rosuvastati Yes [id number] 40mg Take 1 Univers n 40 mg 7-20 tablet by ity of tablet 00:00: mouth at [place] 00 bedtime. Medical Branch rosuvastati Yes [id number] 40mg Take 1 Univers n 40 mg 7-20 tablet by ity of tablet 00:00: mouth at [place] 00 bedtime. Medical Branch spironolact 2021- No 25mg QD Take 25 mg Methodi one 6- 06-[address] (ALDACTONE) 18:16: 00:00 in the Hos mily 25 MG 58 :00 morning. l tablet spironolact Yes TAKE 1 Meth walter one -03 TABLET(25 st (ALDACTONE) 00:00: MG) BY Hosp enrique 25 MG 00 MOUTH l tablet DAILY carvediloL 2022- No 6.25mg Q.5D Take 1 Me thodi (COREG) 02-15-[address] 6.25 MG 00:00: 04:59 (6.25 mg Hospi ta tablet 00 :00 total) by l mouth 2 (two) times a day. carvediloL 2022- No 12.5mg Q.5D Take 1 Me thodi (COREG) 02-15 05-[address] 12.5 MG 00:00: 04:59 (12.5 mg Hospi ta tablet 00 :00 total) by l mouth 2 (two) times a day. carvediloL 2021- No 6.25mg Q.5D Take 1 Me thodi (COREG) -24 05-[address] 6.25 MG 00:00: 00:00 (6.25 mg Hospi ta tablet 00 :00 total) by l mouth 2 (two) times a day. torsemide 2021- No 10mg QD Take 10 mg M ethodi (DEMADEX) 5-13 05-[address] 10 MG 16:50: 00:00 daily. Hospita tablet 03 :00 l aspirin Yes 81mg QD Take 81 mg Meth walter (ECOTRIN) 5-[address] 81 MG 16:56: daily. Hospita enteric 07 l coated tablet HYDROcodone Yes [id number] 1{tbl} Take 1 M ethodi -acetaminop 5-[address] hen (NORCO) 16:56: mouth as Ho spita 7.5-325 mg 07 needed for l per tablet moderate pain .acute pain. FENOFIBRATE Yes [id number] 160mg TAKE 1 Univers 160 mg 4-18 TABLET BY ity of tablet 00:00: MOUTH [place] 00 EVERY Medical MORNING Branch FENOFIBRATE 0 Yes [id number] 160mg TAKE 1 Univers 160 mg 4-18 TABLET BY ity of tablet 00:00: MOUTH [place] 00 EVERY Medical MORNING Branch FENOFIBRATE 0 Yes [id number] 160mg TAKE 1 Univers 160 mg 4-18 TABLET BY ity of tablet 00:00: MOUTH [place] 00 EVERY Medical MORNING Branch FENOFIBRATE 0 Yes [id number] 160mg TAKE 1 Univers 160 mg 4-18 TABLET BY ity of tablet 00:00: MOUTH [place] 00 EVERY Medical MORNING Branch FENOFIBRATE 0 Yes [id number] 160mg TAKE 1 Univers 160 mg 4-18 TABLET BY ity of tablet 00:00: MOUTH [place] 00 EVERY Medical MORNING Branch FENOFIBRATE 0 Yes [id number] 160mg TAKE 1 Univers 160 mg 4-18 TABLET BY ity of tablet 00:00: MOUTH [place] 00 EVERY Medical MORNING Branch FENOFIBRATE 0 Yes [id number] 160mg TAKE 1 Univers 160 mg 4-18 TABLET BY ity of tablet 00:00: MOUTH [place] 00 EVERY Medical MORNING Branch FENOFIBRATE Yes [id number] 160mg TAKE 1 Univers 160 mg 4-18 TABLET BY ity of tablet 00:00: MOUTH [place] 00 EVERY Medical MORNING Branch carvediloL 2021-0 2021- No 6.25mg Q.5D Take 1 Me thodi (COREG) 3-31 05-[address] 6.25 MG 00:00: 00:00 (6.25 mg Hospi ta tablet 00 :00 total) by l mouth 2 (two) times a day. metformin 2021-0 Yes [id number] 750mg Take 1 Univers ER 750 mg 3-29 tablet by ity o f 24 hr 00:00: mouth 2 [place] tablet 00 (two) Medical times Branch daily with meals. metformin 2021-0 Yes [id number] 750mg Take 1 Univers ER 750 mg 3-29 tablet by ity o f 24 hr 00:00: mouth 2 [place] tablet 00 (two) Medical times Branch daily with meals. metformin 2021-0 Yes [id number] 750mg Take 1 Univers ER 750 mg 3-29 tablet by ity o f 24 hr 00:00: mouth 2 [place] tablet 00 (two) Medical times Branch daily with meals. metformin 2021-0 Yes [id number] 750mg Take 1 Univers ER 750 mg 3-29 tablet by ity o f 24 hr 00:00: mouth 2 [place] tablet 00 (two) Medical times Branch daily with meals. metformin 2021-0 Yes [id number] 750mg Take 1 Univers ER 750 mg 3-29 tablet by ity o f 24 hr 00:00: mouth 2 [place] tablet 00 (two) Medical times Branch daily with meals. metformin 2021-0 Yes [id number] 750mg Take 1 Univers ER 750 mg 3-29 tablet by ity o f 24 hr 00:00: mouth 2 [place] tablet 00 (two) Medical times Branch daily with meals. metformin 2021-0 Yes [id number] 750mg Take 1 Univers ER 750 mg 3-29 tablet by ity o f 24 hr 00:00: mouth 2 [place] tablet 00 (two) Medical times Branch daily with meals. metformin 2021-0 Yes [id number] 750mg Take 1 Univers ER 750 mg 3-29 tablet by ity o f 24 hr 00:00: mouth 2 [place] tablet 00 (two) Medical times Branch daily with meals. metformin 2021-0 Yes [id number] 750mg Take 1 Univers ER 750 mg 3-29 tablet by ity o f 24 hr 00:00: mouth 2 [place] tablet 00 (two) Medical times Branch daily with meals. metformin 2021- No [id number] 750mg Take 1 Univers ER 750 mg 3-29 09-16 tablet by ity of 24 hr 00:00: 00:00 mouth 2 [place] tablet 00 :00 (two) Medical times Branch daily with meals. Entresto Yes TAKE 1 Methodi 24-26 mg 3-[address] tablet per 00:00: MOUTH Hospit a tablet 00 TWICE A l DAY Entresto 2021- No TAKE 1 Method i 24-26 mg 2-21 03-[address] tablet per 00:00: 00:00 MOUTH 2 Hos mily tablet 00 :00 (TWO) l TIMES A DAY aspirin 2021-0 Yes 81mg Take 81 mg Univ ers (ADULT LOW 2-09 by mouth ity o f DOSE 10:59: daily. [place] ASPIRIN) 81 21 Medical mg EC Branch tablet aspirin 2021-0 Yes 81mg Take 81 mg Univ ers (ADULT LOW 2-09 by mouth ity o f DOSE 10:59: daily. [place] ASPIRIN) 81 21 Medical mg EC Branch tablet aspirin 2021-0 Yes 81mg Take 81 mg Univ ers (ADULT LOW 2-09 by mouth ity o f DOSE 10:59: daily. [place] ASPIRIN) 81 21 Medical mg EC Branch tablet aspirin 2021-0 Yes 81mg Take 81 mg Univ ers (ADULT LOW 2-09 by mouth ity o f DOSE 10:59: daily. [place] ASPIRIN) 81 21 Medical mg EC Branch tablet aspirin 2021-0 Yes 81mg Take 81 mg Univ ers (ADULT LOW 2-09 by mouth ity o f DOSE 10:59: daily. [place] ASPIRIN) 81 21 Medical mg EC Branch tablet aspirin 2021-0 Yes 81mg Take 81 mg Univ ers (ADULT LOW 2-09 by mouth ity o f DOSE 10:59: daily. [place] ASPIRIN) 81 21 Medical mg EC Branch tablet aspirin 2-0 Yes 81mg Take 81 mg Univ ers (ADULT LOW 2-09 by mouth ity o f DOSE 10:59: daily. [place] ASPIRIN) 81 21 Medical mg EC Branch tablet aspirin 2021-0 Yes 81mg Take 81 mg Univ ers (ADULT LOW 2-09 by mouth ity o f DOSE 10:59: daily. [place] ASPIRIN) 81 21 Medical mg EC Branch tablet aspirin 2022-0 Yes 81mg Take 81 mg Univ ers (ADULT LOW 2-09 by mouth ity o f DOSE 10:59: daily. [place] ASPIRIN) 81 21 Medical mg EC Branch tablet aspirin 2022-0 Yes 81mg Take 81 mg Univ ers (ADULT LOW 2-09 by mouth ity o f DOSE 10:59: daily. [place] ASPIRIN) 81 21 Medical mg EC Branch tablet doxycycline 2022-0 Yes [id number] 100mg Take 1 Univers hyclate 100 2-09 tablet by ity of mg tablet 00:00: mouth 2 (two) Medical times Branch daily. doxycycline 2022-0 Yes [id number] 100mg Take 1 Univers hyclate 100 2-09 tablet by ity of mg tablet 00:00: mouth 2 (two) Medical times Branch daily. doxycycline 2021-0 Yes [id number] 100mg Take 1 Univers hyclate 100 2-09 tablet by ity of mg tablet 00:00: mouth (two) Medical times Branch daily. doxycycline 2-0 Yes [id number] 100mg Take 1 Univers hyclate 100 2-09 tablet by ity of mg tablet 00:00: mouth 2 (two) Medical times Branch daily. doxycycline 2022-0 Yes [id number] 100mg Take 1 Univers hyclate 100 2-09 tablet by ity of mg tablet 00:00: mouth 2 (two) Medical times Branch daily. doxycycline 2022-0 Yes [id number] 100mg Take 1 Univers hyclate 100 2-09 tablet by ity of mg tablet 00:00: mouth 2 (two) Medical times Branch daily. doxycycline 2022-0 Yes [id number] 100mg Take 1 Univers hyclate 100 2-09 tablet by ity of mg tablet 00:00: mouth 2 (two) Medical times Branch daily. doxycycline 2022-0 Yes [id number] 100mg Take 1 Univers hyclate 100 2-09 tablet by ity of mg tablet 00:00: mouth 2 (two) Medical times Branch daily. doxycycline 2022-0 Yes [id number] 100mg Take 1 Univers hyclate 100 2-09 tablet by ity of mg tablet 00:00: mouth 2 (two) Medical times Branch daily. doxycycline 2022-0 Yes [id number] 100mg Take 1 Univers hyclate 100 2-09 [...] 00 (two) Medical times Branch daily. sacubitriL- 0 Yes 1{tbl} Take 1 Un mark anthony valsartan 1-29 tablet by ity o f 24-26 mg 00:00: mouth 2 [place] tablet 00 (two) Medical times Branch daily. sacubitriL- 2021- No 1{tbl} Q.5D Take 1 M ethodi valsartan 1-29 02-[address] (ENTRESTO) 00:00: 00:00 mouth 2 Hos mily 24-26 mg 00 :00 (two) l tablet per times a tablet day. potassium 2021- No 20meq QD Take 20 Met hodi chloride 20 1-20 01-[address] mEq tablet 14:44: 00:00 mouth Hospi ta extended 00 :00 daily. l release KCL 20 mEq 2021-0 Yes [id number] 20meq TAKE 1 Univers tablet 1-20 TABLET BY ity of 00:00: MOUTH [place] DAILY Medical Branch KCL 20 mEq 2-0 Yes [id number] 20meq TAKE 1 Univers tablet 1-20 TABLET BY ity of 00:00: [facility] DAILY Medical Branch KCL 20 mEq 2-0 Yes [id number] 20meq TAKE 1 Univers tablet 1-20 TABLET BY ity of 00:00: [facility] DAILY Medical Branch KCL 20 mEq 2-0 Yes [id number] 20meq TAKE 1 Univers tablet 1-20 TABLET BY ity of 00:00: MOUTH [place] DAILY Medical Branch KCL 20 mEq 2-0 Yes [id number] 20meq TAKE 1 Univers tablet 1-20 TABLET BY ity of 00:00: MOUTH [place] DAILY Medical Branch KCL 20 mEq 2-0 Yes [id number] 20meq TAKE 1 Univers tablet 1-20 TABLET BY ity of 00:00: [facility] DAILY Medical Branch KCL 20 mEq 2-0 Yes [id number] 20meq TAKE 1 Univers tablet 1-20 TABLET BY ity of 00:00: [facility] DAILY Medical Branch KCL 20 mEq 2-0 Yes [id number] 20meq TAKE 1 Univers tablet 1-20 TABLET BY ity of 00:00: MOUTH DAILY Medical Branch KCL 20 mEq 2021-0 Yes [id number] 20meq TAKE 1 Univers tablet 1-20 TABLET BY ity of 00:00: MOUTH DAILY Medical Branch KCL 20 mEq 2021-0 Yes [id number] 20meq TAKE 1 Univers tablet 1-20 TABLET BY ity of 00:00: MOUTH DAILY Medical Branch potassium 2021-0 2021- No 20meq QD Take 20 Met hodi chloride 20 1-20 05-[address] mEq tablet 00:00: 00:00 mouth Hospi ta extended 00 :00 daily. l release potassium 2021-0 2021- No 20meq QD Take 20 Met hodi chloride 1-20 03-[address] (K-DUR) 20 00:00: 00:00 mouth in Ho spita MEQ CR 00 :00 the l tablet morning. torsemide 2021-0 2021- No 40mg Q.5D Take 40 mg M ethodi (DEMADEX) 1-18 01-[address] 20 MG 16:18: 00:00 (two) Hospita tablet 22 :00 times a l day. apixaban 2021-0 2021- No 5mg Take 5 mg Met hodi (ELIQUIS) 5 1-18 01-[address] mg tablet 16:01: 00:00 Hospita 17 :00 l potassium 2021-0 2021- No 20meq QD Take 20 Met hodi chloride 1-18 01-[address] (K-DUR) 20 16:00: 00:00 mouth Hospi ta MEQ CR 22 :00 daily. l tablet apixaban 2021-0 Yes 5mg Q.5D Take 1 [facility] (ELIQUIS) 5 1-18 tablet (5 st mg tablet 00:00: mg total) Hos mily 00 by mouth 2 l (two) times a day. torsemide 2021-0 Yes 20mg Take 20 mg [facility] 20 mg 1-18 by mouth 2 ity of tablet 00:00: (two) [place] 00 times Medical daily. Branch torsemide 2021-0 Yes 20mg Take 20 mg [facility] 20 mg 1-18 by mouth 2 ity of tablet 00:00: (two) [place] 00 times Medical daily. Branch torsemide 2021-0 Yes 20mg Take 20 mg [facility] 20 mg 1-18 by mouth 2 ity of tablet 00:00: (two) [place] 00 times Medical daily. Branch torsemide 2022-0 Yes 20mg Take 20 mg [facility] 20 mg 1-18 by mouth 2 ity of tablet 00:00: (two) [place] 00 times Medical daily. Branch torsemide 2022-0 Yes 20mg Take 20 mg [facility] 20 mg 1-18 by mouth 2 ity of tablet 00:00: (two) [place] 00 times Medical daily. Branch torsemide 2022-0 Yes 20mg Take 20 mg [facility] 20 mg 1-18 by mouth 2 ity of tablet 00:00: (two) [place] 00 times Medical daily. Branch torsemide 2022-0 Yes 20mg Take 20 mg [facility] 20 mg 1-18 by mouth 2 ity of tablet 00:00: (two) [place] 00 times Medical daily. Branch torsemide 2022-0 Yes 20mg Take 20 mg [facility] 20 mg 1-18 by mouth 2 ity of tablet 00:00: (two) [place] 00 times Medical daily. Branch torsemide 2022-0 Yes 20mg Take 20 mg [facility] 20 mg 1-18 by mouth 2 ity of tablet 00:00: (two) [place] 00 times Medical daily. Branch torsemide 2022-0 Yes 20mg Take 20 mg [facility] 20 mg 1-18 by mouth 2 ity of tablet 00:00: (two) [place] 00 times Medical daily. Branch torsemide 2-0 2021- No 40mg Q.5D Take 2 Metho di (DEMADEX) 18 09-[address] 20 MG 00:00: 00:00 (40 mg Hospita tablet 00 :00 total) by l mouth 2 (two) times a day for 90 days. spironolact 2021-0 2021- No 25mg QD Take 1 [facility] one 18 -18 tablet (25 st (ALDACTONE) 00:00: 05:59 mg total) Hospita 25 MG 00 :00 by mouth l tablet daily for 30 days. amIODarone 2020-09- No 200mg QD Take 1 [facility] (PACERONE) 2-24 -[address] 200 MG 00:00: 00:00 (200 mg Hospita tablet 00 :00 total) by l mouth daily for 30 days. spironolact 2020-09- No 25mg QD Take 1 [facility] one 11-15- tablet (25 st (ALDACTONE) 00:00: 00:00 mg total) Hospita 25 MG 00 :00 by mouth l tablet daily for 30 days. clopidogreL 2020-09- No 75mg Take 75 mg [facility] (PLAVIX) 75 11-14-[address] mg tablet 15:03: 00:00 Hospita 06 :00 l naproxen 2020-09 No 500mg Q.5D Take 500 Met [facility] (NAPROSYN) -13 09-[address] 500 MG 15:03: 00:00 mouth 2 Hospita tablet 06 :00 (two) l times a day with meals. HYDROcodone 2020-09 No 1{tbl} Q6H Take 1 M [facility]i -acetaminop 11-14- tablet by st hen ([facility]) 12:32: 00:00 mouth [facility] 7.5-325 mg 26 :00 every 6 l per tablet (six) hours as needed. sacubitriL- 2020-09 No 1{tbl} Q.5D Take 1 M ethodi valsartan 11-14- tablet by st (ENTRESTO) 00:00: 00:00 mouth 2 Hos mily 24-26 mg 00 :00 (two) l tablet per times a tablet day for 30 days. torsemide 2020-09- No 40mg Q.5D Take 2 Metho di (DEMADEX) 11-14- tablets st 20 MG 00:00: 00:00 (40 mg Hospita tablet 00 :00 total) by l mouth 2 (two) times a day for 30 days. HYDROcodone 2020-09 No [id number] 1{tbl} Q6H Take 1 [facility] -acetaminop 11-14- tablet by st hen ([employer]) 00:00: 05:59 mouth [facility] 7.5-325 mg 00 :00 every 6 l per tablet (six) hours as needed for severe pain for up to 5 days .acute pain. Max Daily Amount: 4 tablets naproxen Yes [id number] TAKE 1 UT (Naprosyn) 9-16 TABLET(500 [facility] 500 MG 00:00: MG) BY tablet 00 MOUTH TWICE DAILY naproxen Yes [id number] TAKE 1 UT (Naprosyn) 9-16 TABLET(500 [facility] 500 MG 00:00: MG) BY tablet 00 MOUTH TWICE DAILY naproxen Yes [id number] TAKE 1 U T (Naprosyn) 9-16 TABLET(500 [facility] 500 MG 00:00: MG) BY tablet 00 MOUTH TWICE DAILY naproxen Yes [id number] TAKE 1 UT (Naprosyn) 9-16 TABLET(500 [facility] 500 MG 00:00: MG) BY tablet 00 MOUTH TWICE DAILY naproxen Yes [id number] TAKE 1 UT (Naprosyn) 9-16 TABLET(500 [facility] 500 MG 00:00: MG) BY tablet 00 MOUTH TWICE DAILY naproxen Yes [id number] TAKE 1 U T (Naprosyn) 9-16 TABLET(500 [facility]th 500 MG 00:00: MG) BY tablet 00 MOUTH TWICE DAILY naproxen Yes [id number] TAKE 1 U T (Naprosyn) 9-16 TABLET(500 [facility]th 500 MG 00:00: MG) BY tablet 00 MOUTH TWICE DAILY naproxen Yes [id number] TAKE 1 U T (Naprosyn) 9-16 TABLET(500 [facility]a [facility]th 500 MG 00:00: MG) BY tablet 00 MOUTH TWICE DAILY metFORMIN Yes TAKE 1 [facility] i XR 05-[address] (GLUCOPHAGE 00:00: MOUTH Hospi ta -XR) 750 mg 00 TWICE l 24 hr DAILY WITH tablet MEALS METFORMIN 2021- No [id number] TAKE 1 [facility] ER 750 mg 05-30 TABLET BY ity of 24 hr 00:00: 00:00 MOUTH [place] tablet 00 :00 TWICE Medical DAILY WITH Branch MEALS furosemide 2020- No 80mg QD Take 80 mg [facility] (LASIX) 80 05-[address] mg tablet 00:00: 00:00 daily. Hospi ta 00 :00 l naproxen 2020- No [id number] 500mg Q.5D Take 1 U T (Naprosyn) 05-03 tablet Health 500 MG 00:00: 00:00 (500 mg tablet 00 :00 total) by mouth 2 (two) times a day. naproxen 1-0 2020- No [id number] 500mg Q.5D Take 1 U T (Naprosyn) 05-03 tablet Health 500 MG 00:00: 00:00 (500 mg tablet 00 :00 total) by mouth 2 (two) times a day. naproxen 1-0 1- No [id number] 500mg Q.5D Take 1 U T (Naprosyn) 05-03 tablet Health 500 MG 00:00: 04:59 (500 mg tablet 00 :00 total) by mouth 2 (two) times a day. naproxen 2020-0 1- No [id number] 500mg Q.5D Take 1 U T (Naprosyn) 05-03 tablet Health 500 MG 00:00: 04:59 (500 mg tablet 00 :00 total) by mouth 2 (two) times a day. sodium 2021-0 Yes [id number] 20mg UT hyaluronate [...] (viscosup) 20:00: (Hyalgan) 00 injection 20 mg rosuvastati Yes 40mg QD Take 40 mg [facility] n (CRESTOR) 5-[address] 40 MG 00:00: nightly. Hospita tablet 00 ROSUVASTATI Yes [id number] 40mg TAKE 1 [facility] N 40 mg 5-17 TABLET BY ity of tablet 00:00: MOUTH AT [address] ROSUVASTATI Yes [id number] 40mg TAKE 1 [facility] N 40 mg 5-17 TABLET BY ity of tablet 00:00: MOUTH AT [place] [facility] ROSUVASTATI Yes [id number] 40mg TAKE 1 Univers N 40 mg 5-17 TABLET BY ity of tablet 00:00: MOUTH AT [place] [facility] ROSUVASTATI Yes [id number] 40mg TAKE 1 Univers N 40 mg 5-17 TABLET BY ity of tablet 00:00: MOUTH AT [place] [facility] ROSUVASTATI Yes [id number] 40mg TAKE 1 Univers N 40 mg 5-17 TABLET BY ity of tablet 00:00: MOUTH AT [address] ROSUVASTATI Yes [id number] 40mg TAKE 1 Univers N 40 mg 5-17 TABLET BY ity of tablet 00:00: MOUTH AT [place] BEDTIME Medical Branch ROSUVASTATI Yes [id number] 40mg TAKE 1 Univers N 40 mg 5-17 TABLET BY ity of tablet 00:00: MOUTH AT [place] BEDTIME Medical Branch ROSUVASTATI Yes [id number] 40mg TAKE 1 Univers N 40 mg 5-17 TABLET BY ity of tablet 00:00: MOUTH AT [place] BEDTIME Medical Branch ROSUVASTATI 2022- No [id number] 40mg TAKE 1 Univers N 40 mg 5-17 07-20 TABLET BY ity of tablet 00:00: 00:00 MOUTH AT [place] 00 :00 BEDTIME Medical Branch fenofibrate Yes 160mg QD Take 160 M ethodi (LOFIBRA) 4-[address] 160 MG 00:00: mouth Hospita tablet 00 daily. l FENOFIBRATE Yes [id number] 160mg TAKE 1 [facility] 160 mg 4-08 TABLET BY ity of tablet 00:00: MOUTH [place] EVERY Medical MORNING Branch FENOFIBRATE Yes [id number] 160mg TAKE 1 [facility] 160 mg 4-08 TABLET BY ity of tablet 00:00: MOUTH [place] EVERY Medical MORNING Branch FENOFIBRATE 2021- No [id number] 160mg TAKE 1 [facility] 160 mg 4-08 04-18 TABLET BY ity of tablet 00:00: 00:00 MOUTH [place] 00 :00 EVERY Medical MORNING Branch mometasone [...] times Medical on HFAA daily. Branch HYDROcodone Yes Per Pain [facility] -acetaminop 3-16 management it y of hen (NORCO) 14:09: specialist [place] 7.5-325 mg 25 's Medical per tablet instructio [facility] ns clopidogreL Yes 75mg Take 75 mg Univers 75 mg 3-16 by mouth ity of tablet 14:09: daily. [place] 25 Medical Branch apixaban Yes 5mg Take 5 mg Univ ers (ELIQUIS) 5 3-16 by mouth 2 it y of mg tablet 14:09: (two) [place] 25 times Medical daily. Branch HYDROcodone 2020-0 Yes Per Pain [facility] -acetaminop 3-16 management it y of hen (NORCO) 14:09: specialist [place] 7.5-325 mg 25 's Medical per tablet instructio [facility] ns clopidogreL 1-0 Yes 75mg Take 75 mg Univers 75 mg 3-16 by mouth ity of tablet 14:09: daily. [place] 25 Medical Branch apixaban 2020-0 Yes 5mg Take 5 mg Univ ers (ELIQUIS) 5 3-16 by mouth 2 it y of mg tablet 14:09: (two) [place] 25 times Medical daily. Branch HYDROcodone 2020-0 Yes Per Pain [facility] -acetaminop 3-16 management it y of hen (NORCO) 14:09: specialist [place] 7.5-325 mg 25 's Medical per tablet instructio [facility] ns clopidogreL 2020-0 Yes 75mg Take 75 mg Univers 75 mg 3-16 by mouth ity of tablet 14:09: daily. [place] [address] Medical Branch apixaban 2020-0 Yes 5mg Take 5 mg Univ ers (ELIQUIS) 5 3-16 by mouth 2 it y of mg tablet 14:09: (two) [place] 25 times Medical daily. Branch HYDROcodone 2020-0 Yes Per Pain [facility] -acetaminop 3-16 management it y of hen (NORCO) 14:09: specialist [place] 7.5-325 mg 25 's Medical per tablet instructio [facility] ns clopidogreL 2020-0 Yes 75mg Take 75 mg Univers 75 mg 3-16 by mouth ity of tablet 14:09: daily. [place] 25 Medical Branch apixaban 2020-0 Yes 5mg Take 5 mg Univ ers (ELIQUIS) 5 3-16 by mouth 2 it y of mg tablet 14:09: (two) [place] 25 times Medical daily. Branch HYDROcodone 2020-0 Yes Per Pain [facility] -acetaminop 3-16 management it y of hen (NORCO) 14:09: specialist [place] 7.5-325 mg 25 's Medical per tablet instructio [facility] ns clopidogreL 1-0 Yes 75mg Take 75 mg Univers 75 mg 3-16 by mouth ity of tablet 14:09: daily. [place] 25 Medical Branch apixaban 2020-0 Yes 5mg Take 5 mg Univ ers (ELIQUIS) 5 3-16 by mouth 2 it y of mg tablet 14:09: (two) [place] 25 times Medical daily. Branch HYDROcodone 2020-0 Yes Per Pain [facility] -acetaminop 3-16 management it y of hen (NORCO) 14:09: specialist [place] 7.5-325 mg 25 's Medical per tablet instructio [facility] ns clopidogreL 2020-0 Yes 75mg Take 75 mg Univers 75 mg 3-16 by mouth ity of tablet 14:09: daily. [place] [address] Medical Branch apixaban 2020-0 Yes 5mg Take 5 mg Univ ers (ELIQUIS) 5 3-16 by mouth 2 it y of mg tablet 14:09: (two) [place] 25 times Medical daily. Branch HYDROcodone 2020-0 Yes Per Pain [facility] -acetaminop 3-16 management it y of hen (NORCO) 14:09: specialist [place] 7.5-325 mg 25 's Medical per tablet instructio [facility] ns clopidogreL 2020-0 Yes 75mg Take 75 mg Univers 75 mg 3-16 by mouth ity of tablet 14:09: daily. [place] [address] Medical Branch apixaban 2020-0 Yes 5mg Take 5 mg Univ ers (ELIQUIS) 5 3-16 by mouth 2 it y of mg tablet 14:09: (two) [place] 25 times Medical daily. Branch HYDROcodone 2020-0 Yes Per Pain [facility] -acetaminop 3-16 management it y of hen (NORCO) 14:09: specialist [place] 7.5-325 mg 25 's Medical per tablet instructio [facility] ns clopidogreL 2020-0 Yes 75mg Take 75 mg Univers 75 mg 3-16 by mouth ity of tablet 14:09: daily. [place] 25 Medical Branch apixaban 2020-0 Yes 5mg Take 5 mg Univ ers (ELIQUIS) 5 3-16 by mouth 2 it y of mg tablet 14:09: (two) [place] 25 times Medical daily. Branch HYDROcodone 2020-0 Yes Per Pain [facility] -acetaminop 3-16 management it y of hen (NORCO) 14:09: specialist [place] 7.5-325 mg 25 's Medical per tablet instructio [facility] ns clopidogreL 2021-0 Yes 75mg Take 75 mg Univers 75 mg 3-16 by mouth ity of tablet 14:09: daily. [place] 25 Medical Branch apixaban 0 Yes 5mg Take 5 mg Univ ers (ELIQUIS) 5 3-16 by mouth 2 it y of mg tablet 14:09: (two) [place] 25 times Medical daily. Branch HYDROcodone 0 Yes Per Pain [facility] -acetaminop 3-16 management it y of hen (NORCO) 14:09: specialist [place] 7.5-325 mg 25 's Medical per tablet instructio [facility] ns clopidogreL 0 Yes 75mg Take 75 mg Univers 75 mg 3-16 by mouth ity of tablet 14:09: daily. [place] [address] Medical Branch apixaban 0 Yes 5mg Take 5 mg Univ ers (ELIQUIS) 5 3-16 by mouth 2 it y of mg tablet 14:09: (two) [place] 25 times Medical daily. Branch gabapentin 2020-0 Yes 600mg [id number] Take 600 [facility] (NEURONTIN) 9-01 [id number] mg by s t 300 mg 00:00: 3D mouth 3 Hospita capsule 00 (three) l times a day. gabapentin 2020-0 Yes 300mg Take 300 [facility] 300 mg 9-01 mg by ity of capsule 00:00: mouth at [place] [address] bedtime. Medical Branch gabapentin 2020-0 Yes 300mg Take 300 [facility] 300 mg 9-01 mg by ity of capsule 00:00: mouth at [place] [address] bedtime. Medical Branch gabapentin 2020-0 Yes 300mg Take 300 [facility] 300 mg 9-01 mg by ity of capsule 00:00: mouth at [place] [address] bedtime. Medical Branch gabapentin 2020-0 Yes 300mg Take 300 [facility] 300 mg 9-01 mg by ity of capsule 00:00: mouth at [place] [address] bedtime. Medical Branch gabapentin 2020-0 Yes 300mg Take 300 [facility] 300 mg 9-01 mg by ity of capsule 00:00: mouth at [place] [address] bedtime. Medical Branch gabapentin 2020-0 Yes 300mg Take 300 [facility] 300 mg 9-01 mg by ity of capsule 00:00: mouth at [place] [address] bedtime. Medical Branch gabapentin 2020-0 Yes 300mg Take 300 [facility] 300 mg 9-01 mg by ity of capsule 00:00: mouth at [place] [address] bedtime. Medical Branch gabapentin 2020-0 Yes 300mg Take 300 [facility] 300 mg 9-01 mg by ity of capsule 00:00: mouth at [place] [address] bedtime. Medical Branch gabapentin 2020-0 Yes 300mg Take 300 [facility] 300 mg 9-01 mg by ity of capsule 00:00: mouth at [place] [address] bedtime. Medical Branch gabapentin 2020-0 Yes 300mg Take 300 [facility] 300 mg 9-01 mg by ity of capsule 00:00: mouth at [place] [address] bedtime. Medical Branch rOPINIRole 2018-0 Yes 5mg QD Take 5 mg Me thodi (REQUIP) 5 06-[address] MG tablet 00:00: nightly. [facility] 00 l rOPINIRole 2018-0 Yes TK 1 T PO [facility] 1 mg tablet 06-19 QOD ity of 00:00: [place] [address] Medical Branch rOPINIRole 2018-0 Yes TK 1 T PO [facility] 1 mg tablet 06-19 QOD ity of 00:00: [place] [address] Medical Branch rOPINIRole 2018-0 Yes TK 1 T PO [facility] 1 mg tablet 06-19 QOD ity of 00:00: [place] [address] Medical Branch rOPINIRole 2018-0 Yes TK 1 T PO [facility] 1 mg tablet 06-19 QOD ity of 00:00: [place] 00 Medical Branch rOPINIRole 2018-0 Yes TK 1 T PO [facility] 1 mg tablet 06-19 QOD ity of 00:00: [place] [address] Medical Branch rOPINIRole 2018-0 Yes TK 1 T PO [facility] 1 mg tablet 06-19 QOD ity of 00:00: [place] 00 Medical Branch rOPINIRole 2018-0 Yes TK 1 T PO [facility] 1 mg tablet 06-19 QOD ity of 00:00: [place] [address] Medical Branch rOPINIRole 2018-0 Yes TK 1 T PO [facility] 1 mg tablet 06-19 QOD ity of 00:00: [place] 00 Medical Branch rOPINIRole 2018-0 Yes TK 1 T PO [facility] 1 mg tablet 06-19 QOD ity of 00:00: [place] [address] Medical Branch rOPINIRole 2018-0 Yes TK 1 T PO [facility] 1 mg tablet 06-19 QOD ity of 00:00: [place] 00 Medical Branch Levaquin 2017-0 No Notes: Memoria 2-21 (Same l 18:00: as:Levaqui Fadi 00 n) Levaquin No Notes: [facility] 2-21 (Same l 18:00: as:Levaqui Fadi 00 n) Cozaar No Notes: [facility] 2-20 (Same as: l 15:00: Cozaar) Hydrochloro No 1 tab, Sudarshan hugh thiazide 25 2-20 Route: PO, l MG / 15:00: Drug Form: [place] Losartan 00 TAB, Potassium Dosing 100 MG Oral Weight Tablet 83.182, kg, Daily, Start date: 11/11/16 9:00:00 ANALYSIS ENGINEER, Duration: 30 day, Stop date: 12/10/16 9:00:00 CDT Fenofibrate No Notes: Sudarshan hugh 160 MG Oral 2-20 (Same as: l Tablet 15:00: Tricor) Amlodipine No Notes: Memor ia 2-20 (Same as: l 15:00: Norvasc) hydrochloro No Notes: Sudarshan hugh thiazide 25 2-20 (Same as: l mg oral 15:00: Hydrodiuri Herm tablet 00 l) With food. Cozaar No Notes: [facility] 2-20 (Same as: l 15:00: Cozaar) Hydrochloro No 1 tab, Sudarshan hugh thiazide 25 2-20 Route: PO, l MG / 15:00: Drug Form: [place] Losartan 00 TAB, Potassium Dosing 100 MG Oral Weight Tablet 83.182, kg, Daily, Start date: 11/11/16 9:00:00 ANALYSIS ENGINEER, Duration: 30 day, Stop date: 12/10/16 9:00:00 CDT Fenofibrate No Notes: Sudarshan hugh 160 MG Oral 2-20 (Same as: l Tablet 15:00: Tricor) Amlodipine No Notes: Memor ia 2-20 (Same as: l 15:00: Norvasc) hydrochloro No Notes: Sudarshan hugh thiazide 25 2-20 (Same as: l mg oral 15:00: Hydrodiuri Herm tablet 00 l) With food. Crestor No Notes: [facility] 2-20 (Same As: l 03:00: Crestor) Clonazepam No Notes: Memor ia 2-20 (Same As: l 03:00: KlonoPIN) Acetaminoph No Notes: Sudarshan hugh en 325 MG / 2-20 (Same as: l Hydrocodone 03:00: [place] Rosa Maria nn Bitartrate 00 325/5) Do 10 MG Oral not exceed Tablet 4gm/day of [[place] acetaminop 10/325] hen. Crestor No Notes: [facility] 2-20 (Same As: l 03:00: Crestor) Clonazepam No Notes: Memor ia 2-20 (Same As: l 03:00: KlonoPIN) Acetaminoph No Notes: Sudarshan hugh en 325 MG / 2-20 (Same as: l Hydrocodone 03:00: [place] nn Bitartrate 00 325/5) Do 10 MG Oral not exceed Tablet 4gm/day of [[place] acetaminop 10/325] hen. ciprofloxac Yes 500 mg = 1 Memoria in 500 mg 2-20 tab, PO, l oral tablet 02:52: Q12H, X 5 H ermann 50 day, # 10 tab, 0 Refill(s) ciprofloxac Yes 500 mg = 1 Memoria in 500 mg 2-20 tab, PO, l oral tablet 02:52: Q12H, X 5 H ermann 50 day, # 10 tab, 0 Refill(s) Metformin No Notes: Memori a 2-19 (Same as: l 23:00: Glucophage ) Take with meal Coreg No Notes: [facility] 2-19 (Same As: l 23:00: Coreg) Metformin No Notes: Memori a 2-19 (Same as: l 23:00: Glucophage ) Take with meal Coreg No Notes: [facility]oria 2-19 (Same As: l 23:00: Coreg) ciprofloxac No 500 mg = 1 Memoria in 500 mg 2-19 tab, PO, l oral tablet 20:39: Q12H, X 5 H ermann day, # 10 tab, 0 Refill(s), other ciprofloxac No 500 mg = 1 Memoria in 500 mg 2-19 tab, PO, l oral tablet 20:39: Q12H, X 5 H ermann day, # 10 tab, 0 Refill(s), other clonazePAM Yes 0.5 mg = 1 M emoria 0.5 mg oral 2-19 tab, PO, l tablet 20:36: Bedtime, 0 Rosa Maria nn 00 Refill(s) Hydrochloro Yes 1 tab, PO, Memoria thiazide 25 2-19 Daily, # l MG / 20:36: 30 tab, 0 Fadi Losartan 00 Refill(s) Potassium 100 MG Oral Tablet Metformin Yes 1,000 mg, Mem oria 2-19 PO, BID, 0 l 20:36: Refill(s) Fadi 00 Fenofibrate Yes 160 mg = 1 Memoria [...] ermann Bitartrate 00 10 MG Oral Tablet [[place] 10/325] amLODIPine Yes 10 mg = 1 Me moria 10 mg oral 2-19 tab, PO, l tablet 20:36: Daily, # [place] 00 30 tab, 0 Refill(s) clonazePAM Yes 0.5 mg = 1 M emoria 0.5 mg oral 2-19 tab, PO, l tablet 20:36: Bedtime, 0 Rosa Maria nn 00 Refill(s) Hydrochloro Yes 1 tab, PO, Memoria thiazide 25 2-19 Daily, # l MG / 20:36: 30 tab, 0 Fadi Losartan 00 Refill(s) Potassium 100 MG Oral Tablet Metformin Yes 1,000 mg, Mem oria 2-19 PO, BID, 0 l 20:36: Refill(s) Fadi 00 Fenofibrate Yes 160 mg = 1 Memoria 160 MG Oral 2-19 tab, PO, l Tablet 20:36: Daily, # [place] 00 30 tab, 0 Refill(s) carvedilol Yes 6.25 mg = Me moria 6.25 MG 2-19 1 tab, PO, l Oral Tablet 20:36: BID, # 60 H ermann [Coreg] 00 tab, 0 Refill(s) Acetaminoph Yes 1 tab, PO, Memoria en 325 MG / 2-19 Bedtime, 0 l Hydrocodone 20:36: Refill(s) H ermann Bitartrate 00 10 MG Oral Tablet [[place] 10/325] amLODIPine Yes 10 mg = 1 Me moria 10 mg oral 2-19 tab, PO, l tablet 20:36: Daily, # Fadi 00 30 tab, 0 Refill(s) Insulin, No Notes: Memoria Aspart, -19 Roll in l Human 19:34: palms of hands gently; Do not shake vigorously . (Same as: NovoLOG) "single patient use only" WASTE: F/P - Black; E - Municipal Trash Bin Stable for 28 days at room temperatur e. Expires in days from ____Date Dextrose No 12.5 gm, Memor ia 50% Syringe 11-10 25 mL, l 19:34: Route: IVP, Drug Form: INJ, Dosing Weight 83.182, kg, PRN, PRN Blood Glucose Results, Start date: 11/10/16 13:34:00 ANALYSIS ENGINEER, Duration: 30 day, Stop date: 12/10/16 14:33:00 CDT Glucagon No 1 mg, Memoria 2-19 Route: IM, l 19:34: Drug form: PDR/INJ, PRN, Dosing Weight 83.182, kg, PRN Blood Glucose Results, Start date: 11/10/16 13:34:00 ANALYSIS ENGINEER, Duration: 30 day, Stop date: 12/10/16 14:33:00 CDT Insulin, No Notes: Memoria Aspart, 2-19 Roll in l Human 19:34: palms of Fadi 00 hands gently; Do not shake vigorously . (Same as: NovoLOG) "single patient use only" WASTE: F/P - Black; E - Municipal Trash Bin Stable for 28 days at room temperatur e. Expires in days from ____Date Dextrose No 12.5 gm, Memor ia 50% Syringe 2-19 25 mL, l 19:34: Route: Fadi 00 IVP, Drug Form: INJ, Dosing Weight 83.182, kg, PRN, PRN Blood Glucose Results, Start date: 11/10/16 13:34:00 ANALYSIS ENGINEER, Duration: 30 day, Stop date: 12/10/16 14:33:00 CDT Glucagon No 1 mg, Memoria 2-19 Route: IM, l 19:34: Drug form: Fadi 00 PDR/INJ, PRN, Dosing Weight 83.182, kg, PRN Blood Glucose Results, Start date: 11/10/16 13:34:00 ANALYSIS ENGINEER, Duration: 30 day, Stop date: 12/10/16 14:33:00 CDT Sodium No 1,000 mL, Memori a Chloride 2-19 Rate: 125 l 0.154 19:31: ml/hr, [place] MEQ/ML 00 Infuse Injectable over: 8 Solution hr, Route: IV, Dosing Weight 83.182 kg, Total Volume: 1,000, Start date: 11/10/16 13:31:00 ANALYSIS ENGINEER, Duration: 30 day, Stop date: 12/10/16 13:30:00 CDT Saline No Notes: Memoria Flush 0.9% 2-19 (Same as: l 19:31: BD [place] Posiflush) Docusate No Notes: Memoria 2-19 (Same as: l 19:31: Colace) Fadi 00 (Do Not Crush) Ondansetron No Notes: Sudarshan hugh 2-19 (Same as: l 19:31: Zofran) Fadi 00 MEDICATION WASTE Product Size: 4 mg Product Wasted: ___ mg Acetaminoph No Notes: Do M emoria en -19 not exceed l 19:31: 4 gm/day. Fadi (Same as: Tylenol) Sodium No 1,000 mL, Memori a Chloride - Rate: 125 l 0.154 19:31: ml/hr, [place] MEQ/ML 00 Infuse Injectable over: 8 Solution hr, Route: IV, Dosing Weight 83.182 kg, Total Volume: 1,000, Start date: 11/10/16 13:31:00 ANALYSIS ENGINEER, Duration: 30 day, Stop date: 12/10/16 13:30:00 CDT Saline No Notes: Memoria Flush 0.9% - (Same as: l 19:31: BD Posiflush) Docusate No Notes: [facility] 2-19 (Same as: l 19:31: Colace) (Do Not Crush) Ondansetron No Notes: Sudarshan hugh - (Same as: l 19:31: Zofran) MEDICATION WASTE Product Size: 4 mg Product Wasted: ___ mg Acetaminoph No Notes: Do M emoria en - not exceed l 19:31: 4 gm/day. Fadi 00 (Same as: Tylenol) Aspirin No Notes: Memoria 2-19 Take with l 18:33: food. Aspirin No Notes: Memoria 2-19 Take with l 18:33: food. potassium No 40 mEq, Memor ia chloride 11-10 Route: PO, l 18:19: Drug form: ERTAB, ONCE, Dosing Weight 83.182, kg, Priority: STAT, Start date: 11/10/16 12:19:00 ANALYSIS ENGINEER, Stop date: 11/10/16 12:19:00 ANALYSIS ENGINEER Levaquin No 750 mg, Memori a 2-19 Route: l 18:19: IVPB, Drug form: SOLN, ONCE, Dosing Weight 83.182, kg, Start date: 11/10/16 12:19:00 ANALYSIS ENGINEER, Stop date: 11/10/16 12:19:00 ANALYSIS ENGINEER potassium 2017-0 No 40 mEq, Memor ia chloride 2-19 Route: PO, l 18:19: Drug form: [place] 00 ERTAB, ONCE, Dosing Weight 83.182, kg, Priority: STAT, Start date: 11/10/16 12:19:00 ANALYSIS ENGINEER, Stop date: 11/10/16 12:19:00 ANALYSIS ENGINEER Levaquin 2017-0 No 750 mg, Memori a 2-19 Route: l 18:19: IVPB, Drug Fadi 00 form: SOLN, ONCE, Dosing Weight 83.182, kg, Start date: 11/10/16 12:19:00 ANALYSIS ENGINEER, Stop date: 11/10/16 12:19:00 ANALYSIS ENGINEER Sodium 2017-0 No 1,000 mL, Memori a Chloride 2-19 1,000 l 0.154 17:57: ml/hr, [place] MEQ/ML 00 Infuse Injectable Over: 1 Solution hr, Route: IV, 1,000, Drug form: INJ, ONCE, Priority: STAT, Dosing Weight 83.182 kg, Start date: 11/10/16 11:57:00 ANALYSIS ENGINEER, Duration: 1 doses or times, Stop date: 11/10/16 11:57:00 ANALYSIS ENGINEER Sodium 2017-0 No 1,000 mL, Memori a Chloride 2-19 1,000 l 0.154 17:57: ml/hr, Fadi MEQ/ML 00 Infuse Injectable Over: 1 Solution hr, Route: IV, 1,000, Drug form: INJ, ONCE, Priority: STAT, Dosing Weight 83.182 kg, Start date: 11/10/16 11:57:00 ANALYSIS ENGINEER, Duration: 1 doses or times, Stop date: 11/10/16 11:57:00 ANALYSIS ENGINEER Immunizations Ordered Filled Immunization Date Status Comments Sour e Immunization Name Name Influenza High Dose 2017-08-12 Completed [facility] 00:00:00 [facility] Influenza High Dose 2017-08-12 Completed [facility] 00:00:00 [facility] Influenza High Dose 2017-08-12 Completed Unive rsity of 00:00:00 [facility] Influenza High Dose 2017-08-12 Completed Unive rsity of 00:00:00 [facility] Influenza High Dose 2017-08-12 Completed [facility] of 00:00:00 [facility] Influenza High Dose 2017-08-12 Completed [facility]ive rsity of 00:00:00 [facility] Influenza High Dose 2017-08-12 Completed Unive rsity of 00:00:00 [facility] Influenza High Dose 2017-08-12 Completed Unive rsity of 00:00:00 [facility] Influenza High Dose 2017-08-12 Completed Unive rsity of 00:00:00 [facility] Influenza High Dose 2017-08-12 Completed Unive rsity of 00:00:00 [facility] Influenza High Dose 2016-08-26 Completed Unive rsity of 00:00:00 [facility] Influenza High Dose 2016-08-26 Completed Unive rsity of 00:00:00 [facility] Influenza High Dose 2016-08-26 Completed Unive rsity of 00:00:00 [facility] Influenza High Dose 2016-08-26 Completed Unive rsity of 00:00:00 [facility] Influenza High Dose 2016-08-26 Completed Unive rsity of 00:00:00 [facility] Influenza High Dose 2016-08-26 Completed Unive rsity of 00:00:00 [facility] Influenza High Dose 2016-08-26 Completed Unive rsity of 00:00:00 [facility] Influenza High Dose 2016-08-26 Completed Unive rsity of 00:00:00 [facility] Influenza High Dose 2016-08-26 Completed Unive [facility]ity of 00:00:00 [facility] Influenza High Dose 2016-08-26 Completed [facility]ive [facility]ity of 00:00:00 [facility] Vital Signs Vital Name Observation Time Observation Value Comments Source Body height 2021-03-07 19:18:00 [facility] Body weight 2021-03-07 19:18:00 84[facility]596 [facility] BMI 2021-03-07 19:18:00 29.21 kg/m2 [facility] Body height 2021-03-07 19:18:00 [facility]2 [facility] Body weight 2021-03-07 19:18:00 84[facility]596 [facility] BMI 2021-03-07 19:18:00 29.21 kg/m2 [facility] Heart rate 2022-01-31 21:45:00 66 /min [facility] Respiratory rate 2022-01-31 21:45:00 [facility] O[facility] saturation in 2022-01-31 21:45:00 96 /min [facility] blood by [facility] Pulse oximetry Systolic blood 2022-01-31 21:15:00 189 mm[Hg] [facility] Diastolic blood 2022-01-31 21:15:00 80 [facility] Body temperature 2022-01-31 21:15:00 36.06 [facility] Body height 2022-01-31 17:36:00 167.6 cm [facility] Body weight 2022-01-31 17:36:00 83.144 kg [facility] BMI 2022-01-31 17:36:00 29.59 kg/m2 [facility] Have you Lost Weight 2020-12-14 02:22:59 No [...] Temperature 2020-12-14 02:22:59 98.4\\S\\209.1 Weight 2020-12-14 02:22:59 07519.365\\S\\3008 Weight Measurement 2020-12-14 02:22:59 Estimated by Method Patient Initial DRG Weight: 2020-12-14 02:22:59 1.6262 Working DRG Weight: 2020-12-14 02:22:59 1.6262 Head exam ED 2020-12-14 02:22:59 atraumatic Have you Lost Weight 2020-12-10 17:57:55 No [...] Temperature 2020-12-10 17:57:55 98.4\\S\\209.1 Weight 2020-12-10 17:57:55 65954.365\\S\\3008 Weight Measurement 2020-12-10 17:57:55 Estimated by Method Patient Initial DRG Weight: 2020-12-10 17:57:55 1.6262 Working [...] Temperature 2020-12-10 16:15:04 98.6\\S\\209.5 Weight 2020-12-10 16:15:04 80115.365\\S\\3008 Weight Measurement 2020-12-10 16:15:04 Estimated by Method Patient Initial DRG Weight: 2020-12-10 16:10:29 1.6262 Working [...] Temperature 2020-12-10 16:10:29 98.6\\S\\209.5 Weight 2020-12-10 16:10:29 60433.365\\S\\3008 Weight Measurement 2020-12-10 16:10:29 Estimated by Method Patient Have you Lost Weight 2020-12-10 16:09:59 No [...] Temperature 2020-12-10 16:09:59 98.6\\S\\209.5 Weight 2020-12-10 16:09:59 38629.365\\S\\3008 Weight Measurement 2020-12-10 16:09:59 Estimated by Method Patient Initial DRG Weight: 2020-12-10 16:09:58 1.6262 Working [...] Temperature 2020-12-10 14:55:13 98.6\\S\\209.5 Weight 2020-12-10 14:55:13 35221.365\\S\\3008 Weight Measurement 2020-12-10 14:55:13 Estimated by Method Patient Initial DRG Weight: 2020-12-10 14:55:12 1.6262 Working [...] Temperature 2020-12-08 14:29:56 36.8\\S\\98.2 Weight 2020-12-08 14:29:56 75938.365\\S\\3008 Weight Measurement 2020-12-08 14:29:56 Estimated by Method Patient Initial DRG Weight: 2020-12-08 14:14:59 1.6262 Working [...] Temperature 2020-12-08 14:14:59 36.8\\S\\98.2 Weight 2020-12-08 14:14:59 52457.365\\S\\3008 Weight Measurement 2020-12-08 14:14:59 Estimated by Method Patient Initial DRG Weight: 2020-12-07 13:40:08 1.6262 Working [...] Temperature 2020-12-07 13:40:08 36.4\\S\\97.5 Weight 2020-12-07 13:40:08 86903.365\\S\\3008 Weight Measurement 2020-12-07 13:40:08 Estimated by Method Patient Have you Lost Weight 2020-12-07 03:04:59 No [...] Temperature 2020-12-07 03:04:59 37.0\\S\\98.6 Weight 2020-12-07 03:04:59 09442.365\\S\\3008 Weight Measurement 2020-12-07 03:04:59 Estimated by Method Patient Initial DRG Weight: 2020-12-07 03:04:58 1.6262 Working [...] Temperature 2020-12-06 13:57:13 35.4\\S\\95.8 Weight 2020-12-06 13:57:13 72329.365\\S\\3008 Weight Measurement 2020-12-06 13:57:13 Estimated by Method Patient Initial DRG Weight: 2020-12-06 07:00:51 1.6262 Working [...] Temperature 2020-12-06 07:00:51 36.7\\S\\98.0 Weight 2020-12-06 07:00:51 90839.365\\S\\3008 Weight Measurement 2020-12-06 07:00:51 Estimated by Method Patient Initial DRG Weight: 2020-12-06 07:00:21 1.6262 Working [...] Temperature 2020-12-06 07:00:21 36.7\\S\\98.0 Weight 2020-12-06 07:00:21 64577.365\\S\\3008 Weight Measurement 2020-12-06 07:00:21 Estimated by Method Patient Have you Lost Weight 2020-12-06 06:25:10 No [...] Temperature 2020-12-06 06:25:10 36.7\\S\\98.0 Weight 2020-12-06 06:25:10 64253.365\\S\\3008 Weight Measurement 2020-12-06 06:25:10 Estimated by Method Patient Initial DRG Weight: 2020-12-06 06:25:10 1.6262 Working [...] Temperature 2020-12-06 06:21:35 36.7\\S\\98.0 Weight 2020-12-06 06:21:35 80102.365\\S\\3008 Weight Measurement 2020-12-06 06:21:35 Estimated by Method Patient Have you Lost Weight 2020-12-06 04:26:35 No [...] Temperature 2020-12-06 04:26:35 36.8\\S\\98.2 Weight 2020-12-06 04:26:35 65400.365\\S\\3008 Weight Measurement 2020-12-06 04:26:35 Estimated by Method Patient Have you Lost Weight 2020-12-06 02:44:08 No [...] Temperature 2020-12-06 02:44:08 36.8\\S\\98.2 Weight 2020-12-06 02:44:08 72338.365\\S\\3008 Weight Measurement 2020-12-06 02:44:08 Estimated by Method Patient Have you Lost Weight 2020-12-06 02:40:03 No [...] Temperature 2020-12-06 02:40:03 36.8\\S\\98.2 Weight 2020-12-06 02:40:03 05042.365\\S\\3008 Weight Measurement 2020-12-06 02:40:03 Estimated by Method Patient Body Mass Index 2020-12-06 01:51:41 29.4 Height 2020-12-06 01:51:41 170.18\\S\\67 Weight 2020-12-06 01:51:41 28857.365\\S\\3008 Body Mass Index 2020-12-06 00:23:59 29.4 Height 2020-12-06 00:23:59 170.18\\S\\67 Weight 2020-12-06 00:23:59 21710.365\\S\\3008 Body Mass Index 2020-12-06 00:23:29 29.4 Height 2020-12-06 00:23:29 170.18\\S\\67 Weight 2020-12-06 00:23:29 84488.365\\S\\3008 WEIGHT 2020-12-06 00:23:00 85.681924 kg HEIGHT 2020-12-06 00:23:00 170.18 cm Weight 2017-12-02 15:13:00 [facility] Heart Rate 2017-12-02 15:13:00 [facility] Systolic (mm Hg) 2017-12-02 15:13:00 Sudarshan [facility]ige [facility] Diastolic (mm Hg) 2017-12-02 15:13:00 [facility] Systolic (mm Hg) 2016-11-11 01:44:00 Sudarshan rial [facility] Diastolic (mm Hg) 2016-11-11 01:44:00 [facility] Temperature Oral (F) 2016-11-11 01:44:00 98.2 F [facility] Heart Rate 2016-11-11 01:44:00 [facility] Respitory Rate 2016-11-11 01:44:00 [facility] Heart Rate 2016-11-10 21:26:00 [facility] Systolic (mm Hg) 2016-11-10 21:26:00 Sudarshan [facility] Diastolic (mm Hg) 2016-11-10 21:26:00 [facility] Respitory Rate 2016-11-10 21:26:00 [facility] Temperature Oral (F) 2016-11-10 21:26:00 98.3 F [facility] Respitory Rate 2016-11-10 20:35:00 [facility] Systolic (mm Hg) 2016-11-10 20:35:00 Sudarshan [facility] Diastolic (mm Hg) 2016-11-10 20:35:00 [facility] Heart Rate 2016-11-10 20:35:00 [facility] Weight 2016-11-10 17:01:00 [facility] BMI Calculated 2016-11-10 17:01:00 [facility] Height 2016-11-10 17:01:00 167.64 cm [facility] Temperature Oral (F) 2016-11-10 17:01:00 98.3 F [facility] Procedures Procedure Date / Time Performing Source Performed Clinician DC ARTHROCENTESIS ASP/INJ MAJOR 2022-06-26 Stephenie Uriostegui [facility] JOINT/BURSA W/OUT US 17:12:07 EXTERNAL PROVIDER RECORDS 2022-03-11 Doctor [facility] 05:01:00 Unassigned, No [facility] EXTERNAL PROVIDER RECORDS 2022-02-09 [facility] 05:01:00 Unassigned, No [facility] POC GLUCOSE 2022-01-31 Marianna Dodge 21:19:00 Hospital CV RIGHT HEART CATH 2022-01-31 Marianna Dodge 21:00:53 Hospital POC GLUCOSE 2022-01-31 Marianna Dodge 20:09:00 Hospital ESTIMATED GFR 2022-01-31 Marianna Dodge 18:35:00 Hospital POC PANEL 2022-01-31 Marianna Dodgeist 18:35:00 Hospital HC COMPLETE BLD COUNT W/AUTO DIFF 2022-01-31 Marianna Dodgeist 18:31:00 Hospital POC GLUCOSE 2022-01-31 Marianna Dodgeist 17:51:00 Hospital MAGNESIUM LEVEL 2022-01-29 Marianna Dodgeist 15:34:00 Hospital NT-PROBNP 2022-01-29 Marianna Dodge [facility] 15:32:00 Hospital CBC WITH PLATELET AND DIFFERENTIAL 2022-01-17 Marianna oDdgeist 15:32:00 Hospital PROTHROMBIN TIME WITH INR 2022-01-17 Marianna Dodge ist 15:32:00 Hospital BASIC METABOLIC PANEL 2022-01-17 Marianna Dodgeist 15:32:00 Hospital REFERRAL- REQUEST/RESPONSE 2022-01-07 Doctor Pablo rsity of 05:01:00 Unassigned, No [facility] NT-PROBNP 2021-12-31 Marianna Dodgeist 19:48:00 Hospital MAGNESIUM LEVEL 2021-12-31 Marianna Dodge [facility] 19:48:00 Hospital BASIC METABOLIC PANEL 2021-12-31 Marianna Dodgeist 19:48:00 Hospital TTE COMPLETE, WO CONTRAST, W 2021-12-31 Marianna Dodge Met hodist DOPPLER ([id number]) 17:14:53 Hospital EXTERNAL PROVIDER RECORDS 2021-12-18 Doctor Breanne sity of :01:00 Unassigned, No [facility] CBC WITH PLATELET AND DIFFERENTIAL 2021-12-12 Marianna Dodgeist 16:22:00 Hospital B NATRIURETIC PEPTIDE 2021-12-12 Marianna Dodgeist 16:22:00 Hospital MAGNESIUM LEVEL 2021-12-12 Marianna Dodgeist 16:22:00 Hospital BASIC METABOLIC PANEL 2021-12-12 Marianna Dodgeist 16:21:00 Hospital ECG 12-LEAD 2021-11-27 Marianna Dodgeist 21:14:30 Hospital POC GLUCOSE 2021-09-13 Catrachito Watermanist 18:29:00 Hospital XR CHEST 1 VW PORTABLE 2021-09-13 Marli Mccoy 18:21:20 [facility] POC GLUCOSE 2021-09-13 Catrachito Waterman 14:09:00 Hospital POC GLUCOSE 2021-09-13 Catrachito Waterman 00:19:00 Hospital POC GLUCOSE 2021-09-12 Catrachito Watermanist 18:29:00 Hospital HC COMPLETE BLD COUNT W/AUTO DIFF 2021-09-12 Brady Woods 16:11:00 [facility] BASIC METABOLIC PANEL 2021-09-12 Gerard Woods 16:11:00 [facility] ESTIMATED GFR 2021-09-12 Gerard Woods 16:11:00 [facility] POC GLUCOSE 2021-09-12 Catrachito Waterman 15:53:00 Hospital XR CHEST 1 VW PORTABLE 2021-09-12 Marli Mccoy 13:29:00 [facility] POC GLUCOSE 2021-09-12 Catrachito Waterman 02:24:00 Hospital POC GLUCOSE 2021-09-11 Catrachito Waterman 23:13:00 Hospital CV PYP SCAN FOR CARDIAC 2021-09-11 Enrique Alcala AMYLOIDOSIS 21:54:58 [facility] POC GLUCOSE 2021-09-11 Catrachito Waterman 19:32:00 Hospital PARTIAL THROMBOPLASTIN TIME (PTT) 2021-09-11 Niya Calvillo 18:11:00 [facility] PROTHROMBIN TIME WITH INR 2021-09-11 Dutch Calvillot 18:11:00 [facility] XR CHEST 1 VW PORTABLE 2021-09-11 Marli Mccoy 15:21:00 [facility] POC GLUCOSE 2021-09-11 Rodriguez Jean 13:53:00 Hospital URINE CULTURE 2021-09-11 Rodriguez Jean 02:01:00 Hospital POC GLUCOSE 2021-09-11 Rodriguez Jean 01:58:00 Hospital ECG PRE/POST OP 2021-09-11 Ivette Andrew 01:43:24 Hospital XR CHEST 1 VW PORTABLE 2021-09-11 Ivette Andrew 01:16:01 [facility] URINALYSIS SCREEN AND MICROSCOPY, 2021-09-11 Rodriguez Jean WITH REFLEX TO CULTURE 00:32:00 [facility] POC GLUCOSE 2021-09-11 Rodriguez Jean 00:01:00 [facility] EP PACEMAKER INSERTION NEW OR 2021-09-10 Me Karli thodist REPLACEMENT 23:30:56 [facility] CV RIGHT HEART CATH 2021-09-10 Niya Calvillo 23:30:56 [facility] POC GLUCOSE 2021-09-10 Niya Reddy 18:57:00 [facility] XR CHEST 1 VW PORTABLE 2021-09-10 Marli Mccoy 15:13:00 [facility] POC GLUCOSE 2021-09-10 Niya Reddy 14:29:00 [facility] HC COMPLETE BLD COUNT W/AUTO DIFF 2021-09-10 Marli Mccoy 11:51:00 [facility] COMPREHENSIVE METABOLIC PANEL 2021-09-10 Marli Mccoy thodist 11:51:00 [facility] PARTIAL THROMBOPLASTIN TIME (PTT) 2021-09-10 Marianna Dodge 11:51:00 [facility] ESTIMATED GFR 2021-09-10 Niya Reddy 11:51:00 [facility] POC GLUCOSE 2021-09-10 Niya Reddy 00:19:00 [facility] POC GLUCOSE 2021-09-09 Niya Reddy 19:32:00 [facility] COVID-19 QUALITATIVE RT-PCR 2021-09-09 Sabas Calvillo 18:46:00 [facility] POC GLUCOSE 2021-09-09 Niya Reddy 18:31:00 [facility] XR CHEST 1 VW PORTABLE 2021-09-09 Marli Mccoy 14:13:38 [facility] POC GLUCOSE 2021-09-09 Niya Reddy 13:42:00 [facility] HC COMPLETE BLD COUNT W/AUTO DIFF 2021-09-09 Marli Mccoy 08:49:00 [facility] COMPREHENSIVE METABOLIC PANEL 2021-09-09 Marli Mccoy thodist 08:49:00 [facility] PARTIAL THROMBOPLASTIN TIME (PTT) 2021-09-09 Marianna Dodge 08:49:00 [facility] B NATRIURETIC PEPTIDE 2021-09-09 Niya Alcala 08:49:00 [facility] ESTIMATED GFR 2021-09-09 Niya Reddy 08:49:00 [facility] POC GLUCOSE 2021-09-09 Niya Reddy 03:01:00 [facility] POC GLUCOSE 2021-09-09 Niya Reddy 00:04:00 [facility] ECG 12-LEAD 2021-09-08 Niya Alcala 22:37:24 [facility] POC GLUCOSE 2021-09-08 Niya Reddy 16:47:00 [facility] POC GLUCOSE 2021-09-08 Niya Reddy 13:18:00 [facility] XR CHEST 1 VW PORTABLE 2021-09-08 Marli Mccoy 11:50:24 [facility] HC COMPLETE BLD COUNT W/AUTO DIFF 2021-09-08 Marli Mccoy 10:12:00 [facility] COMPREHENSIVE METABOLIC PANEL 2021-09-08 Marli Mccoyodist 10:12:00 [facility] ESTIMATED GFR 2021-09-08 Niya Reddy 10:12:00 [facility] PARTIAL THROMBOPLASTIN TIME (PTT) 2021-09-08 Niya Reddy 05:12:00 [facility] POC GLUCOSE 2021-09-08 Niya Reddy 02:19:00 [facility] PARTIAL THROMBOPLASTIN TIME (PTT) 2021-09-07 Niya Irizarry 23:19:00 [facility] POC GLUCOSE 2021-09-07 Niya Reddy 23:11:00 [facility] POC GLUCOSE 2021-09-07 Niya Reddy 17:21:00 [facility] B NATRIURETIC PEPTIDE 2021-09-07 Gerard Woods 16:05:00 [facility] CBC HEMOGRAM 2021-09-07 Gerard Woods 15:55:00 [facility] PARTIAL THROMBOPLASTIN TIME (PTT) 2021-09-07 Marianna Dodge [facility] 15:55:00 [facility] XR ABDOMEN 1 VW PORTABLE 2021-09-07 Wick, Alfred Sabaso dist 15:35:00 [facility] POC GLUCOSE 2021-09-07 Niya Reddy 13:30:00 [facility] XR CHEST 1 VW PORTABLE 2021-09-07 Marli Mccoy 11:51:40 [facility] BASIC METABOLIC PANEL 2021-09-07 Haris Naeem Giannidaniel Juddis t 08:17:00 Hospital CBC HEMOGRAM 2021-09-07 Naeem Carballo 08:17:00 Hospital HEPATIC FUNCTION PANEL 2021-09-07 Haris, Naeem Juddi st 08:17:00 Hospital PROTHROMBIN TIME WITH INR 2021-09-07 Haris Naeemraphael Archer Meth odist 08:17:00 Hospital MAGNESIUM LEVEL 2021-09-07 Haris, Naeem Gianni [facility] 08:17:00 Hospital PARTIAL THROMBOPLASTIN TIME (PTT) 2021-09-07 Marli Mccoy 08:17:00 [facility] ESTIMATED GFR 2021-09-07 Niya eRddy 08:17:00 [facility] POC GLUCOSE 2021-09-07 Niya Reddy 02:21:00 [facility] HC COMPLETE BLD COUNT W/AUTO DIFF 2021-09-06 Brady Woods 23:52:00 [facility] BASIC METABOLIC PANEL 2021-09-06 Gerard Woods 23:52:00 [facility] LACTIC ACID LEVEL 2021-09-06 Gerard Woods 23:52:00 [facility] PARTIAL THROMBOPLASTIN TIME (PTT) 2021-09-06 rBady Woods 23:52:00 [facility] PROTHROMBIN TIME WITH INR 2021-09-06 Gerard Woodst 23:52:00 [facility] ESTIMATED GFR 2021-09-06 Gerard Woods 23:52:00 [facility] XR CHEST 1 VW PORTABLE 2021-09-06 Gerard Woods 22:40:00 [facility] POC GLUCOSE 2021-09-06 Niya Reddy 22:30:00 [facility] POC GLUCOSE 2021-09-06 Niya Reddy 20:12:00 [facility] EP TEMPORARY LEAD INSERTION 2021-09-06 Marianna Dodge Meth odist 19:37:13 Hospital CV ANGIOGRAM PULMONARY ARTERY RADHA 2021-09-06 Marianna Dodge [facility] 19:37:13 Hospital POC GLUCOSE 2021-09-06 Niya Reddy 14:10:00 [facility] BASIC METABOLIC PANEL 2021-09-06 Haris, Naeem Gianni Methodis t 10:03:00 Hospital CBC HEMOGRAM 2021-09-06 Haris, Naeem Gianni [facility] 10:03:00 Hospital HEPATIC FUNCTION PANEL 2021-09-06 Haris, Naeem Gianni [facility] 10:03:00 Hospital MAGNESIUM LEVEL 2021-09-06 Haris, Naeem Gianni [facility] 10:03:00 Hospital PARTIAL THROMBOPLASTIN TIME (PTT) 2021-09-06 Brady Woods 10:03:00 [facility] ESTIMATED GFR 2021-09-06 Niya Reddy 10:03:00 [facility] PROTHROMBIN TIME WITH INR 2021-09-06 Gerard Woods ist 10:03:00 [facility] POC GLUCOSE 2021-09-06 Niya Reddy 02:58:00 [facility] PARTIAL THROMBOPLASTIN TIME (PTT) 2021-09-06 Brady Woods 02:50:00 [facility] POC GLUCOSE 2021-09-05 Niya Reddy 22:01:00 [facility] PARTIAL THROMBOPLASTIN TIME (PTT) 2021-09-05 Niya Reddy 17:35:00 [facility] POC GLUCOSE 2021-09-05 Niya Reddy 17:35:00 [facility] POC GLUCOSE 2021-09-05 Niya Reddy 13:39:00 [facility] XR CHEST 1 VW PORTABLE 2021-09-05 Gerard Woodsist 13:10:00 [facility] ARTERIAL BLOOD GAS 2021-09-05 Sirena Hartley [facility] 10:25:00 Hospital BASIC METABOLIC PANEL 2021-09-05 Haris, Naeem Gianni Methodis t 09:56:00 Hospital CBC HEMOGRAM 2021-09-05 Haris, Naeem Gianni [facility] 09:56:00 Hospital HEPATIC FUNCTION PANEL 2021-09-05 Haris, Naeem Gianni [facility] 09:56:00 Hospital PROTHROMBIN TIME WITH INR 2021-09-05 Haris, Naeem Gianni Meth odist 09:56:00 Hospital MAGNESIUM LEVEL 2021-09-05 Haris, Naeem [facility] 09:56:00 Hospital PARTIAL THROMBOPLASTIN TIME (PTT) 2021-09-05 Kelly Woodsist 09:56:00 [facility] ESTIMATED GFR 2021-09-05 Niya Reddy 09:56:00 [facility] POC GLUCOSE 2021-09-05 Niya Reddy 03:09:00 [facility] POC GLUCOSE 2021-09-04 Niya Reddy 23:52:00 [facility] US DUPLEX VENOUS LOWER EXTREMITY 2021-09-04 Cristo Torresist BILATERAL 20:40:00 Hospital URINE PROTEIN ELECTROPHORESIS, 2021-09-04 Marianna Dodge M ethodist RANDOM 17:49:00 Hospital POC GLUCOSE 2021-09-04 Dutch Reddyist 13:43:00 [facility] BASIC METABOLIC PANEL 2021-09-04 Haris, Naeem Gianni Methodis t 08:17:00 Hospital CBC HEMOGRAM 2021-09-04 Haris, Naeem Gianni [facility] 08:17:00 Hospital HEPATIC FUNCTION PANEL 2021-09-04 Haris, Naeem Gianni [facility] 08:17:00 Hospital PROTHROMBIN TIME WITH INR 2021-09-04 Haris, Naeem Gianni Meth odist 08:17:00 Hospital PARTIAL THROMBOPLASTIN TIME (PTT) 2021-09-04 Naeem Carballo 08:17:00 Hospital MAGNESIUM LEVEL 2021-09-04 Naeem Carballo 08:17:00 Hospital B NATRIURETIC PEPTIDE 2021-09-04 Cristo Torres 08:17:00 Hospital TROPONIN T 2021-09-04 Marianna Dodge 08:17:00 [facility] SERUM ELECTROPHORESIS 2021-09-04 Marianna Dodge 08:17:00 [facility] KAPPA LAMBDA FREE LIGHT CHAIN WITH 2021-09-04 Marianna Dodge RATIO 08:17:00 [facility] THYROID STIMULATING HORMONE 2021-09-04 Rudi Lake Meth odist 08:17:00 [facility] ESTIMATED GFR 2021-09-04 Niya Reddy 08:17:00 [facility] IMMUNOFIXATION, SERUM 2021-09-04 Marianna Dodge 08:17:00 [facility] ECG 12-LEAD 2021-09-04 Rudi Lkae 06:02:08 [facility] POC GLUCOSE 2021-09-04 Niya Reddy 03:08:00 [facility] POC GLUCOSE 2021-09-03 Niya Reddy 23:40:[address] [facility] [address] HEAD WO CONTRAST 2021-09-03 Gerard Woods 23:21:35 [facility] NM LUNG PERFUSION IMAGING 2021-09-03 Cristo Torres Method ist 20:07:52 [facility] POC GLUCOSE 2021-09-03 Niya Reddy 19:45:00 [facility] CV MRI CONGENITAL HEART DISEASE 2021-09-03 Cristo Torres SHUNT EVAL W CONTRAST 18:39:50 Hospital CV MRI FUNCTION VIABILITY CHF 2021-09-03 Naeem Carballo EVALUATION 18:39:27 [facility] POC GLUCOSE 2021-09-03 Niya Reddy 13:42:00 [facility] BASIC METABOLIC PANEL 2021-09-03 Naeem Carballo t 11:27:00 Hospital CBC HEMOGRAM 2021-09-03 Naeem Carballo 11:27:00 Hospital HEPATIC FUNCTION PANEL 2021-09-[address] 11:27:00 Hospital PROTHROMBIN TIME WITH INR 2021-09-03 Naeem Carballo Meth odist 11:27:00 Hospital PARTIAL THROMBOPLASTIN TIME (PTT) 2021-09-03 Ricardo Carballoed Ad eel [facility] 11:27:00 Hospital MAGNESIUM LEVEL 2021-09-03 Naeem Carballo Gianni [facility] 11:27:00 Hospital B NATRIURETIC PEPTIDE 2021-09-03 Cristo Torres [facility] 11:27:00 Hospital ESTIMATED GFR 2021-09-03 Niya Reddy 11:27:00 [facility] POC GLUCOSE 2021-09-03 Niya Reddy 04:22:00 [facility] POC GLUCOSE 2021-09-02 Niya Reddy 22:59:00 [facility] RESPIRATORY PATHOGEN PANEL WITH 2021-09-02 Naeem Carballo COVID-19 RT-PCR 22:40:00 Hospital VENOUS BLOOD GAS 2021-09-02 Naeem Carballo [facility] 22:40:00 Hospital BASIC METABOLIC PANEL 2021-09-02 Naeem Carballois t 22:39:00 Hospital B NATRIURETIC PEPTIDE 2021-09-02 Naeem Carballo Methodis t 22:39:00 Hospital HC COMPLETE BLD COUNT W/AUTO DIFF 2021-09-02 Naeem Carballo Ad e[facility] 22:39:00 Hospital THYROID STIMULATING HORMONE 2021-09-02 Naeem Carballo Me thodist 22:39:00 Hospital HEPATIC FUNCTION PANEL 2021-09-[address] 22:39:00 Hospital PROTHROMBIN TIME WITH INR 2021-09-02 Naeem Carballo Meth odist 22:39:00 Hospital PARTIAL THROMBOPLASTIN TIME (PTT) 2021-09-02 Ricardo Carballoed Ad e[facility] 22:39:00 Hospital LACTIC ACID LEVEL 2021-09-02 Naeem Carballo Gianni [facility] 22:39:00 Hospital ESTIMATED GFR 2021-09-02 Niya Reddy 22:39:00 [facility] POC GLUCOSE 2021-09-02 Niya Reddy 21:58:00 [facility] POC GLUCOSE 2021-09-02 Niya Reddy 17:47:00 [facility] XR CHEST 1 VW PORTABLE 2021-09-[address] 16:07:00 Hospital ECG 12-LEAD 2021-09-02 Naeem Carballo 15:40:35 [facility] POC GLUCOSE 2021-09-02 Niya Reddy 15:38:00 [facility] POC GLUCOSE 2021-09-02 Niya Reddy 13:38:00 [facility] COVID-19 ANTI-SPIKE IGG ANTIBODY 2021-09-02 Vishnu Banks TITER 10:10:00 [facility] BASIC METABOLIC PANEL 2021-09-02 Naeem Carballo t 10:10:00 Hospital [facility] HEMOGRAM 2021-09-02 Naeem Carballo 10:10:00 Hospital HEPATIC FUNCTION PANEL 2021-09-[address] 10:10:00 Hospital PROTHROMBIN TIME WITH INR 2021-09-02 Naeem Carballo Meth rosetteist 10:10:00 Hospital PARTIAL THROMBOPLASTIN TIME (PTT) 2021-09-02 Naeem Carballo Ad eel Orthodox 10:10:00 Hospital MAGNESIUM LEVEL 2021-09-02 Naeem Carballo 10:10:00 Hospital B NATRIURETIC PEPTIDE 2021-09-02 Cristo Torresist 10:10:00 Hospital COVID-19 SEROLOGY PATIENT 2021-09-02 Vishnu Banks ist SURVEILLANCE 10:10:00 [facility] LACTIC ACID LEVEL, SEPSIS - NOW 2021-09-02 Hunter Potter AND REPEAT 2X EVERY 3 HOURS 10:10:00 [facility] ESTIMATED GFR 2021-09-02 Niya Reddy 10:10:00 [facility] THYROID STIMULATING HORMONE 2021-09-02 Vishnu Banks Meth rosetteist 10:10:00 [facility] LACTIC ACID LEVEL 2021-09-02 Niya Reddy 07:09:00 [facility] URINE CULTURE 2021-09-02 Hunter Potter 06:27:00 [facility] LACTIC ACID LEVEL, SEPSIS - NOW 2021-09-02 Hunter Potter AND REPEAT 2X EVERY 3 HOURS 04:00:00 [facility] ital PROCALCITONIN 2021-09-02 Erick Potterhemma Orthodox 04:00:00 [facility] BLOOD CULTURE, AEROBIC & ANAEROBIC 2021-09-02 Erick Potterhemm a Orthodox 03:59:00 [facility] URINALYSIS SCREEN AND MICROSCOPY, 2021-09-02 Erick Potterhemtyson Veloz WITH REFLEX TO CULTURE 03:49:00 [facility] POC GLUCOSE 2021-09-02 Niya Reddy 03:11:00 [facility] ANTINUCLEAR ANTIBODIES (CORIE) WITH 2021-09-01 Cristo Torres REFLEX TO TITER AND PATTERN, 23:29:00 [facility] pital IMMUNOFLUORESCENCE CENTROMERE ANTIBODY 2021-09-01 Cristo Torres 23:29:00 [facility] CYCLIC CITRULLINATED PEPTIDE AB, 2021-09-01 Cristo Torres IGG 23:29:00 [facility] DOUBLE-STRANDED DNA (DSDNA) 2021-09-01 Cristo Torres Meth odist ANTIBODIES, CRITHIDIA 23:29:00 [facility] SS-B ANTIBODY 2021-09-01 Cristo Torres 23:29:00 [facility] RHEUMATOID FACTOR 2021-09-01 Cristo Torres 23:29:00 [facility] CORIE TITER 2021-09-01 Cristo Torres 23:29:00 [facility] POC GLUCOSE 2021-09-01 Niya Reddy 23:29:00 [facility] POC GLUCOSE 2021-09-01 Niya Reddy 17:38:00 [facility] TTE COMPLETE, W CONTRAST, W 2021-09-01 Naeem Carballo thodist DOPPLER ([id number]) 15:00:00 [facility] POC GLUCOSE 2021-09-01 Niya Reddy 13:46:00 [facility] BASIC METABOLIC PANEL 2021-09-01 Ricardo Carballoed Gianni Methodis t 10:35:00 Hospital CBC HEMOGRAM 2021-09-01 Ricardo Carballoed Gianni Orthodox 10:35:00 Hospital HEPATIC FUNCTION PANEL 2021-09-01 Haris, Naeem Gianni [facility]i [facility] 10:35:00 Hospital PROTHROMBIN TIME WITH INR 2021-09-01 Haris Naeem Gianni Meth odist 10:35:00 Hospital PARTIAL THROMBOPLASTIN TIME (PTT) 2021-09-01 Ricardo Carballoed Ad eel Orthodox 10:35:00 Hospital MAGNESIUM LEVEL 2021-09-01 Haris Naeem Gianni Orthodox 10:35:00 Hospital ESTIMATED GFR 2021-09-01 Niya Reddy 10:35:00 [facility] POC GLUCOSE 2021-09-01 Niya Reddy 03:35:[address] [facility] [address] CHEST WO CONTRAST 2021-09-01 Naeem Carballo 02:49:24 [facility] XR CHEST 1 VW PORTABLE 2021-09-[address] 00:41:28 Hospital PROTHROMBIN TIME WITH INR 2021-08-31 Naeem Carballoel Meth odist 23:40:00 Hospital MAGNESIUM LEVEL 2021-08-31 Haris Naeem Gianni Orthodox 23:40:00 Hospital LIPID PANEL 2021-08-31 Haris Naeem Gianni Orthodox 23:40:00 Hospital THYROID STIMULATING HORMONE 2021-08-31 Naeem Carballo Me thodist 23:40:00 Hospital COMPREHENSIVE METABOLIC PANEL 2021-08-31 Ricardo Carballoed Gianni Orthodox 23:40:00 Hospital B NATRIURETIC PEPTIDE 2021-08-31 Naeem Carballo Gianni Methodis t 23:40:00 Hospital HC COMPLETE BLD COUNT W/AUTO DIFF 2021-08-31 Ricardo Carballoed Ad eel Orthodox 23:40:00 Hospital ESTIMATED GFR 2021-08-31 Niya Reddy 23:40:00 [facility] BILIRUBIN DIRECT 2021-08-31 Niya Reddy 23:40:00 [facility] POC GLUCOSE 2021-08-31 Niya Reddy 23:38:00 [facility] POC GLUCOSE 2021-08-31 Niya Reddy 19:33:00 [facility] POC GLUCOSE 2021-08-31 Niya Reddy 15:29:00 [facility] ANESTHESIA OTILIA 2021-08-31 Niya Bronson 15:06:26 [facility] PA CATHETER 2021-08-31 Niya Bronson 15:05:19 [facility] CENTRAL LINE 2021-08-31 Niya Bronson 15:03:51 [facility] POC ARTERIAL BLOOD GAS, CORRECTED 2021-08-31 Niya Reddy AND LYTES 14:17:00 [facility] ACTIVATED CLOTTING TIME 2021-08-31 Enrique Reddy t 14:16:00 [facility] ARTERIAL LINE 2021-08-31 Niya Bronson 13:54:42 [facility] DC AN ELECTIVE ENDOTRACHEAL AIRWAY 2021-08-31 Emmanuel anNiya 13:46:00 [facility] POC GLUCOSE 2021-08-31 Niya Reddy 12:54:00 [facility] URINE CULTURE 2021-08-28 Merari Flynn Orthodox 02:17:00 [facility] TYPE AND SCREEN 2021-08-28 Niya Reddy 01:31:00 [facility] COVID-19 QUALITATIVE RT-PCR 2021-08-28 Sabas Reddy odist 00:51:00 [facility] PROTHROMBIN TIME WITH INR 2021-08-28 Merari Flynn Metho dist 00:51:00 [facility] PARTIAL THROMBOPLASTIN TIME (PTT) 2021-08-28 Shadi Richards Sta cy Orthodox 00:51:00 [facility] HEMOGLOBIN A1C 2021-08-28 Shadi Richards Merari Orthodox 00:51:00 [facility] URINALYSIS SCREEN AND MICROSCOPY, 2021-08-28 Shadi Richards Sta josselin Veloz WITH REFLEX TO CULTURE 00:51:00 [facility] LIPID PANEL 2021-08-28 FarberMerari Richards Orthodox 00:51:00 [facility] HC COMPLETE BLD COUNT W/AUTO DIFF 2021-08-27 Tono Wilcoxist 19:50:00 [facility] COMPREHENSIVE METABOLIC PANEL 2021-08-27 Tono Wilcox Tn thodist 19:50:00 Hospital FERRITIN LEVEL 2021-08-27 Tono Wilcox 19:50:00 Hospital TOTAL IRON BINDING CAPACITY 2021-08-27 Tod Tono Meth odist 19:50:00 Hospital ESTIMATED GFR 2021-08-27 Tono Wilcox 19:50:00 Hospital POC GLUCOSE 2021-08-09 Monty Campos 18:13:00 [facility] ESOPHAGOGASTRODUODENOSCOPY (EGD) 2021-08-09 Miriam Campos 17:57:00 [facility] POC GLUCOSE 2021-08-09 Monty Campos 17:46:00 [facility] COVID-19 QUALITATIVE RT-PCR 2021-08-08 Monty Camposist 15:45:00 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 Repair of rectocele [facility] Shoulder repair [facility] Plan of Care Planned Activity Planned Date Details Comments Source Future Scheduled 2022-07-24 65+ P[facility]UMOCOCCAL [facility] 04:00:18 VACCINE (1 - PCV) [code = 65+ PNEUMOCOCCAL VACCINE (1 - PCV)] Future Scheduled 2022-07-24 DIABETES: RETINAL EYE [facility] Test 04:00:18 EXAM [code = DIABETES: RETINAL EYE EXAM] Future Scheduled 2022-07-24 DIABETIC FOOT EXAM [facility] Test 04:00:18 [code = DIABETIC FOOT EXAM] Future Scheduled 2022-07-24 URINE MICROALBUMIN [facility] Test 04:00:18 [code = URINE MICROALBUMIN] Future Scheduled 2022-07-24 Hepatitis C screening [facility] Test 04:00:18 (procedure) [code = 185123463] Future Scheduled 2022-07-24 SHINGLES VACCINES (1 Met [facility] Test 04:00:18 of 2) [code = SHINGLES VACCINES (1 of 2)] Future Scheduled 2022-07-24 HEPATITIS B VACCINES [facility] Test 04:00:18 (1 of 3 - Risk 3-dose series) [code = HEPATITIS B VACCINES (1 of 3 - Risk 3-dose series)] Future Scheduled 2022-07-24 COVID-19 VACCINE (3 - [facility] Test 04:00:18 Booster for Moderna series) [code = COVID-19 VACCINE (3 - Booster for Moderna series)] Future Scheduled 2022-07-24 INFLUENZA VACCINE [facility] Test 04:00:18 [code = INFLUENZA VACCINE] Encounters Start End Encounter Admission Attending Care Care Encounter Source Date/Time Date/Time Type Type Clinicians Facility Department ID 2021-07-20 Outpatient BRIGETTE [facility] [id number] 18:39:25 TORI coreas [facility] 2021-03-05 Outpatient [facility] [id number] [place] 11:48:50 [facility] 2020-12-06 Inpatient [facility] [id number] [facility] 02:23:00 79 2020-12-06 Inpatient Urgent Frankie Fiore [facility] Medical [id number] [facility] 00:00:00 Service 79 2022-07-15 2022-07-15 Telephone Kamara, 1.2.840.1 [id number] 2100 [id number] Methodi 00:00:00 00:00:[address] 3.430.2.7 Hospit a .3.294743 l .8 2022-06-26 2022-06-26 Office GilaSALVADOR 1.2.618.341 [id number] [place] 11:00:00 12:57:23 Visit Elier DE LA GARZA 350.1.13.58 [facility] 9.2.7.2.686 ORTHOPEDI [id number] LUDIN - BHAVANA 1 2022-06-26 2022-06-26 Outpatient [facility] [id number] [place] 11:00:00 11:00:00 [facility] 2022-06-10 2022-06-10 Marianna Randall 1.2.840.1 [id number] Methodi 00:00:00 00:00:[address] 3.430.2.7 Hospit a .3.512940 l .8 2022-06-07 2022-06-07 Refill [facility] 1.2.840.114 [id number] Univers 00:00:00 00:00:00 [facility] 350.1.13.10 it y of [place] 4.2.7.2.686 Javier as KAMRAN?BLEA [id number] [address] OFFICE [facility] 2022-04-10 2022-04-10 Refill [facility] 1.2.840.114 [id number] Univers 00:00:00 00:00:00 [facility] 350.1.13.10 it y of [facility] 4.2.7.2.686 Javier as KAMRAN?BLEA [phone] [address] OFFICE [facility] 2022-03-19 2022-03-19 Telephone Marianna Dodge 1.2.840.1 [id number] 2100 [id number] Methodi 00:00:00 00:00:[address] 3.430.2.7 Hospit a .3.058242 l .8 2022-03-12 2022-03-12 Telephone Marianna Dodge 1.2.840.1 [id number] 2100 [id number] Methodi 16:20:00 16:40:00 Consult Shari 68552.1.[address] 3.430.2.7 Hospit a .3.664061 l .8 2022-03-12 2022-03-12 Outpatient MARIANNA DODGE [facility] [id number] [place] 00:00:00 00:00:[address] 2022-03-11 2022-03-11 Orders Doctor PARHAM 1.2.840.114 [id number] Univers 00:00:00 00:00:00 Only Unassigned, DINAH 350.1.13.10 ity of [place] [facility] 4.2.7.2.686 Javier as [phone] [address] 2022-02-20 2022-02-20 Refill Marianna Dodge 1.2.840.1 [id number] Methodi 00:00:00 00:00:[address] 3.430.2.7 Hospit a .3.864204 l .8 2022-02-15 2022-02-15 Telephone Marianna Dodge 1.2.840.1 [id number] 2099 [id number] Methodi 00:00:00 00:00:[address] 3.430.2.7 Hospit a .3.924541 l .8 2022-02-15 2022-02-15 Refill Lupe 1.2.840.1 [id number] 4962 Methodi 00:00:00 00:00:[address] 3.430.2.7 Hospit a .3.013775 l .8 2022-02-12 2022-02-12 Orders Nathaniel 1.2.840.1 [id number] 2099 [id number] Methodi 00:00:00 00:00:00 Only Mercedes 65641.1.[address] 3.430.2.7 Hospit a .3.273908 l .8 2022-02-11 2022-02-11 Telephone Andrade, 1.2.840.1 [id number] 2099 [id number] Methodi 00:00:00 00:00:[address] 3.430.2.7 Hospit a .3.297304 l .8 2022-02-10 2022-02-10 Refill Johanne [facility] 1.2.840.114 [id number] Univers 00:00:00 00:00:00 [facility]KICKZ [facility] 350.1.13.10 itDanette 4.2.7.2.686 Javier as KAMRAN?BLEA [phone] Tn yolanda [address] MEDICAL OFFICE BUILDING 2022-02-09 2022-02-09 Orders Doctor PARHAM 1.2.840.114 [id number] Univers 00:00:00 00:00:00 Only Unassigned, DINAH 350.1.13.10 ity of [place] [facility] 4.2.7.2.686 Javier as [phone] [address] 2022-02-06 2022-02-06 Telephone Marianna Dodge 1.2.840.1 [id number] 2100 [id number] Methodi 00:00:00 00:00:[address] 3.430.2.7 Hospit a .3.046730 l .8 2022-02-03 2022-02-03 [facility] 1.2.840.114 [id number] Univers 00:00:00 00:00:00 [facility] 350.1.13.10 ity of [place] 4.2.7.2.686 Javier as KAMRAN?BLEA [id number] [address] MEDICAL OFFICE [facility] 2022-01-31 2022-01-31 [facility] Marianna Dodge 1.2.840.1 [id number] Methodi 12:14:00 16:50:00 Encounter Shari 49411.1.[address] 3.430.2.7 Hospit a .3.181445 l .8 2022-01-31 2022-01-31 Surgery Marianna Dodge 1.2.840.1 [id number] 6452 Methodi 15:25:00 16:30:[address] 3.430.2.7 Hospit a .3.851173 l .8 2022-01-31 2022-01-31 Outpatient MARIANNA DODGE [facility] [id number] 101 [place] 00:00:00 00:00:[address] 2022-01-30 2022-01-30 Orders Marianna Dodge 1.2.840.1 [id number] Methodi 00:00:00 00:00:00 Only Shari 79557.1.[address] 3.430.2.7 Hospit a .3.428767 l .8 2022-01-30 2022-01-30 Documentat Provider, 1.2.840.1 [id number] Methodi 00:00:00 00:00:00 ion Unknown 71688.1.[address] 3.430.2.7 Hospit a .3.104173 l .8 2022-01-23 2022-01-23 Telephone Echo Marianna 1.2.840.1 [id number] 2099 [id number] Methodi 00:00:00 00:00:[address] 3.430.2.7 Hospit a .3.609479 l .8 2022-01-22 2022-01-22 Telephone Nathaniel 1.2.840.1 [id number] Methodi 00:00:00 00:00:[address] 3.430.2.7 Hospit a .3.263629 l .8 2022-01-21 2022-01-21 Travel 1.2.840.1 1.2.919.508 2063 [id number] Methodi 00:00:00 00:00:[address] 3.430.2.7 0.2.7.3.698 Ho spita .3.414205 084.8 l .8 2022-01-17 2022-01-17 Telephone Nathaniel 1.2.840.1 [id number] 21 [id number] Methodi 00:00:00 00:00:[address] 3.430.2.7 Hospit a .3.257453 l .8 2022-01-16 2022-01-16 Travel 1.2.840.1 1.2.164.908 2875 146619 Methodi 00:00:00 00:00:[address] 3.430.2.7 0.2.7.3.698 Ho spita .3.391992 084.8 l .8 2022-01-14 2022-01-14 Telephone Echo Marianna 1.2.840.1 [id number] 2099 [id number] Methodi 00:00:00 00:00:[address] 3.430.2.7 Hospit a .3.936986 l .8 2022-01-14 2022-01-14 Telephone Nathaniel 1.2.840.1 [id number] 21 [id number] Methodi 00:00:00 00:00:[address] 3.430.2.7 Hospit a .3.156811 l .8 2021-12-31 2022-01-08 Office Marianna Dodge 1.2.840.1 [id number] 7267 Methodi 13:40:00 15:22:06 Visit Shari 70704.1.[address] 3.430.2.7 Hospit a .3.471604 l .8 2022-01-07 2022-01-07 Refkeara Whiting [facility] 1.2.840.114 [id number] [facility] 00:00:00 00:00:00 [facility] 350.1.13.10 ity of [place] 4.2.7.2.686 Javier as PROFESSIO [phone] [facility] [address] OFFICE [facility] ONE 2022-01-07 2022-01-07 Orders Doctor PRASAD 1.2.840.114 [id number] [facility] 00:00:00 00:00:00 Only Unassigned, DINAH 350.1.13.10 ity of [place] [facility] 4.2.7.2.686 Javier as [phone] [address] 2021-12-31 2021-12-31 Outpatient ECHO MARIANNA [facility] [id number] 793 [place] 00:00:00 00:00:[address] 2021-12-31 2021-12-31 Outpatient ECHO MARIANNA [facility] [id number] 793 [place] 00:00:00 00:00:[address] 2021-12-31 2021-12-31 Outpatient ECHO MARIANNA [facility] [id number] [place] 00:00:00 00:00:[address] 2021-12-31 2021-12-31 Travel 1.2.840.1 1.2.587.178 1845 [id number] Methodi 00:00:00 00:00:[address] 3.430.2.7 0.2.7.3.698 Ho spita .3.387496 084.8 l .8 2021-12-19 2021-12-19 Telephone Marianna Dodge 1.2.840.1 [id number] 2100 [id number] Methodi 00:00:00 00:00:[address] 3.430.2.7 Hospit a .3.686504 l .8 2021-12-18 2021-12-18 Orders Doctor PRASAD 1.2.840.114 [id number] Univers 00:00:00 00:00:00 Only Unassigned, DINAH 350.1.13.10 [facility] 4.2.7.2.686 Javier as [phone] [address] 2021-12-17 2021-12-17 Refill Marianna Dodge 1.2.840.1 [id number] 7702 Methodi 00:00:00 00:00:[address] 3.430.2.7 Hospit a .3.029390 l .8 2021-12-15 2021-12-15 Refill CAROLINA Whiting 1.2.840.114 [id number] [facility] 00:00:00 00:00:00 [facility] 350.1.13.10 ity of [place] 4.2.7.2.686 Javier as PROFESSIO [phone] [facility] [address] [place] OFFICE [facility] ONE 2021-12-13 2021-12-13 Telephone Marianna Dodge 1.2.840.1 [id number] 2099 [id number] Methodi 00:00:00 00:00:[address] 3.430.2.7 Hospit a .3.117053 l .8 2021-12-11 2021-12-11 Telephone Marianna Dodge 1.2.840.1 [id number] 2099 [id number] Methodi 00:00:00 00:00:[address] 3.430.2.7 Hospit a .3.375010 l .8 2021-12-10 2021-12-10 Refill Marianna Dodge 1.2.840.1 [id number] 3236 Methodi 00:00:00 00:00:[address] 3.430.2.7 Hospit a .3.501324 l .8 2021-12-06 2021-12-06 Travel 1.2.840.1 1.2.355.190 7526 026516 Methodi 00:00:00 00:00:[address] 3.430.2.7 0.2.7.3.698 Ho spita .3.187490 084.8 l .8 2021-11-27 2021-11-27 Office Marianna Dodge 1.2.840.1 [id number] 5790 Methodi 15:40:00 16:00:00 Visit Shari 54223.1.[address] 3.430.2.7 Hospit a .3.671921 l .8 2021-11-27 2021-11-27 Outpatient MARIANNA DODGE [facility] [id number] 118 [place] 00:00:00 00:00:[address] 2021-11-27 2021-11-27 Travel 1.2.840.1 1.2.748.582 6194 [id number] Methodi 00:00:00 00:00:[address] 3.430.2.7 0.2.7.3.698 Ho spita .3.234594 084.8 l .8 2021-11-16 2021-11-16 Refkeara Whitnig TXCARLITO 1.2.840.114 [id number] Univers 00:00:00 00:00:00 [facility] 350.1.13.10 ity of [place] 4.2.7.2.686 Javier as PROFESSIO [phone] Tn dical [facility] 044 [facility] ONE 2021-11-12 2021-11-12 RefMarianna Felder 1.2.840.1 [id number] 0560 Methodi 00:00:00 00:00:[address] 3.430.2.7 Hospit a .3.871878 l .8 2021-11-12 2021-11-12 Marianna Randall 1.2.840.1 [id number] Methodi 00:00:00 00:00:[address] 3.430.2.7 Hospit a .3.560170 l .8 2021-10-31 2021-10-31 [facility] 1.2.840.114 [id number] Univers 11:00:00 11:15:00 Visit [facility] 350.1.13.10 it y of [place] 4.2.7.2.686 Javier as KAMRAN?BLEA [id number] [address] MEDICAL OFFICE BUILDING 2021-10-31 2021-10-31 [facility]patient [facility] [id number] Univers 11:00:00 11:00:00 [facility] 2021-10-31 2021-10-31 Outpatient [facility] [id number] Univers 11:00:00 11:00:00 [facility] 2021-10-31 2021-10-31 Orders Doctor PRASAD 1.2.840.114 [id number] Univers 00:00:00 00:00:00 Only Unassigned, HARLAN 350.1.13.10 ity of [facility] 4.2.7.2.686 Javier as [id number] [address] 2021-10-30 2021-10-30 Telemedici Ivette Andrew 1.2.840.1 [id number] Methodi 10:00:00 10:41:[address] 3.430.2.7 Hospit a .3.595825 l .8 2021-10-30 2021-10-30 Outpatient IVETTE ANDREW [facility] 146 [id number] [place] 00:00:00 00:00:[address] 2021-10-19 2021-10-19 Telephone Marianna Dodge 1.2.840.1 [id number] 2100 [id number] Methodi 00:00:00 00:00:[address] 3.430.2.7 Hospit a .3.888425 l .8 2021-10-18 2021-10-18 Telephone Marianna Dodge 1.2.840.1 [id number] 2099 [id number] Methodi 00:00:00 00:00:[address] 3.430.2.7 Hospit a .3.825124 l .8 2021-10-16 2021-10-16 Telephone Marianna Dodge 1.2.840.1 [id number] 2099 [id number] Methodi 00:00:00 00:00:[address] 3.430.2.7 Hospit a .3.145786 l .8 2021-10-12 2021-10-12 Telephone [facility] 1.2.840.1 [id number] Methodi 00:00:00 00:00:00 ris, Carmela 14752.1.1 566 [address] t 3.430.2.7 Hospit a .3.361258 l .8 2021-10-11 2021-10-11 [facility] 1.2.840.1 [id number] Methodi 00:00:00 00:00:00 ris, Carmela 85398.1.1 705 s t 3.430.2.7 Hospit a .3.156758 l .8 2021-10-10 2021-10-10 Cullen Whiting [facility] 1.2.840.114 [id number] Univers 00:00:00 00:00:00 [facility] [facility] 350.1.13.10 ity william [place] 4.2.7.2.686 Javier as PROFESSIO [phone] [address] ONE 2021-10-10 2021-10-10 Telephone Marianna Dodge 1.2.840.1 [id number] 2099 [id number] Methodi 00:00:00 00:00:[address] 3.430.2.7 Hospit a .3.764478 l .8 2021-10-10 2021-10-10 Telephone Echo Marianna 1.2.840.1 [id number] 2100 [id number] Methodi 00:00:00 00:00:[address] 3.430.2.7 Hospit a .3.068026 l .8 2021-10-09 2021-10-09 Office Echo Marianna 1.2.840.1 [id number] 5954 Methodi 15:00:00 16:52:20 Visit Shari 99631.1.[address] 3.430.2.7 Hospit a .3.686088 l .8 2021-10-09 2021-10-09 Outpatient MARIANNA DODGE [facility] [id number] [address] [place] [address] 00:00:00 00:00:[address] 2021-10-08 2021-10-08 Telephone Nathaniel 1.2.840.1 [id number] 21 [id number] Methodi 00:00:00 00:00:[address] 3.430.2.7 Hospit a .3.582766 l .8 2021-10-08 2021-10-08 Travel 1.2.840.1 1.2.095.733 [id number] Methodi 00:00:00 00:00:[address] 3.430.2.7 0.2.7.3.698 spita .3.294165 084.8 l .8 2021-10-05 2021-10-05 Telephone Ivette Andrew 1.2.840.1 [id number] Methodi 00:00:00 00:00:[address] 3.430.2.7 Hospit a .3.144961 l .8 2021-09-28 2021-09-28 Telephone CAROLINA Whiting 1.2.840.114 [id number] [id number] [facility] 00:00:00 00:00:00 Wondiful A HEALTH 350.1.13.10 ity of [place] 4.2.7.2.686 Javier as KAMRAN?BLEA [phone] Tn meghnaluis KELLI [address] [place] [facility] 2021-09-28 2021-09-28 Telephone Arturo, 1.2.840.1 [id number] [id number] Methodi 00:00:00 00:00:[address] 3.430.2.7 Hospit a .3.310547 l .8 2021-09-28 2021-09-28 Orders Delos 1.2.840.1 [id number] 6383 Methodi 00:00:00 00:00:00 Only Rhea, 47927.1.[address] [place] 3.430.2.7 Hosp enrique .3.716975 l .8 2021-09-27 2021-09-27 Telemedici Delos 1.2.840.1 [id number] Methodi 08:40:00 08:40:00 ne Rhea, 18277.1.[address] [place] 3.430.2.7 Hosp enrique .3.811832 l .8 2021-09-27 2021-09-27 Outpatient DELOS [facility] [id number] [address] [place] [address] 00:00:00 00:00:00 RHEA, [address] 2021-09-27 2021-09-27 Documentat Delos 1.2.840.1 [id number] Methodi 00:00:00 00:00:00 ion Rhea, 06123.1.[address] [place] 3.430.2.7 Hosp enrique .3.335329 l .8 2021-09-19 2021-09-19 Cullen Whiting TXCARLITO 1.2.840.114 08785 276 [facility] 00:00:00 00:00:00 Wondiful A HEALTH 350.1.13.10 ity of [place] 4.2.7.2.686 Javier as PROFESSIO [phone] Tn [address] OFFICE BUILDING ONE 2021-09-17 2021-09-17 Telephone Ivette Andrew 1.2.840.1 [id number] Methodi 00:00:00 00:00:[address] 3.430.2.7 Hospit a .3.858584 l .8 2021-09-17 2021-09-17 Patient [place], 1.2.840.1 [id number] Methodi 00:00:00 00:00:00 Outreach Jessica 65502.1.[address] 3.430.2.7 Hospit a .3.959336 l .8 2021-09-17 2021-09-17 Telephone Ivette Andrew 1.2.840.1 [id number] Methodi 00:00:00 00:00:[address] 3.430.2.7 Hospit a .3.621507 l .8 2021-08-31 2021-09-13 [facility] 1.2.840.1 [id number] Methodi 05:13:00 15:02:00 Encounter Rodriguez Jean 10504.1.[address] [facility] 3.430.2.7 Hos mily .3.678620 l .8 2021-08-31 2021-09-13 Inpatient [facility] 060 [id number] 21604 [place] 00:00:00 00:00:[address] 2021-09-10 2021-09-10 Surgery Ivette Andrew 1.2.840.1 [id number] Methodi 15:15:00 17:05:[address] 3.430.2.7 Hospit a .3.987948 l .8 2021-09-06 2021-09-06 Surgery ErikaJayn 1.2.840.1 [id number] 2100 [id number] Methodi 11:45:00 13:35:[address] 3.430.2.7 Hospit a .3.745118 l .8 2021-09-05 2021-09-05 Outpatient RADHA [facility] [id number] Univers 13:00:00 13:00:00 MANUEL coreas [facility] 2021-08-31 2021-08-31 Surgery Maureen 1.2.840.1 [id number] Methodi 07:30:00 14:05:00 , Nancy 92366.1.[address] [place] 3.430.2.7 Hosp enrique .3.077228 l .8 2021-08-31 2021-08-31 Anesthesia Rukhsana-Raimundo Duque 1.2.840.1 [id number] Methodi 07:31:00 09:32:00 Event Merari Flynn 30258.1.[address] 3.430.2.7 Hospit a .3.400188 l .8 2021-08-31 2021-08-31 Travel 1.2.840.1 1.2.738.522 0827 174412 Methodi 00:00:00 00:00:[address] 3.430.2.7 0.2.7.3.698 Ho spita .3.049659 084.8 l .8 2021-08-29 2021-08-29 Telephone Susan 1.2.840.1 [id number] Methodi 00:00:00 00:00:[address] 3.430.2.7 Hospit a .3.227524 l .8 2021-08-27 2021-08-27 Pre-Admiss Maureen 1.2.840.1 [id number] Methodi 16:40:00 17:40:00 Nancy valentin 89687.1.[address] Testing [place] 3.430.2.7 Hosp enrique .3.703160 l .8 2021-08-27 2021-08-27 Infusion Tod, 1.2.840.1 [id number] 56492 Methodi 13:30:00 15:30:[address] 3.430.2.7 Hospit a .3.122117 l .8 2021-08-27 2021-08-27 Outpatient RICE, [facility] [id number] [place] 00:00:00 00:00:00 TONO [address] 2021-08-27 2021-08-27 Outpatient MAUREEN [facility] 684 [id number] [place] 00:00:00 00:00:00 , NANCY [address] 2021-08-27 2021-08-27 Orders Cipriano, 1.2.840.1 [id number] [id number] Methodi 00:00:00 00:00:00 Only Jos 45530.1.[address] 3.430.2.7 Hospit a .3.021180 l .8 2021-08-27 2021-08-27 Travel 1.2.840.1 1.2.917.077 6924 [id number] Methodi 00:00:00 00:00:[address] 3.430.2.7 0.2.7.3.698 Ho spita .3.428706 084.8 l .8 2021-08-24 2021-08-24 Telephone Kamara, 1.2.840.1 [id number] 2100 [id number] Methodi 00:00:00 00:00:[address] 3.430.2.7 Hospit a .3.770840 l .8 2021-08-24 2021-08-24 Orders [place], 1.2.840.1 [id number] 04378 Methodi 00:00:00 00:00:00 Only Ricarda 18308.1.[address] 3.430.2.7 Hospit a .3.139264 l .8 2021-08-22 2021-08-22 Cullen Whiting [facility] 1.2.840.114 [id number] [id number] Univers 00:00:00 00:00:00 [facility] 350.1.13.10 ity of [facility] 4.2.7.2.686 Javier as PROFESSIO [phone] Tn dical NAL 044 [facility] ONE 2021-08-22 2021-08-22 Telephone Susan, 1.2.840.1 [id number] Methodi 00:00:00 00:00:[address] 3.430.2.7 Hospit a .3.766515 l .8 2021-08-21 2021-08-21 [facility] 1.2.840.114 02427 035 Univers 00:00:00 00:00:00 JRKICKZ A [facility] 350.1.13.10 ity of [place] 4.2.7.2.686 Javier as PROFESSIO [phone] Tn dicwy NAL 044 [facility] ONE 2021-08-14 2021-08-14 Telephone [facility], 1.2.840.1 [id number] Methodi 00:00:00 00:00:[address] 3.430.2.7 Hospit a .3.158096 l .8 2021-08-13 2021-08-13 Telephone Susan, 1.2.840.1 [id number] Methodi 00:00:00 00:00:[address] 3.430.2.7 Hospit a .3.973303 l .8 2021-08-09 2021-08-09 [facility] 1.2.840.1 [id number] 2100 [id number] Methodi 10:39:00 13:02:00 Encounter Monty Pinzon50.1.[address] 3.430.2.7 Hospit a .3.268228 l .8 2021-08-09 2021-08-09 [facility], 1.2.840.1 [id number] 21316 97355 Methodi 12:00:00 13:00:00 Monty Pinzon50.1.1 247 s t 3.430.2.7 Hospit a .3.903178 l .8 2021-08-09 2021-08-09 Anesthesia Tristan May 1.2.840.1 [id number] Methodi 11:57:00 12:14:00 Event FrankieToroi 41279.1.[address] 3.430.2.7 Hospit a .3.993322 l .8 2021-08-09 2021-08-09 Outpatient [place] 31537 [id number] 8044 [place] 00:00:00 00:00:00 MONTY Bedoya [facility] i [facility] 2021-08-09 2021-08-09 Travel 1.2.840.1 1.2.947.684 0074 [id number] Methodi 00:00:00 00:00:[address] 3.430.2.7 0.2.7.3.698 spita .3.070114 084.8 l .8 2021-08-08 2021-08-08 [facility] [id number] 4327 [place] 00:00:00 00:00:00 MONTY [address] i [address] 2021-08-07 2021-08-07 Telephone Andres 1.2.840.1 [id number] 845 [id number] Methodi 00:00:00 00:00:00 Monty Hough 95668.1.1 244 s t 3.430.2.7 Hospit a .3.705810 l .8 2021-08-06 2021-08-06 Telephone Susan 1.2.840.1 [id number] Methodi 00:00:00 00:00:[address] 3.430.2.7 Hospit a .3.287631 l .8 2021-07-31 2021-07-31 Telephone SALVADOR Uriostegui 1.2.840.114 12 [id number] [place] 00:00:00 00:00:00 Elier DE LA GARZA 350.1.13.58 Health S 9.2.7.2.686 ORTHOPEDI 917.4448396 CS - BHAVANA 1 2021-07-30 2021-07-30 Office Markus Campos.2.840.1 [id number] 28678 Methodi 15:30:00 16:56:27 Visit Monty Hough 66527.1.1 768 s t 3.430.2.7 Hospit a .3.710033 l .8 2021-07-30 2021-07-30 Outpatient ANDRES [facility] [id number] [place] 00:00:00 00:00:00 MONTY [address] 2021-07-30 2021-07-30 Telephone [facility] 1.2.840.1 [id number] 21 [id number] Methodi 00:00:00 00:00:[address] 3.430.2.7 Hospit a .3.779106 l .8 2021-07-30 2021-07-30 Travel 1.2.840.1 1.2.690.772 7252 942818 Methodi 00:00:00 00:00:[address] 3.430.2.7 0.2.7.3.698 Ho spita .3.462811 084.8 l .8 2021-07-24 2021-07-24 Telephone [facility] 1.2.840.114 88 [id number] [facility] 00:00:00 00:00:00 Tori ZEPEDA 350.1.13.10 i ty of [place].2.[place] PROFESS[place] [phone] Tn dical NAL [address] [place] [address] 2021-07-19 2021-07-19 Telephone [facility] 1.2.840.114 88 [id number] [facility] 00:00:00 00:00:00 Tori ZEPEDA 350.1.13.10 i ty of [place] PROFESS[place] 296.8128924 Tn dical NAL [address] [place] [address] 2021-07-17 2021-07-17 Outpatient [facility] [id number] 472 [place] 00:00:00 00:00:[address] 2021-07-16 2021-07-16 Outpatient [facility] [id number] 406 [place] 00:00:00 00:00:00 TONO 050 Meth[address] 2021-07-16 2021-07-16 Outpatient TOD, [facility] [id number] 406 [place] 00:00:00 00:00:00 TONO 642 Meth[address] di 2021-07-16 2021-07-16 [facility] 1.2.840.114 884 [id number] Univers 00:00:00 00:00:00 [facility] 350.1.13.10 ity of [place] 4.2.7.2.686 Javier as Kamran?Blea [phone] Tn dical [address] Office Building 2021-07-11 2021-07-11 [facility] 1.2.840.114 [id number] 722 [facility] 00:00:00 00:00:00 [facility] 350.1.13.10 ity of [place] 4.2.7.2.686 Javier as Professio [phone] Tn meghna[address] 2021-07-10 2021-07-10 Outpatient MAUREEN [facility] 628 [id number] [place] 00:00:00 00:00:00 , NANCY 126 Meth[address] 2021-07-10 2021-07-10 Outpatient AMUREEN [facility] 878 [id number] [place] 00:00:00 00:00:00 , NANCY 405 Meth[address] di 2021-07-10 2021-07-10 Outpatient MAUREEN [facility] [id number] [place] 00:00:00 00:00:00 , NANCY 101 Metho di 2021-07-10 2021-07-10 Outpatient MAUREEN [facility] 946 [id number] [place] 00:00:00 00:00:00 , NANCY 691 Meth[address] 2021-07-10 2021-07-10 Outpatient VALARIE, [facility] [id number] [place] 00:00:00 00:00:00 ASHVIN 640 Method i 2021-07-09 2021-07-09 Outpatient MAUREEN [facility] 829 [id number] [place] 00:00:00 00:00:00 , NANCY 613 Meth[address] di 2021-07-06 2021-07-06 Outpatient MAUREEN [facility] 944 [id number] [place] 00:00:00 00:00:00 , NANCY [address] 2021-07-06 2021-07-06 Outpatient MAUREEN [facility] 325 [id number] [place] 00:00:00 00:00:00 , NANCY [address] 2021-07-02 2021-07-02 Outpatient MAUREEN [facility] [id number] [place] 00:00:00 00:00:00 , NANCY [address] 2021-06-28 2021-06-28 Outpatient MAUREEN [facility] 466 [id number] [place] 00:00:00 00:00:00 , NANCY [address] 2021-06-28 2021-06-28 Outpatient MAUREEN [facility] [id number] [id number] [place] 00:00:00 00:00:00 , NANCY [address] 2021-06-28 2021-06-28 Outpatient MAUREEN [facility] 540 [id number] [place] 00:00:00 00:00:00 , NANCY [address] 2021-06-28 2021-06-28 Outpatient MAUREEN [facility] 078 [id number] [place] 00:00:00 00:00:00 , NANCY [address] 2021-06-27 2021-06-27 Outpatient KAYLIE PATRICIO [facility] [id number] [facility] 09:20:00 09:20:00 KAYLIE POLLOCK [facility] 2021-06-26 2021-06-26 Telephone SALVADOR Uriostegui 1.2.840.114 12 [id number] 00:00:00 00:00:00 Elier DE LA GARZA 350.1.13.58 S 9.2.7.2.686 ORTHOPEDI 296.6765408 CS - BHAVA[place] 1 2021-06-26 2021-06-26 Telephone SALVADOR Uriostegui 1.2.840.114 12 [id number] [place] 00:00:00 00:00:00 Elier PHYSICIAN 350.1.13.58 Health S 9.2.7.2.686 ORTHOPEDI 430.1317523 CS - BHAVANA 1 2021-06-21 2021-06-21 [facility]phone [facility] 1.2.840.114 878 [id number] [facility] 00:00:00 00:00:00 [facility] 350.1.13.10 ity of [place] 4.2.7.2.686 Javier as Kamran?Blea [phone] Tn yolanda vidaley 044 [facility] Office [facility] 2021-06-19 2021-06-19 Telephone SALVADOR Uriostegui 1.2.840.114 12 [id number] 00:00:00 00:00:00 Elier PHYSICIAN 350.1.13.58 S 9.2.7.2.686 ORTHOPEDI 427.8041614 LUDIN - [place] 1 2021-06-19 2021-06-19 Telephone SALVADOR Uriostegui 1.2.840.114 12 [id number] [place] 00:00:00 00:00:00 Elier PHYSICIAN 350.1.13.58 Health S 9.2.7.2.686 ORTHOPEDI 302.6845204 LUDIN - [place] 1 2021-06-08 2021-06-08 Telephone [facility] 1.2.840.114 [id number] Univers 00:00:00 00:00:00 Kaylie Lin [place] 350.1.13.10 ity of [place]2.7.2.[place] Professio [phone] Tn yolanda march 085 [facility] 2021-06-08 2021-06-08 Orders Doctor PRASAD 1.2.840.114 [id number] Univers 00:00:00 00:00:00 Only Unassigned, DINAH 350.1.13.10 ity of [place] [facility] 4.2.7.2.686 Javier as [id number] [address] 2021-05-30 2021-05-30 Refill SALVADOR Uriostegui 1.2.255.491 1164 57060 00:00:00 00:00:00 Elier PHYSICIAN 350.1.13.58 S 9.2.7.2.686 ORTHOPEDI [id number] LUDIN - [place] 1 2021-05-30 2021-05-30 Refill SALVADOR Uriostegui 1.2.506.668 8563 42772 [place] 00:00:00 00:00:00 Elier PHYSICIAN 350.1.13.58 Health S 9.2.7.2.686 ORTHOPEDI 998.9385488 CS - BHAVA[place] 1 2021-05-23 2021-05-23 Refill Johanne [facility] 1.2.840.114 [id number] 827 [facility] 00:00:00 00:00:00 [facility] 350.1.13.10 ity of [place] 4.2.7.2.686 Javier as Professio [id number] [address] Office [facility] One 2021-05-18 2021-05-18 Telephone SALVADOR Uriostegui 1.2.840.114 12 [id number] 00:00:00 00:00:00 Elier PHYSICIAN 350.1.13.58 S 9.2.7.2.686 ORTHOPEDI 838.0258594 LUDIN - [place] 1 2021-05-18 2021-05-18 Telephone SALVADOR Uriostegui 1.2.840.114 12 [id number] [place] 00:00:00 00:00:00 Elier PHYSICIAN 350.1.13.58 Health S 9.2.7.2.686 ORTHOPEDI 630.2567314 LUDIN BATEMAN 1 2021-05-10 2021-05-10 Orders Doctor PRASAD 1.2.840.114 [id number] Univers 00:00:00 00:00:00 Only Unassigned, DINAH 350.1.13.10 ity of [place] [facility] 4.2.7.2.686 Javier as [phone] [address] 2021-05-03 2021-05-03 Refill Brittany FRANCO 1.2.840.114 [id number] 897 00:00:00 00:00:00 PHYSICIAN Chet 350.1.13.58 Sair S 9.2.7.2.686 ORTHOPEDI 104.6264832 CS - BHAVA[place] 1 2021-05-03 2021-05-03 Refill Jyoti Rojas 1.2.84 0.114 [id number] [place] 00:00:00 00:00:00 Jyoti Rojas PHYSICIAN 350.1.13 .58 Health S 9.2.7.2.686 ORTHOPEDI 492.0821840 CS - [place]AVA[place] 1 2021-04-18 2021-04-18 Office SALVADOR Uriostegui 1.2.015.579 3465 15297 15:44:11 17:42:35 Visit Elier PHYSICIAN 350.1.13.58 S 9.2.7.2.686 ORTHOPEDI 200.9110458 CS - BHAVA[place] 1 2021-04-18 2021-04-18 Office SALVADOR Uriostegui 1.2.315.143 3345 13262 [place] 15:44:11 17:42:35 Visit Elier PHYSICIAN 350.1.13.58 Health S 9.2.7.2.686 ORTHOPEDI 648.1426775 CS - BHAVA[place] 1 2021-04-10 2021-04-10 Telephone Johanne [facility] 1.2.840.114 [id number] [id number] 00:00:00 00:00:00 [facility] 350.1.13.10 [place] 4.2.7.2.686 Professio [id number] nal 044 Office Building One 2021-04-05 2021-04-05 EXT MHH OP SUKI Uriostegui MSRDP 1.2.840.114 [id number] [place] 00:00:00 00:00:00 Elier LOCATION 350.1.13.58 H ealth 9.2.7.2.686 [id number] 0 2021-04-05 2021-04-05 EXT MHH OP Gila EXT MSRDP 1.2.840.114 [id number] [place] 00:00:00 00:00:00 Elier LOCATION 350.1.13.58 H ealth 9.2.7.2.686 [id number] 0 2021-04-04 2021-04-04 Office SALVADOR Uriostegui 1.2.284.363 7263 12858 [place] 08:28:47 09:30:44 Visit Elier PHYSICIAN 350.1.13.58 Health S 9.2.7.2.686 ORTHOPEDI 933.7371294 CS - [place] 1 2021-04-04 2021-04-04 Office SALVADOR Uriostegui 1.2.160.898 8506 83231 08:28:47 09:30:44 Visit Elier PHYSICIAN 350.1.13.58 S 9.2.7.2.686 ORTHOPEDI 512.6430351 CS - [place] 1 2021-03-26 2021-03-26 Refkeara [facility] 1.2.840.114 [id number] 679 00:00:00 00:00:00 [facility] 350.1.13.10 [place] 4.2.7.2.686 Professio [phone] nal 044 Office Building One 2021-03-07 2021-03-07 Office SALVADOR Uriostegui 1.2.576.432 [id number] 90697 [place] 13:37:22 14:54:53 Visit Elier PHYSICIAN 350.1.13.58 Health S 9.2.7.2.686 ORTHOPEDI 514.2468620 LUDIN - [place] 1 2021-03-07 2021-03-07 Office SALVADOR Uriostegui 1.2.245.066 0176 [id number] 13:37:22 14:54:53 Visit Elier PHYSICIAN 350.1.13.58 S 9.2.7.2.686 ORTHOPEDI 135.3516572 LUDIN - [place] 1 2021-03-05 2021-03-05 Outpatient R MARTÍNEZ [facility] [id number] Univers 13:30:00 13:30:00 [facility] 2021-02-12 2021-02-12 Outpatient R MARTÍNEZ [facility] [id number] Univers 00:00:00 00:00:00 [facility] 2021-02-05 2021-02-05 Outpatient R MARTÍNEZ [facility] [id number] Univers 13:15:00 13:15:00 [facility] 2021-01-26 2021-01-26 Outpatient Eva HORNE [facility] [id number] Univers 14:00:00 14:00:00 YARELIS [facility] 2021-01-24 2021-01-24 Outpatient KAYLIE PATRICIO [facility] [id number] Univers 09:00:00 09:00:00 KAYLIE POLLOCK [facility] 2020-12-05 2020-12-05 Outpatient R JOHANNE [facility] [id number] Univers 10:30:00 10:30:00 WONDIFUL ity o f [facility] 2020-06-22 2020-06-22 Outpatient R [facility] [id number] Univers 10:45:00 10:45:00 ity [facility] 2020-06-08 2020-06-08 Outpatient R MANSOOR [facility] [id number] Univers 08:15:00 08:15:00 АНДРЕЙ [facility] 2020-06-02 2020-06-02 Outpatient R JOHANNE, [facility] [id number] Univers 00:00:00 00:00:00 WONDIFUL ity o f [facility] 2020-05-25 2020-05-25 Outpatient R BRIGETTE [facility] [id number] Univers 10:00:00 10:00:00 TORI [facility] 2020-05-24 2020-05-24 Outpatient R JOHANNE [facility] [id number] Univers 09:00:00 09:00:00 WONDIFUL ity o f [facility] 2020-05-17 2020-05-17 Outpatient R JOHANNE [facility] [id number] Univers 08:45:00 08:45:00 WONDIFUL ity o f [facility] 2020-01-19 2020-01-19 Outpatient R KAYLIE POLLOCK [facility] [id number] Univers 09:00:00 09:00:00 TYRELKAYLIE BANKS itcrystal [facility] 2019-11-15 2019-11-15 Outpatient R JOHANNE, [facility] [id number] Univers 10:00:00 10:00:00 WONDIFUL ity o f [facility] 2019-09-01 2019-09-01 Outpatient R ARTURO DORAN [facility] [id number] Univers 07:45:25 23:59:00 ARTURO DORAN [facility] 2017-12-02 2017-12-03 Outpatient nullFlavo [facility] [id number] Memoria 15:00:00 04:59:59 r Urology 00 l [facility] 2017-12-02 2017-12-03 Outpatient nullFlavo [facility] [id number] Memoria 15:00:00 04:59:59 r Urology 00 l [facility] 2017-12-02 2017-12-02 Outpatient Valentin Gupta [facility] [id number] 10:00:00 23:59:59 Vincent 00 2017-12-02 2017-12-02 Outpatient [facility] [id number] Memoria 10:00:00 10:00:00 00 [facility] 2016-11-10 2016-11-11 Observatio nullFlavo [facility] [id number] [id number] Memoria 16:33:00 01:30:00 n eva De Leon 04 [facility] 2016-11-10 2016-11-11 Observatio nullFlavo [facility] 3956 [id number] Memoria 16:33:00 01:30:00 n eva De Leon 04 [facility] 2016-11-10 2016-11-10 Outpatient den [place] [id number] 675 10:33:00 19:30:00 Rosamaria Ricardo Keithkaren Tiff 2015-06-09 2015-06-10 Outpt Diag nullFlavo [facility] [id number] Memoria 16:15:00 04:59:00 Services r Outpatient 02 l Imaging Fadi [place] 2015-06-09 2015-06-10 Outpt Diag nullFlavo [facility] [id number] Memoria 16:15:00 04:59:00 Services r Outpatient 02 l Imaging [facility] 2015-06-09 2015-06-09 Outpatient Fatimah Fátima 28 [id number] 11:15:00 23:59:00 Jaguar Hoai 02 [facility] Results Test Description Test Time Test Comments Results Result Comments Source NT-proBNP 2022-02-01 17:26:00 Test Item Value Reference Range Interpretation Comme nts NT-proBNP (test 2195 pg/mL H Female Risk : Optimal < 372 pg/mL High > or = 372 pg/mL code = 45494-0) For Heart Fa ilure (HF) diagnosis, referenceranges in patients with d yspnea are based onSunita LASSITER, Et al. J Am Senia Cardiol .2018;71:9230-4313. 18-49 years: <= 300 pg/mL Normal, H F unlikely >= 450 pg/mL High probability of HF50-75 year s: <= 300 pg/mL Normal, HF unlikely >= 900 pg/mL High probability of HF>75 years: <= 300 pg/mL Normal, HF unli lottie >= 1800 pg/mL High probability of HF For patients wi th coronary heart disease, theoptimal risk category c ut points for incident HFor CVD (<253 pg/mL men , <372 pg/mL women) arebased on Lisa T et al. J Am Col l Cardiol.2007:50:205-14. For patients with existing H F, the optimal riskcategory cut point for HF progression (<300 pg/mL)is based on Latia DANIELLE et al. Clin Biochem.20 10;43:1405-10. For additional information, pl ease refer tohttp://educat ion.[employer]/faq/SLG281(This link is being p rovided for informational/e ducationalpurposes only.) CHRIS (test code FASTING:NO = CHRIS) FASTING: NO RAC (test code Performing = RAC) Organizatio n Information : Site ID: [id number] Name: [facility], Address: [address] [place] [address] Director: Antonieta Winters MD,PhD,DUKE Lab Abnormal Interpretation (test code = 21394-4) [facility] [id number] 21:20:00 Test Item Value Reference Range Interpretation Comments POC glucose (test 93 mg/dL 65-99 Mechanical Assembly N bina: [place] code = 47504-0) AdrianDevice ID: [id number] able: COUNT INCLUDES THE [facility] Notified RN [facility] [id number] 18:38:01 Test Item Value Reference Range Interpretation Comments POC sodium (test code 141 mmol/L 135-148 = 2947-0) POC potassium (test 4.0 mmol/L 3.5-5.0 code = 6298-4) POC chloride (test 103 mmol/L 99-109 code = 9-3) POC CO2 (test code = 28 mmol/L 24-31 00367-3) POC glucose (test code 111 mg/dL 65-99 H = 2339-0) POC BUN (test code = 28 mg/dL 8-24 H 6299-2) POC creatinine (test 1.3 mg/dl 0.5-0.9 H code = 36474-2) POC hematocrit (test 34 % 37-47 L code = 4544-3) POC anion gap (test 15 mmol/L 8-20 Mechanical Assembly Name: Escamilla code = 3011211) MichaeltonotaJairo ce ID: [id number] Lab Interpretation Abnormal (test code = 24338-2) [facility] [id number] 18:38:00 Test Item Value Reference Range Interpretation Comments Estimated GFR (test mL/min/1.73 m2 Bg davis Units code = 36526-8) Interpretati onG1 >=90 Normal or highG 2 60-89 Mildly decrease dG3a 45-59 Mildly to moderately decr iszrfV8k 30-44 Moderatel y to severely decrea sedG4 15-29 Severely decreasedG5 <15 Kidney failureThe eGFR was calculated usin g the Chronic Kidney Disease Epidemiology Collaboration ( CKD-EPI) equation. Interpretation is based on recommendati ons of the National Ki dney Foundation-Kidn ey Disease Outcome s Quality Initiat sarah (NKF-KDOQI) pub lished in 2013. Lab Interpretation Abnormal (test code = 27132-8) [facility] Center[facility] [id number] 07:08:00 Test Item Value Reference Range Interpretation Comments Magnesium (test code 2.0 mg/dL 1.5-2.5 = 69615-9) RAC (test code = RAC) Performing Organization Information: Site ID: RGA Name: [facility] Address: [address] [place] [id number] Director: Gutierrez Morris [facility] metabolic [id number] 07:54:00 Test Item Value Reference Interpretation Comments Range Glucose (test code 154 mg/dL 65-139 H Non-fast ing = 2345-7) reference inter chaya BUN (test code = 23 mg/dL 7-25 3094-0) Creatinine (test 1.30 mg/dL 0.60-0.93 H For patient s >49 code = 2160-0) years of age, the reference limit for Creatinine is approximately 1 3% higher for peopleidentifie d as -Kiya n. EGFR Non-Afr. See_Comment L [Automated me ssage] [place] (test code The syst em which = 2775) generated this result transmit mikey reference range : > OR = 60 mL/min/1.73m2. The reference range was not used to interpret this result as normal/abnormal . EGFR See_Comment L [Automated mes aiden] [place] (test code The syst em which = 2774) generated this result transmit mikey reference range : > OR = 60 mL/min/1.73m2. The reference range was not used to interpret this result as normal/abnormal . BUN/creatinine See_Comment [Automated m essage] ratio (test code = The syste m which 3097-3) generated this result transmit mikey reference range : 6 - 22 (calc). The reference range was not used to interpret this result as normal/abnormal . Sodium (test code = 143 mmol/L 716-791 6479-2) Potassium (test 4.0 mmol/L 3.5-5.3 code = 2823-3) Chloride (test code 104 mmol/L 98-110 = 2075-0) CO2 (test code = 33 mmol/L 20-32 H 2028-05) Calcium (test code 9.6 mg/dL 8.6-10.4 = 11882-7) CHRIS (test code = FASTING:NO CHRIS) FASTING: NO RAC (test code = Performing RAC) Organization Information: Site ID: RGA [facility] Address: [address] [place] [id number] Director: Gutierrez Morris Lab Interpretation Abnormal (test code = 03588-1) [facility] [id number] 07:54:00 Test Item Value Reference Range Interpretation Comments INR (test code = Reference R yousif 6301-6) 0.9-1.1Moderate -i ntensity Warfar in Therapy 2.0-3.0Higher-i nt ensity Warfarin Therapy 3.0-4.0 Prothrombin time See_Comment For additio nal (test code = information, 5902-2) please refer [email or web address] [email or web address] [email or web address]/FAQ10 4( This link is being provided for informational/e du cational purpos es only.) [Automat ed message] The system which generated this result transmitted reference range : 9.0 - 11.5 sec. The reference range was not used to interpr et this result as normal/abnormal . CHRIS (test code = FASTING:NO FASTING: CHRIS) NO RAC (test code = Performing RAC) Organization Information: Site ID: [id number] Name: [facility] Address: [address] [place] [address] Director: Gutierrez Morris [facility] natriuretic [id number] 17:17:00 Test Item Value Reference Interpretation Comments Range BNP (test code = 111 pg/mL See_Comment H BNP [place] increase 17675-5) with age in the generalpopulati on with the highes t values seen inindividuals g reater than 75 years o f age.Reference: J. Am. Senia. Cardiol. 2002; 40:976-982. [Automated mess age] The system [employer] generated this result transmitted ref erence range: <=100. T he reference range was not used to int erpret this result as normal/abnormal . CHRIS (test code = FASTING:NO CHRIS) FASTING: NO RAC (test code = Performing RAC) Organization Information: Site ID: RGA [facility] Address: [address] [place] [address] Director: [facility] Interpretation Abnormal (test code = 23508-3) [facility] 12 [id number] 21:24:40 Test Item Value Reference Range Interpretation Comments Ventricular rate (test code = 253) Atrial rate (test code = 255) QRSD interval (test code = 260) QT interval (test code = 264) QTC interval (test code = 265) P axis 1 (test code = 267) QRS axis 1 (test code = 268) T wave axis (test code = 270) EKG impression (test Ventricular-paced code = 273) rhythm-Abnormal ECG-In automated comparison with ECG of 10-SEP-2021 19:43,-Vent. rate has increased BY 11 BPM- Niya PriceECG Pre/Post [id number] 01:53:34 Test Item Value Reference Range Interpretation Comments Ventricular rate (test code = 253) Atrial rate (test code = 255) DC interval (test code = 266) QRSD interval (test code = 260) QT interval (test code = 264) QTC interval (test code = 265) P axis 1 (test code = 267) QRS axis 1 (test code = 268) T wave axis (test code = 270) EKG impression (test Atrial-sensed code = 273) ventricular-paced rhythm-Abnormal ECG-In automated comparison with ECG of 08-SEP-2021 16:37,-Electronic ventricular pacemaker has replaced Sinus rhythm- Niya SimonARS-CoV-2 (COVID-19) RNA [Presence] in Respiratory specimen by SOFÍA with probe [id number] 16:37:15 Test Item Value Reference Range Interpretation Comments SARS-CoV-2 (COVID-19) RNA Not detected Not-Detected [Presence] in Respiratory specimen by SOFÍA with probe detection (test code = 14676-7) Whether patient is employed in a healthcare setting (test code = 10047-4) Whether the patient has symptoms related to condition of interest (test code = 64462-1) Patient was hospitalized because of this condition (test code = 36581-9) Whether the patient was admitted to intensive care unit (ICU) for condition of interest (test code = 45561-1) Whether patient resides in a congregate care setting (test code = 74837-2) CARBALLO NIYA Dias [id number] 16:27:00 Test Item Value Reference Range Interpretation Comments Product name (test code Red Blood Cells -1, = 25) Leukored Unit number (test code = [id number]) Product code (test code Q4926G14 = 3092) Dispense status (test Returned to not code = 24) transfused Blood expiration date (test code = 302) Blood type code (test code = 308) Blood type (test code = O POSITIVE 1314) Compatibility (test code Compatible = 6400) [facility] [id number] 14:34:54 Test Item Value Reference Range Interpretation Comments Activated clotting See_Comment Mechanical Assembly Name: Mindi eaton (test code = Ro alfredo ID: [id number]) [id number] [Autom ated message] The sy stem which generated this result transmitted ref erence range: 96 - 152 sec. The reference range was not used to interpr et this result as dk l/abnormal. [facility] arterial blood gas, corrected and [id number] 14:19:03 Test Item Value Reference Range Interpretation Comments pH, arterial (test 7.35-7.45 code = 2744-1) pCO2, arterial (test See_Comment [Autom ated message] code = 2019-8) The system ich generated this result transmitted ref erence range: 35 - 45 mmHg. The reference r yousif was not used to interpret this result as normal/abnor mal. pO2, arterial (test See_Comment H [Automa mikey message] code = 2703-7) The system ich generated this result transmitted ref erence range: 80 - 90 mmHg. The reference r yousif was not used to interpret this result as normal/abnor mal. Temperature, Celsius Degrees C (test code = 8310-5) O2 saturation, 95-100 arterial (test code = 2708-6) pH, arterial corrected (test code = 44498-1) pCO2, arterial mmHg corrected (test code = 76581-2) pO2, arterial mmHg Mechanical Assembly ID: Phillip tamar corrected (test code Alfonso Durbin ID: = [id number]) [id number] Base excess, arterial See_Comment [Auto mated message] (test code = 1925-7) The sys tem which generated this result transmitted ref erence range: -2 - 2 m Eq/L. The reference r yousif was not used to interpret this result as normal/abnor mal. Hemoglobin, syringe 10.1 g/dL 12.0-16.0 L (test code = 718-7) Potassium, syringe See_Comment L [Automat ed message] (test code = 2007) The syste m which generated this result transmitted ref erence range: 3.5 - 5. 0 mEq/L. The refe rence range was not u sed to interpret this result as normal/abnor mal. Sodium, syringe (test See_Comment [Auto mated message] code = 2947-0) The system [employer] generated this result transmitted ref erence range: 135 - 14 8 mEq/L. The refe rence range was not u sed to interpret this result as normal/abnor mal. Ionized calcium, 1.10 mmol/L 1.11-1.32 L arterial (test code = 88280-0) Glucose, syringe 127 mg/dL 65-99 H (test code = 2345-7) Lactic acid, syringe 1.2 mmol/L 0.5-2.2 (test code = 76118-7) Lab Interpretation Abnormal (test code = 85636-6) [facility] [id number] 02:42:00 Test Item Value Reference Range Interpretation Comments ABO grouping (test code = 883-9) O Rh type (test code = 13415-3) POS Antibody screen (gel) (test code = NEG 890-4) [facility] UsiarwviJNGL-RoK-2 (COVID-19) RNA [Presence] in Respiratory specimen by SOFÍA with probe [id number] 01:29:50 Test Item Value Reference Range Interpretation Comments SARS-CoV-2 (COVID-19) RNA Not detected Not-Detected [Presence] in Respiratory specimen by SOFÍA with probe detection (test code = 17313-2) Whether patient is employed in a healthcare setting (test code = 38966-8) Whether the patient has symptoms related to condition of interest (test code = 76507-8) Patient was hospitalized because of this condition (test code = 93433-5) Whether the patient was admitted to intensive care unit (ICU) for condition of interest (test code = 31727-5) Whether patient resides in a congregate care setting (test code = 34186-6) MATTY MONETSARS-CoV-2 (COVID-19) RNA [Presence] in Respiratory specimen by SOFÍA with probe [id number] 15:38:22 Test Item Value Reference Range Interpretation Comments SARS-CoV-2 (COVID-19) RNA Not detected Not-Detected [Presence] in Respiratory specimen by SOFÍA with probe detection (test code = 62351-7) Whether patient is employed in a healthcare setting (test code = 90827-5) Whether the patient has symptoms related to condition of interest (test code = 16848-2) Patient was hospitalized because of this condition (test code = 61192-6) Whether the patient was admitted to intensive care unit (ICU) for condition of interest (test code = 34470-4) Whether patient resides in a congregate care setting (test code = 50556-9) Matty Monet BaxmsdmcIDZZ-XwE-3 (COVID-19) RNA [Presence] in Respiratory specimen by SOFÍA with probe lxnyylhip6544-71-37 15:01:40 Test Item Value Reference Range Interpretation Comments SARS-CoV-2 (COVID-19) RNA Not detected Not-Detected [Presence] in Respiratory specimen by SOFÍA with probe detection (test code = 46898-1) Whether patient is employed in a healthcare setting (test code = 83399-3) Whether the patient has symptoms related to condition of interest (test code = 59053-1) Patient was hospitalized because of this condition (test code = 74387-5) Whether the patient was admitted to intensive care unit (ICU) for condition of interest (test code = 36621-2) Whether patient resides in a congregate care setting (test code = 67726-1) MATTY MONETGlucose Howoxcpnihi1720-92-31 15:53:00 Test Item Value Reference Range Interpretation Comments Glucose Fingerstick 126 mg/dL 70-115 AGILE TESTER Lexie N (test code = WGLUC) Bryan Glucose Cztudlsldjn0861-64-80 12:00:00 Test Item Value Reference Range Interpretation Comments Glucose Fingerstick 307 mg/dL 70-115 AGILE TESTER Lexie N (test code = WGLUC) Bryan Glucose Luktppwffql6879-89-75 07:19:00 Test Item Value Reference Range Interpretation Comments Glucose Fingerstick 135 mg/dL 70-115 AGILE TESTER Lexie N (test code = WGLUC) Bryan Complete Blood Count Auto [id number] 04:55:00 Test Item Value Reference Range Interpretation Comments White Blood Count (test code = 5.9 x10 3/uL 4.4-10.5 N WBCT) Red Blood Count (test code = 3.30 x10 6/uL 3.75-5.20 L RBC) Hemoglobin (test code = HGBT) 9.7 g/dL 12.2-14.8 L Hematocrit (test code = HCTT) 32.1 % 36.5-44.4 L Mean Corpuscular Volume (test 97.30 fL 80.00-100.00 N code = MCV) Mean Corpuscular Hemoglobin 29.4 pg 27.0-32.5 N (test code = MCH) Mean Corpuscular HGB Conc 30.20 g/dL 32.00-37.50 L (test code = MCHC) RDW Coefficient of Variation 13.8 % 11.5-14.5 N (test code = RDWCV) Platelet Count (test code = 211.0 x10 3/uL 140.0-440.0 N PLTT) Mean Platelet Volume (test 9.7 fL code = MPV) Immature Granulocytes % (Auto) 0.2 % 0.0-5.0 N (test code = IMMGRAN%) Neutrophils % (Auto) (test 55.1 % 36.0-70.0 N code = NE%) Lymphocytes % (Auto) (test 28.9 % 12.0-44.0 N code = LY%) Monocytes % (Auto) (test code 8.5 % 0.0-11.0 N = MO%) Eosinophils % (Auto) (test 6.6 % 0.0-7.0 N code = EO%) Basophils % (Auto) (test code 0.7 % 0.0-2.0 N = BA%) Immature Granulocytes # (Auto) 0.01 x10 3/uL (test code = IMMGRAN#) Neutrophils # (Auto) (test 3.3 x10 3/uL 1.6-7.4 N code = NE#) Lymphocytes # (Auto) (test 1.70 x10 3/uL 0.50-4.60 N code = LY#) Monocytes # (Auto) (test code 0.50 x10 3/uL 0.00-1.20 N = MO#) Eosinophils # (Auto) (test 0.39 x10 3/uL 0.00-0.74 N code = EO#) Basophils # (Auto) (test code 0.04 x10 3/uL 0.00-0.21 N = BA#) nRBC Abs (test code = NRBCA) 0 nRBC Pct (test code = NRBCP) 0 % Basic Metabolic [id number] 04:55:00 Test Item Value Reference Range Interpretation Comments SODIUM (test code = NA) 141.0 mmol/L 136.0-145.0 N Potassium,K (test code = K) 3.8 mmol/L 3.0-5.1 N Chloride (test code = CL) 103 mmol/L 98-107 N Carbon Dioxide (test code = CO2) 34 mmol/L 20-31 H Anion Gap (test code = GAP) 4 mmol/L 5-15 L Blood Urea Nitrogen (test code = 15 mg/dL 9-23 N BUN) Creatinine (test code = CREATT) 1.01 mg/dL 0.55-1.02 N Creatinine Clr Calc Pharmacy 52.34 mL/min (test code = CRCLPHA) Estimated GFR ( Kiya > 60 mL/min/1.73m2 (test code = EGFRAA) Estimated GFR (Non Afr Kiya 54 mL/min/1.73m2 (test code = EGFRNAA) BUN/Creatinine Ratio (test code 15 ratio 10-20 N = BCRATIO) Glucose (test code = GLU) 146 mg/dL 74-106 H Osmolality,Calculated (test code 295.3 = OSMOC) Calcium (test code = CA) 8.9 mg/dL 8.3-10.6 N Glucose Ihgecnbiuio6441-09-26 19:23:00 Test Item Value Reference Range Interpretation Comments Glucose Fingerstick 257 mg/dL 70-115 AGILE TESTER Angela (test code = WGLUC) Adams Glucose [id number] 17:06:00 Test Item Value Reference Range Interpretation Comments Glucose Fingerstick 156 mg/dL 70-115 AGILE TESTER Artis Sparks (test code = WGLUC) Complete Blood Count Auto [id number] 16:15:00 Test Item Value Reference Range Interpretation Comments White Blood Count (test code = 4.9 x10 3/uL 4.4-10.5 N WBCT) Red Blood Count (test code = 3.10 x10 6/uL 3.75-5.20 L RBC) Hemoglobin (test code = HGBT) 9.4 g/dL 12.2-14.8 L Hematocrit (test code = HCTT) 30.5 % 36.5-44.4 L Mean Corpuscular Volume (test 98.40 fL 80.00-100.00 N code = MCV) Mean Corpuscular Hemoglobin 30.3 pg 27.0-32.5 N (test code = MCH) Mean Corpuscular HGB Conc 30.80 g/dL 32.00-37.50 L (test code = MCHC) RDW Coefficient of Variation 14.2 % 11.5-14.5 N (test code = RDWCV) Platelet Count (test code = 211.0 x10 3/uL 140.0-440.0 N PLTT) Mean Platelet Volume (test 10.0 fL code = MPV) Immature Granulocytes % (Auto) 0.2 % 0.0-5.0 N (test code = IMMGRAN%) Neutrophils % (Auto) (test 59.1 % 36.0-70.0 N code = NE%) Lymphocytes % (Auto) (test 23.5 % 12.0-44.0 N code = LY%) Monocytes % (Auto) (test code 9.9 % 0.0-11.0 N = MO%) Eosinophils % (Auto) (test 6.7 % 0.0-7.0 N code = EO%) Basophils % (Auto) (test code 0.6 % 0.0-2.0 N = BA%) Immature Granulocytes # (Auto) 0.01 x10 3/uL (test code = IMMGRAN#) Neutrophils # (Auto) (test 2.9 x10 3/uL 1.6-7.4 N code = NE#) Lymphocytes # (Auto) (test 1.16 x10 3/uL 0.50-4.60 N code = LY#) Monocytes # (Auto) (test code 0.49 x10 3/uL 0.00-1.20 N = MO#) Eosinophils # (Auto) (test 0.33 x10 3/uL 0.00-0.74 N code = EO#) Basophils # (Auto) (test code 0.03 x10 3/uL 0.00-0.21 N = BA#) nRBC Abs (test code = NRBCA) 0 nRBC Pct (test code = NRBCP) 0 % Basic Metabolic [id number] 16:15:00 Test Item Value Reference Range Interpretation Comments SODIUM (test code = NA) 141.0 mmol/L 136.0-145.0 N Potassium,K (test code = K) 3.6 mmol/L 3.0-5.1 N Chloride (test code = CL) 102 mmol/L 98-107 N Carbon Dioxide (test code = CO2) 33 mmol/L 20-31 H Anion Gap (test code = GAP) 6 mmol/L 5-15 N Blood Urea Nitrogen (test code = 16 mg/dL 9-23 N BUN) Creatinine (test code = CREATT) 1.06 mg/dL 0.55-1.02 H Creatinine Clr Calc Pharmacy 49.87 mL/min (test code = CRCLPHA) Estimated GFR ( Kiya 59 mL/min/1.73m2 (test code = EGFRAA) Estimated GFR (Non Afr Kiya 51 mL/min/1.73m2 (test code = EGFRNAA) BUN/Creatinine Ratio (test code 15 ratio 10-20 N = BCRATIO) Glucose (test code = GLU) 171 mg/dL 74-106 H Osmolality,Calculated (test code 296.7 = OSMOC) Calcium (test code = CA) 8.6 mg/dL 8.3-10.6 N Glucose [id number] 12:34:00 Test Item Value Reference Range Interpretation Comments Glucose Fingerstick 219 mg/dL 70-115 AGILE TESTER Artis Sparks (test code = WGLUC) Glucose [id number] 08:00:00 Test Item Value Reference Range Interpretation Comments Glucose Fingerstick 182 mg/dL 70-115 AGILE TESTER Artis Sparks (test code = WGLUC) Glucose Nsbwfaztvpz8939-35-53 19:22:00 Test Item Value Reference Range Interpretation Comments Glucose Fingerstick 195 mg/dL 70-115 AGILE TESTER Angela (test code = WGLUC) Adams Glucose [id number] 15:44:00 Test Item Value Reference Range Interpretation Comments Glucose Fingerstick 234 mg/dL 70-115 AGILE TESTER Saige (test code = WGLUC) Adams Glucose [id number] 12:01:00 Test Item Value Reference Range Interpretation Comments Glucose Fingerstick 148 mg/dL 70-115 AGILE TESTER Saige (test code = WGLUC) Adams Complete Blood Count Auto [id number] 10:45:00 Test Item Value Reference Range Interpretation Comments White Blood Count (test code = 7.1 x10 3/uL 4.4-10.5 N WBCT) Red Blood Count (test code = 3.17 x10 6/uL 3.75-5.20 L RBC) Hemoglobin (test code = HGBT) 9.7 g/dL 12.2-14.8 L Hematocrit (test code = HCTT) 31.4 % 36.5-44.4 L Mean Corpuscular Volume (test 99.10 fL 80.00-100.00 N code = MCV) Mean Corpuscular Hemoglobin 30.6 pg 27.0-32.5 N (test code = MCH) Mean Corpuscular HGB Conc 30.90 g/dL 32.00-37.50 L (test code = MCHC) RDW Coefficient of Variation 14.4 % 11.5-14.5 N (test code = RDWCV) Platelet Count (test code = 197.0 x10 3/uL 140.0-440.0 N PLTT) Mean Platelet Volume (test 10.0 fL code = MPV) Immature Granulocytes % (Auto) 0.1 % 0.0-5.0 N (test code = IMMGRAN%) Neutrophils % (Auto) (test 68.8 % 36.0-70.0 N code = NE%) Lymphocytes % (Auto) (test 17.5 % 12.0-44.0 N code = LY%) Monocytes % (Auto) (test code 8.8 % 0.0-11.0 N = MO%) Eosinophils % (Auto) (test 4.5 % 0.0-7.0 N code = EO%) Basophils % (Auto) (test code 0.3 % 0.0-2.0 N = BA%) Immature Granulocytes # (Auto) 0.01 x10 3/uL (test code = IMMGRAN#) Neutrophils # (Auto) (test 4.9 x10 3/uL 1.6-7.4 N code = NE#) Lymphocytes # (Auto) (test 1.25 x10 3/uL 0.50-4.60 N code = LY#) Monocytes # (Auto) (test code 0.63 x10 3/uL 0.00-1.20 N = MO#) Eosinophils # (Auto) (test 0.32 x10 3/uL 0.00-0.74 N code = EO#) Basophils # (Auto) (test code 0.02 x10 3/uL 0.00-0.21 N = BA#) nRBC Abs (test code = NRBCA) 0 nRBC Pct (test code = NRBCP) 0 % Prothrombin Time [id number] 10:45:00 Test Item Value Reference Range Interpretation Comments Prothrombin Time (test code = 12.6 Seconds 9.8-13.4 N PT) INR (test code = INR) 1.1 ratio 0.6-1.2 N Glucose [id number] 08:33:00 Test Item Value Reference Range Interpretation Comments Glucose Fingerstick 155 mg/dL 70-115 AGILE TESTER John (test code = WGLUC) [place] Glucose [id number] 19:00:00 Test Item Value Reference Range Interpretation Comments Glucose Fingerstick 176 mg/dL 70-115 AGILE TESTER Angela (test code = WGLUC) Bryan Glucose [id number] 11:48:00 Test Item Value Reference Range Interpretation Comments Glucose Fingerstick 125 mg/dL 70-115 AGILE TESTER Nelly (test code = WGLUC) Paul ROXANN Test for H. [id number] 10:00:00 Test Item Value Reference Range Interpretation Comments ROXANN-test (test code = Urease negative. ROXANN-test) H.Pylori not detected in sample submitted. Media Verification (test ROXANN test media pass code = Media Verification) Glucose [id number] 07:19:00 Test Item Value Reference Range Interpretation Comments Glucose Fingerstick 139 mg/dL 70-115 AGILE TESTER Rosi (test code = WGLUC) Sammy Complete Blood Count w/o [id number] 06:50:00 Test Item Value Reference Range Interpretation Comments White Blood Count (test 6.3 x10 3/uL 4.4-10.5 N code = WBCT) Red Blood Count (test code 3.19 x10 6/uL 3.75-5.20 L = RBC) Hemoglobin (test code = 9.5 g/dL 12.2-14.8 L PORTER SFUSING HGBT) Hematocrit (test code = 30.7 % 36.5-44.4 L HCTT) Mean Corpuscular Volume 96.20 fL 80.00-100.00 N (test code = MCV) Mean Corpuscular Hemoglobin 29.8 pg 27.0-32.5 N (test code = MCH) Mean Corpuscular HGB Conc 30.90 g/dL 32.00-37.50 L (test code = MCHC) RDW Coefficient of 14.3 % 11.5-14.5 N Variation (test code = RDWCV) Platelet Count (test code = 185.0 x10 3/uL 140.0-440.0 N PLTT) Mean Platelet Volume (test 10.1 fL code = MPV) nRBC Abs (test code = 0 NRBCA) nRBC Pct (test code = 0 % NRBCP) Basic Metabolic [id number] 06:50:00 Test Item Value Reference Range Interpretation Comments SODIUM (test code = NA) 144.0 mmol/L 136.0-145.0 N Potassium,K (test code = K) 4.2 mmol/L 3.0-5.1 N Chloride (test code = CL) 107 mmol/L 98-107 N Carbon Dioxide (test code = CO2) 30 mmol/L 20-31 N Anion Gap (test code = GAP) 7 mmol/L 5-15 N Blood Urea Nitrogen (test code = 15 mg/dL 9-23 N BUN) Creatinine (test code = CREATT) 0.88 mg/dL 0.55-1.02 N Creatinine Clr Calc Pharmacy 60.07 mL/min (test code = CRCLPHA) Estimated GFR ( Kiya > 60 mL/min/1.73m2 (test code = EGFRAA) Estimated GFR (Non Afr Kiya > 60 mL/min/1.73m2 (test code = EGFRNAA) BUN/Creatinine Ratio (test code 17 ratio 10-20 N = BCRATIO) Glucose (test code = GLU) 131 mg/dL 74-106 H Osmolality,Calculated (test code 300.3 = OSMOC) Calcium (test code = CA) 9.0 mg/dL 8.3-10.6 N [id number] 06:50:00 Test Item Value Reference Range Interpretation Comments Magnesium (test code = MG) 1.8 mg/dL 1.6-2.6 N Glucose [id number] 19:47:00 Test Item Value Reference Range Interpretation Comments Glucose Fingerstick 210 mg/dL 70-115 AGILE TESTER JACKELINE (test code = WGLUC) SORMAH Complete Blood Count w/o [id number] 16:17:00 Test Item Value Reference Range Interpretation Comments White Blood Count (test code = 4.5 x10 3/uL 4.4-10.5 N WBCT) Red Blood Count (test code = 2.56 x10 6/uL 3.75-5.20 L RBC) Hemoglobin (test code = HGBT) 7.7 g/dL 12.2-14.8 L Hematocrit (test code = HCTT) 25.6 % 36.5-44.4 L Mean Corpuscular Volume (test 100.00 fL 80.00-100.00 N code = MCV) Mean Corpuscular Hemoglobin 30.1 pg 27.0-32.5 N (test code = MCH) Mean Corpuscular HGB Conc 30.10 g/dL 32.00-37.50 L (test code = MCHC) RDW Coefficient of Variation 15.0 % 11.5-14.5 H (test code = RDWCV) Platelet Count (test code = 183.0 x10 3/uL 140.0-440.0 N PLTT) Mean Platelet Volume (test 10.5 fL code = MPV) nRBC Abs (test code = NRBCA) 0 nRBC Pct (test code = NRBCP) 0 % Troponin [id number] 16:17:00 Test Item Value Reference Range Interpretation Comments Troponin I (test 30.50 pg/mL 0.00-45.00 N Interpretiv e Comments:* code = TROP) The 99th percen tile URL for the assay i s <45 pg/ml.* A rise and fall in Troponin I w ith at least onevalue above the 99th percen tile with clinical e vidence ofmyocardial is chemia would support a diagnosis of AM I. Adelta of at le ast 20% is recommended to assess acutecha nges in results above t he 99th percentile in serialmeasureme nts. Hemoglobin [id number] 15:45:00 Test Item Value Reference Range Interpretation Comments Hemoglobin A1C (test code = < 3.8 % 4.0-5.8 L HGBA1C.XX) Glucose [id number] 15:22:00 Test Item Value Reference Range Interpretation Comments Glucose Fingerstick 141 mg/dL 70-115 AGILE TESTER Nelly (test code = WGLUC) Paul Glucose [id number] 12:47:00 Test Item Value Reference Range Interpretation Comments Glucose Fingerstick 150 mg/dL 70-115 AGILE TESTER Nelly (test code = WGLUC) Paul Troponin [id number] 06:00:00 Test Item Value Reference Range Interpretation Comments Troponin I (test 62.48 pg/mL 0.00-45.00 HH Critical va lue called code = TROP) to khushi back by OZ on: 12/06/20 at 0643by OJO01.Interpret sarah Comments:* The 99th percentile URL for the assay is <45 pg /ml.* A rise and fall i n Troponin I with at least onevalue above the 99th percen tile with clinical e vidence ofmyocardial is chemia would support a diagnosis of AM I. Adelta of at le ast 20% is recommended to assess acutecha nges in results above t he 99th percentile in serialmeasureme nts. Complete Blood Count Auto [id number] 02:45:00 Test Item Value Reference Range Interpretation Comments White Blood Count (test code = 5.8 x10 3/uL 4.4-10.5 N WBCT) Red Blood Count (test code = 2.56 x10 6/uL 3.75-5.20 L RBC) Hemoglobin (test code = HGBT) 7.6 g/dL 12.2-14.8 L Hematocrit (test code = HCTT) 25.1 % 36.5-44.4 L Mean Corpuscular Volume (test 98.00 fL 80.00-100.00 N code = MCV) Mean Corpuscular Hemoglobin 29.7 pg 27.0-32.5 N (test code = MCH) Mean Corpuscular HGB Conc 30.30 g/dL 32.00-37.50 L (test code = MCHC) RDW Coefficient of Variation 14.7 % 11.5-14.5 H (test code = RDWCV) Platelet Count (test code = 181.0 x10 3/uL 140.0-440.0 N PLTT) Mean Platelet Volume (test 10.4 fL code = MPV) Immature Granulocytes % (Auto) 0.2 % 0.0-5.0 N (test code = IMMGRAN%) Neutrophils % (Auto) (test 62.7 % 36.0-70.0 N code = NE%) Lymphocytes % (Auto) (test 23.6 % 12.0-44.0 N code = LY%) Monocytes % (Auto) (test code 8.6 % 0.0-11.0 N = MO%) Eosinophils % (Auto) (test 4.6 % 0.0-7.0 N code = EO%) Basophils % (Auto) (test code 0.3 % 0.0-2.0 N = BA%) Immature Granulocytes # (Auto) 0.01 x10 3/uL (test code = IMMGRAN#) Neutrophils # (Auto) (test 3.7 x10 3/uL 1.6-7.4 N code = NE#) Lymphocytes # (Auto) (test 1.38 x10 3/uL 0.50-4.60 N code = LY#) Monocytes # (Auto) (test code 0.50 x10 3/uL 0.00-1.20 N = MO#) Eosinophils # (Auto) (test 0.27 x10 3/uL 0.00-0.74 N code = EO#) Basophils # (Auto) (test code 0.02 x10 3/uL 0.00-0.21 N = BA#) nRBC Abs (test code = NRBCA) 0 nRBC Pct (test code = NRBCP) 0 % Prothrombin Time [id number] 02:45:00 Test Item Value Reference Range Interpretation Comments Prothrombin Time (test code = 14.7 Seconds 9.8-13.4 H PT) INR (test code = INR) 1.3 ratio 0.6-1.2 H Partial Thromboplastin [id number] 02:45:00 Test Item Value Reference Range Interpretation Comments Partial Thromboplastin Time 37.90 Seconds 24.39-37.25 H (test code = PTT) Comprehensive Metabolic [id number] 02:45:00 Test Item Value Reference Range Interpretation Comments SODIUM (test code = NA) 142.0 mmol/L 136.0-145.0 N Potassium,K (test code = K) 3.8 mmol/L 3.0-5.1 N Chloride (test code = CL) 109 mmol/L 98-107 H Carbon Dioxide (test code = CO2) 28 mmol/L 20-31 N Anion Gap (test code = GAP) 5 mmol/L 5-15 N Blood Urea Nitrogen (test code = 18 mg/dL 9-23 N BUN) Creatinine (test code = CREATT) 0.89 mg/dL 0.55-1.02 N Creatinine Clr Calc Pharmacy 59.39 mL/min (test code = CRCLPHA) Estimated GFR ( Kiya > 60 mL/min/1.73m2 (test code = EGFRAA) Estimated GFR (Non Afr Kiya > 60 mL/min/1.73m2 (test code = EGFRNAA) BUN/Creatinine Ratio (test code 20 ratio 10-20 N = BCRATIO) Glucose (test code = GLU) 164 mg/dL 74-106 H Osmolality,Calculated (test code 299.4 = OSMOC) Calcium (test code = CA) 9.0 mg/dL 8.3-10.6 N Bilirubin,Total (test code = 0.3 mg/dL 0.2-1.1 N BILIT) Aspartate Amino Transferase 18 U/L 0-34 N (test code = AST) Alanine Aminotransferase (test 15 U/L 10-49 N code = ALT) Total Protein (test code = TP) 5.0 g/dL 5.7-8.2 L Albumin Level (test code = ALB) 3.6 g/dL 3.2-4.8 N Globulin (test code = GLOB) 1.4 mg/dL 2.3-3.5 L Albumin/Globulin Ratio (test 2.6 ratio 0.8-2.0 H code = AGRATIO) Alkaline Phosphatase (test code 57 U/L 46-116 N = ALP) Troponin [id number] 02:45:00 Test Item Value Reference Range Interpretation Comments Troponin I (test 73.19 pg/mL 0.00-45.[address] luderik called code = TROP) to khushi back by oz on: 12/06/20 at 0321by OJO01.Interpret sarah Comments:* The 99th percentile URL for the assay is <45 pg /ml.* A rise and fall i n Troponin I with at least onevalue above the 99th percen tile with clinical e vidence ofmyocardial is chemia would support a diagnosis of AM I. Adelta of at le ast 20% is recommended to assess acutecha nges in results above t he 99th percentile in serialmeasureme nts. CARDIAC [id number] 01:51:00 Test Item Value Reference Range Interpretation Comments Troponin-I (test code no gt See_Comment [Auto mated message] The = Troponin-I) system which g enerated this result transmit mikey reference range : <=0.40. The reference r yousif was not used to interpr et this result as dk l/abnormal. [facility] [id number] 01:51:00 Test Item Value Reference Range Interpretation Comments Troponin-I (test code no gt See_Comment [Auto mated message] The = Troponin-I) system which g enerated this result transmit mikey reference range : <=0.40. The reference r yousif was not used to interpr et this result as dk l/abnormal. [facility] [id number] 21:55:00 Test Item Value Reference Range Interpretation Comments Troponin-I (test code no gt See_Comment [Auto mated message] The = Troponin-I) system which g enerated this result transmit mikey reference range : <=0.40. The reference r yousif was not used to interpr et this result as dk l/abnormal. [facility] [id number] 21:55:00 Test Item Value Reference Range Interpretation Comments Troponin-I (test code no gt See_Comment [Auto mated message] The = Troponin-I) system which g enerated this result transmit mikey reference range : <=0.40. The reference r yousif was not used to interpr et this result as dk l/abnormal. [facility] [id number] 17:49:00 Test Item Value Reference Range Interpretation Comments UA Urobilinogen (test code = UA <=1.0 mg/dL 0.1-1.0 Urobilinogen) [facility] [id number] 17:49:00 Test Item Value Reference Range Interpretation Comments UA Hyal Cast (test 31 See_Comment [Automat ed message] The code = UA Hyal Cast) system which generated this result transmit mikey reference range : <=2. The reference range was not used to interpr et this result as dk l/abnormal. [facility] AND [id number] 17:49:00 Test Item Value Reference Range Interpretation Comments UA Sq Epi (test code = UA Sq Occasional /LPF Epi) [facility] AND [id number] 17:49:00 Test Item Value Reference Range Interpretation Comments UA Leuk Est (test Moderate *ABN*(11/10/16 code = UA Leuk Est) 11:49 AM) [facility] AND [id number] 17:49:00 Test Item Value Reference Range Interpretation Comments UA WBC (test code = 19 See_Comment [Automa mikey message] The UA WBC) system which ge nerated this result transmit mikey reference range : <=5. The reference range was not used to interpr et this result as dk l/abnormal. [facility] AND [id number] 17:49:00 Test Item Value Reference Range Interpretation Comments UA Nitrite (test code Negative (11/10/16 11:49 = UA Nitrite) AM) [facility] AND [id number] 17:49:00 Test Item Value Reference Range Interpretation Comments UA Bacteria (test code = UA Occasional /HPF Bacteria) [facility] AND [id number] 17:49:00 Test Item Value Reference Range Interpretation Comments UA RBC (test code = 31 See_Comment [Automa mikey message] The UA RBC) system which ge nerated this result transmit mikey reference range : <=2. The reference range was not used to interpr et this result as dk l/abnormal. [facility] AND [id number] 17:49:00 Test Item Value Reference Range Interpretation Comments UA CaOx Olinda (test code = UA Moderate /HPF CaOx Olinda) [facility] AND [id number] 17:49:00 Test Item Value Reference Range Interpretation Comments UA Mucus (test code = UA Mucus) Few /LPF [facility] AND [id number] 17:49:00 Test Item Value Reference Range Interpretation Comments UA Turbidity (test code Marked *ABN*(11/10/16 = UA Turbidity) 11:49 AM) [facility] AND [id number] 17:49:00 Test Item Value Reference Range Interpretation Comments UA pH (test code = UA pH) 5.0 5.0-8.0 [facility] AND [id number] 17:49:00 Test Item Value Reference Range Interpretation Comments UA Spec Grav (test code = UA Spec Grav) 1.023 [facility] AND [id number] 17:49:00 Test Item Value Reference Range Interpretation Comments UA Protein (test code = UA Protein) 30 mg/dL [facility] AND [id number] 17:49:00 Test Item Value Reference Range Interpretation Comments UA Blood (test code = Negative (11/10/16 11:49 UA Blood) AM) [facility] AND [id number] 17:49:00 Test Item Value Reference Range Interpretation Comments UA Glucose (test code = UA Negative mg/dL Glucose) [facility] AND [id number] 17:49:00 Test Item Value Reference Range Interpretation Comments UA Bili (test code = Negative *NA*(11/10/16 UA Bili) 11:49 AM) [facility] AND [id number] 17:49:00 Test Item Value Reference Range Interpretation Comments UA Ketones (test code = UA Trace mg/dL Ketones) [facility] AND [id number] 17:49:00 Test Item Value Reference Range Interpretation Comments UA Color (test code = Dark Yellow UA Color) *NA*(11/10/16 11:49 AM) [facility] AND [id number] 17:49:00 Test Item Value Reference Range Interpretation Comments UA Urobilinogen (test code = UA <=1.0 mg/dL 0.1-1.0 Urobilinogen) [facility] AND [id number] 17:49:00 Test Item Value Reference Range Interpretation Comments UA Hyal Cast (test 31 See_Comment [Automat ed message] The code = UA Hyal Cast) system which generated this result transmit mikey reference range : <=2. The reference range was not used to interpr et this result as dk l/abnormal. [facility] AND [id number] 17:49:00 Test Item Value Reference Range Interpretation Comments UA Sq Epi (test code = UA Sq Occasional /LPF Epi) [facility] AND [id number] 17:49:00 Test Item Value Reference Range Interpretation Comments UA Leuk Est (test Moderate *ABN*(11/10/16 code = UA Leuk Est) 11:49 AM) [facility] AND [id number] 17:49:00 Test Item Value Reference Range Interpretation Comments UA WBC (test code = 19 See_Comment [Automa mikey message] The UA WBC) system which ge nerated this result transmit mikey reference range : <=5. The reference range was not used to interpr et this result as dk l/abnormal. [facility] AND [id number] 17:49:00 Test Item Value Reference Range Interpretation Comments UA Nitrite (test code Negative (11/10/16 11:49 = UA Nitrite) AM) [facility] AND [id number] 17:49:00 Test Item Value Reference Range Interpretation Comments UA Bacteria (test code = UA Occasional /HPF Bacteria) [facility] AND [id number] 17:49:00 Test Item Value Reference Range Interpretation Comments UA RBC (test code = 31 See_Comment [Automa mikey message] The UA RBC) system which ge nerated this result transmit mikey reference range : <=2. The reference range was not used to interpr et this result as dk l/abnormal. [facility] AND [id number] 17:49:00 Test Item Value Reference Range Interpretation Comments UA CaOx Olinda (test code = UA Moderate /HPF CaOx Olinda) [facility] AND [id number] 17:49:00 Test Item Value Reference Range Interpretation Comments UA Mucus (test code = UA Mucus) Few /LPF [facility] AND [id number] 17:49:00 Test Item Value Reference Range Interpretation Comments UA Turbidity (test code Marked *ABN*(11/10/16 = UA Turbidity) 11:49 AM) [facility] AND [id number] 17:49:00 Test Item Value Reference Range Interpretation Comments UA pH (test code = UA pH) 5.0 5.0-8.0 [facility] AND [id number] 17:49:00 Test Item Value Reference Range Interpretation Comments UA Spec Grav (test code = UA Spec Grav) 1.023 [facility] AND [id number] 17:49:00 Test Item Value Reference Range Interpretation Comments UA Protein (test code = UA Protein) 30 mg/dL [facility] AND [id number] 17:49:00 Test Item Value Reference Range Interpretation Comments UA Blood (test code = Negative (11/10/16 11:49 UA Blood) AM) [facility] AND [id number] 17:49:00 Test Item Value Reference Range Interpretation Comments UA Glucose (test code = UA Negative mg/dL Glucose) [facility] AND [id number] 17:49:00 Test Item Value Reference Range Interpretation Comments UA Bili (test code = Negative *NA*(11/10/16 UA Bili) 11:49 AM) [facility] AND [id number] 17:49:00 Test Item Value Reference Range Interpretation Comments UA Ketones (test code = UA Trace mg/dL Ketones) [facility] AND [id number] 17:49:00 Test Item Value Reference Range Interpretation Comments UA Color (test code = Dark Yellow UA Color) *NA*(11/10/16 11:49 AM) [id number] 17:38:00 Test Item Value Reference Range Interpretation Comments MCHC (test code = MCHC) 32.7 32.0-36.0 [id number] 17:38:00 Test Item Value Reference Range Interpretation Comments MCH (test code = MCH) 28.5 pg 27.0-31.0 [facility] Hospit[id number] 17:38:00 Test Item Value Reference Range Interpretation Comments MCV (test code = MCV) 87.3 80.0-98.0 [facility] H[id number] 17:38:00 Test Item Value Reference Range Interpretation Comments MPV (test code = MPV) 8.7 7.4-10.4 [facility] Hospit[id number] 17:38:00 Test Item Value Reference Range Interpretation Comments Platelet (test code = Platelet) 183 133-450 [facility] H[id number] 17:38:00 Test Item Value Reference Range Interpretation Comments RDW (test code = RDW) 14.4 11.5-14.5 [facility] H[id number] 17:38:00 Test Item Value Reference Range Interpretation Comments WBC (test code = WBC) 6.8 3.7-10.4 [facility] H[id number] 17:38:00 Test Item Value Reference Range Interpretation Comments Hgb (test code = Hgb) 13.5 12.0-16.0 [facility] Hospit[id number] 17:38:00 Test Item Value Reference Range Interpretation Comments RBC (test code = RBC) 4.74 4.20-5.40 [facility] Hospit[id number] 17:38:00 Test Item Value Reference Range Interpretation Comments Lymphocytes # (test code = Lymphocytes 2.4 1.0-5.5 #) [facility] Ho[id number] 17:38:00 Test Item Value Reference Range Interpretation Comments Segs-Bands # (test code = Segs-Bands #) 3.7 1.5-8.1 [facility] H[id number] 17:38:00 Test Item Value Reference Range Interpretation Comments Basophils (test code = 0.7 See_Comment [Aut omated message] The Basophils) system which ge nerated this result tra nsmitted reference range : <=1.0. The reference r yousif was not used to int erpret this result as normal/abnormal . [facility] Hospit[id number] 17:38:00 Test Item Value Reference Range Interpretation Comments Eosinophils (test code = 1.2 See_Comment [A utomated message] The Eosinophils) system which ge nerated this result tra nsmitted reference range : <=4.0. The reference r yousif was not used to int erpret this result as normal/abnormal . [facility] Hospit[id number] 17:38:00 Test Item Value Reference Range Interpretation Comments Monocytes (test code = Monocytes) 7.9 2.0-12.0 [facility] Hospit[id number] 17:38:00 Test Item Value Reference Range Interpretation Comments Lymphocytes (test code = Lymphocytes) 35.7 20.0-40.0 [facility] HospitalVtfargfOXCOOJJYOK2682-73-99 17:38:00 Test Item Value Reference Range Interpretation Comments Segs (test code = Segs) 54.5 45.0-75.0 [place] [id number] 17:38:00 Test Item Value Reference Range Interpretation Comments Monocytes # (test code 0.5 See_Comment [Aut omated message] The = Monocytes #) system which generated this result tra nsmitted reference range : <=0.8. The reference r yousif was not used to int erpret this result as normal/abnormal . [facility] Lancast[id number] 17:38:00 Test Item Value Reference Range Interpretation Comments Eosinophils # (test code 0.1 See_Comment [A utomated message] The = Eosinophils #) system whic h generated this result tra nsmitted reference range : <=0.5. The reference r yousif was not used to int erpret this result as normal/abnormal . [facility] [employer]2017-02-19 17:38:00 Test Item Value Reference Range Interpretation Comments BNP (test code = BNP) 233 [facility]2017-[facility]-19 17:38:00 Test Item Value Reference Range Interpretation Comments CK MB (test code = CK MB) 0.9 0.5-3.6 [facility] [employer]2017-02-19 17:38:00 Test Item Value Reference Range Interpretation Comments Troponin-I (test code no gt See_Comment [Auto mated message] The = Troponin-I) system which g enerated this result transmit mikey reference range : <=0.40. The reference r yousif was not used to interpr et this result as dk l/abnormal. [facility] [employer]2017-02-19 17:38:00 Test Item Value Reference Range Interpretation Comments Total CK (test code = Total CK) 137 12-191 [facility]2017-02-19 17:38:00 Test Item Value Reference Range Interpretation Comments CK MB Index (test 0.7 See_Comment [Automate d message] The code = CK MB Index) system w [facility] generated this result transmit mikey reference range : <=2.5. The reference range was not used to interpr et this result as dk l/abnormal. [employer]2017-02-19 17:38:00 Test Item Value Reference Range Interpretation Comments Lactic Acid Lvl (test code = Lactic 2.8 0.5-2.2 Acid Lvl) [facility] [employer] [id number] 17:38:00 Test Item Value Reference Range Interpretation Comments eGFR (test code = eGFR) 41 [facility]2017-02-19 17:38:00 Test Item Value Reference Range Interpretation Comments ALT (test code = ALT) 20 See_Comment [Auto mated message] The system which ge nerated this result transmit mikey reference range : <=65. The reference range was not used to interpr et this result as dk l/abnormal. [facility]2017-02-19 17:38:00 Test Item Value Reference Range Interpretation Comments Albumin Lvl (test code = Albumin Lvl) 3.8 3.5-5.0 [facility] Hospit[id number] 17:38:00 Test Item Value Reference Range Interpretation Comments MCHC (test code = MCHC) 32.7 32.0-36.0 [facility] Hospit[id number] 17:38:00 Test Item Value Reference Range Interpretation Comments MCH (test code = MCH) 28.5 pg 27.0-31.0 [facility] HospitalVhctlkqUCUPTDFDKH6824-23-09 17:38:00 Test Item Value Reference Range Interpretation Comments MCV (test code = MCV) 87.3 80.0-98.0 [facility] HospitalWbtchtzZWMYSXBNGU0229-02-37 17:38:00 Test Item Value Reference Range Interpretation Comments MPV (test code = MPV) 8.7 7.4-10.4 [facility] HospitalQlbmuijKUUCILDPKL6047-95-40 17:38:00 Test Item Value Reference Range Interpretation Comments Platelet (test code = Platelet) 183 133-450 [facility] HospitalDjfmtfqPWLQYVWWSF4555-17-07 17:38:00 Test Item Value Reference Range Interpretation Comments RDW (test code = RDW) 14.4 11.5-14.5 [facility] HospitalQkzetnfBDMBAUKCUR0582-82-44 17:38:00 Test Item Value Reference Range Interpretation Comments WBC (test code = WBC) 6.8 3.7-10.4 [facility] HospitalQzitzjxEDPWQOQPBQ9159-31-18 17:38:00 Test Item Value Reference Range Interpretation Comments Hgb (test code = Hgb) 13.5 12.0-16.0 [facility] HospitalCgjgjevIVEQIEEMVS6065-65-26 17:38:00 Test Item Value Reference Range Interpretation Comments RBC (test code = RBC) 4.74 4.20-5.40 [facility] HospitalRdjvykfUJWZVWEMDT6050-11-81 17:38:00 Test Item Value Reference Range Interpretation Comments Lymphocytes # (test code = Lymphocytes 2.4 1.0-5.5 #) [facility]2017-02-19 17:38:00 Test Item Value Reference Range Interpretation Comments Total Protein (test code = Total 6.9 6.4-8.4 Protein) [facility] HospitalTgkwjzpNSFFVZBMFZ3057-26-87 17:38:00 Test Item Value Reference Range Interpretation Comments Segs-Bands # (test code = Segs-Bands #) 3.7 1.5-8.1 [facility] Hospit[id number] 17:38:00 Test Item Value Reference Range Interpretation Comments Basophils (test code = 0.7 See_Comment [Aut omated message] The Basophils) system which ge nerated this result tra nsmitted reference range : <=1.0. The reference r yousif was not used to int erpret this result as normal/abnormal . [facility] HospitalEvdtmaxZSJJWPRUCJ2001-06-84 17:38:00 Test Item Value Reference Range Interpretation Comments Eosinophils (test code = 1.2 See_Comment [A utomated message] The Eosinophils) system which ge nerated this result tra nsmitted reference range : <=4.0. The reference r yousif was not used to int erpret this result as normal/abnormal . [facility] HospitalWnverepDTITDILBBL5975-46-40 17:38:00 Test Item Value Reference Range Interpretation Comments Monocytes (test code = Monocytes) 7.9 2.0-12.0 [facility] HospitalWufxjajVSGKCJGOCI0050-96-60 17:38:00 Test Item Value Reference Range Interpretation Comments Lymphocytes (test code = Lymphocytes) 35.7 20.0-40.0 [facility] HospitalHflwxokAAGCXZGSSD6669-31-72 17:38:00 Test Item Value Reference Range Interpretation Comments Segs (test code = Segs) 54.5 45.0-75.0 [facility] HospitalDgotxidNPHLMJVHMA5757-25-30 17:38:00 Test Item Value Reference Range Interpretation Comments Monocytes # (test code 0.5 See_Comment [Aut omated message] The = Monocytes #) system which generated this result tra nsmitted reference range : <=0.8. The reference r yousif was not used to int erpret this result as normal/abnormal . [facility] TaylorSgcpeffXFYXIDVWLR6219-98-80 17:38:00 Test Item Value Reference Range Interpretation Comments Eosinophils # (test code 0.1 See_Comment [A utomated message] The = Eosinophils #) system whic h generated this result tra nsmitted reference range : <=0.5. The reference r yousif was not used to int erpret this result as normal/abnormal . [facility] LancasterKermdinger StudiosCARNtiretyAC [id number] 17:38:00 Test Item Value Reference Range Interpretation Comments BNP (test code = BNP) 233 [facility] LancasterezCaterAC [id number] 17:38:00 Test Item Value Reference Range Interpretation Comments CK MB (test code = CK MB) 0.9 0.5-3.6 [facility] LancasterSpr[facility]ys [id number] 17:38:00 Test Item Value Reference Range Interpretation Comments Troponin-I (test code no gt See_Comment [Auto mated message] The = Troponin-I) system which g enerated this result transmit mikey reference range : <=0.40. The reference r yousif was not used to interpr et this result as dk l/abnormal. [facility] [id number] 17:38:00 Test Item Value Reference Range Interpretation Comments Total CK (test code = Total CK) 137 12-191 [facility] LancasterezCaterAC [id number] 17:38:00 Test Item Value Reference Range Interpretation Comments CK MB Index (test 0.7 See_Comment [Automate d message] The code = CK MB Index) system w [facility] generated this result transmit mikey reference range : <=2.5. The reference range was not used to interpr et this result as dk l/abnormal. [facility] [employer] [id number] 17:38:00 Test Item Value Reference Range Interpretation Comments Lactic Acid Lvl (test code = Lactic 2.8 0.5-2.2 Acid Lvl) [facility] [employer] [id number] 17:38:00 Test Item Value Reference Range Interpretation Comments eGFR (test code = eGFR) 41 [facility] [employer] [id number] 17:38:00 Test Item Value Reference Range Interpretation Comments ALT (test code = ALT) 20 See_Comment [Auto mated message] The system which ge nerated this result transmit mikey reference range : <=65. The reference range was not used to interpr et this result as dk l/abnormal. [facility]2017-02-19 17:38:00 Test Item Value Reference Range Interpretation Comments Albumin Lvl (test code = Albumin Lvl) 3.8 3.5-5.0 [facility]2017-02-19 17:38:00 Test Item Value Reference Range Interpretation Comments Total Protein (test code = Total 6.9 6.4-8.4 Protein) [facility]2017-02-19 17:38:00 Test Item Value Reference Range Interpretation Comments Calcium Lvl (test code = Calcium Lvl) 9.6 8.5-10.5 [facility]2017-02-19 17:38:00 Test Item Value Reference Range Interpretation Comments Chloride Lvl (test code = Chloride Lvl) 101 95-109 [facility]2017-02-19 17:38:00 Test Item Value Reference Range Interpretation Comments Potassium Lvl (test code = Potassium 3.2 3.5-5.1 Lvl) [facility]2017-02-19 17:38:00 Test Item Value Reference Range Interpretation Comments Sodium Lvl (test code = Sodium Lvl) 141 135-145 [facility]2017-02-19 17:38:00 Test Item Value Reference Range Interpretation Comments CO2 (test code = CO2) 28 24-32 [facility]2017-02-19 17:38:00 Test Item Value Reference Range Interpretation Comments Alk Phos (test code = Alk Phos) 52 39-136 [facility]2017-02-19 17:38:00 Test Item Value Reference Range Interpretation Comments AST (test code = AST) 13 See_Comment [Auto mated message] The system which ge nerated this result transmit mikey reference range : <=37. The reference range was not used to interpr et this result as dk l/abnormal. [facility]2017-02-19 17:38:00 Test Item Value Reference Range Interpretation Comments AGAP (test code = AGAP) 15.2 10.0-20.0 [facility]2017-02-19 17:38:00 Test Item Value Reference Range Interpretation Comments Bili Total (test code = Bili Total) 0.5 0.2-1.3 [facility]2017-02-19 17:38:00 Test Item Value Reference Range Interpretation Comments A/G Ratio (test code = A/G Ratio) 1.2 0.7-1.6 [facility]2017-02-19 17:38:00 Test Item Value Reference Range Interpretation Comments Globulin (test code = Globulin) 3.1 2.7-4.2 [facility]2017-02-19 17:38:00 Test Item Value Reference Range Interpretation Comments B/C Ratio (test code = B/C Ratio) 03-16 [facility]2017-02-19 17:38:00 Test Item Value Reference Range Interpretation Comments BUN (test code = BUN) 04-12 [facility]2017-02-19 17:38:00 Test Item Value Reference Range Interpretation Comments Creatinine Lvl (test code = Creatinine 1.30 0.50-1.40 Lvl) [facility]2017-02-19 17:38:00 Test Item Value Reference Range Interpretation Comments Glucose Lvl (test code = Glucose Lvl) 153 70-99 [facility]EjqemdeZAUQZNSEGX2199-24-21 17:38:00 Test Item Value Reference Range Interpretation Comments Hct (test code = Hct) 41.4 36.0-48.0 [facility]2017-02-19 17:38:00 Test Item Value Reference Range Interpretation Comments Calcium Lvl (test code = Calcium Lvl) 9.6 8.5-10.5 [facility]2017-02-19 17:38:00 Test Item Value Reference Range Interpretation Comments Chloride Lvl (test code = Chloride Lvl) 101 95-109 [facility]2017-02-19 17:38:00 Test Item Value Reference Range Interpretation Comments Potassium Lvl (test code = Potassium 3.2 3.5-5.1 Lvl) [facility]2017-02-19 17:38:00 Test Item Value Reference Range Interpretation Comments Sodium Lvl (test code = Sodium Lvl) 141 135-145 [facility]2017-02-19 17:38:00 Test Item Value Reference Range Interpretation Comments CO2 (test code = CO2) 28 24-32 [facility]2017-02-19 17:38:00 Test Item Value Reference Range Interpretation Comments Alk Phos (test code = Alk Phos) 52 39-136 [facility]2017-02-19 17:38:00 Test Item Value Reference Range Interpretation Comments AST (test code = AST) 13 See_Comment [Auto mated message] The system which ge nerated this result transmit mikey reference range : <=37. The reference range was not used to interpr et this result as dk l/abnormal. [facility]2017-02-19 17:38:00 Test Item Value Reference Range Interpretation Comments AGAP (test code = AGAP) 15.2 10.0-20.0 [facility]2017-02-19 17:38:00 Test Item Value Reference Range Interpretation Comments Bili Total (test code = Bili Total) 0.5 0.2-1.3 [facility]2017-02-19 17:38:00 Test Item Value Reference Range Interpretation Comments A/G Ratio (test code = A/G Ratio) 1.2 0.7-1.6 [facility]2017-02-19 17:38:00 Test Item Value Reference Range Interpretation Comments Globulin (test code = Globulin) 3.1 2.7-4.2 [facility]2017-02-19 17:38:00 Test Item Value Reference Range Interpretation Comments B/C Ratio (test code = B/C Ratio) 19 6-25 [facility]2017-02-19 17:38:00 Test Item Value Reference Range Interpretation Comments BUN (test code = BUN) 25 7-22 [facility]2017-02-19 17:38:00 Test Item Value Reference Range Interpretation Comments Creatinine Lvl (test code = Creatinine 1.30 0.50-1.40 Lvl) [facility]2017-02-19 17:38:00 Test Item Value Reference Range Interpretation Comments Glucose Lvl (test code = Glucose Lvl) 153 70-99 [id number]00 Test Item Value Reference Range Interpretation Comments Hct (test code = Hct) 41.4 36.0-48.0 [facility]
[2022-07-27 02:52] LABS: Absolute Lymphocytes (CBC) 1.6 K/uL (0.7-4.9); Hematocrit 39.7 % (36.0-45.0); Lymphocytes % 26.3 % (15.3-44.8); MCV 92.5 fL (80-100); MPV 8.4 fL (7.6-11.3)
[2022-07-27 03:12] LABS: Potassium 4.2 mmol/L (3.5-5.1); Troponin High Sensitivity 17.9 pg/mL (<58.9)
--- NOTE | 2022-07-27 05:29 | ER ---
Nurse's Notes [facility] Name: Elsy Rico Age: 77 yrs Sex: Female : 1945 Arrival Date: 07/27/2022 Time: 02:23 Bed 5 Private MD: Diagnosis: Dyspnea Presentation: 07/27 02:27 Chief complaint: Patient states: she started having some shortness of breath which she bb has on and off. Coronavirus screen: shortness of breath. Ebola Screen: No symptoms or risks identified at this time. Initial Sepsis Screen: Does the patient meet any 2 criteria? No. Patient's initial sepsis screen is negative. Does the patient have a suspected source of infection? No. Patient's initial sepsis screen is negative. Risk Assessment: Do you want to hurt yourself or someone else? Patient reports no desire to harm self or others. Onset of symptoms was July 27, 2022. 02:27 Method Of Arrival: [facility] bb 02:27 Acuity: PAUL 3 bb Triage Assessment: 02:43 General: Appears in no apparent distress. Behavior is calm, cooperative, appropriate tw5 for age. Pain: Denies pain. Respiratory: Reports shortness of breath when laying flat Onset: The symptoms/episode began/occurred this morning, the patient has mild shortness of breath. Historical: - Allergies: 02:29 PENICILLINS; bb 02:29 Sulfa (Sulfonamide Antibiotics); bb - PMHx: 02:29 CHF; Diabetes - NIDDM; High Cholesterol; Hypertension; restless leg; Atrial bb fibrillation; - Immunization history:: unknown. - Social history:: Smoking status: unknown. Screenin:44 Abuse screen: Denies threats or abuse. Denies injuries from another. Nutritional tw5 screening: No deficits noted. Tuberculosis screening: No symptoms or risk factors identified. Fall Risk None identified. Assessment: 02:44 Cardiovascular: Rhythm is ventricular pacer. Respiratory: Airway is patent Trachea tw5 midline Respiratory effort is even, labored, Breath sounds are clear. 05:49 Reassessment: No changes from previously documented assessment. Patient and/or family tw5 updated on plan of care and expected duration. Pain level reassessed. Patient is alert, oriented x 3, equal unlabored respirations, skin warm/dry/pink. Vital Signs: 02:27 BP 149 / 74; Pulse 73; Resp 20 S; Temp 98.6(O); Pulse Ox 98% on R/A; Weight 81.65 kg bb (R); Height 5 ft. 6 in. (167.64 cm) (R); Pain 0/10; 02:27 Body Mass Index 29.05 (81.65 kg, 167.64 cm) bb ED Course: 02:23 Patient arrived in ED. tw5 02:26 Mario Conrad MD is Attending Physician. kdr 02:27 Karen Acosta is Primary Nurse. tw5 02:29 Triage completed. bb 02:29 Arm band placed on Patient placed in an exam room, on a stretcher, on quality assurance monitor final, bb on pulse oximetry. EKG completed in triage. Results shown to MD. 02:43 XRAY Chest (1 view) In Process Unspecified. EDMS 02:44 Patient has correct armband on for positive identification. Placed in gown. Bed in low tw5 position. Call light in reach. Side rails up X2. Client placed on continuous cardiac and pulse oximetry monitoring. NIBP monitoring applied. Door closed. Noise minimized. Lights dimmed. Warm blanket given. Verbal reassurance given. 02:44 Initial lab(s) drawn, by me, sent to lab. Inserted saline lock: Maintain EMS IV. tw5 Dressing intact. Good blood return noted. Site clean \T\ dry. Gauge \T\ site: 20 RAC. 05:49 No provider procedures requiring assistance completed. IV discontinued, intact, tw5 bleeding controlled, No redness/swelling at site. Pressure dressing applied. Administered Medications: No medications were administered Medication: 02:44 VIS not applicable for this client. tw5 Outcome: 05:28 Discharge ordered by . kdr 05:49 Discharged to home ambulatory. tw5 05:49 Condition: good 05:49 Discharge instructions given to patient, Instructed on discharge instructions, follow up and referral plans. Demonstrated understanding of instructions, follow-up care. 05:49 Patient left the ED. tw5 Signatures: Dispatcher [employer] EDIL Mario Conrad MD MD kdr Katie Dunlap, RN RN bb Karen Acosta tw5
--- NOTE | 2022-07-27 05:29 | EDPHYS ---
Physician Documentation [facility] Name: Elsy Rico Age: 77 yrs Sex: Female : 1945 Arrival Date: 07/27/2022 Time: 02:23 Bed 5 Private MD: ED Physician Mario Conrad HPI: 07/27 18:15 This 77 yrs old Female presents to ER via EMS with complaints of Shortness Of Breath. kdr 18:15 Patient has had intermittent dyspnea for the past few weeks. To this evening she was kdr checking her pulse ox with her finger pulse oximeter and noted that the lower number on the display was in the 70s. She was concerned that that was her saturation. She had the device with her and reported on her finger and looked at together. I pointed out to her that that lower number was in fact her heart rate and not her oxygen saturation. I educated her as to the fact that the heart rate is normal between 60 and 100 so a number in the 70s would not be considered abnormal. She indicated she understood. She had no other focal complaints at this time. She was completely nontoxic not requiring any emergent intervention. Onset: The symptoms/episode began/occurred gradually. 07/28 03:34 Severity of symptoms: At their worst the symptoms were mild in the emergency department kdr the symptoms are unchanged. The patient has not experienced similar symptoms in the past. The patient has not recently seen a physician. Historical: - Allergies: 07/27 02:29 PENICILLINS; bb 02:29 Sulfa (Sulfonamide Antibiotics); bb - PMHx: 02:29 CHF; Diabetes - NIDDM; High Cholesterol; Hypertension; restless leg; Atrial bb fibrillation; - Immunization history:: unknown. - Social history:: Smoking status: unknown. ROS: 07/28 03:34 Constitutional: Negative for fever, chills, and weight loss, Eyes: Negative for injury, kdr pain, redness, and discharge, ENT: Negative for injury, pain, and discharge, Neck: Negative for injury, pain, and swelling, Cardiovascular: Negative for chest pain, palpitations, and edema, Abdomen/GI: Negative for abdominal pain, nausea, vomiting, diarrhea, and constipation, Back: Negative for injury and pain, : Negative for injury, bleeding, discharge, and swelling, MS/Extremity: Negative for injury and deformity, Skin: Negative for injury, rash, and discoloration, Neuro: Negative for headache, weakness, numbness, tingling, and seizure activity. Psych: Negative for depression, anxiety, suicide ideation, homicidal ideation, and hallucinations, Allergy/Immunology: Negative for hives, rash, and allergies, Endocrine: Negative for neck swelling, polydipsia, polyuria, polyphagia, and marked weight changes, Hematologic/Lymphatic: Negative for swollen nodes, abnormal bleeding, and unusual bruising. Respiratory: Positive for shortness of breath, Negative for wheezing, acute changes. Exam: 03:34 Constitutional: This is a well developed, well nourished patient who is awake, alert, kdr and in no acute distress. Head/Face: Normocephalic, atraumatic. Eyes: Pupils equal round and reactive to light, extra-ocular motions intact. Lids and lashes normal. Conjunctiva and sclera are non-icteric and not injected. Cornea within normal limits. Periorbital areas with no swelling, redness, or edema. Neck: Trachea midline, no thyromegaly or masses palpated, and no cervical lymphadenopathy. Supple, full range of motion without nuchal rigidity, or vertebral point tenderness. No Meningismus. Chest/axilla: Normal chest wall appearance and motion. Nontender with no deformity. No lesions are appreciated. Cardiovascular: Regular rate and rhythm with a normal S1 and S2. No gallops, murmurs, or rubs. Normal PMI, no JVD. No pulse deficits. Respiratory: Lungs have equal breath sounds bilaterally, clear to auscultation and percussion. No rales, rhonchi or wheezes noted. No increased work of breathing, no retractions or nasal flaring. Abdomen/GI: Soft, non-tender, with normal bowel sounds. No distension or tympany. No guarding or rebound. No evidence of tenderness throughout. Back: No spinal tenderness. No costovertebral tenderness. Full range of motion. Skin: Warm, dry with normal turgor. Normal color with no rashes, no lesions, and no evidence of cellulitis. MS/ Extremity: Pulses equal, no cyanosis. Neurovascular intact. Full, normal range of motion. Neuro: Awake and alert, GCS 15, oriented to person, place, time, and situation. Cranial nerves II-XII grossly intact. Motor strength 5/5 in all extremities. Sensory grossly intact. Cerebellar exam normal. Normal gait. Psych: Awake, alert, with orientation to person, place and time. Behavior, mood, and affect are within normal limits. Vital Signs: 07/27 02:27 BP 149 / 74; Pulse 73; Resp 20 S; Temp 98.6(O); Pulse Ox 98% on R/A; Weight 81.65 kg bb (R); Height 5 ft. 6 in. (167.64 cm) (R); Pain 0/10; 02:27 Body Mass Index 29.05 (81.65 kg, 167.64 cm) bb MDM: 05:28 Patient medically screened. kdr 07/28 03:34 Data reviewed: vital signs, nurses notes, lab test result(s), radiologic studies. kdr Counseling: I had a detailed discussion with the patient and/or guardian regarding: the historical points, exam findings, and any diagnostic results supporting the discharge/admit diagnosis, lab results, radiology results, the need for outpatient follow up. 07/27 02:26 Order name: Basic Metabolic Panel; Complete Time: 04:17 kdr 07/27 02:26 Order name: CBC with Diff; Complete Time: 04:17 [facility] 07/27 02:26 Order name: NT PRO-BNP; Complete Time: 04:17 [facility] 07/27 02:26 Order name: Troponin HS; Complete Time: 04:17 [facility] 07/27 02:26 Order name: XRAY Chest (1 view) kdr 07/27 02:26 Order name: EKG; Complete Time: 02:27 [facility] 07/27 02:26 Order name: Cardiac monitoring; Complete Time: 04:51 [facility] 07/27 02:26 Order name: EKG - Nurse/Tech; Complete Time: 02:41 kdr 07/27 02:26 Order name: IV Saline Lock; Complete Time: 04:51 [facility] 07/27 02:26 Order name: Labs collected and sent; Complete Time: 04:51 [facility] 07/27 02:26 Order name: O2 Per Protocol; Complete Time: 04:51 [facility] 07/27 02:26 Order name: O2 Sat Monitoring; Complete Time: 04:51 kdr Administered Medications: No medications were administered Disposition Summary: 07/27/22 05:28 Discharge Ordered Location: Home kdr Problem: an acute exacerbation kdr Symptoms: are resolved kdr Condition: Stable kdr Diagnosis - Dyspnea kdr Followup: kdr - With: Private Physician - When: 2 - 3 days - Reason: If symptoms return, Further diagnostic work-up, Recheck today's complaints, Continuance of care, Re-evaluation by your physician Discharge Instructions: - Discharge Summary Sheet kdr - Shortness of Breath, Adult, [id number] kdr Forms: - Medication Reconciliation Form kdr - Thank You Letter kdr Signatures: Dispatcher [employer] Mario Angeles MD MD kdr Katie Dunlap, RN RN bb
[2022-07-27 05:58] VITALS: BP 149/74; TEMP 98.6; O2SAT 98
--- NOTE | 2022-07-27 21:38 | RAD REPORT ---
EXAM DESCRIPTION: RAD - Chest Single View - 07/27/2022 2:41 am CLINICAL HISTORY: The patient is 77 years old and is Female; DYSPNEA TECHNIQUE: Frontal view of the chest. COMPARISON: No relevant prior studies available. FINDINGS: Lungs: Mildly prominent interstitial markings. Pleural space: Left hemidiaphragm is somewhat obscured which can be seen with left pleural effusi on, as well as left lower lobe consolidation or atelectasis. No pneumothorax. Heart: Unremarkable. Mediastinum: Unremarkable. Bones/joints: Partially visualized postsurgical changes in the cervical spine. Vasculature: Aortic calcifications. Tubes, lines and devices: Left-sided pacemaker. IMPRESSION: 1. Mildly prominent interstitial markings. 2. Left hemidiaphragm is somewhat obscured which can be seen with left pleural effusion, as well as left lower lobe consolidation or atelectasis. Electronically signed by: Frederic Yates MD 07/27/2022 3:07 AM CDT Due to temporary technical issues with the PACS/Fluency reporting system, reports are being signed by the in house radiologists without review as a courtesy to insure prompt reporting. The interpreting radiologist is fully responsible for the content of the report.
--- NOTE | 2022-07-29 08:33 | EKG ---
Test Date: 2022-07-27 Test Time: 02:31:45 Distillery Supervisor: DIVYA MEASUREMENT RESULTS: Intervals: Rate: 69 MA: 86 QRSD: 132 QT: 416 QTc: 445 [place]: P: 74 MA: 86 QRS: 128 T: -48 INTERPRETIVE STATEMENTS: Electronic ventricular pacemaker Compared to ECG 03/04/2022 13:50:43 AV dual-paced complex(es) or rhythm no longer present Electronically Signed On 07-29-22 08:29:30 SHEARING MACHINE OPERATOR by Arian Falcon
== END 2022-07-27 05:49 | disposition home or self-care (01) ==
LOC: ER 02:22
DX: R06.00 Dyspnea, unspecified (principal); I50.9 Heart failure, unspecified; I10 Essential (primary) hypertension; I48.91 Unspecified atrial fibrillation; Z88.0 Allergy status to penicillin; Z88.2 Allergy status to sulfonamides
CPT/HCPCS: 36415; 71045; 80048; 83880; 84484; 85025; 93005; 99284

== ENCOUNTER 2022-08-05 11:00 | Day surgery (SDC) | payer OTHER ==
[2022-08-02 13:07] LABS: Protime INR 1.42
[2022-08-05] MEDS ORDERED: NA CHLORIDE 0.9% 500 ML ONE (11:12)
[2022-08-05] MEDS ORDERED: FENTANYL CITR 100 MCG/2 ML ONE (11:52)
[2022-08-05] MEDS ORDERED: HEPARIN 10,000 UNIT/10 ML VIAL IV ONE (11:53)
[2022-08-05] MEDS ORDERED: LIDOCAINE 1% 20 ML MDV ONE (11:53)
[2022-08-05] MEDS ORDERED: MIDAZOLAM HCL 2 MG/2 ML INJ ONE (11:53)
[2022-08-05] MEDS ORDERED: HEPA 1000U/500MLS 2,000 UNIT/1,000 ML BAG IV ONE (11:53)
[2022-08-05] MEDS ORDERED: VERAPAMIL HCL 10 MG/4 ML VIAL IV ONE (11:53)
[2022-08-05] MEDS ORDERED: ATROPINE SULF 1 MG/10 ML SYR IV ONE (11:53)
[2022-08-05] MEDS ORDERED: HEPARIN 5000 UNIT/ML 1 ML VIAL ONE (12:12)
--- NOTE | 2022-08-05 13:54 | OP ---
Date of Procedure: 08/05/2022 Surgeon: CHRISTIAN BAEZA Procedures Performed: 1.Selective coronary angiogram. 2.Left heart catheterization. 3.Right heart catheterization. Indications: 1.Aortic valve stenosis assessment. 2.Chest pain with exertion with negative stress test, to rule out multivessel disease. Access: 1.Right radial artery 6-[place] closed with TR band. 2.Right IJ 7-[place] closed with manual pressure. Complications: None. Bleeding: Less than 10 mL. Anesthesia: Total sedation time was 35 minutes, used fentanyl and Versed. Description Of Procedure: After risks, benefits, alternatives were explained, the patient agreed to procedure and signed informed consent. The patient was brought into the cardiac catheterization [facility], prepped and draped in the usual sterile fashion. Then, we accessed right radial artery using pediatric micropuncture kit, placed 6-B[place] Slender sheath and then I accessed right IJ using ultra sound guidance and placed a 7-[place]rain[place] sheath and used micropuncture kit for the access. I th en took a 7-[place] catheter through the IJ access into the right atrium and right RV, PA an d wedge, and obtained with formal pressure and then obtained a thermodilution cardiac output and then removed the [place]. Then, I took a 5-[place] 4.0 catheter into the aortic root over a J-wire fro m the radial access, engaged left main and right coronary artery, took standard views. Catheter was pushed over the wire into the LV, measured the LVEDP, pullback recorded gradient of aortic valve sten osis, see below. I removed the catheter and sheath, placed TR band with good hemostasis. The IJ she ath was removed and manual pressure was used for hemostasis. Findings: Coronary angiogram: 1.Left main is large and normal. 2.LAD; moderate size with luminal irregularities throughout. Diagonal branch 1 has diffuse 40% sten osis at 1 of the branches and diagonal branch 2 also has about 30% to 40% stenosis, multiple focal ar eas. 3.Left circumflex is very large and dominant with OM1 branch had diffuse 50% proximal, but a small v essel less than 2 mm. Mid left circumflex is above 50% stenosis and diagonal 2 branch has ostial 70% , but it is also small vessel. 4.RCA. It is small and nondominant or codominant. Has mid 60% and distal diffuse 30% to 40% stenos is. Right heart catheterization numbers; RA pressure was 9. RV pressure was 44/7, mean of 10. PA pressu re was 43/21, mean of 31. Pulmonary wedge pressure was 17. LVEDP was about 15 mmHg. Cardiac output was 4.3 L/minute. Valve area is 1.26 sq cm. Conclusion: 1.Moderate diffuse coronary artery disease. 2.Moderate aortic valve stenosis with valve area of 1.26 sq cm. Cardiac output is normal at 4.2 L/m inute. Plan: Medical management, increase diuretics, and careful monitoring of her aortic valve stenosis. SR/MODL Voice ID: [id number] Report ID: [id number]
[2022-08-05 15:59] VITALS: O2SAT 97
[2022-08-05 16:30] VITALS: BP 149/74; TEMP 97.2
== END 2022-08-05 16:25 | disposition home or self-care (01) ==
LOC: CCL 11:00
PROVIDERS: ATTEND Internal Medicine
DX: I25.10 Atherosclerotic heart disease of native coronary artery without angina pectoris (principal); I35.0 Nonrheumatic aortic (valve) stenosis; I34.0 Nonrheumatic mitral (valve) insufficiency; I11.0 Hypertensive heart disease with heart failure; I50.32 Chronic diastolic (congestive) heart failure; I27.20 Pulmonary hypertension, unspecified; I48.91 Unspecified atrial fibrillation; I65.23 Occlusion and stenosis of bilateral carotid arteries; E78.5 Hyperlipidemia, unspecified; E11.9 Type 2 diabetes mellitus without complications; Z87.891 Personal history of nicotine dependence; Z79.899 Other long term (current) drug therapy; Z88.0 Allergy status to penicillin; Z88.2 Allergy status to sulfonamides
CPT/HCPCS: 36415; 85610; 85730; 93460; 76937; C1893; Q9967; J1644 ×2; J2250; J3010; J7040

== ENCOUNTER 2023-07-30 11:30 | Day surgery (SDC) | payer OTHER ==
[2023-07-25 15:03] LABS: Hematocrit 40.3 % (36.0-45.0); Lymphocytes % 27.8 % (15.3-44.8); MCV 89.3 fL (80-100); MPV 8.4 fL (7.6-11.3); Platelets 208 thou/uL (152-406); RBC Red Blood Cell Count 4.51 M/uL (3.86-4.86)
--- NOTE | 2023-07-25 15:06 | RAD REPORT ---
EXAM DESCRIPTION: David Kidd And Dina (2 Views)07/25/2023 2:52 pm CLINICAL HISTORY: Preop for cardiac catheterization. Hypertension COMPARISON: 2021 FINDINGS: The lungs appear clear of acute infiltrate. The heart is moderately enlarged Pacemaker leads in place IMPRESSION: No acute abnormalities displayed
[2023-07-25 15:10] LABS: Protime INR 1.23
[2023-07-25 15:18] LABS: Potassium 4.5 mEq/L (3.5-5.1)
[2023-07-30] MEDS ORDERED: HEPA 1000U/500MLS 2,000 UNIT/1,000 ML BAG IV ONE (11:58)
[2023-07-30] MEDS ORDERED: VERAPAMIL HCL 10 MG/4 ML VIAL IV ONE (11:59)
[2023-07-30] MEDS ORDERED: MIDAZOLAM HCL 2 MG/2 ML INJ ONE (11:59)
[2023-07-30] MEDS ORDERED: FENTANYL CITR 100 MCG/2 ML ONE (11:59)
[2023-07-30] MEDS ORDERED: HEPARIN 5000 UNIT/ML 1 ML VIAL ONE (11:59)
[2023-07-30] MEDS ORDERED: LIDOCAINE 1% 20 ML MDV ONE (11:59)
[2023-07-30] MEDS ORDERED: ASPIRIN 325 MG TAB ONE (12:00)
[2023-07-30] MEDS ORDERED: CLOPIDOGREL 75 MG TABLET ONE (12:00)
[2023-07-30] MEDS ORDERED: HEPARIN 10,000 UNIT/10 ML VIAL IV ONE (12:00)
[2023-07-30] MEDS ORDERED: ATROPINE SULF 1 MG/10 ML SYR IV ONE (12:00)
[2023-07-30] MEDS ORDERED: TICAGRELOR 90 MG TABLET PO ONE (12:00)
[2023-07-30] MEDS ORDERED: NA CHLORIDE 0.9% 500 ML ONE (12:02)
[2023-07-30 15:26] VITALS: BP 163/76; O2SAT 95
--- NOTE | 2023-08-02 14:45 | EKG ---
Test Date: 2023-07-25 Test Time: 14:36:04 Conservation Science Officer: FITZ MEASUREMENT RESULTS: Intervals: Rate: 70 [place]: 92 QRSD: 128 QT: 438 QTc: 473 [place]: P: 84 [place]: 92 QRS: 130 T: -83 INTERPRETIVE STATEMENTS: Electronic ventricular pacemaker Compared to ECG 07/27/2022 02:31:45 No significant changes Electronically Signed On 08-02-23 14:21:36 RECREATION THERAPY TEACHER by Rudi Martinez
== END 2023-07-30 14:55 | disposition home or self-care (01) ==
LOC: CCL 11:30
PROVIDERS: ATTEND Internal Medicine
DX: I35.2 Nonrheumatic aortic (valve) stenosis with insufficiency (principal); I25.10 Atherosclerotic heart disease of native coronary artery without angina pectoris; I65.23 Occlusion and stenosis of bilateral carotid arteries; I11.0 Hypertensive heart disease with heart failure; I50.32 Chronic diastolic (congestive) heart failure; I48.0 Paroxysmal atrial fibrillation; E78.5 Hyperlipidemia, unspecified; E11.9 Type 2 diabetes mellitus without complications; I27.20 Pulmonary hypertension, unspecified; Z95.0 Presence of cardiac pacemaker; F17.210 Nicotine dependence, cigarettes, uncomplicated; Z79.01 Long term (current) use of anticoagulants; Z79.82 Long term (current) use of aspirin; Z79.84 Long term (current) use of oral hypoglycemic drugs; Z79.899 Other long term (current) drug therapy; Z88.0 Allergy status to penicillin; Z88.2 Allergy status to sulfonamides
CPT/HCPCS: 93005; 85025; 80048; 36415; 85610; 82947; 85730; 71046; 93460; 76937; C1893; Q9966; J1644; J2001; J2250; J3010; J7040; J0461

== ENCOUNTER 2024-11-24 12:26 | Inpatient (IN) | payer OTHER ==
[2024-11-24] MEDS ORDERED: NA CHLORIDE 0.9% 1,000 ML ONE (12:49)
[2024-11-24 13:28] LABS: Absolute Eosinophils 0.1 K/uL (0-0.5); Absolute Lymphocytes (CBC) 1.6 K/uL (0.7-4.9); Absolute Monocytes 0.6 K/uL (0.1-1.3); Absolute Neutrophil 4.4 K/uL (1.8-8.0); Basophils % 0.7 % (0-1.3); Hematocrit 43.1 % (36.0-45.0); Hemoglobin 14.4 g/dL (12.0-15.0); Lymphocytes % 23.7 % (15.3-44.8); MCH 29.8 pg (27.0-35.0); MCHC 33.4 g/dL (32.0-36.0); MCV 89.3 fL (80-100); MPV 9.7 fL (7.6-11.3); Monocytes % 9.2 % (3.3-12.3); Neutrophils % 64.4 % (41.7-73.7); Nucleated Red Blood Cells % 0.1 % (0-0); Platelets 161 thou/uL (152-406); RBC Red Blood Cell Count 4.83 M/uL (3.86-4.86); Red Cell Distribution Width 14.4 % (12.1-15.2)
[2024-11-24 13:32] LABS: Albumin 3.2 g/dL (3.4-5.0); Albumin/Globulin Ratio 0.9 (1.1-1.8); Anion Gap 8.4 mEq/L (5.0-15.0); Bilirubin Direct 0.2 mg/dL (0-0.2); Bilirubin Indirect, Calculated 0.3 mg/dL (0.2-0.8); Bilirubin Total 0.5 mg/dL (0.2-1.0); Globulin 3.4 g/dL (2.3-3.5); Magnesium 2.1 mg/dL (1.6-2.4); Potassium 3.4 mEq/L (3.5-5.1); Protein, Total 6.6 g/dL (6.4-8.2); Thyroid Stimulating Hormone 1.8 uIU/mL (0.358-3.740); Troponin High Sensitivity 49.9 pg/mL (<58.9)
[2024-11-24] MEDS ORDERED: dilTIAZem HCL 25 MG/5 ML VIAL IV ONE (13:47)
--- NOTE | 2024-11-24 14:24 | RAD REPORT ---
EXAM: Chest Single View HISTORY: 79 years Female afib COMPARISON: 08/03/2024 FINDINGS: LUNGS/PLEURA: The lungs are clear. No pleural effusions or pneumothorax. No pulmonary edema. CARDIAC/MEDIASTINUM: Mild cardiomegaly aortic valve prosthesis UPPER ABDOMEN: No significant abnormality. BONES: No acute abnormality. LINES/TUBES/OTHER: Pacemaker present. IMPRESSION: No evidence of acute cardiopulmonary disease.
--- NOTE | 2024-11-24 15:34 | ER ---
Nurse's Notes [facility] Name: Elsy Rico Age: 79 yrs Sex: Female : 1945 Arrival Date: 11/24/2024 Time: 12:26 Bed 3 Private MD: Diagnosis: Atrial fibrillation with rapid ventricular rate Presentation: 11/24 12:47 Chief complaint: Patient states: Sent to the ER by PCP due to heart rate being in the cm10 140s. Pt reports pain to pacemaker site and reports dizziness. Coronavirus screen: Client denies travel out of the [place] in the last 14 days. Ebola Screen: Patient denies travel to an Ebola-affected area in the 21 days before illness onset. Initial Sepsis Screen: Does the patient meet any 2 criteria? HR > 90 bpm. Does the patient have a suspected source of infection? No. Patient's initial sepsis screen is negative. Risk Assessment: Do you want to hurt yourself or someone else? Patient reports no desire to harm self or others. Onset of symptoms was November 24, 2024. 12:47 Method Of Arrival: Wheelchair cm10 12:47 Acuity: PAUL 2 cm10 Triage Assessment: 12:47 General: Appears in no apparent distress. uncomfortable, Behavior is calm, cooperative. cm10 Pain: Complains of pain in chest Pain currently is 7 out of 10 on a pain scale. Neuro: No deficits noted. Level of Consciousness is awake, alert, obeys commands, Oriented to person, place, time, situation, Appropriate for age Reports dizziness. Respiratory: No deficits noted. Airway is patent Respiratory effort is even, unlabored, Respiratory pattern is regular, symmetrical. Historical: - Allergies: 12:46 PENICILLINS; cm10 12:46 Sulfa (Sulfonamide Antibiotics); cm10 - PMHx: 12:46 Atrial fibrillation; CHF; Diabetes - NIDDM; High Cholesterol; Hypertension; restless cm10 leg; - PSHx: 12:46 Pacemaker (restless leg); cm10 - Immunization history:: Adult Immunizations up to date. - Infectious Disease History:: Denies. - Social history:: Smoking status: unknown. - Family history:: not pertinent. Screenin:50 [facility] ED Fall Risk Assessment (Adult) History of falling in the last 3 months, ph including since admission No falls in past 3 months (0 pts) Confusion or Disorientation No (0 pts) Intoxicated or Sedated No (0 pts) Impaired Gait No (0 pts) Mobility Assist Device Used No (0 pt) Altered Elimination No (0 pt) Score/Fall Risk Level 0 - 2 = Low Risk Oriented to surroundings, Maintained a safe environment, Hourly rounding (assess needs \T\ fall precautionary measures) done. Abuse screen: Denies threats or abuse. Denies injuries from another. Nutritional screening: No deficits noted. Tuberculosis screening: No symptoms or risk factors identified. Assessment: 13:45 General: Appears in no apparent distress. Behavior is calm, cooperative, appropriate ap3 for age. Pain: Denies pain. Neuro: Level of Consciousness is awake, alert, obeys commands, Oriented to person, place, time, situation, Appropriate for age. Cardiovascular: Patient's skin is warm and dry. Rhythm is atrial fibrillation. Respiratory: Airway is patent Respiratory effort is even, unlabored, Respiratory pattern is regular, symmetrical. Vital Signs: 12:47 BP 109 / 76; Pulse 141; Resp 18; Temp 97.5(O); Pulse Ox 96% ; Weight 81.19 kg; Height 5 cm10 ft. 7 in. ; Pain 7/10; 13:58 BP 97 / 54; Pulse 118; Resp 18; Pulse Ox 100% on R/A; ap3 12:47 Body Mass Index 28.04 (81.19 kg, 170.18 cm) cm10 12:47 Pain Scale: Adult cm10 Vitals: 12:47 Cardiac Rhythm Assessment Irregular Atrial fibrillation W/rapid ventricular response. cm10 ED Course: 12:29 Patient arrived in ED. mr 12:32 Bob Paris MD is Attending Physician. rt 12:46 Arm band placed on right wrist. Patient placed in an exam room, on a stretcher, on cm10 cardiac surgeon, on pulse oximetry. EKG completed in triage. Results shown to . 12:46 Client placed on continuous cardiac and pulse oximetry monitoring. NIBP monitoring cm10 applied. clinical research monitor on. 12:46 EKG done, by ED staff, reviewed by Bob Paris MD. cm10 12:49 Triage completed. cm10 12:51 Patient has correct armband on for positive identification. Bed in low position. Call ph light in reach. Side rails up X2. 12:59 Prokisch, Sangita, RN is Primary Nurse. ap3 13:45 XRAY Chest (1 view) In Process Unspecified. EDMS 15:33 Girish Donahue MD is Hospitalizing Provider. rt 19:00 Report given to Monae \Riley\ Sangita RN. ap3 03 03:02 No provider procedures requiring assistance completed. Inserted Patient admitted, IV cp4 remains in place. 03:08 Provided Education on: admission. cp4 Administered Medications: 11/24 12:59 Drug: NS 0.9% IV 1000 ml IV at 1 bolus Per protocol; to be given as a bolus over 60 ap3 minutes Route: IV; Rate: 1 bolus; Site: right antecubital; 18:11 Follow up: IV Status: Completed infusion; IV Intake: 1000ml ap3 13:56 Drug: Diltiazem IVP 20 mg IVP once; Over 2 minutes Route: IVP; Site: right antecubital; ap3 18:11 Not Given (pt given floor orders for amio): [id number] mg IVP once; Over 2 minutes ap3 Medication: 16:05 VIS not applicable for this client. ph Intake: 18:11 IV: 1000ml; Total: 1000ml. ap3 Outcome: 15:33 Decision to Hospitalize by Provider. rt 11/25 03:03 Admitted to Med/surg accompanied by tech, via wheelchair, room 230, with chart, cp4 Condition: stable Instructed on the need for admit, 03:08 Patient left the ED. cp4 Signatures: Dispatcher [employer] EDSD Marietta Downing, Reg Reg mr Delilah Alvarenga, WAQAR RN Sangita Brennan, WAQAR RN ap3 Bob Paris MD MD rt Wandy Armstrong RN RN cm10 Monae Nieto cp4
--- NOTE | 2024-11-24 15:34 | EDPHYS ---
Physician Documentation [facility] Name: Elsy Rico Age: 79 yrs Sex: Female : 1945 Arrival Date: 11/24/2024 Time: 12:26 Bed 3 Private MD: ED Physician Bob Paris HPI: 11/24 12:53 This 79 yrs old Female presents to ER via Wheelchair with complaints of Afib. rt 12:53 Patient presents to the ED with dizziness starting today. The patient reports that she rt was told that she was in A-fib with a fast rate. Denies chest pain, acute complaints, symptoms are moderate in severity, no other aggravating or alleviating factors.. Historical: - Allergies: 12:46 PENICILLINS; cm10 12:46 Sulfa (Sulfonamide Antibiotics); cm10 - PMHx: 12:46 Atrial fibrillation; CHF; Diabetes - NIDDM; High Cholesterol; Hypertension; restless cm10 leg; - PSHx: 12:46 Pacemaker (restless leg); cm10 - Immunization history:: Adult Immunizations up to date. - Infectious Disease History:: Denies. - Social history:: Smoking status: unknown. - Family history:: not pertinent. ROS: 12:53 Constitutional: Negative for fever, chills, and weight loss, Cardiovascular: Negative rt for chest pain, palpitations, and edema, Respiratory: Negative for shortness of breath, cough, wheezing, and pleuritic chest pain, Abdomen/GI: Negative for abdominal pain, nausea, vomiting, diarrhea, and constipation, MS/Extremity: Negative for injury and deformity, Skin: Negative for injury, rash, and discoloration, Psych: Negative for depression, anxiety, suicide ideation, homicidal ideation, and hallucinations, 12:53 Skin: Positive for 12:53 Neuro: Positive for dizziness, Negative for loss of consciousness, Exam: 12:53 Constitutional: This is a well developed, well nourished patient who is awake, alert, rt and in no acute distress. Head/Face: Normocephalic, atraumatic. Chest/axilla: Normal chest wall appearance and motion. Nontender with no deformity. No lesions are appreciated. Cardiovascular: Regular rate and rhythm with a normal S1 and S2. No gallops, murmurs, or rubs. Normal PMI, no JVD. No pulse deficits. Respiratory: Lungs have equal breath sounds bilaterally, clear to auscultation and percussion. No rales, rhonchi or wheezes noted. No increased work of breathing, no retractions or nasal flaring. Abdomen/GI: Soft, non-tender, with normal bowel sounds. No distension or tympany. No guarding or rebound. No evidence of tenderness throughout. Skin: Warm, dry with normal turgor. Normal color with no rashes, no lesions, and no evidence of cellulitis. MS/ Extremity: Pulses equal, no cyanosis. Neurovascular intact. Full, normal range of motion. Neuro: Awake and alert, GCS 15, oriented to person, place, time, and situation. Cranial nerves II-XII grossly intact. Motor strength 5/5 in all extremities. Sensory grossly intact. Cerebellar exam normal. Normal gait. 12:53 ECG was reviewed by the Attending Physician. 15:47 ECG was reviewed by the Attending Physician. rt Vital Signs: 12:47 BP 109 / 76; Pulse 141; Resp 18; Temp 97.5(O); Pulse Ox 96% ; Weight 81.19 kg; Height 5 cm10 ft. 7 in. ; Pain 7/10; 13:58 BP 97 / 54; Pulse 118; Resp 18; Pulse Ox 100% on R/A; ap3 12:47 Body Mass Index 28.04 (81.19 kg, 170.18 cm) cm10 12:47 Pain Scale: Adult cm10 MDM: 12:40 Medical Screening Exam initiated rt 15:47 Differential Diagnosis Atrial fibrillation, dysrhythmia, other disturbance, ACS. Data rt reviewed: vital signs, nurses notes, lab test result(s), EKG, radiologic studies. Consideration of Admission/Observation Patient was admitted/placed on observation. Management of patient was discussed with the following: Hospitalist: Agrees to admit. I considered the following discharge prescriptions or medication management in the emergency department Medications were administered in the Emergency Department. See MAR. Independent interpretation of the following test(s) in the Emergency Department X-Ray: My interpretation is No infiltrate seen on interpretation of x-ray images. Test considered but Not performed: CT: Low suspicion for PE, CT angiogram not indicated. Care significantly affected by the following chronic conditions: Congestive Heart Failure. Counseling: I had a detailed discussion with the patient and/or guardian regarding the historical points, exam findings, and any diagnostic results supporting the discharge/admit diagnosis, lab results, radiology results, the need for further work-up and treatment in the hospital. Response to treatment: the patient's symptoms have markedly improved after treatment. 11/24 12:48 Order name: Basic Metabolic Panel; Complete Time: 14:00 rt 11/24 12:48 Order name: CBC with Diff; Complete Time: 14:00 rt 11/24 12:48 Order name: LFT's; Complete Time: 14:00 rt 11/24 12:48 Order name: Magnesium; Complete Time: 14:00 rt 11/24 12:48 Order name: NT PRO-BNP; Complete Time: 14:00 rt 11/24 12:48 Order name: Troponin HS; Complete Time: 14:00 rt 11/24 12:48 Order name: TSH; Complete Time: 14:00 rt 11/24 16:02 Order name: Urinalysis w/ reflexes EDMS 11/24 16:02 Order name: Basic Metabolic Panel EDMS 11/24 16:02 Order name: Basic Metabolic Panel EDMS 11/24 16:02 Order name: Basic Metabolic Panel EDMS 11/24 16:02 Order name: Basic Metabolic Panel EDMS 11/24 16:02 Order name: CBC with Automated Diff EDMS 11/24 16:02 Order name: CBC with Automated Diff EDMS 11/24 16:02 Order name: CBC with Automated Diff EDMS 11/24 16:02 Order name: CBC with Automated Diff EDMS 11/24 16:02 Order name: Magnesium EDMS 11/24 16:02 Order name: Magnesium EDMS 11/24 16:02 Order name: Magnesium EDMS 11/24 16:02 Order name: Magnesium EDMS 11/24 16:02 Order name: NT PRO-BNP EDMS 11/24 16:02 Order name: NT PRO-BNP EDMS 11/24 16:02 Order name: NT PRO-BNP EDMS 11/24 16:02 Order name: NT PRO-BNP EDMS 11/24 16:02 Order name: Phosphorus EDMS 11/24 16:02 Order name: Phosphorus EDMS 11/24 16:02 Order name: Phosphorus EDMS 11/24 16:02 Order name: Phosphorus EDMS 11/24 16:02 Order name: Troponin High Sensitivity EDMS 11/24 16:02 Order name: Troponin High Sensitivity EDIL 11/24 16:02 Order name: Troponin High Sensitivity EDIL 11/24 16:02 Order name: Troponin High Sensitivity EDIL 11/25 00:28 Order name: Glucose, Ancillary Testing EDIL 11/24 12:48 Order name: XRAY Chest (1 view); Complete Time: 14:27 rt 11/24 12:48 Order name: EKG; Complete Time: 12:49 rt 11/24 16:02 Order name: CONS Physician Consult EDIL 11/24 12:48 Order name: Cardiac monitoring; Complete Time: 12:50 rt 11/24 12:48 Order name: EKG - Nurse/Tech; Complete Time: 12:59 rt 11/24 12:48 Order name: IV Saline Lock; Complete Time: 13:06 rt 11/24 12:48 Order name: Labs collected and sent; Complete Time: 13:06 rt 11/24 12:48 Order name: O2 Per Protocol; Complete Time: 12:50 rt 11/24 12:48 Order name: O2 Sat Monitoring; Complete Time: 12:50 rt EC:53 Rate is 141 beats/min. Rhythm is irregularly irregular, A fib with No ectopy. Right rt axis deviation noted. QRS interval is normal. QT interval is normal. No Q waves. 15:47 Rate is 125 beats/min. Rhythm is regular, A fib with No ectopy, Rate related ST and T rt wave changes. Left axis deviation noted. QRS interval is normal. QT interval is normal. No Q waves. Administered Medications: 12:59 Drug: NS 0.9% IV 1000 ml IV at 1 bolus Per protocol; to be given as a bolus over 60 ap3 minutes Route: IV; Rate: 1 bolus; Site: right antecubital; 18:11 Follow up: IV Status: Completed infusion; IV Intake: 1000ml ap3 13:56 Drug: Diltiazem IVP 20 mg IVP once; Over 2 minutes Route: IVP; Site: right antecubital; ap3 18:11 Not Given (pt given floor orders for amio): [id number] mg IVP once; Over 2 minutes ap3 Disposition Summary: 11/24/24 15:33 Hospitalization Ordered Notes: Hospitalization Status: Observation rt Provider: Girish Donahue rt Location: Telemetry/MedSurg (observation) rt Condition: Stable rt Problem: new rt Symptoms: have improved rt Bed/Room Type: Standard rt Room Assignment: 230(11/24/24 16:50) bd Diagnosis - Atrial fibrillation with rapid ventricular rate rt Forms: - Medication Reconciliation Form rt - SBAR form rt - Leadership Thank You Letter rt Critical care time excluding procedures: 15:47 Critical care time: Bedside Care: 30 minutes, Consultation: 5 minutes. Total time: 35 rt minutes Signatures: Dispatcher [employer] EDLuann Diane Amanda, RN RN ap3 Bob Paris MD MD rt Wandy Armstrong RN RN cm10 Corrections: (The following items were deleted from the chart) 16:50 15:33 rt bd
--- NOTE | 2024-11-24 15:56 | P.HP ---
Certification for Inpatient Patient admitted to: Inpatient <Nae Reese - Last Filed: 11/24/24 17:19> Patient History Date of Service: 11/24/24 Reason for admission: A-fib RVR History of Present Illness: 79-year-old female with a past medical history A-fib, CHF, diabetes, [id number] diabetes, hyperlipidemia, hypertension, restless leg syndrome, past medical history of a pacemaker, valve replacement, presents to [facility] emergency room via EMS with palpitations/fast heart rate. She reports being called by the pacemaker/cardiac monitoring company for fast heart rate. She report was short of breath, was dizzy today. She denied fall, no reported chest pain, edema, ER evaluation A-fib RVR heart rate 142. Plan to admit for A-fib RVR with cardiology to consult, - Past Medical/Surgical History Diabetic: Yes -: CHF -: DM2 -: Dyslipidemia -: Hypertension -: Unknown dysrhythmia requiring defibrillation -: Total Hysterectomy -: Prolapse Anal wall -: Neck surgery -: Shoulder Surgery -: Hand Surgery -: UPPP Psychosocial/ Personal History: lives at home by self. - Family History Father -: Heart disease Mother -: Heart disease Brother -: Heart disease - Social History Alcohol use: No CD- Drugs: No Caffeine use: Yes <Nae Reese - Last Filed: 11/24/24 17:19> Date of Service: 11/24/24 <Girish Donahue - Last Filed: 11/25/24 08:46> Allergies Penicillins Allergy (Verified 11/25/24 03:13) Hives/Rash Sulfa (Sulfonamide Antibiotics) Allergy (Verified 11/25/24 03:13) Hives/Rash Home Medications: Fenofibrate 1 tab PO DAILY 06/16/21 Gabapentin 3 tab PO BEDTIME 06/16/21 Hydrocodone Bit/Acetaminophen [[place] 7.5-325 Tablet] 1 tab PO BID 06/16/21 Ropinirole HCl [Requip] 1 tab PO DAILY 06/16/21 Rosuvastatin [Crestor*] 40 mg PO BEDTIME 06/16/21 Apixaban [Eliquis *] 2.5 mg PO BID #60 tablet 02/08/22 Aspirin [Aspirin EC 81 MG] 81 mg PO DAILY 02/08/22 Torsemide [Demadex*] 20 mg PO BID 02/08/22 Amlodipine [Norvasc] 5 mg PO DAILY 11/25/24 Empagliflozin [Jardiance] 10 mg PO DAILY 11/25/24 Valsartan 320 mg PO DAILY 11/25/24 Review of Systems 10-point ROS is otherwise unremarkable <Nae Reese - Last Filed: 11/24/24 17:19> Physical Examination - Physical Exam General: Alert, In no apparent distress, Oriented x3, Other HEENT: Atraumatic, Normocephalic Neck: Supple Respiratory: Normal air movement, Diminished Cardiovascular: Normal pulses, Other (A-fib RVR uncontrolled rate 120) Capillary refill: <2 Seconds Gastrointestinal: Normal bowel sounds, Soft and benign Musculoskeletal: No clubbing, No swelling Integumentary: No breakdown, No significant lesion Neurological: Normal speech, Normal strength at 5/5 x4 extr, Sensation intact - Studies Laboratory Data (last 24 hrs) 11/24/24 11/24/24 12:58 12:58 WBC 6.80 Hgb 14.4 Hct 43.1 Plt Count 161 Sodium 137 Potassium 3.4 L BUN 22 H Creatinine 1.44 H Glucose 274 H Magnesium 2.1 Total Bilirubin 0.5 AST 11 L ALT 16 Alkaline Phosphatase 72 <Nae Reese - Last Filed: 11/24/24 17:19> - Studies Laboratory Data (last 24 hrs) 11/24/24 11/24/24 12:58 12:58 WBC 6.80 Hgb 14.4 Hct 43.1 Plt Count 161 Sodium 137 Potassium 3.4 L BUN 22 H Creatinine 1.44 H Glucose 274 H Magnesium 2.1 Total Bilirubin 0.5 AST 11 L ALT 16 Alkaline Phosphatase 72 <Girish Donahue - Last Filed: 11/25/24 08:46> Assessment and Plan - Problems (Diagnosis) (1) Atrial fibrillation with RVR Current Visit: Yes Status: Acute (2) History of aortic valve replacement Current Visit: Yes Status: Acute (3) History of permanent cardiac pacemaker placement Current Visit: Yes Status: Acute (4) Dyspnea Current Visit: Yes Status: Acute (5) Dizziness Current Visit: Yes Status: Acute - Plan 79-year-old female with a past medical history A-fib, CHF, diabetes, jfv-icpejhs-tdutjnmvy diabetes, hyperlipidemia, hypertension, restless leg syndrome, past medical history of a pacemaker, valve replacement, presents to the emergency room via EMS with palpitations/fast heart rate. She reports being called by the pacemaker/cardiac monitoring company for fast heart rate. She report was short of breath, was dizzy today. She denied fall, no reported chest pain, edema, ER evaluation A-fib RVR heart rate 142[facility] -/ Keep n.p.o. after midnight -Amiodarone bolus, start amiodarone -Telemetry -Restart Eliquis, -Resume home antihypertensive, diuretic, aspirin, antilipid -Accu-Cheks, -Sliding scale insulin -Lipid panel, trend troponins, BNP Full code DVT Eliquis Diet cardiac Disposition Home independent prior Discharge Plan: Home - Advance Directives Does patient have a Living Will: Yes Does patient have a Durable POA for Healthcare: Yes - Code Status/Comfort Care Code Status: Full Code Critical Care: No Time Spent Managing Pts Care (In Minutes): 55 <Nae Reese - Last Filed: 11/24/24 17:19> Date of Service: 11/24/24 Patient was seen and examined. Events of the last 24 hours have been noted. Spoke with with GEOFF regarding patient's clinical picture after evaluating and examining the patient independently. I performed a substantial part of the MDM during this patient's care today. I personally made or approved the documented management plan and acknowledge its risk of complications. I agree with the findings and documentation provided in the GEOFF's notes. Await further management per cardiology. Continue with amiodarone drip and anticoagulation. <Girish Donahue - Last Filed: 11/25/24 08:46>
[2024-11-24] MEDS ORDERED: ONDANSETRON 4 MG/2 ML VIAL IV PRN (15:57)
[2024-11-24] MEDS: AMIODARONE HCL 150 MG in D5W 100 ML IV STA (18:02)
[2024-11-24] MEDS: AMIODARONE HCL 900 MG in Dextrose 5%-Water 482 ML IV SCH (18:03)
[2024-11-24] MEDS: APIXABAN 2.5 MG TABLET PO SCH (21:00)
[2024-11-24] MEDS: INSULIN REGULAR (HUMAN) 100 UNIT/ML SQ SCH (21:00)
[2024-11-24] MEDS: ROSUVASTATIN 10 MG TAB PO SCH (21:00)
[2024-11-24] MEDS ORDERED: APIXABAN 2.5 MG TABLET ONE (23:58)
[2024-11-24] MEDS ORDERED: ACETAMINOPHEN 500 MG TAB ONE (23:58)
[2024-11-24] MEDS ORDERED: ALPRAZOLAM 0.25 MG TABLET ONE (23:59)
[2024-11-25] MEDS: ALPRAZOLAM 0.25 MG TABLET PO PRN (00:15)
[2024-11-25] MEDS: ACETAMINOPHEN 500 MG TAB PO PRN (00:15)
[2024-11-25] MEDS ORDERED: INSULIN REGULAR (HUMAN) 100 UNIT/ML ONE (02:13)
[2024-11-25 05:44] LABS: Absolute Eosinophils 0.2 K/uL (0-0.5); Absolute Monocytes 0.7 K/uL (0.1-1.3); Absolute Neutrophil 3.2 K/uL (1.8-8.0); Basophils % 0.7 % (0-1.3); Eosinophils % 3.4 % (0-4.4); Lymphocytes % 32.5 % (15.3-44.8); MCH 29.7 pg (27.0-35.0); MCHC 33.2 g/dL (32.0-36.0); MCV 89.5 fL (80-100); MPV 9.7 fL (7.6-11.3); Monocytes % 11.5 % (3.3-12.3); Neutrophils % 51.9 % (41.7-73.7); Platelets 147 thou/uL (152-406); Red Cell Distribution Width 14.5 % (12.1-15.2)
[2024-11-25 06:04] LABS: Anion Gap 7.5 mEq/L (5.0-15.0); Magnesium 2.5 mg/dL (1.6-2.4); Phosphorus 3.3 mg/dL (2.5-4.9); Potassium 3.5 mEq/L (3.5-5.1)
--- NOTE | 2024-11-25 08:46 | P.PN ---
Date of Service: 11/25/24 Subjective Patient is feeling better. However, she remains in atrial fibrillation. Spoke to nursing staff and will keep her n.p.o. pending cardiology evaluation for possible OTILIA with cardioversion Physical Examination - Physical Exam General: Alert, In no apparent distress, Oriented x3, Other Respiratory: Normal air movement, Diminished Cardiovascular: Normal pulses, Other (A-fib RVR uncontrolled rate 120) Gastrointestinal: Normal bowel sounds, Soft and benign Musculoskeletal: No clubbing, No swelling Integumentary: No breakdown, No significant lesion Neurological: No focal deficits Assessment and Plan - Problems (Diagnosis) (1) Atrial fibrillation with RVR Current Visit: Yes Status: Acute (2) History of aortic valve replacement Current Visit: Yes Status: Acute (3) History of permanent cardiac pacemaker placement Current Visit: Yes Status: Acute (4) Dyspnea Current Visit: Yes Status: Acute (5) Dizziness Current Visit: Yes Status: Acute - Plan 1. Atrial fibrillation with rapid ventricular response; continues on amiodarone drip. N.p.o. for cardiology evaluation for OTILIA with DCCV; continue with anticoagulation 2. History of aortic valve replacement; continue with medical management 3. Metabolic syndrome; strict blood pressure and blood sugar control 4. CHF; compensated
[2024-11-25] MEDS: FENTANYL CITR 100 MCG/2 ML IV ONE (08:57)
[2024-11-25] MEDS ORDERED: HOME MED 1 EA UNK (Valsartan [Valsartan] 320 MG Tablet) PO SCH (09:00)
[2024-11-25] MEDS: HYDROCODONE/APAP 7.5/325 MG TAB PO SCH ×2 (09:00→12:04)
[2024-11-25] MEDS: FENOFIBRATE 160 MG TAB PO SCH (09:00)
[2024-11-25] MEDS ORDERED: APIXABAN 2.5 MG TABLET PO SCH (09:00)
[2024-11-25] MEDS: **PT MED**Empagliflozin [Jardiance] 10 MG Tablet PO SCH (09:00)
[2024-11-25] MEDS ORDERED: ASPIRIN EC 81 MG TAB PO SCH (09:00)
[2024-11-25] MEDS: ASPIRIN EC 81 MG TAB PO SCH (10:40)
--- NOTE | 2024-11-25 12:40 | P.CNS ---
Date of Consult: 11/25/24 Chief Complaint: A-fib RVR History of Present Illness: Patient with PMH of CHF, AF, ANA presented with worsening SOB, palpitations, denies chest pain, no syncope. Allergies Penicillins Allergy (Verified 11/25/24 03:13) Hives/Rash Sulfa (Sulfonamide Antibiotics) Allergy (Verified 11/25/24 03:13) Hives/Rash Home medications list reviewed: Yes Home Medications: Fenofibrate 1 tab PO DAILY 06/16/21 Gabapentin 3 tab PO BEDTIME 06/16/21 Hydrocodone Bit/Acetaminophen [[place] 7.5-325 Tablet] 1 tab PO BID 06/16/21 Ropinirole HCl [Requip] 1 tab PO DAILY 06/16/21 Rosuvastatin [Crestor*] 40 mg PO BEDTIME 06/16/21 Apixaban [Eliquis *] 2.5 mg PO BID #60 tablet 02/08/22 Aspirin [Aspirin EC 81 MG] 81 mg PO DAILY 02/08/22 Torsemide [Demadex*] 20 mg PO BID 02/08/22 Amlodipine [Norvasc] 5 mg PO DAILY 11/25/24 Empagliflozin [Jardiance] 10 mg PO DAILY 11/25/24 Valsartan 320 mg PO DAILY 11/25/24 - Past Medical/Surgical History Diabetic: Yes -: CHF -: DM2 -: Dyslipidemia -: Hypertension -: Unknown dysrhythmia requiring defibrillation -: Total Hysterectomy -: Prolapse Anal wall -: Neck surgery -: Shoulder Surgery -: Hand Surgery -: UPPP Psychosocial/ Personal History: lives at home by self. - Family History Father Medical History: Heart disease Mother Medical History: Heart disease Brother Medical History: Heart disease - Social History Smoking Status: Unknown if ever smoked Alcohol use: No CD- Drugs: No Caffeine use: Yes Review of Systems 10-point ROS is otherwise unremarkable Physical Examination Temp Pulse Resp BP Pulse Ox 97.5 F 113 H 20 109/69 94 11/25/24 08:00 11/25/24 08:00 11/25/24 08:00 11/25/24 08:00 11/25/24 08:00 General: Alert, In no apparent distress HEENT: Atraumatic, PERRLA, Mucous membr. moist/pink, EOMI, Sclerae nonicteric Neck: Supple, 2+ carotid pulse no bruit, No LAD, Without JVD or thyroid abnormality Respiratory: Crackles/rales Cardiovascular: Irregular heart rate/rhythm Gastrointestinal: Normal bowel sounds, No tenderness Musculoskeletal: No tenderness Integumentary: No rashes Neurological: Normal gait, Normal speech, Normal tone, Normal affect Lymphatics: No axilla or inguinal lymphadenopathy Laboratory Data (last 24 hrs) 11/24/24 11/24/24 12:58 12:58 WBC 6.80 Hgb 14.4 Hct 43.1 Plt Count 161 Sodium 137 Potassium 3.4 L BUN 22 H Creatinine 1.44 H Glucose 274 H Magnesium 2.1 Total Bilirubin 0.5 AST 11 L ALT 16 Alkaline Phosphatase 72 - Problems (1) Atrial fibrillation with RVR Current Visit: Yes Status: Acute Plan: patient is on amiodarone drip, continue Eliquis 5 mg po BID Patient say she got a pacemaker NPO after midnight for OTILIA DCCV (2) History of aortic valve replacement Current Visit: Yes Status: Acute Plan: get echo (3) Acute on chronic diastolic heart failure Current Visit: No Status: Acute Plan: continue lasix 40 mg IV BID monitor input and output and electrolytes.
[2024-11-25] MEDS: FUROSEMIDE 40 MG/4 ML VIAL IV SCH (17:07)
[2024-11-25] MEDS ORDERED: ROSUVASTATIN 10 MG TAB PO SCH (21:00)
[2024-11-25] MEDS: GABAPENTIN 300 MG CAP PO SCH (21:32)
[2024-11-25 23:47] VITALS: BMI 28.0
[2024-11-26 05:58] LABS: Absolute Basophils 0.1 K/uL (0-0.5); Absolute Eosinophils 0.3 K/uL (0-0.5); Absolute Lymphocytes (CBC) 1.9 K/uL (0.7-4.9); Absolute Monocytes 0.7 K/uL (0.1-1.3); Absolute Neutrophil 3.5 K/uL (1.8-8.0); Basophils % 0.8 % (0-1.3); Eosinophils % 4.1 % (0-4.4); Hemoglobin 13.1 g/dL (12.0-15.0); Lymphocytes % 30.1 % (15.3-44.8); MCH 29.8 pg (27.0-35.0); MCHC 32.7 g/dL (32.0-36.0); MCV 91.1 fL (80-100); MPV 9.5 fL (7.6-11.3); Monocytes % 10.4 % (3.3-12.3); Neutrophils % 54.6 % (41.7-73.7); Nucleated Red Blood Cells % 0.1 % (0-0); Platelets 139 thou/uL (152-406); RBC Red Blood Cell Count 4.39 M/uL (3.86-4.86); Red Cell Distribution Width 14.3 % (12.1-15.2)
[2024-11-26 06:07] LABS: Anion Gap 11.6 mEq/L (5.0-15.0); Magnesium 2.3 mg/dL (1.6-2.4); Phosphorus 4.7 mg/dL (2.5-4.9); Potassium 3.6 mEq/L (3.5-5.1)
[2024-11-26] MEDS ORDERED: DILTIAZEM HCL 125 MG/25 ML VIAL IVP ONE (21:27)
[2024-11-26] MEDS: METOPROLOL TAR 25 MG TAB PO SCH (22:04)
[2024-11-26] MEDS: dilTIAZem HCL 25 MG/5 ML VIAL IV ONE (22:06)
[2024-11-27 01:07] LABS: Urine Bilirubin NEGATIVE (Negative); Urine Blood Negative (Negative); Urine Clarity Clear (Clear); Urine Color Light-Yellow (Yellow); Urine Glucose 4+ (Over) (Negative); Urine Ketones NEGATIVE (Negative); Urine Microscopic Reflex YN NO UMIC; Urine Nitrite NEGATIVE (Negative); Urine Protein NEGATIVE (Negative); Urine Urobilinogen Normal (Normal)
[2024-11-27 05:24] LABS: Absolute Eosinophils 0.3 K/uL (0-0.5); Absolute Lymphocytes (CBC) 2.2 K/uL (0.7-4.9); Absolute Monocytes 0.7 K/uL (0.1-1.3); Absolute Neutrophil 3.8 K/uL (1.8-8.0); Basophils % 0.6 % (0-1.3); Eosinophils % 3.7 % (0-4.4); Hematocrit 39.7 % (36.0-45.0); Hemoglobin 13.3 g/dL (12.0-15.0); Lymphocytes % 31.6 % (15.3-44.8); MCH 30.3 pg (27.0-35.0); MCHC 33.5 g/dL (32.0-36.0); MCV 90.3 fL (80-100); MPV 9.7 fL (7.6-11.3); Monocytes % 10.3 % (3.3-12.3); Neutrophils % 53.8 % (41.7-73.7); Nucleated Red Blood Cells % 0.1 % (0-0); Platelets 139 thou/uL (152-406); Red Cell Distribution Width 14.4 % (12.1-15.2)
[2024-11-27 05:46] LABS: Anion Gap 10.5 mEq/L (5.0-15.0); Magnesium 2.1 mg/dL (1.6-2.4); Phosphorus 3.8 mg/dL (2.5-4.9); Potassium 4.5 mEq/L (3.5-5.1)
--- NOTE | 2024-11-27 08:21 | P.PN ---
Date of Service: 11/26/24 Subjective n.p.o. pending cardiology evaluation for possible OTILIA with cardioversion Physical Examination - Physical Exam General: Alert, In no apparent distress, afebrile Respiratory: Normal air movement, Diminished Cardiovascular: Normal pulses, Other atrial fibrillation Gastrointestinal: Normal bowel sounds, Soft and benign Musculoskeletal: No clubbing, No swelling Integumentary: No breakdown, No significant lesion Neurological: No focal deficits, oriented x 3 Assessment and Plan - Problems (Diagnosis) (1) Atrial fibrillation with RVR Current Visit: Yes Status: Acute (2) History of aortic valve replacement Current Visit: Yes Status: Acute (3) History of permanent cardiac pacemaker placement Current Visit: Yes Status: Acute (4) Dyspnea Current Visit: Yes Status: Acute (5) Dizziness Current Visit: Yes Status: Acute - Plan 1. Atrial fibrillation with rapid ventricular response; continues on amiodarone drip. N.p.o. for cardiology evaluation for OTILIA with DCCV; continue with anticoagulation 2. History of aortic valve replacement; continue with medical management 3. Metabolic syndrome; strict blood pressure and blood sugar control 4. CHF; compensated <Nae Reese - Last Filed: 11/27/24 08:21> Patient was seen and examined. Events of the last 24 hours have been noted. Spoke with with GEOFF regarding patient's clinical picture after evaluating and examining the patient independently. I performed a substantial part of the MDM during this patient's care today. I personally made or approved the documented management plan and acknowledge its risk of complications. I agree with the findings and documentation provided in the GEOFF's notes. <Girish Donahue - Last Filed: 12/03/24 12:15>
--- NOTE | 2024-11-27 08:26 | P.DS ---
Admission Date: 11/24/24 Discharge Date: 11/29/24 Reason for Admission: A-fib RVR - Problems (1) Atrial fibrillation with RVR Status: Acute (2) History of aortic valve replacement Status: Acute (3) History of permanent cardiac pacemaker placement Status: Acute (4) Dyspnea Status: Acute (5) Dizziness Status: Acute Brief History of Present Illness: 79-year-old female with a past medical history A-fib, CHF, diabetes, shc-jrywxop-nsgzijiav diabetes, hyperlipidemia, hypertension, restless leg syndrome, past medical history of a pacemaker, valve replacement, presents to the emergency room via EMS with palpitations/fast heart rate. She reports being called by the pacemaker/cardiac monitoring company for fast heart rate. She report was short of breath, was dizzy today. She denied fall, no reported chest pain, edema, ER evaluation A-fib RVR heart rate 142. Plan to admit for A-fib RVR with cardiology to consult, - Physical Exam General: Alert, In no apparent distress, Oriented x3, Other HEENT: Atraumatic, Normocephalic Neck: Supple Respiratory: Normal air movement, Diminished Cardiovascular: Normal pulses, Other (A-fib RVR) Capillary refill: <2 Seconds Gastrointestinal: Normal bowel sounds, Soft and benign Musculoskeletal: No clubbing, No swelling Integumentary: No breakdown, No significant lesion Neurological: Normal speech, Normal strength at 5/5 x4 extr, Sensation intact Hospital Course: 79-year-old female with a past medical history A-fib, CHF, diabetes, zyd-fcvqhav-pxmhqdjks diabetes, hyperlipidemia, hypertension, restless leg syndrome, past medical history of a pacemaker, valve replacement, presents to the emergency room via EMS with palpitations/fast heart rate. She reports being called by the pacemaker/cardiac monitoring company for fast heart rate. She was admitted for ER evaluation A-fib RVR heart rate 142. She was started on amiodarone, seen by cardiology while inpatient, had a OTILIA with by cardiology, tolerating diet, stable to discharge home, follow-up with cardiology after discharge OTILIA shows normal functioning valve, outpatient echo to follow. Discharge medications continue amiodarone 200 mg po bid continue lopressor 25 mg q8hrs Eliquis 5 mg po BID xanax 0.25 q 12 hours as needed Assessment A-fib RVR started on amiodarone drip, transition to p.o. amiodarone, status post OTILIA with cardioversion History of permanent pacemaker Acute on chronic diastolic heart failure History of aortic valve replacement, 4+ glucose urea-hemoglobin A1c, diabetic diet Continue home medicines as previously prescribed GOAL: Clear understanding of disease process INSTRUCTIONS: Physician Discharge Instructions: -Follow-up with cardiology after appointment -Follow-up with PCP in 1 to 2 weeks -Please call Dr. Donahue at [phone] if any questions regarding hospital stay -Please call nursing station at [phone] if any nursing or medication questions -Return to the emergency room if symptoms worsen Diet: ADA, low sodium Activity: Fall precautions <Nae Reese - Last Filed: 11/29/24 17:58> Admission Date: 11/24/24 Discharge Date: 11/29/24 Hospital Course: Patient was seen and examined. Events of the last 24 hours have been noted. Spoke with with GEOFF regarding patient's clinical picture after evaluating and examining the patient independently. I performed a substantial part of the MDM during this patient's care today. I personally made or approved the documented management plan and acknowledge its risk of complications. I agree with the findings and documentation provided in the GEOFF's notes. <Girish Donahue - Last Filed: 12/03/24 12:16> Disposition: ROUTINE DISCHARGE Discharge Condition: GOOD Vital Signs/Physical Exam: Temp Pulse Resp BP Pulse Ox 97.9 F 101 H 16 99/66 98 11/27/24 04:00 11/27/24 05:50 11/27/24 04:00 11/27/24 05:50 11/27/24 04:00 Laboratory Data at Discharge: WBC 7.00 thou/uL (4.3-10.9) 11/27/24 04:17 Hgb 13.3 g/dL (12.0-15.0) 11/27/24 04:17 Hct 39.7 % (36.0-45.0) 11/27/24 04:17 Plt Count 139 thou/uL (152-406) L 11/27/24 04:17 Sodium 138 mEq/L (136-145) 11/27/24 04:17 Potassium 4.5 mEq/L (3.5-5.1) D 11/27/24 04:17 BUN 27 mg/dL (7-18) H 11/27/24 04:17 Creatinine 1.44 mg/dL (0.55-1.02) H 11/27/24 04:17 Glucose 180 mg/dL (74-106) H 11/27/24 04:17 Phosphorus 3.8 mg/dL (2.5-4.9) 11/27/24 04:17 Magnesium 2.1 mg/dL (1.6-2.4) 11/27/24 04:17 Total Bilirubin 0.5 mg/dL (0.2-1.0) 11/24/24 12:58 AST 11 U/L (15-37) L 11/24/24 12:58 ALT 16 U/L (13-56) 11/24/24 12:58 Alkaline Phosphatase 72 U/L (45-117) 11/24/24 12:58 Triglycerides 200 mg/dL (<150) H 11/25/24 05:20 Cholesterol 160 mg/dL (<200) 11/25/24 05:20 HDL Cholesterol 48 mg/dL (40-60) 11/25/24 05:20 Cholesterol/HDL Ratio 3.33 11/25/24 05:20 <Nae Reese - Last Filed: 11/29/24 17:58> Vital Signs/Physical Exam: Temp Pulse Resp BP Pulse Ox 98.2 F 60 80 H 170/79 H 91 11/29/24 13:06 11/29/24 14:10 11/29/24 13:06 11/29/24 14:10 11/29/24 13:06 General: Alert, In no apparent distress, Oriented x3 Laboratory Data at Discharge: WBC 6.10 thou/uL (4.3-10.9) 11/29/24 06:27 Hgb 13.4 g/dL (12.0-15.0) 11/29/24 06:27 Hct 40.9 % (36.0-45.0) 11/29/24 06:27 Plt Count 145 thou/uL (152-406) L 11/29/24 06:27 Sodium 139 mEq/L (136-145) 11/29/24 06:27 Potassium 4.0 mEq/L (3.5-5.1) 11/29/24 06:27 BUN 21 mg/dL (7-18) H 11/29/24 06:27 Creatinine 1.30 mg/dL (0.55-1.02) H 11/29/24 06:27 Glucose 150 mg/dL (74-106) H 11/29/24 06:27 Phosphorus 3.8 mg/dL (2.5-4.9) 11/27/24 04:17 Magnesium 2.1 mg/dL (1.6-2.4) 11/29/24 06:27 Total Bilirubin 0.5 mg/dL (0.2-1.0) 11/24/24 12:58 AST 11 U/L (15-37) L 11/24/24 12:58 ALT 16 U/L (13-56) 11/24/24 12:58 Alkaline Phosphatase 72 U/L (45-117) 11/24/24 12:58 Triglycerides 200 mg/dL (<150) H 11/25/24 05:20 Cholesterol 160 mg/dL (<200) 11/25/24 05:20 HDL Cholesterol 48 mg/dL (40-60) 11/25/24 05:20 Cholesterol/HDL Ratio 3.33 11/25/24 05:20 <Girish Donahue - Last Filed: 12/03/24 12:16> Time spent managing pt's care (in minutes): 45 <Nae Reese - Last Filed: 11/29/24 17:58> <Girish Donahue - Last Filed: 12/03/24 12:16> Home Medications: Fenofibrate 1 tab PO DAILY 06/16/21 Gabapentin 3 tab PO BEDTIME 06/16/21 Hydrocodone Bit/Acetaminophen [[place] 7.5-325 Tablet] 1 tab PO BID 06/16/21 Ropinirole HCl [Requip] 1 tab PO DAILY 06/16/21 Rosuvastatin [Crestor*] 40 mg PO BEDTIME 06/16/21 Apixaban [Eliquis *] 2.5 mg PO BID #60 tablet 02/08/22 Aspirin [Aspirin EC 81 MG] 81 mg PO DAILY 02/08/22 Torsemide [Demadex*] 20 mg PO BID 02/08/22 Amlodipine [Norvasc*] 5 mg PO DAILY 03/06/25 Empagliflozin [Jardiance] 10 mg PO DAILY 11/25/24 Valsartan 320 mg PO DAILY 11/25/24 Alprazolam [Xanax] 0.25 mg PO Q12HP PRN #10 tab 11/29/24 Amiodarone HCl [Cordarone*] 200 mg PO BID #60 tab 11/29/24 Apixaban [Eliquis *] 2.5 mg PO BID #60 tab 11/29/24 Metoprolol Tartrate [Lopressor*] 25 mg PO Q8H #90 tab 11/29/24 New Medications: Amiodarone HCl [Cordarone*] 200 mg PO BID #60 tab Apixaban [Eliquis *] 2.5 mg PO BID #60 tab Metoprolol Tartrate [Lopressor*] 25 mg PO Q8H #90 tab Alprazolam [Xanax] 0.25 mg PO Q12HP PRN #10 tab PRN Reason: Anxiety Physician Discharge Instructions: PROBLEM: Afib GOAL: Clear understanding of disease process INSTRUCTIONS: Follow up with PCP in 1-2 weeks Follow up with Cardiology in 1-2 weeks Diet: AHA Activity: Fall precautions IMMUNIZATION Influenza Vaccine Indicated: No Influenza Vaccine Given: Date Given: Pneumonia Vaccine Indicated: No Pneumonia Vaccine Given: Date Given: -DC IV and DC home -Follow-up with PCP in 1 to 2 weeks -Follow-up with Cardiology in 1 to 2 weeks -Please call Dr. Donahue at [phone] if any questions regarding hospital stay -Please call nursing station at [phone] if any nursing or medication questions -Return to the emergency room if symptoms worsen Followup: Patric Weinberg MD [Primary Care Provider] -
[2024-11-27] MEDS: METOPROLOL TARTRATE 5 MG/5 ML INJ IV STA (13:17)
[2024-11-27] MEDS: FENTANYL CITR 100 MCG/2 ML IV PRN (15:41)
[2024-11-28] MEDS: DIGOXIN 0.25 MG/ML AMP IV ONE (01:15)
[2024-11-28 06:42] LABS: Absolute Basophils 0.1 K/uL (0-0.5); Absolute Eosinophils 0.2 K/uL (0-0.5); Absolute Lymphocytes (CBC) 1.8 K/uL (0.7-4.9); Absolute Monocytes 0.6 K/uL (0.1-1.3); Absolute Neutrophil 4.3 K/uL (1.8-8.0); Eosinophils % 3.4 % (0-4.4); Hematocrit 42.2 % (36.0-45.0); Hemoglobin 13.8 g/dL (12.0-15.0); Lymphocytes % 25.6 % (15.3-44.8); MCH 29.8 pg (27.0-35.0); MCHC 32.7 g/dL (32.0-36.0); MCV 91.2 fL (80-100); Monocytes % 9.1 % (3.3-12.3); Neutrophils % 60.9 % (41.7-73.7); Nucleated Red Blood Cells % 0.1 % (0-0); Platelets 141 thou/uL (152-406); RBC Red Blood Cell Count 4.63 M/uL (3.86-4.86); Red Cell Distribution Width 14.5 % (12.1-15.2)
[2024-11-28 06:53] LABS: Anion Gap 9.1 mEq/L (5.0-15.0); Magnesium 2.1 mg/dL (1.6-2.4); Potassium 4.1 mEq/L (3.5-5.1)
--- NOTE | 2024-11-28 08:31 | P.PN ---
Date of Service: 11/27/24 Subjective OTILIA held due to patient eating prior to exam, patient on amiodarone drip, rate controlled Physical Examination - Physical Exam vital signs Reviewed General: Alert, In no apparent distress, afebrile Respiratory: Normal air movement, Diminished Cardiovascular: Normal pulses, irregular, Gastrointestinal: Normal bowel sounds, nontender Musculoskeletal: No clubbing, No swelling Integumentary: No breakdown, No significant lesion Neurological: No focal deficits, oriented x 3 Assessment and Plan - Problems (Diagnosis) (1) Atrial fibrillation with RVR Current Visit: Yes Status: Acute (2) History of aortic valve replacement Current Visit: Yes Status: Acute (3) History of permanent cardiac pacemaker placement Current Visit: Yes Status: Acute (4) Dyspnea Current Visit: Yes Status: Acute (5) Dizziness Current Visit: Yes Status: Acute - Plan 1. Atrial fibrillation with rapid ventricular response; continues on amiodarone drip. N.p.o. for cardiology evaluation for OTILIA with DCCV; continue with anticoagulation 2. History of aortic valve replacement; continue with medical management 3. Metabolic syndrome; strict blood pressure and blood sugar control 4. CHF; compensated Disposition Home independent <Nae Reese - Last Filed: 11/28/24 08:32> Patient was seen and examined. Events of the last 24 hours have been noted. Spoke with with GEOFF regarding patient's clinical picture after evaluating and examining the patient independently. I performed a substantial part of the MDM during this patient's care today. I personally made or approved the documented management plan and acknowledge its risk of complications. I agree with the findings and documentation provided in the GEOFF's notes. <Girish Donahue - Last Filed: 12/03/24 12:15>
[2024-11-28] MEDS: DIGOXIN 0.25 MG/ML AMP IV SCH (09:26)
--- NOTE | 2024-11-28 17:54 | P.PN ---
Date of Service: 11/28/24 Subjective Will keep n.p.o., after midnight for OTILIA in the a.m. Physical Examination - Physical Exam vital signs Reviewed General: Alert, oriented x 3 in no apparent distress, Respiratory: Normal air movement, Diminished Cardiovascular: Normal pulses, irregular, Gastrointestinal: Normal bowel sounds, nontender Musculoskeletal: No clubbing, No swelling Integumentary: No breakdown, No significant lesion Neurological: No focal deficits, oriented x 3 Assessment and Plan - Problems (Diagnosis) (1) Atrial fibrillation with RVR Current Visit: Yes Status: Acute (2) History of aortic valve replacement Current Visit: Yes Status: Acute (3) History of permanent cardiac pacemaker placement Current Visit: Yes Status: Acute (4) Dyspnea Current Visit: Yes Status: Acute (5) Dizziness Current Visit: Yes Status: Acute - Plan 1. Atrial fibrillation with rapid ventricular response; continues on amiodarone drip. 2. History of aortic valve replacement; continue with medical management 3. Metabolic syndrome; strict blood pressure and blood sugar control 4. CHF; compensated 5. 11/28 N.p.o. for cardiology evaluation for OTILIA with DCCV; continue with anticoagulation Disposition Home independent <Nae Reese - Last Filed: 11/28/24 17:51> Patient was seen and examined. Events of the last 24 hours have been noted. Spoke with with GEOFF regarding patient's clinical picture after evaluating and examining the patient independently. I performed a substantial part of the MDM during this patient's care today. I personally made or approved the documented management plan and acknowledge its risk of complications. I agree with the findings and documentation provided in the GEOFF's notes. <Girish Donahue - Last Filed: 12/03/24 12:16>
[2024-11-29 06:54] LABS: Absolute Eosinophils 0.2 K/uL (0-0.5); Absolute Lymphocytes (CBC) 1.3 K/uL (0.7-4.9); Absolute Monocytes 0.6 K/uL (0.1-1.3); Basophils % 0.6 % (0-1.3); Eosinophils % 3.4 % (0-4.4); Hematocrit 40.9 % (36.0-45.0); Hemoglobin 13.4 g/dL (12.0-15.0); Lymphocytes % 20.8 % (15.3-44.8); MCH 29.9 pg (27.0-35.0); MCHC 32.7 g/dL (32.0-36.0); MCV 91.6 fL (80-100); MPV 9.2 fL (7.6-11.3); Monocytes % 9.9 % (3.3-12.3); Neutrophils % 65.3 % (41.7-73.7); Nucleated Red Blood Cells % 0.1 % (0-0); Platelets 145 thou/uL (152-406); RBC Red Blood Cell Count 4.47 M/uL (3.86-4.86); Red Cell Distribution Width 14.1 % (12.1-15.2)
[2024-11-29 07:10] LABS: Magnesium 2.1 mg/dL (1.6-2.4)
[2024-11-29] MEDS: NA CHLORIDE 0.9% 500 ML ONE (09:11)
[2024-11-29] MEDS ORDERED: propofoL 200 MG/20 ML VIAL IV ONE (09:54)
[2024-11-29] MEDS ORDERED: LIDOCAINE JELLY 2% 5 ML SYRINGE TOP ONE (09:54)
[2024-11-29] MEDS: AMIODARONE HCL 200 MG TAB PO SCH (11:05)
[2024-11-29 12:41] VITALS: O2SAT 91
[2024-11-29 12:53] VITALS: TEMP 98.2
--- NOTE | 2024-11-29 13:06 | P.PN ---
Subjective Date of Service: 11/29/24 Chief Complaint: A-fib RVR Subjective: No new changes, No C/O voiced, Tolerating diet, Ambulating, Improving Review of Systems 10-point ROS is otherwise unremarkable Physical Examination - Vital Signs Temperature: 98.2 F Blood Pressure: 158/72 Pulse: 60 Respirations: 80 Pulse Ox (%): 91 - Physical Exam General: Alert, In no apparent distress HEENT: Atraumatic, PERRLA, EOMI Neck: Supple, JVD not distended Respiratory: Clear to auscultation bilaterally, Normal air movement Cardiovascular: Regular rate/rhythm, Normal S1 S2 Gastrointestinal: Normal bowel sounds, No tenderness Musculoskeletal: No tenderness Integumentary: No rashes Neurological: Normal speech, Normal tone, Normal affect Lymphatics: No axilla or inguinal lymphadenopathy - Studies Medications List Reviewed: Yes Assessment And Plan - Current Problems (Diagnosis) (1) Atrial fibrillation with RVR Current Visit: Yes Status: Acute Plan: OTILIA DCCV was done continue amiodarone 200 mg po bid continue lopressor 25 mg q8hrs Eliquis 5 mg po BID Patient say she got a pacemaker (2) History of aortic valve replacement Current Visit: Yes Status: Acute Plan: OTILIA shows normal functioning valve, outpatient echo to follow. (3) Acute on chronic diastolic heart failure Current Visit: No Status: Acute Plan: switch patient back to her torsemide 20 mg daily continue aldactone 25 mg daily start farxiga 10 mg daily at discharge. monitor input and output and electrolytes.
--- NOTE | 2024-11-29 13:51 | TEE ---
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 NORMAL LEFT VENTRICULAR ATRIAL APPENDAGE, NO THROMBUS TECHNOLOGIST: BUD VILLARREAL
[2024-11-29 14:10] VITALS: BP 170/79
--- NOTE | 2024-11-29 18:08 | P.DS ---
Admission Date: 11/24/24 Discharge Date: 11/29/24 Reason for Admission: A-fib RVR - Problems (1) Atrial fibrillation with RVR Status: Acute (2) History of aortic valve replacement Status: Acute (3) History of permanent cardiac pacemaker placement Status: Acute (4) Dyspnea Status: Acute (5) Dizziness Status: Acute Brief History of Present Illness: 79-year-old female with a past medical history A-fib, CHF, diabetes, ipc-zzvjtvq-dfrqqfgtw diabetes, hyperlipidemia, hypertension, restless leg syndrome, past medical history of a pacemaker, valve replacement, presents to the emergency room via EMS with palpitations/fast heart rate. She reports being called by the pacemaker/cardiac monitoring company for fast heart rate. She report was short of breath, was dizzy today. She denied fall, no reported chest pain, edema, ER evaluation A-fib RVR heart rate 142. Plan to admit for A-fib RVR with cardiology to consult, - Physical Exam General: Alert, In no apparent distress, Oriented x3, Other HEENT: Atraumatic, Normocephalic Neck: Supple Respiratory: Normal air movement, Diminished Cardiovascular: Normal pulses, Other (A-fib RVR) Capillary refill: <2 Seconds Gastrointestinal: Normal bowel sounds, Soft and benign Musculoskeletal: No clubbing, No swelling Integumentary: No breakdown, No significant lesion Neurological: Normal speech, Normal strength at 5/5 x4 extr, Sensation intact Hospital Course: 79-year-old female with a past medical history A-fib, CHF, diabetes, okc-xjrsgtl-ksywenzox diabetes, hyperlipidemia, hypertension, restless leg syndrome, past medical history of a pacemaker, valve replacement, presents to the emergency room via EMS with palpitations/fast heart rate. She reports being called by the pacemaker/cardiac monitoring company for fast heart rate. She was admitted for ER evaluation A-fib RVR heart rate 142. She was started on amiodarone, seen by cardiology while inpatient, had a OTILIA with by cardiology, tolerating diet, stable to discharge home, follow-up with cardiology after discharge OTILIA shows normal functioning valve, outpatient echo to follow. Discharge medications continue amiodarone 200 mg po bid continue lopressor 25 mg q8hrs Eliquis 5 mg po BID xanax 0.25 q 12 hours as needed Assessment A-fib RVR started on amiodarone drip, transition to p.o. amiodarone, status post OTILIA with cardioversion History of permanent pacemaker Acute on chronic diastolic heart failure History of aortic valve replacement, 4+ glucose urea-hemoglobin A1c, diabetic diet Continue home medicines as previously prescribed GOAL: Clear understanding of disease process INSTRUCTIONS: Physician Discharge Instructions: -Follow-up with cardiology after appointment -Follow-up with PCP in 1 to 2 weeks -Please call Dr. Donahue at [phone] if any questions regarding hospital stay -Please call nursing station at [phone] if any nursing or medication questions -Return to the emergency room if symptoms worsen Diet: ADA, low sodium Activity: Fall precautions <Nae Reese - Last Filed: 11/29/24 18:08> Admission Date: 11/24/24 Discharge Date: 11/29/24 Hospital Course: Patient was seen and examined. Events of the last 24 hours have been noted. Spoke with with GEOFF regarding patient's clinical picture after evaluating and examining the patient independently. I performed a substantial part of the MDM during this patient's care today. I personally made or approved the documented management plan and acknowledge its risk of complications. I agree with the findings and documentation provided in the GEOFF's notes. <Girish Donahue - Last Filed: 12/03/24 12:18> Disposition: ROUTINE DISCHARGE Discharge Condition: GOOD Vital Signs/Physical Exam: Temp Pulse Resp BP Pulse Ox 98.2 F 60 80 H 170/79 H 91 11/29/24 13:06 11/29/24 14:10 11/29/24 13:06 11/29/24 14:10 11/29/24 13:06 Laboratory Data at Discharge: WBC 6.10 thou/uL (4.3-10.9) 11/29/24 06:27 Hgb 13.4 g/dL (12.0-15.0) 11/29/24 06:27 Hct 40.9 % (36.0-45.0) 11/29/24 06:27 Plt Count 145 thou/uL (152-406) L 11/29/24 06:27 Sodium 139 mEq/L (136-145) 11/29/24 06:27 Potassium 4.0 mEq/L (3.5-5.1) 11/29/24 06:27 BUN 21 mg/dL (7-18) H 11/29/24 06:27 Creatinine 1.30 mg/dL (0.55-1.02) H 11/29/24 06:27 Glucose 150 mg/dL (74-106) H 11/29/24 06:27 Phosphorus 3.8 mg/dL (2.5-4.9) 11/27/24 04:17 Magnesium 2.1 mg/dL (1.6-2.4) 11/29/24 06:27 Total Bilirubin 0.5 mg/dL (0.2-1.0) 11/24/24 12:58 AST 11 U/L (15-37) L 11/24/24 12:58 ALT 16 U/L (13-56) 11/24/24 12:58 Alkaline Phosphatase 72 U/L (45-117) 11/24/24 12:58 Triglycerides 200 mg/dL (<150) H 11/25/24 05:20 Cholesterol 160 mg/dL (<200) 11/25/24 05:20 HDL Cholesterol 48 mg/dL (40-60) 11/25/24 05:20 Cholesterol/HDL Ratio 3.33 11/25/24 05:20 <Nae Reese - Last Filed: 11/29/24 18:08> Vital Signs/Physical Exam: Temp Pulse Resp BP Pulse Ox 98.2 F 60 80 H 170/79 H 91 11/29/24 13:06 11/29/24 14:10 11/29/24 13:06 11/29/24 14:10 11/29/24 13:06 General: Alert, In no apparent distress, Oriented x3 Laboratory Data at Discharge: WBC 6.10 thou/uL (4.3-10.9) 11/29/24 06:27 Hgb 13.4 g/dL (12.0-15.0) 11/29/24 06:27 Hct 40.9 % (36.0-45.0) 11/29/24 06:27 Plt Count 145 thou/uL (152-406) L 11/29/24 06:27 Sodium 139 mEq/L (136-145) 11/29/24 06:27 Potassium 4.0 mEq/L (3.5-5.1) 11/29/24 06:27 BUN 21 mg/dL (7-18) H 11/29/24 06:27 Creatinine 1.30 mg/dL (0.55-1.02) H 11/29/24 06:27 Glucose 150 mg/dL (74-106) H 11/29/24 06:27 Phosphorus 3.8 mg/dL (2.5-4.9) 11/27/24 04:17 Magnesium 2.1 mg/dL (1.6-2.4) 11/29/24 06:27 Total Bilirubin 0.5 mg/dL (0.2-1.0) 11/24/24 12:58 AST 11 U/L (15-37) L 11/24/24 12:58 ALT 16 U/L (13-56) 11/24/24 12:58 Alkaline Phosphatase 72 U/L (45-117) 11/24/24 12:58 Triglycerides 200 mg/dL (<150) H 11/25/24 05:20 Cholesterol 160 mg/dL (<200) 11/25/24 05:20 HDL Cholesterol 48 mg/dL (40-60) 11/25/24 05:20 Cholesterol/HDL Ratio 3.33 11/25/24 05:20 <Girish Donahue - Last Filed: 12/03/24 12:18> Diet: AHA Activity: Fall precautions <Nae Reese - Last Filed: 11/29/24 18:08> Time spent managing pt's care (in minutes): 35 <Girish Donahue - Last Filed: 12/03/24 12:18> Home Medications: Fenofibrate 1 tab PO DAILY 06/16/21 Gabapentin 3 tab PO BEDTIME 06/16/21 Hydrocodone Bit/Acetaminophen [[place] 7.5-325 Tablet] 1 tab PO BID 06/16/21 Ropinirole HCl [Requip] 1 tab PO DAILY 06/16/21 Rosuvastatin [Crestor*] 40 mg PO BEDTIME 06/16/21 Apixaban [Eliquis *] 2.5 mg PO BID #60 tablet 02/08/22 Aspirin [Aspirin EC 81 MG] 81 mg PO DAILY 02/08/22 Torsemide [Demadex*] 20 mg PO BID 02/08/22 Amlodipine [Norvasc*] 5 mg PO DAILY 11/25/24 Empagliflozin [Jardiance] 10 mg PO DAILY 11/25/24 Valsartan 320 mg PO DAILY 11/25/24 Alprazolam [Xanax] 0.25 mg PO Q12HP PRN #10 tab 11/29/24 Amiodarone HCl [Cordarone*] 200 mg PO BID #60 tab 11/29/24 Apixaban [Eliquis *] 2.5 mg PO BID #60 tab 11/29/24 Metoprolol Tartrate [Lopressor*] 25 mg PO Q8H #90 tab 11/29/24 New Medications: Amiodarone HCl [Cordarone*] 200 mg PO BID #60 tab Apixaban [Eliquis *] 2.5 mg PO BID #60 tab Metoprolol Tartrate [Lopressor*] 25 mg PO Q8H #90 tab Alprazolam [Xanax] 0.25 mg PO Q12HP PRN #10 tab PRN Reason: Anxiety Physician Discharge Instructions: PROBLEM: Afib GOAL: Clear understanding of disease process INSTRUCTIONS: Follow up with PCP in 1-2 weeks Follow up with Cardiology in 1-2 weeks Diet: AHA Activity: Fall precautions IMMUNIZATION Influenza Vaccine Indicated: No Influenza Vaccine Given: Date Given: Pneumonia Vaccine Indicated: No Pneumonia Vaccine Given: Date Given: -DC IV and DC home -Follow-up with PCP in 1 to 2 weeks -Follow-up with Cardiology in 1 to 2 weeks -Please call Dr. Donahue at [phone] if any questions regarding hospital stay -Please call nursing station at [phone] if any nursing or medication questions -Return to the emergency room if symptoms worsen Followup: Patric Weinberg MD [Primary Care Provider] -
--- NOTE | 2024-11-30 11:01 | EKG ---
Test Date: 2024-11-29 Test Time: 09:00:09 [employer]: PING MEASUREMENT RESULTS: Intervals: Rate: 60 MS: 136 QRSD: 138 QT: 448 QTc: 448 [place]: P: MS: 136 QRS: -22 T: 223 INTERPRETIVE STATEMENTS: Electronic ventricular pacemaker Compared to ECG 11/29/2024 08:59:43 No significant changes Electronically Signed On 11-30-24 10:57:35 CDT by Cl Almanza
--- NOTE | 2024-11-30 11:01 | EKG ---
Test Date: 2024-11-29 Test Time: 08:59:43 District Service Manager: PING MEASUREMENT RESULTS: Intervals: Rate: 62 [place]: QRSD: 136 QT: 438 QTc: 444 [place]: P: [place]: QRS: 138 T: 208 INTERPRETIVE STATEMENTS: Electronic ventricular pacemaker Compared to ECG 11/24/2024 15:41:35 Atrial fibrillation no longer present Left-axis deviation no longer present T-wave abnormality no longer present Possible ischemia no longer present Electronically Signed On 11-30-24 10:57:37 CDT by Cl Almanza
--- NOTE | 2024-11-30 11:28 | EKG ---
Test Date: 2024-11-24 Test Time: 15:41:35 Hand Welt Butter: LAURI MEASUREMENT RESULTS: Intervals: Rate: 125 [place]: QRSD: 132 QT: 320 QTc: 461 [place]: P: [place]: QRS: -76 T: 100 INTERPRETIVE STATEMENTS: Atrial fibrillation Left axis deviation Nonspecific intraventricular block T wave abnormality, consider lateral ischemia or digitalis effect Abnormal ECG Compared to ECG 11/24/2024 12:39:42 Left-axis deviation now present T-wave abnormality now present Possible ischemia now present Ventricular premature complex(es) no longer present Right superior axis no longer present Myocardial infarct finding no longer present Electronically Signed On 11-30-24 11:09:47 CDT by Cl Almanza
--- NOTE | 2024-11-30 11:29 | EKG ---
Test Date: 2024-11-24 Test Time: 12:39:42 Supervisor Plate Forming: BERTRAND MEASUREMENT RESULTS: Intervals: Rate: 141 [place]: QRSD: 130 QT: 352 QTc: 539 [place]: P: [place]: QRS: 269 T: 86 INTERPRETIVE STATEMENTS: Atrial fibrillation with rapid ventricular response with premature ventricular or aberrantly conducted complexes Right superior axis deviation Nonspecific intraventricular block Cannot rule out Septal infarct, age undetermined Abnormal ECG Compared to ECG 09/05/2023 16:49:13 Ventricular premature complex(es) now present Right superior axis now present Myocardial infarct finding now present Ventricular-paced complex(es) or rhythm no longer present Electronically Signed On 11-30-24 11:10:10 CDT by Cl Almanza
--- NOTE | 2024-11-30 12:14 | OP ---
Date of Procedure: 11/29/2024 Surgeon: Cl Almanza Procedure Performed: Transesophageal echocardiogram synchronized cardioversion. Indication For Procedure: Atrial fibrillation. Complications: None. Estimated Blood Loss: None. Sedation: Done by Anesthesia team. Description Of Procedure: After risks, benefits, and alternatives were explained to the patient, the patient agreed to proceed with procedure and signed informed consent. The patient was brought back to the OR. A time-out was performed. Sedation was administered by Anesthesia Team. Next, OTILIA probe was inserted, images were obtained, and the OTILIA probe was removed. Synchronized cardioversion was d one with 250 joules. The patient converted back into sinus rhythm. The patient was moved back to [facility] in stable condition. Assessment: Atrial fibrillation, status post successful transesophageal echocardiogram cardioversion . Plan: 1. To continue amiodarone 200 mg p.o. b.i.d. 2. Continue Eliquis 5 mg p.o. b.i.d. PANCHITO Voice ID: [id number] Report ID: [id number]
== END 2024-11-29 16:43 | disposition home or self-care (01) | DRG 308 ==
LOC: ER 12:26 → ERHOLD 16:26 → 2ND 18:44
PROVIDERS: ADMIT Hospitalist; ATTEND Hospitalist
PROC: B24BZZ4 Ultrasonography of Heart with Aorta, Transesophageal (ICD-10-PCS; principal; 2024-11-29)
PROC: 5A2204Z Restoration of Cardiac Rhythm, Single (ICD-10-PCS; 2024-11-29)
DX: I48.91 Unspecified atrial fibrillation (principal); I50.33 Acute on chronic diastolic (congestive) heart failure; I11.0 Hypertensive heart disease with heart failure; E78.00 Pure hypercholesterolemia, unspecified; E88.810 Metabolic syndrome; G25.81 Restless legs syndrome; E11.9 Type 2 diabetes mellitus without complications; Z88.0 Allergy status to penicillin; Z88.2 Allergy status to sulfonamides; Z95.0 Presence of cardiac pacemaker; Z95.2 Presence of prosthetic heart valve; Z60.2 Problems related to living alone; Z79.01 Long term (current) use of anticoagulants; Z79.82 Long term (current) use of aspirin; Z79.899 Other long term (current) drug therapy; Z90.710 Acquired absence of both cervix and uterus
CPT/HCPCS: 01922; 36415; 71045; 80048; 80061; 80076; 81003; 82947; 83036; 83735; 83880; 84100; 84443; 84484; 85025; 93005; 93312; 96361; 96374; 99285; J0282; J1160; J1815; J1940; J2704; J3010; J7030; J7040; J7060

== ENCOUNTER 2025-06-25 22:07 | Emergency (ER) | payer OTHER ==
[2025-06-25 23:09] LABS: Absolute Lymphocytes (CBC) 1.0 K/uL (0.7-4.9); Hematocrit 36.4 % (36.0-45.0); Hemoglobin 12.1 g/dL (12.0-15.0); MCH 30.9 pg (27.0-35.0); MCHC 33.2 g/dL (32.0-36.0); MCV 93.2 fL (80-100); MPV 9.0 fL (7.6-11.3); Nucleated RBC Absolute Count 0.0 (0-0); Nucleated Red Blood Cells % 0.0 % (0-0); RBC Red Blood Cell Count 3.91 M/uL (3.86-4.86); White Blood Count 4.40 thou/uL (4.3-10.9)
[2025-06-25 23:18] LABS: Sqamous Epithelial <5 /HPF (None Seen); Urine Culture Reflex Order REFLEXED; Urine Microscopic Reflex YN ORDER UMIC
[2025-06-25 23:19] LABS: PT Prothrombin Time 17.9 SECONDS (10-13.0); Protime INR 1.61
[2025-06-25 23:36] LABS: ALT/SGPT 29.0 U/L (13-56); Albumin 3.2 g/dL (3.4-5.0); Albumin/Globulin Ratio 1.1 (1.1-1.8); Alkaline Phosphatase 51.0 U/L (45-117); Anion Gap 8.5 mEq/L (5.0-15.0); BUN Blood Urea Nitrogen 18.0 mg/dL (7-18); Bilirubin Indirect, Calculated 0.4 mg/dL (0.2-0.8); Globulin 2.8 g/dL (2.3-3.5); Glucose Level 135.0 mg/dL (74-106); NT PRO-BNP 4890.0 pg/mL (<450); Troponin High Sensitivity 23.3 pg/mL (<58.9)
[2025-06-25 23:37] LABS: AST/SGOT 34.0 U/L (15-37); Magnesium 2.4 mg/dL (1.6-2.4); Potassium 3.5 mEq/L (3.5-5.1)
[2025-06-26] MEDS ORDERED: CEFTRIAXONE 1000 MG/VIAL ONE (00:42)
--- NOTE | 2025-06-26 03:03 | ER ---
Nurse's Notes [facility] Name: Elsy Rico Age: 79 yrs Sex: Female : 1945 Arrival Date: 06/25/2025 Time: 22:07 Bed 14 Private MD: Diagnosis: Shortness of breath;UTI/ Urinary tract infection, site not specified;Weakness Presentation: 06/25 22:21 Chief complaint: EMS states: Pt came by EMS complaining of SOB, general weakness since ss12 today. She went to urgent care 06/23/25 with similar complaints and was prescribed albuterol inhaler. pt took that inhaler once yesterday and did not like the medication and did not wanted to continue. Coronavirus screen: Client denies travel out of the [place] in the last 14 days. Ebola Screen: Patient negative for fever greater than or equal to 101.5 degrees Fahrenheit, and additional compatible Ebola Virus Disease symptoms Patient denies exposure to infectious person. Patient denies travel to an Ebola-affected area in the 21 days before illness onset. Initial Sepsis Screen: Does the patient meet any 2 criteria? No. Patient's initial sepsis screen is negative. Does the patient have a suspected source of infection? No. Patient's initial sepsis screen is negative. Onset of symptoms. 22:21 Method Of Arrival: EMS: [facility] ss12 22:21 Acuity: PAUL 3 ss12 22:32 Risk Assessment: Do you want to hurt yourself or someone else? Patient reports no ss12 desire to harm self or others. Triage Assessment: 22:14 General: Appears in no apparent distress. Behavior is calm, cooperative, quiet. Pain: ss12 Denies pain. EENT: No deficits noted. No signs and/or symptoms were reported regarding the EENT system. Neuro: No deficits noted. Level of Consciousness is awake, alert, obeys commands, Oriented to person, place, time, situation. Cardiovascular: No deficits noted. Denies chest pain, Capillary refill < 3 seconds Patient's skin is warm and dry. Respiratory: Reports shortness of breath Airway is patent Respiratory effort is even, unlabored, Respiratory pattern is regular, symmetrical. GI: No deficits noted. No signs and/or symptoms were reported involving the gastrointestinal system. : No deficits noted. No signs and/or symptoms were reported regarding the genitourinary system. Derm: No deficits noted. No signs and/or symptoms reported regarding the dermatologic system. Skin is intact, Skin is dry, Skin is pink, warm \T\ dry. normal. Musculoskeletal: No deficits noted. No signs and/or symptoms reported regarding the musculoskeletal system. Historical: - Allergies: 22:27 PENICILLINS; ss12 22:27 Sulfa (Sulfonamide Antibiotics); ss12 - PMHx: 22:27 Atrial fibrillation; CHF; Diabetes - NIDDM; High Cholesterol; Hypertension; restless ss12 leg; - PSHx: 22:27 pacemaker (ss); ss12 - Immunization history:: Adult Immunizations up to date. - Infectious Disease History:: Denies. - Social history:: Smoking status: Patient denies any tobacco usage or history of. - Family history:: not pertinent. Screenin:31 [facility] ED Fall Risk Assessment (Adult) History of falling in the last 3 months, ss12 including since admission No falls in past 3 months (0 pts) Confusion or Disorientation No (0 pts) Intoxicated or Sedated No (0 pts) Impaired Gait No (0 pts) Mobility Assist Device Used No (0 pt) Altered Elimination No (0 pt) Score/Fall Risk Level 0 - 2 = Low Risk Oriented to surroundings, Maintained a safe environment, Educated pt \T\ family on fall prevention, incl call for assistance when getting out of bed, Assessed \T\ reinforced patient's understanding of fall precautions, Provided non-skid footwear. Abuse screen: Denies threats or abuse. Denies injuries from another. Nutritional screening: No deficits noted. Tuberculosis screening: No symptoms or risk factors identified. Assessment: 22:14 Reassessment: Patient appears in no apparent distress at this time. Patient and/or ss12 family updated on plan of care and expected duration. Pain level reassessed. Patient is alert, oriented x 3, equal unlabored respirations, skin warm/dry/pink. 23:15 Reassessment: Patient appears in no apparent distress at this time. Patient and/or ss12 family updated on plan of care and expected duration. Pain level reassessed. Patient is alert, oriented x 3, equal unlabored respirations, skin warm/dry/pink. 06/26 00:20 Reassessment: Patient appears in no apparent distress at this time. Patient and/or ss12 family updated on plan of care and expected duration. Pain level reassessed. Patient is alert, oriented x 3, equal unlabored respirations, skin warm/dry/pink. 01:30 Reassessment: Patient appears in no apparent distress at this time. Patient and/or ss12 family updated on plan of care and expected duration. Pain level reassessed. Patient is alert, oriented x 3, equal unlabored respirations, skin warm/dry/pink. 02:04 Reassessment: Patient appears in no apparent distress at this time. Patient and/or ss12 family updated on plan of care and expected duration. Pain level reassessed. Patient is alert, oriented x 3, equal unlabored respirations, skin warm/dry/pink. 03:00 Reassessment: Patient appears in no apparent distress at this time. Patient and/or ss12 family updated on plan of care and expected duration. Pain level reassessed. Patient is alert, oriented x 3, equal unlabored respirations, skin warm/dry/pink. 04:00 Reassessment: Patient appears in no apparent distress at this time. Patient and/or ss12 family updated on plan of care and expected duration. Pain level reassessed. Patient is alert, oriented x 3, equal unlabored respirations, skin warm/dry/pink. Vital Signs: 06/25 22:21 BP 151 / 76; Pulse 62; Resp 18; Temp 98.8; Pulse Ox 99% on R/A; [facility] 22:30 Weight 70.76 kg; Height 5 ft. 6 in. ; [facility] 23:00 BP 163 / 76; Pulse 60; Resp 16; Pulse Ox 97% on R/A; [facility] 06/26 00:50 BP 151 / 93; Pulse 73; Resp 16; Pulse Ox 96% on R/A; [facility] 02:00 BP 163 / 84; Pulse 66; Resp 16; Pulse Ox 96% on R/A; [facility] 03:00 BP 154 / 79; Pulse 60; Resp 16; Pulse Ox 98% on R/A; [facility] 05:00 BP 162 / 75; Pulse 62; Resp 16; Pulse Ox 98% on R/A; [facility] 06/25 22:30 Body Mass Index 25.18 (70.76 kg, 167.64 cm) [facility] ED Course: 06/25 22:14 Patient arrived in ED. vk 22:21 Shamaila, Shamaila, RN is Primary Nurse. ss12 22:24 Nathaniel Allison PA-C is PHCP. cp 22:24 Reza Holt MD is Attending Physician. cp 22:27 Triage completed. ss12 22:31 Arm band placed on right wrist. ss12 22:32 Patient has correct armband on for positive identification. Provided Education on: plan ss12 of care. 22:32 No provider procedures requiring assistance completed. ss12 22:58 XRAY Chest (1 view) In Process Unspecified. EDMS 23:00 Basic Metabolic Panel Sent. ss12 23:00 CBC with Diff Sent. ss12 23:00 LFT's Sent. ss12 23:00 Magnesium Sent. ss12 23:00 NT PRO-BNP Sent. ss12 23:00 PT-INR Sent. ss12 23:00 Troponin HS Sent. ss12 23:00 EKG done, by ED staff, reviewed by Nathaniel Allison PA-C. ha1 23:01 Initial lab(s) drawn, by laborer rags, sent to lab. Maintain EMS IV. Dressing intact. Good ts3 blood return noted. Site clean \T\ dry. Gauge \T\ site: 20 gauge Left AC. Flushed with 10 mL NS. 23:02 Urine collected: clean catch specimen, SENT TO LAB. ts3 06/26 05:11 IV discontinued, intact, bleeding controlled, No redness/swelling at site. Pressure ss12 dressing applied. Administered Medications: 00:30 Drug: Rocephin IV 1 grams IV at calculated rate once; Given slow IV push per pharmacy ss12 instructions Route: IV; Rate: calculated rate; Site: left antecubital; 01:00 Follow up: Response: No adverse reaction; IV Status: Completed infusion; IV Intake: [id number] Medication: 06/25 22:31 VIS not applicable for this client. ss12 Intake: 06/26 01:00 IV: 10ml; Total: 10ml. ss12 Outcome: 03:02 Discharge ordered by . cp 05:10 Discharged to home ambulatory, ss12 05:10 Condition: stable 05:10 Discharge instructions given to patient, Instructed on discharge instructions, follow up and referral plans. Demonstrated understanding of instructions, follow-up care, Prescriptions given X 2, 05:11 Patient left the ED. ss12 Signatures: Dispatcher [employer] Nathaniel Goode PA-C PA-C cp Ayala, Heidy, RN RN ha1 Reza Holt MD MD sp4 Kristy Inman Taisha 3 Mehnaz Darby, WAQAR RN ss12
--- NOTE | 2025-06-26 03:03 | EDPHYS ---
Physician Documentation [facility] Name: Elsy Rico Age: 79 yrs Sex: Female : 1945 Arrival Date: 06/25/2025 Time: 22:07 Bed 14 Private MD: ED Physician Reza Holt HPI: 06/25 22:45 This 79 yrs old Female presents to ER via EMS with complaints of Shortness Of Breath, cp General Weakness. 22:45 The patient has shortness of breath with light activity. cp 22:45 Onset: The symptoms/episode began/occurred today. cp 22:45 Duration: The symptoms are continuous. Associated signs and symptoms: Pertinent cp positives: general weakness, Pertinent negatives: chest pain, productive cough, fever, vomiting, abdominal pain. Severity of symptoms: in the emergency department the symptoms are unchanged despite home interventions. Historical: - Allergies: 22:27 PENICILLINS; ss12 22:27 Sulfa (Sulfonamide Antibiotics); ss12 - PMHx: 22:27 Atrial fibrillation; CHF; Diabetes - NIDDM; High Cholesterol; Hypertension; restless ss12 leg; - PSHx: 22:27 pacemaker (ss); ss12 - Immunization history:: Adult Immunizations up to date. - Infectious Disease History:: Denies. - Social history:: Smoking status: Patient denies any tobacco usage or history of. - Family history:: not pertinent. ROS: 22:47 Cardiovascular: Negative for chest pain, edema, palpitations, cp 22:47 Respiratory: Positive for shortness of breath, cp 22:47 Neuro: Positive for weakness, 22:47 Constitutional: Negative for fever, chills, and weight loss, positive generalized cp weakness 22:47 Abdomen/GI: Negative for abdominal pain, vomiting, diarrhea, constipation, cp 22:47 : Negative for urinary symptoms, 22:47 All other systems are negative, Exam: 22:50 Constitutional: The patient appears in no acute distress, alert, awake, cp non-diaphoretic, non-toxic, well developed, well nourished, 22:50 Head/Face: Normocephalic, atraumatic. cp 22:50 Eyes: Periorbital structures: appear normal, Conjunctiva: normal, no exudate, no injection, Sclera: no appreciated abnormality, Lids and lashes: appear normal, bilaterally, 22:50 ENT: External ear(s): are unremarkable, Nose: is normal, Mouth: Lips: moist, Oral mucosa: moist, Posterior pharynx: Airway: no evidence of obstruction, patent, 22:50 Chest/axilla: Inspection: normal, 22:50 Cardiovascular: Rate: normal, Edema: is not appreciated, JVD: is not appreciated, 22:50 Respiratory: the patient does not display signs of respiratory distress, Respirations: normal, no use of accessory muscles, no retractions, labored breathing, is not present, Breath sounds: are clear throughout, no decreased breath sounds, no stridor, no wheezing, 22:50 Abdomen/GI: Inspection: abdomen appears normal, Palpation: abdomen is soft and non-tender, in all quadrants, 22:50 Back: pain, is absent, ROM is normal, 22:50 Skin: no rash present. 22:50 Neuro: Orientation: to person, place \T\ time. Mentation: is normal, Motor: moves all fours, strength is normal, Sensation: is normal, 23:55 ECG was reviewed by the Attending Physician. Vital Signs: 22:21 BP 151 / 76; Pulse 62; Resp 18; Temp 98.8; Pulse Ox 99% on R/A; [facility] 22:30 Weight 70.76 kg; Height 5 ft. 6 in. ; [facility] 23:00 BP 163 / 76; Pulse 60; Resp 16; Pulse Ox 97% on R/A; [facility] 06/26 00:50 BP 151 / 93; Pulse 73; Resp 16; Pulse Ox 96% on R/A; [facility] 02:00 BP 163 / 84; Pulse 66; Resp 16; Pulse Ox 96% on R/A; [facility] 03:00 BP 154 / 79; Pulse 60; Resp 16; Pulse Ox 98% on R/A; [facility] 05:00 BP 162 / 75; Pulse 62; Resp 16; Pulse Ox 98% on R/A; [facility] 06/25 22:30 Body Mass Index 25.18 (70.76 kg, 167.64 cm) [facility] MDM: 06/25 22:24 Medical Screening Exam initiated 06/26 03:01 Data reviewed: vital signs, nurses notes, lab test result(s), EKG, radiologic studies, cp plain films, and as a result, I will discharge patient. 03:01 I considered the following discharge prescriptions or medication management in the emergency department Medications were administered in the Emergency Department. See MAR. Independent interpretation of the following test(s) in the Emergency Department EKG: See my EKG interpretation above. Care significantly affected by the following chronic conditions: Diabetes, Hypertension, Congestive Heart Failure. Counseling: I had a detailed discussion with the patient and/or guardian regarding the historical points, exam findings, and any diagnostic results supporting the discharge/admit diagnosis, lab results, radiology results, to return to the emergency department if symptoms worsen or persist or if there are any questions or concerns that arise at home. Response to treatment: the patient's symptoms have mildly improved after treatment, and as a result, I will discharge patient. ED course: VSS. Patient appears in no respiratory distress, non-toxic, no signs volume overload, initial and repeat troponin negative. Will discharge to home for continued monitoring. 06/25 22:37 Order name: Basic Metabolic Panel; Complete Time: 00:02 cp 06/26 00:02 Interpretation: Normal except: CL 108; GLUC 135; CRE 1.73; GFR 29. cp 06/25 22:37 Order name: CBC with Diff; Complete Time: 00:02 cp 06/26 00:27 Interpretation: Normal except: PLT 136; RDW 15.3. 06/25 22:37 Order name: LFT's; Complete Time: 00:02 cp 06/26 00:28 Interpretation: Normal except: BILID 0.3; TP 6.0; ALB 3.2. 06/25 22:37 Order name: Magnesium; Complete Time: 00:02 cp 06/25 22:37 Order name: NT PRO-BNP; Complete Time: 00:02 cp 06/26 00:27 Interpretation: Reviewed. cp 06/25 22:37 Order name: PT-INR; Complete Time: 00: cp 06/25 22:37 Order name: Troponin HS; Complete Time: 00: cp 06/25 22:37 Order name: UA Rfx Leobardo Cult if indicated; Complete Time: 00:02 cp 06/26 00:28 Interpretation: Normal except: UCLA Turbid; UGLUC 4+ (Over); UBLD 1+; UESTR 75; UWBC cp 10-20; URBC 11-20. 06/25 23:22 Order name: Urine Culture EDMN 06/26 01:47 Order name: Troponin High Sensitivity; Complete Time: 03:00 cp 06/26 03:00 Interpretation: Reviewed. cp 06/25 22:37 Order name: XRAY Chest (1 view) cp 06/25 22:37 Order name: EKG; Complete Time: 22:38 cp 06/25 22:37 Order name: Cardiac monitoring; Complete Time: 23:00 cp 06/25 22:37 Order name: EKG - Nurse/Tech; Complete Time: 04:55 cp 06/25 22:37 Order name: IV Saline Lock; Complete Time: 23:00 cp 06/25 22:37 Order name: Labs collected and sent; Complete Time: 23:00 cp 06/25 22:37 Order name: O2 Per Protocol; Complete Time: 23:00 cp 06/25 22:37 Order name: O2 Sat Monitoring; Complete Time: 23:00 cp EC/04 23:55 Rate is 60 beats/min. Rhythm is regular. MA interval is normal. QRS interval is cp prolonged at 146 msec. QT interval is prolonged at 532 msec. Interpreted by me. Reviewed by me. Administered Medications: 06/26 00:30 Drug: Rocephin IV 1 grams IV at calculated rate once; Given slow IV push per pharmacy ss12 instructions Route: IV; Rate: calculated rate; Site: left antecubital; 01:00 Follow up: Response: No adverse reaction; IV Status: Completed infusion; IV Intake: [id number] Disposition: 19:11 Co-signature as Attending Physician, Reza Holt MD I agree with the assessment sp4 and plan of care. I reviewed the patient's care provided by the Advanced Practice Provider and agree with the diagnosis and treatment plan. 06/27 02:04 Chart complete. sp4 Disposition Summary: 06/26/25 03:02 Discharge Ordered Notes: Location: Home cp Problem: new cp Symptoms: have improved cp Condition: Stable cp Diagnosis - Shortness of breath cp - UTI/ Urinary tract infection, site not specified cp - Weakness cp Followup: cp - With: Private Physician - When: 2 - 3 days - Reason: Recheck today's complaints Discharge Instructions: - Discharge Summary Sheet cp - Shortness of Breath, Adult cp - Urinary Tract Infection, Adult cp - Weakness cp Forms: - Medication Reconciliation Form cp - Antibiotic Education cp - Prescription Opioid Use cp - Patient Portal Instructions cp - Leadership Thank You Letter cp Prescriptions: - Xopenex HFA 45 mcg/actuation Inhalation HFA Aerosol Inhaler - inhale 1 puff INHALATION route every 4 to 6 hours as needed for shortness of cp breath; 1 unit; Refills: 0, Product Selection Permitted - Macrobid 100 mg Oral Capsule - take 1 capsule ORAL route every 12 hours for 7 days; 14 capsule; Refills: 0, cp Product Selection Permitted Signatures: Dispatcher [employer] EDMS Nathaniel Allison PA-C PA-C cp Potepalov, Sergey, MD MD sp4 Mehnaz Darby RN RN ss12 Corrections: (The following items were deleted from the chart) 06/25 22:38 22:37 BASIC METABOLIC PANEL+C.LAB.BRZ ordered. EDMS EDMS : 22:37 CBC+H.LAB.BRZ ordered. EDMS EDMS :38 22:37 HEPATIC FUNCTION+C.LAB.BRZ ordered. EDMS EDMS :38 22:37 MAGNESIUM+C.LAB.BRZ ordered. EDMS EDMS 22:38 22:37 PROBNP+C.LAB.BRZ ordered. EDMS EDMS 22:38 22:37 PROTIME (+INR)+COAG.LAB.BRZ ordered. EDMS EDMS 22:38 22:37 Troponin High Sensitivity+C.LAB.BRZ ordered. EDMS EDMS 22:38 22:37 UA Rfx Leobardo Cult if indicated+U.LAB.BRZ ordered. EDMS EDMS 06/27 02:22 02:04 Constitutional: Negative for fever, chills, and weight loss, positive generalized cp weakness sp4
--- NOTE | 2025-06-26 04:42 | RAD REPORT ---
INDICATION: SOB COMPARISON: No existing relevant imaging studies are available FINDINGS: Two frontal views of the chest were obtained. SUPPORT DEVICES: Left-sided pacemaker. Prior TAVR. HEART/MEDIASTINUM: Heart is enlarged. LUNGS/PLEURA: Pulmonary vascular congestion. No focal consolidation. No pleural effusion or pneumotho rax. OTHER: No other significant findings. IMPRESSION: Cardiomegaly with pulmonary vascular congestion. Electronically signed by: Raul Gomes DO 06/25/2025 11:49 PM CDT NR Due to temporary technical issues with the PACS/[employer] reporting system, reports are being harry d by the in-house radiologist without review as a courtesy to ensure prompt reporting the interpreting radiologist is fully responsible for the content of the report. Transcribed Date/Time: 06/26/2025 4:41 AM
[2025-06-26 05:37] VITALS: TEMP 98.8
[2025-06-26 05:43] VITALS: O2SAT 98
[2025-06-26 05:44] VITALS: BP 162/75
== END 2025-06-26 05:11 | disposition home or self-care (01) ==
LOC: ER 22:07
DX: R06.02 Shortness of breath (principal); N39.0 Urinary tract infection, site not specified; R53.1 Weakness; I10 Essential (primary) hypertension; I48.91 Unspecified atrial fibrillation; Z95.0 Presence of cardiac pacemaker
CPT/HCPCS: 96365; 93005; 87088; 85025; 81001; 87086; 80048; 36415; 83735; 85610; 80076; 84484 ×2; 83880; 71045; 99284; J0696